=== PATIENT | female | born 1955 | race Caucasian/White ===

== ENCOUNTER 2020-06-01 10:40 | Outpatient (REF) | payer BC, SELFPAY ==
[2020-06-01 12:03] LABS: Free T4 (Free Thyroxine) 1.48 ng/dL (0.71-1.85); Thyroid Stimulating Hormone 3.43 mIU/mL (0.32-4.0)
== END 2020-06-01 10:41 | disposition home or self-care (01) ==
LOC: HO.LAB 10:40
PROVIDERS: PCP Physician Assistant; Visit Provider Internal Medicine Endocrinology, Diabetes & Metabolism
DX: E03.8 Other specified hypothyroidism (principal)
CPT/HCPCS: 84439; 84443

== ENCOUNTER → 2020-06-03 08:22 | Outpatient (BNVA) | payer BC, SELFPAY | PROVIDERS: PCP Physician Assistant; Visit Provider Internal Medicine Endocrinology, Diabetes & Metabolism | DX: Z76.89 Persons encountering health services in other specified circumstances (principal) ==

== ENCOUNTER 2020-11-30 10:48 | Outpatient (REF) | payer BC, SELFPAY ==
[2020-11-30 11:55] LABS: Thyroid Stimulating Hormone 5.66 uIU/mL (0.32-4.0)
== END 2020-11-30 10:49 | disposition home or self-care (01) ==
LOC: HO.LAB 10:48
PROVIDERS: PCP Physician Assistant; Visit Provider Internal Medicine Endocrinology, Diabetes & Metabolism
DX: E03.8 Other specified hypothyroidism (principal); E06.3 Autoimmune thyroiditis
CPT/HCPCS: 36415; 84439; 84443

== ENCOUNTER 2021-03-10 09:13 | Outpatient (REF) | payer BC, SELFPAY ==
--- NOTE | ~2021-03-10 | XR_ITS ---
EXAMINATION: XR KNEE AP STANDING CLINICAL INFORMATION: M17.0 - Bilateral primary osteoarthritis of knee COMPARISON: None TECHNIQUE: Standing AP view of both knees is performed along with lateral views of each knee. FINDINGS: Right knee shows no fracture, dislocation, or destructive process. There is mild narrowing medial knee joint compartment with osteophytes from the medial and lateral femoral condyles and medial tibial plateau. There is no erosive change or chondrocalcinosis. Small suprapatellar effusion is present. Hoffa's fat pad appears normal. Left knee shows no fracture, dislocation, or destructive process. There is similar mild narrowing medial knee joint compartment with osteophytes from the medial and lateral femoral condyles and medial lateral tibial plateau. No erosive change or chondrocalcinosis. There is small suprapatellar effusion. Hoffa's fat pad appears normal. XR/XR knee standing BI IMPRESSION: Bilateral osteoarthritis knees with mild narrowing bilateral medial compartments, small suprapatellar effusions, and marginal osteophytes.
[2021-03-10 10:37] LABS: Hematocrit 42.8 % (37-47); Hemoglobin 13.4 g/dl (12.0-16.0); Mean Corpuscular HGB Conc 31.3 g/dl (31.0-35.0); Mean Corpuscular Hemoglobin 28.8 pg (27.0-33.0); Mean Corpuscular Volume 91.8 fL (80-98); Mean Platelet Volume 10.5 fL (9.4-12.3); Platelet Count 200 X10*3/uL (160-400); Red Blood Count 4.66 X10*6/uL (4.20-5.50); White Blood Count 5.2 X10*3/uL (4.8-10.8)
[2021-03-10 11:10] LABS: Creatinine Urine 131.13 mg/dL; Microalbum/Creatinine Ratio Ur 19.8 ug/mg cr
[2021-03-10 11:17] LABS: Alanine Aminotransferase 12 U/L (0-31); Albumin Level 3.9 g/dL (3.5-5.0); Alkaline Phosphatase 91 U/L (39-117); Anion Gap 13 (12-20); Aspartate Amino Transferase 13 U/L (5-31); Bilirubin Total 0.5 mg/dL (0.0-1.0); Blood Urea Nitrogen 16 mg/dL (9-16); Carbon Dioxide 26 mmol/L (22-29); Chloride 106 mmol/L (96-108); Cholesterol 206 mg/dL; Estimated Glomerular Filt Rate 58; Glucose Fasting 97 mg/dL (60-99); HDL Cholesterol 61 mg/dL; LDL Cholesterol Calculated 120 mg/dl; Potassium 4.5 mmol/L (3.3-5.1); Sodium 140 mmol/L (135-145); Total Protein 6.6 g/dL (6.5-8.0); Triglycerides 125 mg/dL
[2021-03-10 11:18] LABS: TSH reflex Free T4 2.07 uIU/mL (0.32-4.0)
== END 2021-03-10 09:14 | disposition home or self-care (01) ==
LOC: HO.LAB 09:13
PROVIDERS: PCP Physician Assistant; Visit Provider Physician Assistant
DX: M17.0 Bilateral primary osteoarthritis of knee (principal); E06.3 Autoimmune thyroiditis; E03.8 Other specified hypothyroidism; I10 Essential (primary) hypertension
CPT/HCPCS: 36415; 73565; 80053; 80061; 82043; 84443; 85027

== ENCOUNTER → 2021-03-12 09:14 | Outpatient (BNVA) | payer BC, SELFPAY | PROVIDERS: PCP Physician Assistant; Visit Provider Orthopaedic Surgery ==

== ENCOUNTER → 2021-03-17 10:17 | Outpatient (BNVA) | payer BC, SELFPAY | PROVIDERS: PCP Physician Assistant; Referring Provider Physician Assistant; Visit Provider Internal Medicine | DX: I48.0 Paroxysmal atrial fibrillation (principal); I48.92 Unspecified atrial flutter; G47.33 Obstructive sleep apnea (adult) (pediatric); Z51.81 Encounter for therapeutic drug level monitoring; Z79.899 Other long term (current) drug therapy | CPT/HCPCS: 93005 ==

== ENCOUNTER 2021-04-10 16:26 | Outpatient (REF) | payer BC, SELFPAY ==
--- NOTE | ~2021-04-10 | MM_ITS ---
EXAMINATION: MM SCREENING DIGITAL BREAST TOMOSYNTHESIS, BILATERAL CLINICAL INFORMATION: Screening. Asymptomatic. The lifetime risk of breast cancer based on the Tyrer-Cuzick Model is 4.2%. COMPARISON: Mammography: April 04, 2020 and studies dating back to November 26, 2016 TECHNIQUE: Digital breast tomosynthesis is performed in both the craniocaudal and mediolateral oblique views along with computer-aided detection (CAD). Synthesized 2D images are generated from the tomosynthesis. FINDINGS: The breasts are almost entirely fatty (ACR BI-RADS breast composition Category a). There are no significant masses, abnormal calcifications, or other abnormalities. MM/MM tomosynthesis screening BI IMPRESSION: There are no significant changes from prior study. ASSESSMENT: BI-RADS 1: Negative RECOMMENDATION: Routine annual mammography screening. This patient's information was entered into a reminder system with a target due date for their next mammogram.
== END 2021-04-10 16:27 | disposition home or self-care (01) ==
LOC: HO.MAMMO 16:26
PROVIDERS: Visit Provider Physician Assistant
DX: Z12.31 Encounter for screening mammogram for malignant neoplasm of breast (principal)
CPT/HCPCS: 77063; 77067

== ENCOUNTER 2021-05-12 13:53 | Outpatient (REF) | payer BC, SELFPAY | END 2021-05-12 13:54 | disposition home or self-care (01) | LOC: HO.LNP 13:53 | PROVIDERS: Visit Provider Physician Assistant Medical | DX: N39.0 Urinary tract infection, site not specified (principal) | CPT/HCPCS: 87086; 87088; 87186 ==

== ENCOUNTER → 2021-05-28 13:29 | Outpatient (BNVA) | payer BC, SELFPAY | PROVIDERS: PCP Physician Assistant; Visit Provider Internal Medicine ==

== ENCOUNTER 2021-06-04 13:59 | Outpatient (REF) | payer BC, SELFPAY ==
--- NOTE | ~2021-06-04 | US_ITS ---
EXAMINATION: US THYROID CLINICAL INFORMATION: Other specified hypothyroidism. COMPARISON: None TECHNIQUE: Linear transducer grayscale and color Doppler examination with attention to the region of the thyroid. FINDINGS: SIZE: Measurements of the thyroid lobes and nodules are given in sagittal, anteroposterior and transverse dimensions respectively. Right Thyroid Lobe: 4.1 x 1.5 x 1.4 cm, volume 4.5 mL. Parenchyma: The gland echotexture is heterogeneous. Thyroid vascularity is normal. Left Thyroid Lobe: 4.1 x 1.3 x 1.3 cm, volume 3.6 mL. Parenchyma: The gland echotexture is heterogeneous. Thyroid vascularity is normal. Isthmus: 0.5 cm in maximum AP dimension. No focal thyroid nodule is seen. However, the thyroid gland is diffusely heterogeneous. NODES: No lymphadenopathy is seen in the tissue surrounding the thyroid gland. US/US thyroid IMPRESSION: Diffuse heterogeneous thyroid gland without any focal nodule. ACR TI-RADS RECOMMENDATION REFERENCE: Ultrasound-guided fine-needle aspiration, followup ultrasound, no further follow up. * TR1 (0 point) and TR 2 (2 points): No FNA or follow up * TR3 (3 points): FNA if more than or equal to 2.5 cm in maximum dimension, followup ultrasound in 1, 3 and 5 years if 1.5 to 2.4 cm in maximum dimension. * TR4 (4-6 points): FNA if more than or equal to 1.5 cm in maximum dimension, followup ultrasound in 1, 2, 3 and 5 years if 1 to 1.4 cm in maximum dimension. * TR5 (more than or equal to 7 points): FNA if more than or equal to 1 cm in maximum dimension, followup ultrasound every year for 5 years if 0.5 to 0.9 cm in maximum dimension. * TR3, TR4 or TR5 nodules that are below the size threshold for follow up receive no follow up.
== END 2021-06-04 14:00 | disposition home or self-care (01) ==
LOC: HO.HMGCX 13:59
PROVIDERS: PCP Physician Assistant; Visit Provider Internal Medicine
DX: E03.8 Other specified hypothyroidism (principal); E06.3 Autoimmune thyroiditis
CPT/HCPCS: 76536

== ENCOUNTER → 2021-06-20 11:52 | Outpatient (BNVA) | payer BC, SELFPAY | PROVIDERS: PCP Internal Medicine; Visit Provider Orthopaedic Surgery | DX: M17.0 Bilateral primary osteoarthritis of knee (principal) | CPT/HCPCS: 20610; J1100 ==

== ENCOUNTER 2021-07-14 11:03 | Outpatient (REF) | payer BC, SELFPAY ==
[2021-07-14 12:37] LABS: Free T4 (Free Thyroxine) 1.18 ng/dL (0.71-1.85); Thyroid Stimulating Hormone 3.54 uIU/mL (0.32-4.0)
[2021-07-15 11:07] LABS: Thyroglobulin Antibodies >1000 IU/mL (< or = 1); Thyroid Peroxidase Antibodies 126 IU/mL (<9)
== END 2021-07-14 11:04 | disposition home or self-care (01) ==
LOC: HO.LAB 11:03
PROVIDERS: PCP Physician Assistant; Visit Provider Internal Medicine
DX: E03.8 Other specified hypothyroidism (principal); E06.3 Autoimmune thyroiditis
CPT/HCPCS: 36415; 84439; 84443; 86376; 86800

== ENCOUNTER → 2021-08-13 10:17 | Outpatient (BNVA) | payer BC, SELFPAY | PROVIDERS: PCP Physician Assistant; Visit Provider Internal Medicine ==

== ENCOUNTER 2021-08-18 12:14 | Emergency (ER) | payer BC, SELFPAY ==
--- NOTE | ~2021-08-18 | XR_ITS ---
EXAMINATION: PORTABLE CHEST 1 VIEW CLINICAL INFORMATION: pain . COMPARISON: 08/02/2018. TECHNIQUE: Portable frontal view of the chest was obtained. FINDINGS: The lungs are well expanded. No focal infiltrate, effusion, edema, or pneumothorax. Cardiac and mediastinal silhouettes are within normal limits for size with mild tortuosity to the descending aorta. No acute bony abnormality seen. XR/XR chest 1V IMPRESSION: No evidence of acute disease compared to 08/02/2018.
[2021-08-18 12:48] VITALS: BP 153/62; PULSE 60; RESP 18; TEMP 36.4; O2SAT 97; BMI 41.7
--- NOTE | 2021-08-18 12:53 | ECG_ITS ---
Test Reason : WEAKNESS Blood Pressure : / mmHG Vent. Rate : 060 BPM Atrial Rate : 060 BPM P-R Int : 206 ms QRS Dur : 096 ms QT Int : 432 ms P-R-T Axes : 056 019 023 degrees QTc Int : 432 ms Normal sinus rhythm Normal ECG When compared with ECG of 01-AUG-2018 23:53, No significant change was found Referred By: Generic ED Physician Electronically Signed By:COREY TAY MD
[2021-08-18 13:39] LABS: MANUAL DIFF FLAG NO
[2021-08-18 13:40] LABS: Basophils Percent Auto 0.5 % (0-2); Eosinophils Absolute Auto 0.1 X10*3/uL (0.0-0.4); Eosinophils Percent Auto 1.7 % (0-4); Hematocrit 41.9 % (37.0-47.0); Hemoglobin 13.2 g/dl (12.0-16.0); Imm Gran Abs Auto 0.02 X10*3/uL (0.00-0.03); Imm Gran Pct Auto 0.3 % (0.0-0.4); Lymphocytes Absolute Auto 1.1 X10*3/uL (1.2-4.9); Lymphocytes Percent Auto 17.9 % (20-40); Mean Corpuscular HGB Conc 31.5 g/dl (31.0-35.0); Mean Corpuscular Hemoglobin 28.4 pg (27.0-33.0); Mean Corpuscular Volume 90.3 fL (80.0-98.0); Mean Platelet Volume 9.4 fL (9.4-12.3); Monocytes Absolute Auto 0.4 X10*3/uL (0.1-1.2); Monocytes Percent Auto 5.8 % (2-11); Neutrophils Absolute Auto 4.7 x10*3/uL (2.0-8.3); Neutrophils Percent Auto 73.8 % (45-73); Platelet Count 204 X10*3/uL (160-400); Red Blood Count 4.64 X10*6/uL (4.20-5.50); White Blood Count 6.4 X10*3/uL (4.8-10.8)
[2021-08-18 13:56] LABS: Anion Gap 10 (12-20); Blood Urea Nitrogen 19 mg/dL (9-16); Calcium 9.6 mg/dL (8.4-10.2); Carbon Dioxide 30 mmol/L (22-29); Chloride 104 mmol/L (96-108); Creatinine Clr Calc Pharmacy 60.3; Estimated Glomerular Filt Rate 57; Glucose Random 103 mg/dL (60-115); Potassium 4.7 mmol/L (3.3-5.1); Sodium 139 mmol/L (135-145)
[2021-08-18 14:01] LABS: COVID-19 Test Negative (Negative)
[2021-08-18 14:03] LABS: Troponin-I High Sensitivity < 3.5 ng/L (<3.5-17.0)
--- NOTE | 2021-08-18 17:59 | ED_ITS ---
HPI - Chest Pain General Chief Complaint: Chest Pain Stated Complaint: heart problems sent by Urgent Care Time Seen by Provider: 08/18/21 17:46 Source: patient Mode of arrival: ambulatory Limitations: no limitations History of Present Illness HPI narrative: Patient is a 66-year-old female with past medical history s ignificant for atrial fibrillation currently prescribed flecainide, metoprolol, apixaban, paroxysmal atrial flutter, obstructive sleep apnea, hypertension, hypothyroidism, asthma, GERD. Patient reports onset of symptoms about 2 weeks ago Where she experiences diffuse anterior chest heaviness as sociated with bilateral upper extremity weakness, fatigue, headache, near syncope, nausea. 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 Denies associated palpitations, reports according to her Apple watch no concern for atrial fibrillation during times of these episodes. Denies chest pain, shortness of breath, difficulty breathing wheezing, dyspnea with exertion, pedal edema. She was concerned because her symptoms seem to be getting worse with each episode that occurs. She contacted her primary care provider who referred her to urgent care and was advised to come to the emergency department, she has an appointment scheduled with her optometry teacher Dr. Garcia tomorrow. complaint: chest heaviness Pertinent past history: asthma and other (Atrial fibrillation) Onset (ago): week(s) Timing of current episode: episodic and daily Onset: during exertion Pain radiation: none Quality: heaviness Relieving factors: nothing Exacerbating factors: nothing Associated symptoms: nausea Treatment prior to arrival: none Risk Factors Coronary artery disease risk factors: hypertension Thoracic aortic dissection risk factors: none Related Data Home Medications Medication Instructions Recorded Confirmed cholecalciferol (vitamin D3) 125 125 mcg PO DAILY 06/03/20 08/13/21 mcg (5,000 unit) capsule montelukast 10 mg tablet 10 mg PO DAILY 06/03/20 08/13/21 budesonide-formoterol HFA 80 INHALATION 05/12/21 08/13/21 mcg-4.5 mcg/actuation aerosol inhaler magnesium oxide 500 mg capsule 500 mg PO DAILY 05/12/21 08/13/21 Previous Rx's Medication Instructions Recorded pravastatin 20 mg tablet 20 mg PO DAILY #90 tab 03/03/21 levothyroxine 137 mcg tablet 137 mcg PO DAILY 90 Days #90 tab 03/06/21 apixaban 5 mg tablet 5 mg PO BID 90 Days #180 tab 03/17/21 flecainide 150 mg tablet 150 mg PO Q12H #180 tab 03/17/21 metoprolol tartrate 100 mg tablet 100 mg PO BID #180 tab 03/17/21 cephalexin 500 mg capsule 500 mg PO BID 7 Days #14 cap 05/12/21 Allergies Allergy/AdvReac Type Severity Reaction Status Date / Time lisinopril [LISINOPRIL] Allergy Unknown COUGH/AFIB, Verified 08/18/21 11:28 Cough nizatidine [From AXID] Allergy Unknown ANAPHYLAXIS Verified 08/18/21 11:28 Sulfa (Sulfonamide Allergy Unknown UNKNOWN Verified 08/18/21 11:28 Antibiotics) [SULFA (SULFONAMIDE ANTIBIOTICS)] Review of Systems Review of Systems: Constitutional : No Weight loss, No Fever, No Chills ENT/Mouth :? No sore throat, No Rhinorrhea Eyes: No Eye Pain, No Swelling Cardiovascular : pos Chest heaviness, no SOB, no Dyspnea on Exertion, No Orthop blossom, No Edema, No Palpitations Respiratory : No Cough, No Sputum Gastrointestinal : pos Nausea, No Vomiting, No Diarrhea, No abdominal Pain, No Hematochezia, No Melena Genitourinary : No Dysuria, No Urinary Frequency Musculoskeletal : No joint pain, No Myalgias, No Joint Swelling Skin : No Skin Lesions, No rash Neuro : pos intermittent Weakness, No Numbness, No Dizziness, pos intermittent Headache Psych : No Anxiety/Panic, No Depression Heme/Lymph: No Bruising, No Lymphadenopathy Endocrine : No Polyuria, No Polydipsia ? All other systems reviewed and are negative [facility] Past Medical History Attestation statement: The following information was validated with the patient. 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 Mother CHF (congestive heart failure) Dementia Social History Social History Housing: Condominium Alcohol intake: never Patient Tobacco Use Status: Never used Tobacco e-Cigarette/Vaping Use: Never Used Second Hand Smoke Exposure: No Use of substances other than those prescribed or required for medical reasons: No Advance Directives: No Advance Directives Information Provided: No service: No Current occupational status: previously employed Current occupation: Currently waiting for work in June. Physical Exam Vital Signs: Vital Signs: Last Vital Signs Temp 97.6 F 08/18/21 12:48 Pulse 58 08/18/21 20:51 Resp 16 08/18/21 20:51 BP 192/82 H 08/18/21 20:51 Pulse Ox 97 08/18/21 20:51 BMI result Body Mass Index 41.7 Appearance: Alert.? Oriented X3.? No acute distress.?? Eyes: Pupils equal, round and reactive to light.?? ENT: Pharynx normal.?? Neck: Normal inspection.? Neck supple.?? CVS: Normal heart rate and rhythm.? Pulses normal.?? Respiratory: No respiratory distress.? Breath sounds normal.?? Abdomen: Soft and nontender.?? Skin: Skin warm and dry.? Normal skin color.? Normal skin turgor.?? Extremities: No lower extremity edema.? No calf ttp? Neuro: Oriented X 3.? No motor deficit.? No sensory deficit. Course Course Course Narrative: Serum labs without concern for infection, electrolyte abnormality, abnormal renal function. Serial Troponins not concerning for acute ischemia or infarction. Chest x-ray excludes pneumonia or mass. EKG, NSR, no arrhythmia, ischemia, or infarct. 1915 patient reports having episode of chest heaviness currently, mild headache. Notably hypertensive 201/96. Reports anxiety about her blood pressure reading. Reports she took morning dosage of metoprolol, will give evening dosage now while in ED, EKG to be obtained for comparison. 1948 repeat EKG without acute changes, NSR persists, no acute ischemia or infarction. Planning for discharge home with cardiology follow-up in the morning as scheduled, once blood pressure under better control. 2100 blood pressure 186/79, denies current chest heaviness, headache, arm weakness. MDM - Chest Pain MDM Narrative Medical decision making narrative: 66-year-old female with past medical history significant for atrial fibrillation currently prescribed flecainide, metoprolol, apixaban, paroxysmal atrial flutter, obstructive sleep apnea, hypertension, hypothyroidism, asthma, GERD. Complaining of intermittent episodes of chest heaviness, bilateral arm weakness, and associated headache, nausea, near-syncope for 2 weeks. Will need serum labs, EKG< chest x-ray. Disposition pending results. Differential Diagnosis Differential diagnosis: Likely stable angina, atypical chest pain and chest pain Medical Records Data Attestation: I reviewed the patient's medical records. Lab Data Attestation: I reviewed the patient's lab results. Result diagrams: 08/18/21 13:32 08/18/21 13:32 Labs: Lab Results 08/18/21 08/18/21 08/18/21 Range/Units 13:30 13:32 13:32 WBC 6.4 (4.8-10.8) X10*3/uL RBC 4.64 (4.20-5.50) X10*6/uL Hgb 13.2 (12.0-16.0) g/dl Hct 41.9 (37.0-47.0) % MCV 90.3 (80.0-98.0) fL MCH 28.4 (27.0-33.0) pg MCHC 31.5 (31.0-35.0) g/dl RDW 13.0 (11.0-16.0) % Plt Count 204 (160-400) X10*3/uL MPV 9.4 (9.4-12.3) fL Immature Gran % (Auto) 0.3 (0.0-0.4) % Neut % (Auto) 73.8 H (45-73) % Lymph % (Auto) 17.9 L (20-40) % [place] % (Auto) 5.8 (2-11) % Eos % (Auto) 1.7 (0-4) % Baso % (Auto) 0.5 (0-2) % Lymph # (Auto) 1.1 L (1.2-4.9) X10*3/uL [place] # (Auto) 0.4 (0.1-1.2) X10*3/uL Eos # (Auto) 0.1 (0.0-0.4) X10*3/uL Baso # (Auto) 0.0 (0.0-0.2) X10*3/uL Abs Immat Gran (auto) 0.02 (0.00-0.03) X10*3/uL Absolute Neuts (auto) 4.7 (2.0-8.3) x10*3/uL Absolute Nucleated RBC 0.000 (0.0-0.012) X10*3/uL Nucleated RBC % (auto) 0.0 (0.0-0.2) /100WBC Sodium 139 (135-145) mmol/L Potassium 4.7 (3.3-5.1) mmol/L Chloride 104 (96-108) mmol/L Carbon Dioxide 30 H (22-29) mmol/L Anion Gap 10 L (12-20) BUN 19 H (9-16) mg/dL Creatinine 0.97 (0.5-1.4) mg/dL Estim Creat Clear Calc 60.3 Estimated GFR 57 Random Glucose 103 (60-115) mg/dL Calcium 9.6 D (8.4-10.2) mg/dL Troponin I High Sens (<3.5-17.0) ng/L COVID-19 ([facility]AZ) Negative (Negative) COVID-19 Clin Com See Note 08/18/21 08/18/21 Range/Units 13:32 18:44 WBC (4.8-10.8) X10*3/uL RBC (4.20-5.50) X10*6/uL Hgb (12.0-16.0) g/dl Hct (37.0-47.0) % MCV (80.0-98.0) fL MCH (27.0-33.0) pg MCHC (31.0-35.0) g/dl RDW (11.0-16.0) % Plt Count (160-400) X10*3/uL MPV (9.4-12.3) fL Immature Gran % (Auto) (0.0-0.4) % Neut % (Auto) (45-73) % Lymph % (Auto) (20-40) % [place] % (Auto) (2-11) % Eos % (Auto) (0-4) % Baso % (Auto) (0-2) % Lymph # (Auto) (1.2-4.9) X10*3/uL [place] # (Auto) (0.1-1.2) X10*3/uL Eos # (Auto) (0.0-0.4) X10*3/uL Baso # (Auto) (0.0-0.2) X10*3/uL Abs Immat Gran (auto) (0.00-0.03) X10*3/uL Absolute Neuts (auto) (2.0-8.3) x10*3/uL Absolute Nucleated RBC (0.0-0.012) X10*3/uL Nucleated RBC % (auto) (0.0-0.2) /100WBC Sodium (135-145) mmol/L Potassium (3.3-5.1) mmol/L Chloride (96-108) mmol/L Carbon Dioxide (22-29) mmol/L Anion Gap (12-20) BUN (9-16) mg/dL Creatinine (0.5-1.4) mg/dL Estim Creat Clear Calc Estimated GFR Random Glucose (60-115) mg/dL Calcium (8.4-10.2) mg/dL Troponin I High Sens < 3.5 < 3.5 (<3.5-17.0) ng/L COVID-19 (YAZ) (Negative) COVID-19 Clin Com Imaging Data Chest x-ray: Attestation: I personally reviewed and interpreted this imaging study as follows: Radiologist's impression: IMPRESSION: No evidence of acute disease compared to 08/02/2018. ECG Data ECG #1: Attestation: I personally reviewed and interpreted this ECG as follows: ECG interpretation date: 08/18/21 ECG interpretation time: 18:14 Interpretation: Rate: 60 Rhythm:?normal sinus rhythm [place]:?normal Normal P waves.? Normal [place].?? Normal QRS complex.?? ST T wave :??normal, no ST elevation qTC: 432 prior studies:?July 2018 The study has been interpreted contemporaneously by me. ECG #2: Attestation: I personally reviewed and interpreted this ECG as follows: ECG interpretation date: 08/18/21 ECG interpretation time: 19:45 Prior ECG tracings: available for review Interpretation: Rate: 65 Rhythm:?normal sinus rhythm [place]:?normal Normal P waves.? Normal [place].?? Normal QRS complex.?? ST T wave :??normal, no ST elevation qTC: 455 prior studies:?July 2018, Aug 2021 The study has been interpreted contemporaneously by me. Discharge Plan Discharge Clinical Impression: Stable angina Patient Disposition: Home, Self-Care Additional Instructions: You were evaluated in the emergency department for the episodes of chest heaviness you have been experiencing. Your EKGs have been normal, and blood work are normal. Do not suspect that your chest heaviness is related to heart attack at this time. your blood pressure was elevated while you are in the emergency department, however after continue your pain medication, metoprolol for blood pressure has been coming down. As we discussed, your blood pressure was elevated, however, it improved after taking your home dosage of metoprolol. as we discussed if your blood pressure continues to remain elevated you may require medication regimen adjustment. You should contact your primary care provider to schedule follow-up, and follow-up in the morning with your optometry teacher Dr. Garcia. Please return to ED for any worsening symptoms or concerns including but not limited to; chest pain, dizziness / lightheadedness, passing you come in shortness of breath, difficulty breathing, pedal edema. Prescriptions: No Action pravastatin 20 mg tablet 20 mg PO DAILY Qty: 90 RF: 1 levothyroxine 137 mcg tablet 137 mcg PO DAILY 90 Days Qty: 90 RF: 1 magnesium oxide 500 mg capsule 500 mg PO DAILY RF: 0 cephalexin 500 mg capsule 500 mg PO BID 7 Days Qty: 14 RF: 0 flecainide 150 mg tablet 150 mg PO Q12H Qty: 180 RF: 3 metoprolol tartrate 100 mg tablet 100 mg PO BID Qty: 180 RF: 3 apixaban 5 mg tablet 5 mg PO BID 90 Days Qty: 180 RF: 3 montelukast 10 mg tablet 10 mg PO DAILY RF: 0 cholecalciferol (vitamin D3) 125 mcg (5,000 unit) capsule 125 mcg PO DAILY RF: 0 budesonide-formoterol 80-4.5 mcg/actuation HFA aerosol inhaler inhalation RF: 0 Referrals: Kwabena Garcia MD [Physician] - 1 day (as scheduled) Interventions: LWBS Worksheet Last Done: 08/18/21 13:48
[2021-08-18 18:45] VITALS: BP 201/96; PULSE 54; RESP 16; O2SAT 98
[2021-08-18 19:09] LABS: Troponin-I High Sensitivity < 3.5 ng/L (<3.5-17.0)
--- NOTE | 2021-08-18 19:19 | ECG_ITS ---
Test Reason : REPEAT Blood Pressure : / mmHG Vent. Rate : 065 BPM Atrial Rate : 065 BPM P-R Int : 202 ms QRS Dur : 090 ms QT Int : 438 ms P-R-T Axes : 069 035 030 degrees QTc Int : 455 ms Normal sinus rhythm Normal ECG When compared with ECG of 18-AUG-2021 13:03, No significant change was found Referred By: Sinai Cage Electronically Signed By:COREY TAY MD
[2021-08-18] MEDS: Metoprolol Tartrate 100 MG TABLET PO (20:11)
[2021-08-18 20:51] VITALS: BP 192/82; PULSE 58; RESP 16; O2SAT 97
[2021-08-18] MEDS: Acetaminophen 325 MG TABLET 650 MG PO (21:13)
--- NOTE | 2021-08-18 21:15 | PC.NURSE ---
pt a&o, no sob or chest pain. Blood pressure has improved after being medicated, pt denies dizziness or lightheadedness.
== END 2021-08-18 21:25 | disposition home or self-care (01) ==
PROVIDERS: Emergency Provider Emergency Medicine; PCP Physician Assistant
DX: I20.8 Other forms of angina pectoris (principal); I10 Essential (primary) hypertension; Z20.822 Contact with and (suspected) exposure to COVID-19; E78.5 Hyperlipidemia, unspecified; I48.0 Paroxysmal atrial fibrillation; J45.909 Unspecified asthma, uncomplicated; Z79.01 Long term (current) use of anticoagulants; Z79.02 Long term (current) use of antithrombotics/antiplatelets; Z79.899 Other long term (current) drug therapy
CPT/HCPCS: 36415; 71045; 80048; 84484; 85025; 87635; 93005; 99283; 99285

== ENCOUNTER → 2021-08-19 10:01 | Outpatient (BNVA) | payer BC, SELFPAY | PROVIDERS: PCP Physician Assistant; Referring Provider Physician Assistant; Visit Provider Internal Medicine ==

== ENCOUNTER 2021-08-29 09:00 | Outpatient (RCR) | payer BC, SELFPAY ==
--- NOTE | 2021-06-25 15:43 | MHC.PT.EP ---
[facility] [place] [facility] [place] [facility] [place] [facility] [address] Kimberley Lott [address] [phone] F: [phone] F: [phone] F: [phone] F: [phone] Physical Therapy Plan of Care Date of Evaluation: Date of Surgery: Diagnosis: Assessment: The patient arrived reporting symptoms of mixed UI. The patient had significant weakness, poor muscle coordination, and poor endurance of her PFM. Pt had no painful palpation. Pt will benefit from education, diet and lifestyle education, behavior training to help with urge incontinence and PFM strengthening to help with muscular endurance. The patient is an excellent candidate for skilled PT. Frequency and Duration: The patient will be seen 2 Short Term Goals: 1. Pt to be able to correctly activate her PFM to allow improved support to bowel and bladder. 2. Pt to be able to demonstrate diaphragmatic breathing to improve pressure exchange and intra abdominal load management. 3. Pt to be educated on bladder irritants in order to decrease UI triggers 4. Pt to complete a voiding log in order to accurately assess her bladder habits 5. Pt to be educated on behavior training to help decrease urge incontinence. Conventions Assistant Goals: 1. Pt to be able to show improved PFM contraction during functional movements such as a bridge or squat to help prevent or limit POP. 2. Pt to reduce # of episodes of DARIA during the day by 50% to help improve quality of life and reduce pad usage. 3. Pt to be independent with her final HEP for PFM in order to help maintain gains made in therapy. Treatment Plan: Modalities to reduce pain, spasms and effusion. Manual therapy to restore motion and function. Therapeutic exercise to improve strength and flexibility. Neuromuscular re-education for posture and balance. Therapeutic activities to return to functional activities of daily living. Electronically signed by: Please sign and return to therapist. Thank you for your referral.
== END 2021-10-17 11:22 | disposition home or self-care (01) ==
LOC: HO.PT 09:00
PROVIDERS: PCP Internal Medicine; Visit Provider Physician Assistant
DX: N39.41 Urge incontinence (principal)
CPT/HCPCS: 97110; 97112; 97162; 97530

== ENCOUNTER → 2021-09-02 14:23 | Outpatient (BNVA) | payer BC, SELFPAY | PROVIDERS: PCP Physician Assistant; Referring Provider Physician Assistant; Visit Provider Internal Medicine ==

== ENCOUNTER → 2021-09-22 09:28 | Outpatient (BNVA) | payer BC, SELFPAY | PROVIDERS: PCP Physician Assistant; Visit Provider Orthopaedic Surgery ==

== ENCOUNTER → 2022-03-18 09:35 | Outpatient (BNVA) | payer MEDICARE, SELFPAY | PROVIDERS: PCP Physician Assistant; Referring Provider Physician Assistant; Visit Provider Internal Medicine | DX: I48.0 Paroxysmal atrial fibrillation (principal); I48.92 Unspecified atrial flutter; I25.10 Atherosclerotic heart disease of native coronary artery without angina pectoris; I10 Essential (primary) hypertension; G47.33 Obstructive sleep apnea (adult) (pediatric); E66.01 Morbid (severe) obesity due to excess calories; Z51.81 Encounter for therapeutic drug level monitoring; Z79.899 Other long term (current) drug therapy; Z68.41 Body mass index [BMI] 40.0-44.9, adult | CPT/HCPCS: 93005; 99212 ==

== ENCOUNTER 2022-04-15 13:26 | Outpatient (REF) | payer MEDICARE, SELFPAY ==
--- NOTE | ~2022-04-15 | MM_ITS ---
EXAMINATION: MM SCREENING DIGITAL BREAST TOMOSYNTHESIS, BILATERAL CLINICAL INFORMATION: Screening. Asymptomatic. The lifetime risk of breast cancer based on the Tyrer-Cuzick Model is 4%. COMPARISON: Mammography: 04/10/2021, 04/04/2020, 11/30/2017 TECHNIQUE: Digital breast tomosynthesis is performed in both the craniocaudal and mediolateral oblique views along with computer-aided detection (CAD). Synthesized 2D images are generated from the tomosynthesis. FINDINGS: The breasts are almost entirely fatty (ACR BI-RADS breast composition Category a). There are no significant masses, abnormal calcifications, or other abnormalities. Background stromal markings are normal. There is no developing density or architectural abnormality. The axilla and skin contours are unremarkable. No significant changes. MM/MM tomosynthesis screening BI IMPRESSION: No mammographic evidence of malignancy. ASSESSMENT: BI-RADS 1: Negative RECOMMENDATION: Routine annual mammography screening. This patient's information was entered into a reminder system with a target due date for their next mammogram.
== END 2022-04-15 13:27 | disposition home or self-care (01) ==
LOC: HO.MAMMO 13:26
PROVIDERS: Visit Provider Physician Assistant
DX: Z12.31 Encounter for screening mammogram for malignant neoplasm of breast (principal)
CPT/HCPCS: 77063; 77067

== ENCOUNTER 2022-05-27 11:47 | Outpatient (REF) | payer MEDICARE, SELFPAY ==
--- NOTE | ~2022-05-27 | XR_ITS ---
EXAMINATION: XR SHOULDER, RIGHT XR SHOULDER, LEFT CLINICAL INFORMATION: M35.3 - Polymyalgia rheumatica COMPARISON: Portable chest radiograph 08/18/2021 TECHNIQUE: Each shoulder is imaged in 3 views. There are a total of 6 views. FINDINGS: Right: No fracture or dislocation or destructive process. The glenohumeral joint appears normal. There is focal mineralization at inferior glenoid rim, likely calcification at origin inferior glenohumeral ligament. The acromioclavicular alignment is normal. There is small oval calcification at lateral acromium, likely origin deltoid. Otherwise, no visible rotator cuff calcifications. Left: No fracture, dislocation, destructive process. The glenohumeral joint appears normal. The acromioclavicular alignment is normal. There is small oval calcification at proximal medial humeral neck likely calcific tendinosis involving long head biceps. XR/XR shoulder RT min 2V IMPRESSION: Right: -Focal mineralization inferior glenoid rim, likely calcification at origin inferior glenohumeral ligament. -Small oval calcification at lateral acromium, likely origin deltoid. Left: -Calcific tendinosis long head biceps.
--- NOTE | ~2022-05-27 | XR_ITS ---
EXAMINATION: XR SHOULDER, RIGHT XR SHOULDER, LEFT CLINICAL INFORMATION: M35.3 - Polymyalgia rheumatica COMPARISON: Portable chest radiograph 08/18/2021 TECHNIQUE: Each shoulder is imaged in 3 views. There are a total of 6 views. FINDINGS: Right: No fracture or dislocation or destructive process. The glenohumeral joint appears normal. There is focal mineralization at inferior glenoid rim, likely calcification at origin inferior glenohumeral ligament. The acromioclavicular alignment is normal. There is small oval calcification at lateral acromium, likely origin deltoid. Otherwise, no visible rotator cuff calcifications. Left: No fracture, dislocation, destructive process. The glenohumeral joint appears normal. The acromioclavicular alignment is normal. There is small oval calcification at proximal medial humeral neck likely calcific tendinosis involving long head biceps. XR/XR shoulder LT min 2V IMPRESSION: Right: -Focal mineralization inferior glenoid rim, likely calcification at origin inferior glenohumeral ligament. -Small oval calcification at lateral acromium, likely origin deltoid. Left: -Calcific tendinosis long head biceps.
--- NOTE | ~2022-05-27 | XR_ITS ---
EXAMINATION: XR CERVICAL SPINE CLINICAL INFORMATION: M35.3 - Polymyalgia rheumatica COMPARISON: None TECHNIQUE: Cervical spine is imaged in 5 views: AP, lateral, odontoid x3. FINDINGS: There is straightening of the cervical lordosis. The vertebral bodies are normal in height. There is no cervical vertebral compression, destructive process, or prevertebral soft tissue swelling. The odontoid appears intact. There are degenerative disc changes C4-C5, C5-C6, and C6-C7 with disc narrowing and vertebral spurring. There is borderline retrolisthesis at C4-C5. No cervical rib. XR/XR cervical spine 3V IMPRESSION: 1. Degenerative disc changes C4-C7. 2. Borderline retrolisthesis C4-C5. 3. No vertebral compression or prevertebral soft tissue swelling.
[2022-05-27 13:13] LABS: Erythrocyte Sedimentation Rate 9 MM/HR (0-20)
[2022-06-02 15:42] LABS: Anti Nuclear Antibody Screen POSITIVE (NEGATIVE)
== END 2022-05-27 11:48 | disposition home or self-care (01) ==
LOC: HO.XRAY 11:47
PROVIDERS: PCP Physician Assistant; Visit Provider Physician Assistant
DX: M35.3 Polymyalgia rheumatica (principal); M54.2 Cervicalgia; M25.512 Pain in left shoulder; M25.511 Pain in right shoulder
CPT/HCPCS: 36415; 72040; 73030; 85652; 86038; 86039

== ENCOUNTER 2022-06-13 09:51 | Outpatient (REF) | payer MEDICARE, SELFPAY ==
[2022-06-13 10:36] LABS: Hematocrit 39.8 % (37.0-47.0); Hemoglobin 12.4 g/dl (12.0-16.0); Mean Corpuscular HGB Conc 31.2 g/dl (31.0-35.0); Mean Corpuscular Hemoglobin 28.6 pg (27.0-33.0); Mean Corpuscular Volume 91.7 fL (80.0-98.0); Mean Platelet Volume 9.4 fL (9.4-12.3); Platelet Count 221 X10*3/uL (160-400); Red Blood Count 4.34 X10*6/uL (4.20-5.50); Red Cell Distribution Width 13.8 % (11.0-16.0); White Blood Count 7.9 X10*3/uL (4.8-10.8)
[2022-06-13 11:12] LABS: Alanine Aminotransferase 17 U/L (0-31); Alkaline Phosphatase 88 U/L (39-117); Anion Gap 13 (12-20); Aspartate Amino Transferase 13 U/L (5-31); Bilirubin Total 0.5 mg/dL (0.0-1.0); Blood Urea Nitrogen 25 mg/dL (9-16); Calcium 9.2 mg/dL (8.4-10.2); Carbon Dioxide 28 mmol/L (22-29); Chloride 102 mmol/L (96-108); Cholesterol 232 mg/dL; Estimated Glomerular Filt Rate > 60; Glucose Fasting 88 mg/dL (60-99); HDL Cholesterol 78 mg/dL; LDL Cholesterol Calculated 131 mg/dl; Potassium 4.3 mmol/L (3.3-5.1); Sodium 139 mmol/L (135-145); Total Protein 6.7 g/dL (6.5-8.0); Triglycerides 115 mg/dL
[2022-06-13 11:28] LABS: Creatinine Urine 85.86 mg/dL; Microalbum/Creatinine Ratio Ur 10.4 ug/mg cr
[2022-06-13 11:35] LABS: TSH reflex Free T4 2.53 uIU/mL (0.32-4.0)
== END 2022-06-13 09:52 | disposition home or self-care (01) ==
LOC: HO.LAB 09:51
PROVIDERS: PCP Physician Assistant; Visit Provider Internal Medicine
DX: I10 Essential (primary) hypertension (principal); I48.0 Paroxysmal atrial fibrillation
CPT/HCPCS: 36415; 80053; 80061; 82043; 84443; 85027

== ENCOUNTER → 2022-06-15 14:33 | Outpatient (BNVA) | payer MEDICARE, SELFPAY | PROVIDERS: PCP Physician Assistant; Visit Provider Internal Medicine | DX: E03.8 Other specified hypothyroidism (principal); E06.3 Autoimmune thyroiditis | CPT/HCPCS: Q3014 ==

== ENCOUNTER → 2022-08-04 10:46 | Outpatient (BNVA) | payer MEDICARE, SELFPAY | PROVIDERS: PCP Physician Assistant; Referring Provider Physician Assistant; Visit Provider Student in an Organized Health Care Education/Training Program | DX: R76.8 Other specified abnormal immunological findings in serum (principal) | CPT/HCPCS: 99202 ==

== ENCOUNTER 2022-08-04 11:55 | Outpatient (REF) | payer MEDICARE, SELFPAY ==
[2022-08-04 13:55] LABS: MANUAL DIFF FLAG NO
[2022-08-04 13:57] LABS: Basophils Absolute Auto 0.1 X10*3/uL (0.0-0.2); Basophils Percent Auto 0.6 % (0-2); Eosinophils Absolute Auto 0.2 X10*3/uL (0.0-0.4); Hematocrit 40.3 % (37.0-47.0); Hemoglobin 12.7 g/dl (12.0-16.0); Imm Gran Abs Auto 0.05 X10*3/uL (0.00-0.03); Imm Gran Pct Auto 0.6 % (0.0-0.4); Lymphocytes Absolute Auto 1.5 X10*3/uL (1.2-4.9); Lymphocytes Percent Auto 17.6 % (20-40); Mean Corpuscular HGB Conc 31.5 g/dl (31.0-35.0); Mean Corpuscular Hemoglobin 28.7 pg (27.0-33.0); Mean Platelet Volume 9.7 fL (9.4-12.3); Monocytes Absolute Auto 0.6 X10*3/uL (0.1-1.2); Monocytes Percent Auto 6.9 % (2-11); Neutrophils Percent Auto 72.3 % (45-73); Platelet Count 253 X10*3/uL (160-400); Red Blood Count 4.43 X10*6/uL (4.20-5.50); Red Cell Distribution Width 13.5 % (11.0-16.0); White Blood Count 8.4 X10*3/uL (4.8-10.8)
[2022-08-04 13:59] LABS: Appearance Urine Clear; Color Urine Yellow; Glucose Urine UA Negative (Negative); Leukocyte Esterase Urine Small (1+) (Negative); Nitrite Urine Negative (Negative); PH 6.5 (5.0-9.0); UMIC TRIGGER UA YES; Urine Blood Negative (Negative); Urine Ketones Negative (Negative); Urine Protein Negative (Neg-Trace)
[2022-08-04 14:02] LABS: Bacteria Urine None Seen (None Seen); Hyaline Casts Urine 0-2 /LPF (0-2); RBC Urine 0-2 /HPF (0-2); Squamous Epithelial Cell Urine 0-2 /HPF (0-2)
[2022-08-04 14:41] LABS: Erythrocyte Sedimentation Rate 11 MM/HR (0-20)
[2022-08-04 15:04] LABS: Creatinine Urine 41.45 mg/dL; Total Protein Urine Random < 7 mg/dL (<12)
[2022-08-04 15:48] LABS: Rheumatoid Factor < 13.0 IU/mL (<15.0)
[2022-08-04 16:51] LABS: Alanine Aminotransferase 31 U/L (0-31); Albumin Level 4.1 g/dL (3.5-5.0); Alkaline Phosphatase 92 U/L (39-117); Anion Gap 10 (12-20); Aspartate Amino Transferase 18 U/L (5-31); Bilirubin Total 0.3 mg/dL (0.0-1.0); Blood Urea Nitrogen 16 mg/dL (9-16); C Reactive Protein 0.56 mg/dL (< or = 0.50); Calcium 9.2 mg/dL (8.4-10.2); Carbon Dioxide 31 mmol/L (22-29); Chloride 103 mmol/L (96-108); Estimated Glomerular Filt Rate > 60; Glucose Random 90 mg/dL (60-115); Potassium 4.3 mmol/L (3.3-5.1); Sodium 140 mmol/L (135-145); Total Protein 6.7 g/dL (6.5-8.0)
[2022-08-05 05:45] LABS: HBS Num1 1.16 mIU/mL (0-7.99); HBc Num1 0.09 S/CO (0.00-0.79); Hepatitis A Antibody IgM 0.22 Index (0-0.79); Hepatitis B Core Antibody Nonreactive (Nonreactive); ~HepC Num1 0.12 S/CO (0.00-0.79); ~Hepatitis A Antibody IgM Nonreactive (Nonreactive); ~Hepatitis B Surface Antibody NONREACTIVE (Nonreactive); ~Hepatitis C Antibody Nonreactive (Nonreactive)
[2022-08-05 06:10] LABS: HBsAGNum1 0.25 S/CO (0.00-0.99); Hepatitis B Surface Antigen Negative (Negative)
[2022-08-06 15:37] LABS: Anti DNA DS Antibody 6 IU/mL; Antibody to SS-A Antigen <1.0 NEG AI (<1.0 NEG); Antibody to SS-B Antigen <1.0 NEG AI (<1.0 NEG); SM/Ribonucleoprotein Ab <1.0 NEG AI (<1.0 NEG); Smith Protein <1.0 NEG AI (<1.0 NEG)
[2022-08-06 16:23] LABS: Cyclic Citrullinated Peptide <16 UNITS
[2022-08-06 22:57] LABS: Complement C3 138 mg/dL (83-193)
[2022-08-07 00:04] LABS: TS Negative Control Passed; TS Panel A 0; TS Panel B 0; TS Positive Control Passed; TSpotTB Negative (Negative)
== END 2022-08-04 11:56 | disposition home or self-care (01) ==
LOC: HO.10HDL 11:55
PROVIDERS: Visit Provider Student in an Organized Health Care Education/Training Program
DX: R76.8 Other specified abnormal immunological findings in serum (principal); E03.8 Other specified hypothyroidism; E06.3 Autoimmune thyroiditis; Z11.59 Encounter for screening for other viral diseases; Z11.7 Encounter for testing for latent tuberculosis infection
CPT/HCPCS: 36415; 80053; 81001; 82550; 84156; 85025; 85652; 86140; 86160; 86200; 86225; 86235; 86431; 86481; 86704; 86706; 86709; 86803; 87340

== ENCOUNTER → 2022-09-24 09:16 | Outpatient (BNVA) | payer MEDICARE, SELFPAY | PROVIDERS: PCP Physician Assistant; Visit Provider Student in an Organized Health Care Education/Training Program | DX: M35.3 Polymyalgia rheumatica (principal) | CPT/HCPCS: 99212 ==

== ENCOUNTER 2023-01-08 13:09 | Outpatient (REF) | payer MEDICARE, SELFPAY ==
[2023-01-08 13:22] LABS: MANUAL DIFF FLAG NO
[2023-01-08 13:48] LABS: Basophils Percent Auto 0.6 % (0-2); Eosinophils Absolute Auto 0.2 X10*3/uL (0.0-0.4); Eosinophils Percent Auto 3.5 % (0-4); Hematocrit 41.9 % (37.0-47.0); Imm Gran Abs Auto 0.02 X10*3/uL (0.00-0.03); Imm Gran Pct Auto 0.3 % (0.0-0.4); Lymphocytes Absolute Auto 1.6 X10*3/uL (1.2-4.9); Mean Corpuscular Hemoglobin 28.8 pg (27.0-33.0); Mean Corpuscular Volume 92.9 fL (80.0-98.0); Mean Platelet Volume 9.7 fL (9.4-12.3); Monocytes Absolute Auto 0.6 X10*3/uL (0.1-1.2); Monocytes Percent Auto 9.2 % (2-11); Neutrophils Absolute Auto 4.4 x10*3/uL (2.0-8.3); Neutrophils Percent Auto 63.4 % (45-73); Platelet Count 225 X10*3/uL (160-400); Red Blood Count 4.51 X10*6/uL (4.20-5.50); Red Cell Distribution Width 13.2 % (11.0-16.0); White Blood Count 6.9 X10*3/uL (4.8-10.8)
[2023-01-08 14:14] LABS: Alanine Aminotransferase 14 U/L (0-31); Albumin Level 3.9 g/dL (3.5-5.0); Alkaline Phosphatase 81 U/L (39-117); Anion Gap 10 (12-20); Aspartate Amino Transferase 11 U/L (5-31); Bilirubin Total 0.4 mg/dL (0.0-1.0); Blood Urea Nitrogen 25 mg/dL (9-16); C Reactive Protein 2.57 mg/dL (< or = 0.50); Calcium 9.6 mg/dL (8.4-10.2); Carbon Dioxide 28 mmol/L (22-29); Chloride 106 mmol/L (96-108); Estimated Glomerular Filt Rate > 60; Glucose Random 89 mg/dL (60-115); Potassium 4.4 mmol/L (3.3-5.1); Sodium 140 mmol/L (135-145); Total Protein 6.6 g/dL (6.5-8.0)
[2023-01-08 14:30] LABS: Erythrocyte Sedimentation Rate 16 MM/HR (0-20)
== END 2023-01-08 13:10 | disposition home or self-care (01) ==
LOC: HO.LAB 13:09
PROVIDERS: PCP Physician Assistant; Visit Provider Student in an Organized Health Care Education/Training Program
DX: M35.3 Polymyalgia rheumatica (principal)
CPT/HCPCS: 36415; 80053; 85025; 85652; 86140

== ENCOUNTER → 2023-01-20 12:33 | Outpatient (BNVA) | payer MEDICARE, SELFPAY | PROVIDERS: PCP Physician Assistant; Referring Provider Physician Assistant; Visit Provider Internal Medicine | DX: I48.0 Paroxysmal atrial fibrillation (principal); I48.92 Unspecified atrial flutter; I10 Essential (primary) hypertension; I25.10 Atherosclerotic heart disease of native coronary artery without angina pectoris; G47.33 Obstructive sleep apnea (adult) (pediatric); E66.01 Morbid (severe) obesity due to excess calories; Z79.01 Long term (current) use of anticoagulants; Z79.899 Other long term (current) drug therapy; Z99.89 Dependence on other enabling machines and devices | CPT/HCPCS: 99212 ==

== ENCOUNTER 2023-03-09 10:54 | Outpatient (AMB) | payer MEDICARE, SELFPAY ==
[2023-03-09 10:59] VITALS: BP 128/78; PULSE 59; TEMP 36.1; O2SAT 96; BMI 48.9
--- NOTE | 2023-03-09 10:59 | A.OFFVIS_ITS ---
Intake Vital Signs 03/09/23 10:59 Height 5 ft 1 in Weight 258 lb 9.636 oz BMI 48.9 BP 128/78 Blood Pressure Location Rt radial Position Sitting Pulse 59 Pulse Source Pulse Oximeter Temp 97.0 F Temp Source Skin Pulse Oximetry (%) 96 Intake Visit Reasons: PMR Intake Note: Pt seen today for PMR follow up. She states she would like to get off prednisone because she feels it is masking what is going on. 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: No Accompanied by: Self / Same As Patient Allergies lisinopril [LISINOPRIL] Allergy (Unknown, Verified 03/09/23 11:03) COUGH/AFIB, Cough nizatidine [From AXID] Allergy (Unknown, Verified 03/09/23 11:03) ANAPHYLAXIS Sulfa (Sulfonamide Antibiotics) [SULFA (SULFONAMIDE ANTIBIOTICS)] Allergy (Unknown, Verified 03/09/23 11:03) UNKNOWN Medication List - Last Reconciled 03/09/23 by Josué Herman MD amlodipine 5 mg PO DAILY apixaban 5 mg PO BID 90 days budesonide-formoterol 80-4.5 mcg/actuation 1 puff inhalation BID 30 days cholecalciferol (vitamin D3) 125 mcg PO DAILY flecainide 150 mg PO Q12H inhalational spacing device (Aerochamber MV spacer) As directed levothyroxine 137 mcg PO DAILY 90 days magnesium oxide 500 mg PO DAILY metoprolol tartrate 100 mg PO BID montelukast 10 mg PO DAILY pravastatin 20 mg PO DAILY prednisone Take 4 tabs by mouth once daily with breakfast for 1 month then reduce by 1 tab every month until off sertraline (Zoloft) 25 mg (1/2 x 50 mg) PO DAILY 90 days HPI HPI Comments History of Present Illness Details This is a 67-year-old female with PMR who returns for follow-up. Patient was tapering prednisone as per schedule. Until she was on 3 mg daily when she started having left upper back pain. She called the office and she was asked to increase prednisone to 5 mg daily. She states that, the pain resolved in 1 day. She is currently on 5 mg daily. She would like to get off prednisone as she states that she gained 30 lb since she started it. She denies any other joint pain or swelling. Initial history: This is a 67-year-old female with a past medical history of asthma, AFib on Eliquis, dyslipidemia, hypothyroidism, morbid obesity who presents for evaluation of joint pain. The condition started in March of 2022 when she was lifted something with her right arm, this was followed by right shoulder pain and stiffness than a few days later it moved to her left shoulder. Patient would have bilateral shoulder pain and stiffness, worse in the morning and improves throughout the day. She also has lower back pain going into both hips, worse with walking. She denies any pain or swelling of her fingers or wrists. She was evaluated by her PCP and was started on prednisone 5 mg daily which she has been taking since May of 2022 with at least 70-80% relief. She denies any fevers or weight loss. She actually gained 10 lb. 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 Cognitive needs: No Hearing needs: No Vision needs: Yes (wear glasses) Review of Systems Const Reports weight gain Physical Exam Vital Signs: Last Vital Signs Temp 97.0 F 03/09/23 10:59 Pulse 59 03/09/23 10:59 BP 128/78 03/09/23 10:59 Pulse Ox 96 03/09/23 10:59 BMI result Body Mass Index 48.9 Const General: cooperative, healthy appearing, comfortable, no acute distress and well developed Nutritional Appearance: obese morbidly obese Orientation/consciousness: patient oriented x3 Limitations: no limitations HEENT Head: Yes normocephalic and Yes atraumatic Mouth: moist mucous membranes Resp Effort & Inspection: normal respiratory effort and able to speak in complete sentences Auscultation: clear to auscultation bilaterally Skin General skin exam: no rashes or lesions noted Neuro General: patient oriented x3 Extrem Other: No synovitis of both hands. Normal nailfold capillaroscopy No shoulder swelling or tenderness bilaterally Normal range of motion of both shoulders No synovitis otherwise Assessment & Plan Assessment & Plan (1) PMR (polymyalgia rheumatica): Comment: Onset 05/2022 Code(s): M35.3 - Polymyalgia rheumatica Plan: This is a 67-year-old female presents for evaluation of bilateral shoulder pain and stiffness onset 06/06? Symptoms improved with 5 mg of prednisone.? And recurred with stopping prednisone. Prednisone give her at least 60% relief. Prednisone was tapered relatively quickly for PMR. Patient had normal inflam matory markers at onset. Labs showed positive SHARONDA with indeterminate dsDNA level. At this point patient might be having PMR versus elderly seronegative onset RA vs UCTD. She has negative RF and anti CCP. Recent labs showing high inflammatory markers. 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 Panel 3 Months M35.3 - Polymyalgia rheumatica C Reactive Protein 3 Months M35.3 - Polymyalgia rheumatica Erythrocyte Sedimentation Rate 3 Months M35.3 - Polymyalgia rheumatica Complete Blood Count Auto Diff Today M35.3 - Polymyalgia rheumatica Comprehensive Met. Panel Today M35.3 - Polymyalgia rheumatica C Reactive Protein Today M35.3 - Polymyalgia rheumatica Erythrocyte Sedimentation Rate Today M35.3 - Polymyalgia rheumatica XR DEXA axial skeleton Today Z79.52 - long-term (current) use of systemic steroids Medications: New prednisone Take 4 tabs by mouth once daily with breakfast for 1 month then reduce by 1 tab every month until off 300 tabs 0RF Discontinued prednisone Discontinued Reason: Doctor's Order 5 mg PO DAILY 90 tabs 0RF Coding Level of Care Code Est Pt Level 4 (30754) Diagnoses PMR (polymyalgia rheumatica) M35.3 long-term systemic steroid user Z79.52
== END 2023-03-09 11:31 | disposition home or self-care (01) ==
PROVIDERS: PCP Physician Assistant; Visit Provider Student in an Organized Health Care Education/Training Program
DX: M35.3 Polymyalgia rheumatica (principal); Z79.52 Long term (current) use of systemic steroids
CPT/HCPCS: 99214

== ENCOUNTER → 2023-03-09 10:54 | Outpatient (BNVA) | payer MEDICARE, SELFPAY | PROVIDERS: Visit Provider Student in an Organized Health Care Education/Training Program | DX: M35.3 Polymyalgia rheumatica (principal); R63.5 Abnormal weight gain; Z79.52 Long term (current) use of systemic steroids | CPT/HCPCS: 99212 ==

== ENCOUNTER 2023-03-26 08:06 | Outpatient (REF) | payer MEDICARE, SELFPAY ==
--- NOTE | ~2023-03-26 | MM_ITS ---
EXAMINATION: BONE DENSITOMETRY CLINICAL INDICATION: Long-term (current) use of systemic steroids. COMPARISON: This is the patient's baseline examination. TECHNIQUE: Using a [employer] DXA System (software version: 13.1) manufactured by [employer], dual-energy x-ray absorptiometry was performed of the lumbar spine and left hip. The images are of good technical quality. Summary results are attached. FINDINGS: LEFT FEMUR, NECK: BMD 0.862 g/cm2, Z-score -0.3, T-score -1.3, osteopenia. LEFT FEMUR, TOTAL: BMD 0.967 g/cm2, Z-score 0.3, T-score -0.3, normal. AP SPINE L1-L4 (excluding L2 and L3): The data of L1-L4 has been changed to exclude the L2 and L3 vertebral bodies, because significant degenerative change at these levels may cause overestimation of lumbar spine density. BMD 0.947 g/cm2, Z-score -1.3, T-score -1.8, osteopenia. IDENTIFIED RISK FACTORS: Menopause, glucocorticoids (chronic). HISTORY OF FRACTURE: None listed. MEDICATIONS: Vitamin D. MM/XR DEXA axial skeleton IMPRESSION: 1. DIAGNOSIS: Osteopenia based on the lowest T-score value of -1.8 in the lumbar spine applying World Health Organization criteria. 2. 10-YEAR FRACTURE RISK PREDICTION, FRAX: Major osteoporotic fracture (clinical spine, forearm, hip or shoulder) 11.9%. Hip fracture 1.5%. 3. Treatment Recommendations: NOF guidelines recommend consideration for treatment in postmenopausal women and men age 50 and older presenting with the following: -A hip or vertebral (clinical or morphometric) fracture. -T-score less than or equal to -2.5 at the femoral neck or spine after appropriate evaluation to exclude secondary causes. -Low bone mass at the hip or spine and a 10-year fracture probability by FRAX of greater than or equal to 3% for hip fracture or greater than or equal to 20% for major osteoporotic fracture based on the [place] adapted WHO algorithm. 4. Other Recommendations: All treatment decisions require clinical judgment and consideration of individual patient factors, including patient preferences, comorbidities, previous drug use, risk factors not captured in the FRAX model (e.g. frailty, falls, vitamin D deficiency, increased bone turnover, interval significant decline in bone density) and possible under or overestimation of fracture risk by FRAX. Additional medical evaluation for secondary cause of low bone mineral density may be appropriate. FUTURE SCAN RECOMMENDATION: People with diagnosed cases of osteoporosis or at high risk for fracture should have regular bone mineral density tests. For patients eligible for Medicare, routine testing is allowed once every 2 years. The testing frequency can be increased to one year for patients who have rapidly progressing disease, those who are receiving or discontinuing medical therapy to restore bone mass, or have additional risk factors.
== END 2023-03-26 08:07 | disposition home or self-care (01) ==
LOC: HO.MAMMO 08:06
PROVIDERS: PCP Physician Assistant; Visit Provider Student in an Organized Health Care Education/Training Program
DX: Z13.820 Encounter for screening for osteoporosis (principal); Z79.52 Long term (current) use of systemic steroids; Z78.0 Asymptomatic menopausal state
CPT/HCPCS: 77080

== ENCOUNTER → 2023-03-26 08:15 | Outpatient (BNV) | payer MEDICARE, SELFPAY | PROVIDERS: PCP Physician Assistant; Visit Provider Radiology Diagnostic Radiology | DX: Z79.52 Long term (current) use of systemic steroids (principal) | CPT/HCPCS: 77080 ==

== ENCOUNTER 2023-04-21 11:06 | Outpatient (AMB) | payer MEDICARE, SELFPAY ==
--- NOTE | 2023-04-21 11:15 | A.OFFPC_ITS ---
Vital Signs 04/21/23 11:17 Height 5 ft 0.63 in Weight 262 lb 2 oz BMI 50.1 BP 108/78 Blood Pressure Location Lt brachial Position Sitting Respiration 16 Pulse 60 Pulse Source Pulse Oximeter Pulse Oximetry (%) 95 Oxygen Delivery Method Room Air Intake Visit Reasons: PE Intake Note: Patient is here today for a physical. Incoming Freight Clerk Required: No Accompanied by: Self / Same As Patient Allergies lisinopril [LISINOPRIL] Allergy (Unknown, Verified 04/21/23 11:30) COUGH/AFIB, Cough nizatidine [From AXID] Allergy (Unknown, Verified 04/21/23 11:30) ANAPHYLAXIS Sulfa (Sulfonamide Antibiotics) [SULFA (SULFONAMIDE ANTIBIOTICS)] Allergy (Unknown, Verified 04/21/23 11:30) UNKNOWN Medication List - Last Reconciled 04/21/23 by Adalid Huerta PA-C amlodipine 5 mg PO DAILY apixaban 5 mg PO BID 90 days budesonide-formoterol 80-4.5 mcg/actuation 1 puff inhalation BID 30 days cholecalciferol (vitamin D3) 125 mcg PO DAILY flecainide 150 mg PO Q12H inhalational spacing device (Aerochamber MV spacer) As directed levothyroxine 137 mcg PO DAILY 90 days magnesium oxide 500 mg PO DAILY metoprolol tartrate 100 mg PO BID montelukast 10 mg PO DAILY pravastatin 20 mg PO DAILY prednisone Take 4 tabs by mouth once daily with breakfast for 1 month then reduce by 1 tab every month until off sertraline (Zoloft) 25 mg (1/2 x 50 mg) PO DAILY 90 days Tobacco use date assessed: 11/18/21 Fall risk assessment: No Falls in past year Last assessed Fall Risk: 04/21/23 Dental Screening Dental Screen Date: 04/21/23 Did you have a dental visit in the last 12 months?: Yes Did you have a dental problem in the last 6 months where you did not have access to dental care?: No Was dental information given to patient?: Patient has dentist HPI PE HPI Details Patient is a 67-year-old female here today for routine annual physical. Patient has a past medical history significant for AFib, generalized anxiety disorder, hypertension, obesity, PMR, asthma. Polymyalgia rheumatica: Now followed by Rheumatology and continues on low-dose prednisone as extend the surgery. She reports when she gets down to 3 mg prednisone her symptoms recur. .. AFib: Patient continues to follow cardiology, she is anticoagulated with apixaban without any overt signs of bleeding. .. Colon cancer screening: Up-to-date with colonoscopy followed by [facility]- need mammo - will order Vaccine : UTD with all except Laboratory Tests 05/27/22 06/13/22 08/04/22 11:57 10:17 12:00 RBC Creatinine C-Reactive Protein 0.56 H Cholesterol 232 SHARONDA Titer 1:160 H 01/08/23 01/08/23 13:20 13:20 RBC 4.51 Creatinine 0.90 C-Reactive Protein 2.57 H Cholesterol SHARONDA Titer PFSH Medical History (Updated 04/22/23 @ 13:56 by Adalid Huerta PA-C) LETI (obstructive sleep apnea) Paroxysmal atrial flutter PAF (paroxysmal atrial fibrillation) Asthma Dyslipidemia GERD (gastroesophageal reflux disease) Hypertension Morbid obesity Hypothyroidism due to Aj's thyroiditis History of cardioversion Surgical History History of dental surgery H/O hemorrhoidectomy History of cardiac radiofrequency ablation Hx of arthroscopy of left knee Family History (Updated 04/21/23 @ 11:39 by Adalid Huerta PA-C) Father No problems noted. 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 1. Little interest or pleasure in doing things: not at all 2. Feeling down, depressed, or hopeless: not at all 3. Trouble falling or staying asleep, or sleeping too much: not at all 4. Feeling tired or having little energy: not at all 5. Poor appetite or overeating: not at all 6. Feeling bad about yourself - or that you are a failure or have let yourself or your family down: not at all 7. Trouble concentrating on things, such as reading the newspaper or watching television: not at all 8. Moving or speaking so slowly that other people could have noticed. Or the opposite - being so fidgety or restless that you have been moving around a lot more than usual: not at all 9. Thoughts that you would be better off or of hurting yourself in some way: not at all Total score: 0 Depression Screening Interpretation: Negative 02034 - PHQ-9 Billing: Yes Source: Developed by Drs. Marcos Goodwin, Cynthia Desai, Aguilar Martinez and colleagues, with an educational jamari from [employer]. Thrive Questionnaire Date Thrive assessed: 04/21/23 I am a: Patient What is your living situation today?: I have a steady place to live Within the past 12 months, did the food you bought not last and you didn't have the money to get more?: Never true Within the past 12 months, did you worry whether your food would run out before you got money to buy more?: Never true Do you have trouble paying for medicines?: No Do you have trouble getting transportation to medical appointments?: No Do you have trouble paying your heating and electricity bill?: No Do you have trouble taking care of your child, family member or friend?: No Do you have trouble with day-to-day activities such as bathing, preparing meals, shopping, managing finances, etc.?: No Are you currently unemployed and looking for a job?: No Are you interested in more education?: No Please select the resources that you would like help with: None Currently or been in a relationship where the following occur: no concerns reported AUDIT C Alcohol Use Questionnaire (AUDIT-C) 1. How often do you have a drink containing alcohol?: Never 3. How often do you have six or more drinks on one occasion?: Never Total Score: 0 DIANNA-7 AMB Questionnaire DIANNA-7 Date DIANNA - 7 assessed: 04/21/23 Feeling nervous, anxious, or on edge: 0 = Not at all Not being able to stop or control worryin = Not at all Worrying too much about different things: 0 = Not at all Trouble relaxin = Not at all Being so restless that it is hard to sit still: 0 = Not at all Becoming easily annoyed or irritable: 0 = Not at all Feeling afraid as if something awful might happen: 0 = Not at all Total DIANNA-7 score (0-4 normal; 5-9 mild; 10-14 moderate; 15-21 severe): 0 Source: Developed by Drs. Marcos Goodwin, Cynthia Desai, Aguilar Martinez and colleagues, with an educational jamari from [employer]. DIANNA-7 Assessment Billing DIANNA-7 Assessment Tool: pt declined-do not bill ACT Questionnaire In the past 4 weeks, how much of the time did your asthma keep you from getting as much done at work, school or at home?: None of the time During the past 4 weeks, how often have you had shortness of breath?: Not at all During the past 4 weeks, how often did your asthma symptoms wake you up at night or earlier than usual in the morning?: Not at all During the past 4 weeks, how often have you had to use your rescue inhaler or nebulizer medication?: Once a week or less How would you rate your asthma control during the past 4 weeks?: Well controlled ACT Interpretation: Negative Score: 23 Review of Systems Const Denies body aches, Denies chills, Denies excessive sweating, Denies fatigue, Denies fever(s) and Denies headache(s) Eyes Denies blurry vision ENT Denies dysphagia, Denies vertigo, Denies dizziness, Denies headache(s), Denies hearing loss and Denies tinnitus Card Denies chest pain, Denies chest pain with activity, Denies syncope, Denies irregular heart rhythm and Denies dyspnea Resp Denies chest congestion, Denies cough, Denies hemoptysis, Denies dyspnea and Denies wheezing GI Denies abdominal pain, Denies melena, Denies hematochezia, Denies coffee ground emesis, Denies dysphagia, Denies diarrhea, Denies nausea and Denies vomiting Denies urinary frequency, Denies dysuria, Denies urinary hesitancy and Denies urinary urgency Musc Denies arthralgias, Denies limited range of motion, Denies muscle cramps and Denies muscle weakness Skin/Breast Denies rash and Denies skin ulcer Neuro Denies Abnormal speech present, Denies confusion, Denies vertigo, Denies dizziness, Denies syncope, Denies headache(s), Denies memory loss and Denies seizure-like activity Psych Denies anxiety, Denies confusion, Denies depression, Denies memory loss, Denies panic attacks and Denies paranoia Endo Denies excessive sweating, Denies fatigue, Denies flushing, Denies polydipsia and Denies polyuria Aller/Immun Denies wheezing Physical exam (Primary Care) Vital Signs: Last Vital Signs Pulse 60 04/21/23 11:17 Resp 16 04/21/23 11:17 BP 108/78 04/21/23 11:17 Pulse Ox 95 04/21/23 11:17 Oxygen Delivery Method Room Air 04/21/23 11:17 BMI result Body Mass Index 50.1 Tobacco/Smoking Status: Tobacco use Status Tobacco use date assessed 11/18/21 04/21/23 11:17 Patient Tobacco Use Status Never used Tobacco 04/21/23 11:40 e-Cigarette/Vaping Use Never Used 04/21/23 11:40 PHQ-9: PHQ-9 Score PHQ-9: Total score 0 04/21/23 11:35 Depression Screening Interpretation: Negative Thrive Assessment: Date of Thrive Assessment Date Thrive assessed 04/21/23 04/21/23 11:25 Currently or been in a relationship where the following occur: no concerns reported Const General: cooperative, comfortable, no acute distress, alert and awake; No confusion Orientation/consciousness: oriented to person, oriented to place, patient orie nted x3 and No confusion HENMT Head: Yes normocephalic Ears: external ears normal and TM's normal bilaterally Face and sinus: No sinus tenderness Mouth: Normal oral and palatal mucosa present and tongue normal Teeth and gingiva: dentition normal and gingiva normal Throat: Yes posterior oropharynx normal, Yes tonsils normal and Yes uvula midline Eyes Conjunctivae: conjunctivae normal Sclerae: sclerae normal Pupils: Equal, round and reactive pupils present EOM: EOMs intact bilaterally Direct Ophthalmoscopy: No no photophobia Neck Neck: Yes no lymphadenopathy, No tender and Yes no JVD Thyroid: Thyroid normal Carotids: no bruits Chest Chest palpation & inspection: no tenderness Resp Effort & Inspection: normal respiratory effort, no audible wheezes, not labored and no stridor Auscultation: no crackles, no rales, no rhonchi and no wheezes Cardio Jugular venous distension: no JVD Rate: regular rate, not bradycardic and not tachycardic Rhythm: regular rhythm Bruits: no carotid bruits Peripheral pulses: Peripheral pulses 2+ throughout GI Inspection: Yes normal to inspection, No abdominal wall ecchymosis and No visible herniation Palpation (GI): Soft to palpation, nontender, no guarding, not rigid and No hepatosplenomegaly present Auscultation: normoactive bowel sounds General: Yes no CVA tenderness Back/Spine/Pelvis Back: no CVA tenderness and No back tenderness Cervical Spine: cervical ROM normal Thoracic/Lumbar Spine: thoracic and lumbar spine normal to inspection, straight leg raise negative bilaterally, No thoraco-lumbar ROM limited and No lumbar spinal tenderness Skin Lesions: no lesions Rashes: no rashes Wounds: no wounds Neuro General: oriented to person, oriented to place, patient oriented x3, CN's II-XI intact bilaterally and No confusion Cranial nerves: Yes Equal, round and reactive pupils present and Yes Normal accommodation reflex present Cognition (Neuro): normal cognition Speech: No Abnormal speech present Gait exam (Neuro): Normal gait present Motor exam (neuro): 5/5 motor strength present throughout Extrem Right upper extremity: full ROM; no cyanosis Left upper extremity: full ROM; no cyanosis Right lower extremity: no edema Left lower extremity: no edema Psych Appearance: grossly normal Mental Status: mental status grossly normal Affect: normal affect Attitude: cooperative Thought process: Normal thought process present Assessment and Plan Assessment & Plan (1) Annual physical exam: Code(s): Z00.00 - Encounter for general adult medical examination without abnormal findings (2) PMR (polymyalgia rheumatica): Comment: Onset 05/2022 Code(s): M35.3 - Polymyalgia rheumatica Plan: As per HPI. Continues on low-dose prednisone. (3) DIANNA (generalized anxiety disorder): Code(s): F41.1 - Generalized anxiety disorder Plan: Patient reports her anxiety has been fairly well controlled though due to her recent medical problems are anxiety has been somewhat elevated. Continues on Zoloft 25 mg with decent relief. (4) PAF (paroxysmal atrial fibrillation): Code(s): I48.0 - Paroxysmal atrial fibrillation Plan: Continues to follow cardiology. Continues on flecainide and Eliquis. She denies any overt signs of bleeding. (5) Dyslipidemia: Code(s): E78.5 - Hyperlipidemia, unspecified Plan: Use with the use proper statin 20 mg. Most recent lipid panel showing appropriate LDL and total cholesterol. (6) Breast cancer screening: Code(s): Z12.39 - Encounter for other screening for malignant neoplasm of breast Qualifiers: Breast cancer screening modality: mammogram Qualified Code(s): Z12.31 - Encounter for screening mammogram for malignant neoplasm of breast Plan: Needs mammogram (7) Asthma: Code(s): J45.909 - Unspecified asthma, uncomplicated Qualifiers: Asthma severity: mild Asthma persistence: intermittent Asthma complication type: uncomplicated Qualified Code(s): J45.20 - Mild intermittent asthma, uncomplicated Plan: Patient followed by a email marketer in [facility]. Continues on maintenance inhaler which has been effective on reducing her asthma exacerbations. (8) Morbid obesity: Code(s): E66.01 - Morbid (severe) obesity due to excess calories Plan: Patient does understand her BMI is over 50 and will try to work on being more physically active and adapting to better eating habits to reduce her weight. Also on prednisone which has caused her to gain some weight and looks forward to weaning off of this medication. Orders: Orders Comprehensive [place]. 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 steroids MM screening mammo BI 04/21/23 Z12.31 - Encounter for screening mammogram for malignant neoplasm of breast, Z12.39 - Encounter for other screening for malignant neoplasm of breast Lipid Panel 04/21/23 E78.5 - Hyperlipidemia, unspecified Complete Blood Count no Diff 04/21/23 J45.20 - Mild intermittent asthma, uncomplicated Medications: Refilled sertraline (Zoloft) 25 mg (1/2 x 50 mg) PO DAILY 90 days 45 tabs 1RF F41.1 - Generalized anxiety disorder Coding Level of Care Code Est Pt Prev Care >65y(61459) Diagnoses Annual physical exam Z00.00 PMR (polymyalgia rheumatica) M35.3 DIANNA (generalized anxiety disorder) F41.1 PAF (paroxysmal atrial fibrillation) I48.0 Dyslipidemia E78.5 Encounter for screening mammogram for malignant neoplasm of breast Z12.31 Breast cancer screening modality: mammogram Mild intermittent asthma without complication J45.20 Asthma severity: mild Asthma persistence: intermittent Asthma complication type: uncomplicated Morbid obesity E66.01
[2023-04-21 11:17] VITALS: BP 108/78; PULSE 60; RESP 16; O2SAT 95; BMI 50.1
== END 2023-04-21 12:08 | disposition home or self-care (01) ==
PROVIDERS: Visit Provider Physician Assistant
DX: M35.3 Polymyalgia rheumatica (principal); I48.0 Paroxysmal atrial fibrillation; E66.01 Morbid (severe) obesity due to excess calories; Z68.43 Body mass index [BMI] 50.0-59.9, adult; J45.20 Mild intermittent asthma, uncomplicated; F41.1 Generalized anxiety disorder; E78.5 Hyperlipidemia, unspecified
CPT/HCPCS: 99214

== ENCOUNTER 2023-04-27 07:57 | Outpatient (REF) | payer MEDICARE, SELFPAY ==
[2023-04-27 08:19] LABS: Hematocrit 43.5 % (37.0-47.0); Hemoglobin 13.7 g/dl (12.0-16.0); Mean Corpuscular HGB Conc 31.5 g/dl (31.0-35.0); Mean Platelet Volume 9.8 fL (9.4-12.3); Platelet Count 243 X10*3/uL (160-400); Red Blood Count 4.73 X10*6/uL (4.20-5.50); Red Cell Distribution Width 13.2 % (11.0-16.0); White Blood Count 8.9 X10*3/uL (4.8-10.8)
[2023-04-27 08:40] LABS: Estimated Average Glucose 108 mg/dL; Hemoglobin A1c % 5.4 % (<6.0)
[2023-04-27 09:08] LABS: Alanine Aminotransferase 17 U/L (0-31); Alkaline Phosphatase 78 U/L (39-117); Anion Gap 10 (12-20); Aspartate Amino Transferase 15 U/L (5-31); Bilirubin Total 0.5 mg/dL (0.0-1.0); Blood Urea Nitrogen 21 mg/dL (9-16); Calcium 9.6 mg/dL (8.4-10.2); Carbon Dioxide 29 mmol/L (22-29); Chloride 105 mmol/L (96-108); Cholesterol 206 mg/dL (<200); Estimated Glomerular Filt Rate > 60; Glucose Fasting 89 mg/dL (60-99); HDL Cholesterol 66 mg/dL (>40); LDL Cholesterol Calculated 120 mg/dL (<100); Potassium 4.4 mmol/L (3.3-5.1); Sodium 140 mmol/L (135-145); Total Protein 7.1 g/dL (6.5-8.0); Triglycerides 101 mg/dL (<150)
[2023-04-27 10:18] LABS: Appearance Urine Clear; Color Urine Yellow; Glucose Urine UA Negative (Negative); Leukocyte Esterase Urine Moderate (2+) (Negative); Nitrite Urine Negative (Negative); PH 6.5 (5.0-9.0); Specific Gravity - Urine 1.015 (1.005-1.025); UMIC TRIGGER UACC YES; Urine Blood Small (1+) (Negative); Urine Ketones Negative (Negative); Urine Protein Negative (Neg-Trace)
[2023-04-27 10:23] LABS: Bacteria Urine Trace (None Seen); Hyaline Casts Urine 0-2 /LPF (0-2); UACC Culture Trigger YES; WBC Urine >50 /HPF (0-5)
== END 2023-04-27 07:58 | disposition home or self-care (01) ==
LOC: HO.LAB 07:57
PROVIDERS: PCP Physician Assistant; Visit Provider Physician Assistant
DX: E78.5 Hyperlipidemia, unspecified (principal); J45.20 Mild intermittent asthma, uncomplicated; Z79.52 Long term (current) use of systemic steroids; R30.0 Dysuria; R73.01 Impaired fasting glucose
CPT/HCPCS: 36415; 80053; 80061; 81001; 81003; 83036; 85027; 87086; 87088; 87186

== ENCOUNTER 2023-05-06 08:12 | Outpatient (REF) | payer MEDICARE, SELFPAY | END 2023-05-06 08:13 | disposition home or self-care (01) | LOC: HO.MAMMO 08:12 | PROVIDERS: Visit Provider Physician Assistant | DX: Z12.31 Encounter for screening mammogram for malignant neoplasm of breast (principal) | CPT/HCPCS: 77063; 77067 ==

== ENCOUNTER → 2023-05-06 08:15 | Outpatient (BNV) | payer MEDICARE, SELFPAY | PROVIDERS: Visit Provider Radiology Diagnostic Radiology | DX: Z12.31 Encounter for screening mammogram for malignant neoplasm of breast (principal) | CPT/HCPCS: 77063; 77067 ==

== ENCOUNTER 2023-06-01 12:54 | Outpatient (REF) | payer MEDICARE, SELFPAY ==
[2023-06-01 13:09] LABS: MANUAL DIFF FLAG NO
[2023-06-01 13:56] LABS: Basophils Absolute Auto 0.1 X10*3/uL (0.0-0.2); Basophils Percent Auto 0.7 % (0-2); Eosinophils Absolute Auto 0.2 X10*3/uL (0.0-0.4); Hematocrit 43.2 % (37.0-47.0); Hemoglobin 13.5 g/dl (12.0-16.0); Imm Gran Abs Auto 0.03 X10*3/uL (0.00-0.03); Imm Gran Pct Auto 0.4 % (0.0-0.4); Lymphocytes Absolute Auto 1.2 X10*3/uL (1.2-4.9); Lymphocytes Percent Auto 14.1 % (20-40); Mean Corpuscular HGB Conc 31.3 g/dl (31.0-35.0); Mean Corpuscular Hemoglobin 28.3 pg (27.0-33.0); Mean Corpuscular Volume 90.6 fL (80.0-98.0); Mean Platelet Volume 9.9 fL (9.4-12.3); Monocytes Absolute Auto 0.7 X10*3/uL (0.1-1.2); Neutrophils Percent Auto 73.8 % (45-73); Platelet Count 252 X10*3/uL (160-400); Red Blood Count 4.77 X10*6/uL (4.20-5.50); White Blood Count 8.1 X10*3/uL (4.8-10.8)
[2023-06-01 14:46] LABS: Appearance Urine Clear; Color Urine Yellow; Glucose Urine UA Negative (Negative); Leukocyte Esterase Urine Moderate (2+) (Negative); Nitrite Urine Negative (Negative); PH 6.5 (5.0-9.0); Specific Gravity - Urine 1.015 (1.005-1.025); UMIC TRIGGER UACC YES; Urine Blood Negative (Negative); Urine Ketones Negative (Negative); Urine Protein Negative (Neg-Trace)
[2023-06-01 14:49] LABS: Bacteria Urine Trace (None Seen); Hyaline Casts Urine 0-2 /LPF (0-2); RBC Urine 0-2 /HPF (0-2); Squamous Epithelial Cell Urine 0-2 /HPF (0-2); UACC Culture Trigger YES; WBC Urine 21-50 /HPF (0-5)
[2023-06-01 14:53] LABS: Erythrocyte Sedimentation Rate 19 MM/HR (0-20)
[2023-06-01 15:07] LABS: Alanine Aminotransferase 18 U/L (0-31); Albumin Level 3.9 g/dL (3.5-5.0); Alkaline Phosphatase 83 U/L (39-117); Anion Gap 14 (12-20); Aspartate Amino Transferase 16 U/L (5-31); Bilirubin Total 0.3 mg/dL (0.0-1.0); Blood Urea Nitrogen 22 mg/dL (9-16); C Reactive Protein 1.09 mg/dL (< or = 0.50); Calcium 9.5 mg/dL (8.4-10.2); Carbon Dioxide 26 mmol/L (22-29); Chloride 103 mmol/L (96-108); Estimated Glomerular Filt Rate > 60; Glucose Random 98 mg/dL (60-115); Potassium 4.2 mmol/L (3.3-5.1); Sodium 139 mmol/L (135-145); Total Protein 7.1 g/dL (6.5-8.0)
== END 2023-06-01 12:55 | disposition home or self-care (01) ==
LOC: HO.LAB 12:54
PROVIDERS: Nurse Practitioner Family; PCP Physician Assistant; Visit Provider Student in an Organized Health Care Education/Training Program
DX: M35.3 Polymyalgia rheumatica (principal); N39.0 Urinary tract infection, site not specified
CPT/HCPCS: 36415; 80053; 81001; 85025; 85652; 86140; 87086; 87088; 87186

== ENCOUNTER 2023-06-02 09:41 | Outpatient (AMB) | payer MEDICARE, SELFPAY ==
[2023-06-02 09:44] VITALS: BP 136/74; PULSE 67; TEMP 36.4; O2SAT 98; BMI 48.1
--- NOTE | 2023-06-02 09:44 | A.OFFVIS_ITS ---
Intake Vital Signs 06/02/23 09:44 Height 5 ft 1.38 in Weight 257 lb 15.053 oz BMI 48.1 BP 136/74 Blood Pressure Location Rt brachial Position Sitting Pulse 67 Pulse Source Pulse Oximeter Temp 97.6 F Pulse Oximetry (%) 98 Intake Visit Reasons: PMR Intake Note: Patient presents today to follow up on PMR. Prednisone 2mg daily. 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 Required: No Accompanied by: Self / Same As Patient Allergies lisinopril [LISINOPRIL] Allergy (Unknown, Verified 06/02/23 09:47) COUGH/AFIB, Cough nizatidine [From AXID] Allergy (Unknown, Verified 06/02/23 09:47) ANAPHYLAXIS Sulfa (Sulfonamide Antibiotics) [SULFA (SULFONAMIDE ANTIBIOTICS)] Allergy (Unknown, Verified 06/02/23 09:47) UNKNOWN Medication List - Last Reconciled 06/02/23 by Josué Herman MD amlodipine 5 mg PO DAILY apixaban 5 mg PO BID 90 days budesonide-formoterol 80-4.5 mcg/actuation 1 puff inhalation BID 30 days cholecalciferol (vitamin D3) 125 mcg PO DAILY flecainide 150 mg PO Q12H inhalational spacing device (Aerochamber MV spacer) As directed levothyroxine 137 mcg PO DAILY 90 days magnesium oxide 500 mg PO DAILY metoprolol tartrate 100 mg PO BID montelukast 10 mg PO DAILY nitrofurantoin monohyd/m-cryst 100 mg (Macrobid) 100 mg PO Q12H 5 days pravastatin 20 mg PO DAILY prednisone take 2 tabs daily for 1 month then 1 tab daily for 1 month then stop sertraline (Zoloft) 25 mg (1/2 x 50 mg) PO DAILY 90 days HPI HPI Comments History of Present Illness Details This is a 68-year-old female with PMR who returns for follow-up. Alexandra ent is tapering prednisone as per schedule. Reducing by 1 mg per month. She is currently on 2 mg a day. States that as soon as she reduces the prednisone she feels some worsening joint pain and stiffness for few days then it resolved. It is she states that she is getting neck pain that radiates up her upper back bilaterally as well as lower back pain worse with walking and improved with rest. She also has pain in her left arm muscles. Worse with activity. Initial history: This is a 67-year-old female with a past medical history of asthma, AFib on Eliquis, dyslipidemia, hypothyroidism, morbid obesity who presents for evaluation of joint pain. The condition started in March of 2022 when she was lifted something with her right arm, this was followed by right shoulder pain and stiffness than a few days later it moved to her left shoulder. Patient would have bilateral shoulder pain and stiffness, worse in the morning and improves throughout the day. She also has lower back pain going into both hips, worse with walking. She denies any pain or swelling of her fingers or wrists. She was evaluated by her PCP and was started on prednisone 5 mg daily which she has been taking since May of 2022 with at least 70-80% relief. She denies any fevers or weight loss. She actually gained 10 lb. [facility] Medical History LETI (obstructive sleep apnea) Paroxysmal atrial flutter PAF (paroxysmal atrial fibrillation) Asthma Dyslipidemia GERD (gastroesophageal reflux disease) Hypertension Morbid obesity Hypothyroidism due to Aj's thyroiditis History of cardioversion Surgical History History of dental surgery H/O hemorrhoidectomy History of cardiac radiofrequency ablation Hx of arthroscopy of left knee Family History Father No problems noted. 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[employer] Cognitive needs: No Hearing needs: No Vision needs: Yes (wear glasses) Review of Systems Const Reports weight gain ENT Reports neck pain Musc Reports back pain, Reports arthralgias and Reports neck pain Physical Exam Vital Signs: Last Vital Signs Temp 97.6 F 06/02/23 09:44 Pulse 67 06/02/23 09:44 BP 136/74 06/02/23 09:44 Pulse Ox 98 06/02/23 09:44 BMI result Body Mass Index 48.1 Const General: cooperative, healthy appearing, comfortable, no acute distress and well developed Nutritional Appearance: obese morbidly obese Orientation/consciousness: patient oriented x3 Limitations: no limitations HEENT Head: Yes normocephalic and Yes atraumatic Mouth: moist mucous membranes Resp Effort & Inspection: normal respiratory effort and able to speak in complete sentences Auscultation: clear to auscultation bilaterally Skin General skin exam: no rashes or lesions noted Neuro General: patient oriented x3 Extrem Other: No synovitis of both hands. Normal nailfold capillaroscopy No shoulder swelling or tenderness bilaterally Normal range of motion of both shoulders Equivocal empty can test and speed's test on the left Negative straight leg raise test bilaterally No synovitis otherwise Assessment & Plan Assessment & Plan (1) PMR (polymyalgia rheumatica): Comment: Onset 05/2022 Code(s): M35.3 - Polymyalgia rheumatica Plan: This is a 67-year-old female presents for evaluation of bilateral shoulder pain and stiffness onset 06/06? Symptoms improved with 5 mg of prednisone.? And recurred with stopping prednisone. Prednisone was tapered relatively quickly for PMR. Patient had normal inflammatory markers at onset. Labs showed positive SHARONDA with indeterminate dsDNA level. At this point patient might be having PMR versus elderly seronegative onset RA vs UCTD. She has negative RF and anti CCP. Prednisone has been reduced by 1 mg per month without worsening of symptoms, inflammatory markers trending down Will reduce prednisone by half a mg per month. Advised patient to start taking 2 mg daily alternating with 1 mg daily starting June then 1 mg daily in Jul followed by 1 mg every other day in August. Then stop Labs before next visit in 3 months (2) [facility] systemic steroid user: Code(s): Z79.52 - [facility] (current) use of systemic steroids Plan: DEXA scan shows osteopenia with a low FRAX score. No need for antiresorptive therapy. (3) Lumbar degenerative disc disease: Code(s): M51.36 - Other intervertebral disc degeneration, lumbar region (4) Degenerative cervical disc: Code(s): M50.30 - Other cervical disc degeneration, unspecified cervical region Plan: The majority of patient's complaints today are likely due to degenerative arthritis of her cervical and lumbar spine. Referred patient to PT Plan I spent 27 minutes reviewing patient's chart, evaluating patient, ordering diagnostic workup, counseling patient and documenting in the chart Orders: Orders Complete Blood Count Auto Diff 3 Months M35.3 - Polymyalgia rheumatica Erythrocyte Sedimentation Rate 3 Months M35.3 - Polymyalgia rheumatica PT Evaluation and Treatment Today M50.30 - Other cervical disc degeneration, unspecified cervical region, M51.36 - Other intervertebral disc degeneration, lumbar region Comprehensive Met. 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
== END 2023-06-02 10:10 | disposition home or self-care (01) ==
PROVIDERS: PCP Physician Assistant; Visit Provider Student in an Organized Health Care Education/Training Program
DX: M35.3 Polymyalgia rheumatica (principal); Z79.52 Long term (current) use of systemic steroids; M51.36 Other intervertebral disc degeneration, lumbar region; M50.30 Other cervical disc degeneration, unspecified cervical region
CPT/HCPCS: 99214

== ENCOUNTER → 2023-06-02 09:41 | Outpatient (BNVA) | payer MEDICARE, SELFPAY | PROVIDERS: PCP Physician Assistant; Visit Provider Student in an Organized Health Care Education/Training Program | DX: M35.3 Polymyalgia rheumatica (principal); M51.36 Other intervertebral disc degeneration, lumbar region; M50.30 Other cervical disc degeneration, unspecified cervical region; Z79.52 Long term (current) use of systemic steroids | CPT/HCPCS: 99212 ==

== ENCOUNTER 2023-09-01 12:10 | Outpatient (REF) | payer MEDICARE, SELFPAY ==
[2023-09-01 12:40] LABS: MANUAL DIFF FLAG NO
[2023-09-01 12:59] LABS: Basophils Absolute Auto 0.1 X10*3/uL (0.0-0.2); Eosinophils Absolute Auto 0.2 X10*3/uL (0.0-0.4); Eosinophils Percent Auto 3.4 % (0-4); Hemoglobin 14.3 g/dl (12.0-16.0); Imm Gran Abs Auto 0.02 X10*3/uL (0.00-0.03); Imm Gran Pct Auto 0.3 % (0.0-0.4); Lymphocytes Absolute Auto 1.5 X10*3/uL (1.2-4.9); Mean Corpuscular HGB Conc 31.8 g/dl (31.0-35.0); Mean Corpuscular Hemoglobin 28.7 pg (27.0-33.0); Mean Corpuscular Volume 90.4 fL (80.0-98.0); Mean Platelet Volume 9.7 fL (9.4-12.3); Monocytes Absolute Auto 0.6 X10*3/uL (0.1-1.2); Monocytes Percent Auto 9.4 % (2-11); Neutrophils Absolute Auto 3.5 x10*3/uL (2.0-8.3); Neutrophils Percent Auto 59.9 % (45-73); Platelet Count 245 X10*3/uL (160-400); Red Blood Count 4.98 X10*6/uL (4.20-5.50); Red Cell Distribution Width 13.4 % (11.0-16.0); White Blood Count 5.9 X10*3/uL (4.8-10.8)
[2023-09-01 13:41] LABS: Erythrocyte Sedimentation Rate 12 MM/HR (0-20)
[2023-09-01 14:01] LABS: Alanine Aminotransferase 24 U/L (0-31); Albumin Level 4.1 g/dL (3.5-5.0); Alkaline Phosphatase 79 U/L (39-117); Anion Gap 11 (12-20); Aspartate Amino Transferase 21 U/L (5-31); Bilirubin Total 0.4 mg/dL (0.0-1.0); Blood Urea Nitrogen 20 mg/dL (9-16); C Reactive Protein 0.44 mg/dL (< or = 0.50); Calcium 9.8 mg/dL (8.4-10.2); Carbon Dioxide 30 mmol/L (22-29); Chloride 103 mmol/L (96-108); Estimated Glomerular Filt Rate 42; Glucose Random 102 mg/dL (60-115); Potassium 4.7 mmol/L (3.3-5.1); Sodium 139 mmol/L (135-145); Total Protein 7.7 g/dL (6.5-8.0)
== END 2023-09-01 12:11 | disposition home or self-care (01) ==
LOC: HO.LAB 12:10
PROVIDERS: PCP Physician Assistant; Visit Provider Student in an Organized Health Care Education/Training Program
DX: M35.3 Polymyalgia rheumatica (principal)
CPT/HCPCS: 36415; 80053; 85025; 85652; 86140

== ENCOUNTER 2023-09-02 10:04 | Outpatient (AMB) | payer MEDICARE, SELFPAY ==
--- NOTE | 2023-09-02 10:08 | MHC.OFFVIS ---
Intake Vital Signs 09/02/23 10:19 Height 5 ft 1 in Weight 255 lb 4.725 oz BMI 48.2 BP 104/70 Blood Pressure Location Rt radial Position Sitting Pulse 60 Pulse Source Pulse Oximeter Temp 97 F Temp Source Skin Pulse Oximetry (%) 95 Oxygen Delivery Method Room Air Intake Visit Reasons: PMR Intake Note: Pt last seen 06/02/23 presents today for follow up and test results. Currently on Prednisone 1 mg every other day. Tutorial Laboratory Supervisor Required: No Accompanied by: Self / Same As Patient Allergies lisinopril [LISINOPRIL] Allergy (Unknown, Verified 09/02/23 10:20) COUGH/AFIB, Cough nizatidine [From AXID] Allergy (Unknown, Verified 09/02/23 10:20) ANAPHYLAXIS Sulfa (Sulfonamide Antibiotics) [SULFA (SULFONAMIDE ANTIBIOTICS)] Allergy (Unknown, Verified 09/02/23 10:20) UNKNOWN Medication List - Last Reconciled 09/02/23 by Josué Herman MD amlodipine 5 mg PO DAILY apixaban 5 mg PO BID 90 days budesonide-formoterol 80-4.5 mcg/actuation 1 puff inhalation BID 30 days cholecalciferol (vitamin D3) 125 mcg PO DAILY flecainide 150 mg PO Q12H inhalational spacing device (Aerochamber MV spacer) As directed levothyroxine 137 mcg PO DAILY 90 days magnesium oxide 500 mg PO DAILY metoprolol tartrate 100 mg PO BID montelukast 10 mg PO DAILY pravastatin 20 mg PO DAILY prednisone take 2 tabs daily alternating with 1 tab daily for 1 month then 1 tab daily for 1 month, then 1 tab every other day for 1 month then stop NS sertraline (Zoloft) 25 mg (1/2 x 50 mg) PO DAILY 90 days HPI HPI Comments History of Present Illness Details This is a 68-year-old female with PMR who returns for follow-up. Patient is tapering prednisone as per schedule. Reducing by 0.5 mg per month. She is currently on 1 mg every other day. Plan to taper off by the end of August. She states that she has been doing quite well overall. She has been going to aquatherapy classes 3 to 4 times a week. She was not able to go to physical therapy as it would cost her 45 dollars per session. She has noticed episodes of her left middle finger getting stuck. It happens about once a month. Initial history: This is a 67-year-old female with a past medical history of asthma, AFib on Eliquis, dyslipidemia, hypothyroidism, morbid obesity who presents for evaluation of joint pain. The condition started in March of 2022 when she was lifted something with her right arm, this was followed by right shoulder pain and stiffness than a few days later it moved to her left shoulder. Patient would have bilateral shoulder pain and stiffness, worse in the morning and improves throughout the day. She also has lower back pain going into both hips, worse with walking. She denies any pain or swelling of her fingers or wrists. She was evaluated by her PCP and was started on prednisone 5 mg daily which she has been taking since May of 2022 with at least 70-80% relief. She denies any fevers or weight loss. She actually gained 10 lb. [facility] Medical History LETI (obstructive sleep apnea) Paroxysmal atrial flutter PAF (paroxysmal atrial fibrillation) Asthma Dyslipidemia GERD (gastroesophageal reflux disease) Hypertension Morbid obesity Hypothyroidism due to Aj's thyroiditis History of cardioversion Surgical History History of dental surgery H/O hemorrhoidectomy History of cardiac radiofrequency ablation Hx of arthroscopy of left knee Family History Father No problems noted. 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 Cognitive needs: No Hearing needs: No Vision needs: Yes (wear glasses) Review of Systems Musc Denies arthralgias, Denies joint swelling and Denies limited range of motion Physical Exam Vital Signs: Last Vital Signs Temp 97 F 09/02/23 10:19 Pulse 60 09/02/23 10:19 BP 104/70 09/02/23 10:19 Pulse Ox 95 09/02/23 10:19 Oxygen Delivery Method Room Air 09/02/23 10:19 BMI result Body Mass Index 48.2 Const General: cooperative, healthy appearing, comfortable, no acute distress and well developed Nutritional Appearance: obese morbidly obese Orientation/consciousness: patient oriented x3 Limitations: no limitations HEENT Head: Yes normocephalic and Yes atraumatic Mouth: moist mucous membranes Resp Effort & Inspection: normal respiratory effort and able to speak in complete sentences Auscultation: clear to auscultation bilaterally Skin General skin exam: no rashes or lesions noted Neuro General: patient oriented x3 Extrem Other: No synovitis of both hands. Normal nailfold capillaroscopy No shoulder swelling or tenderness bilaterally Normal range of motion of both shoulders Negative straight leg raise test bilaterally Triggering of left middle finger No synovitis otherwise Assessment & Plan Assessment & Plan (1) PMR (polymyalgia rheumatica): Comment: Onset 05/2022 Code(s): M35.3 - Polymyalgia rheumatica Plan: This is a 67-year-old female presents for evaluation of bilateral shoulder pain and stiffness onset 06/06? Symptoms improved with 5 mg of prednisone.? And recurred with stopping prednisone. Prednisone was tapered relatively quickly for PMR. Patient had normal inflammatory markers at onset. Labs showed positive SHARONDA with indeterminate dsDNA level. At this point patient might be having PMR versus elderly seronegative onset RA vs UCTD. She has negative RF and anti CCP. I have tapered prednisone with normalization of inflammatory markers and no recurrence of symptoms. She is currently on 1 mg every other day. 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 No need for antiresorptive therapy at this time. (3) Lumbar degenerative disc disease: Code(s): M51.36 - Other intervertebral disc degeneration, lumbar region (4) Degenerative cervical disc: Code(s): M50.30 - Other cervical disc degeneration, unspecified cervical region Plan: Improved with aquatherapy. Advised patient to continue with aquatherapy Plan I spent 27 minutes reviewing patient's chart, evaluating patient, ordering diagnostic workup, counseling patient and documenting in the chart Orders: Orders Complete Blood Count Auto Diff 3 Months M35.3 - Polymyalgia rheumatica Comprehensive Met. Panel 3 Months M35.3 - Polymyalgia rheumatica C Reactive Protein 3 Months M35.3 - Polymyalgia rheumatica Erythrocyte Sedimentation Rate 3 Months M35.3 - Polymyalgia rheumatica Coding Level of Care Code Est Pt Level 4 (22241) Diagnoses PMR (polymyalgia rheumatica) M35.3 jail systemic steroid user Z79.52 Lumbar degenerative disc disease M51.36 Degenerative cervical disc M50.30
[2023-09-02 10:19] VITALS: BP 104/70; PULSE 60; TEMP 36.1; O2SAT 95; BMI 48.2
== END 2023-09-02 10:33 | disposition home or self-care (01) ==
PROVIDERS: PCP Physician Assistant; Visit Provider Student in an Organized Health Care Education/Training Program
DX: M35.3 Polymyalgia rheumatica (principal); Z79.52 Long term (current) use of systemic steroids; M51.36 Other intervertebral disc degeneration, lumbar region; M50.30 Other cervical disc degeneration, unspecified cervical region
CPT/HCPCS: 99214

== ENCOUNTER → 2023-09-02 10:04 | Outpatient (BNVA) | payer MEDICARE, SELFPAY | PROVIDERS: PCP Physician Assistant; Visit Provider Student in an Organized Health Care Education/Training Program | DX: M35.3 Polymyalgia rheumatica (principal); M51.36 Other intervertebral disc degeneration, lumbar region; M50.30 Other cervical disc degeneration, unspecified cervical region; Z79.52 Long term (current) use of systemic steroids | CPT/HCPCS: 99212 ==

== ENCOUNTER 2023-12-07 12:15 | Outpatient (REF) | payer MEDICARE, SELFPAY ==
[2023-12-07 12:37] LABS: MANUAL DIFF FLAG NO
[2023-12-07 13:46] LABS: Basophils Absolute Auto 0.1 X10*3/uL (0.0-0.2); Basophils Percent Auto 0.7 % (0-2); Eosinophils Absolute Auto 0.2 X10*3/uL (0.0-0.4); Eosinophils Percent Auto 2.9 % (0-4); Hematocrit 43.6 % (37.0-47.0); Hemoglobin 13.8 g/dl (12.0-16.0); Imm Gran Abs Auto 0.03 X10*3/uL (0.00-0.03); Imm Gran Pct Auto 0.4 % (0.0-0.4); Lymphocytes Absolute Auto 2.1 X10*3/uL (1.2-4.9); Lymphocytes Percent Auto 27.4 % (20-40); Mean Corpuscular HGB Conc 31.7 g/dl (31.0-35.0); Mean Corpuscular Hemoglobin 28.8 pg (27.0-33.0); Mean Platelet Volume 10.1 fL (9.4-12.3); Monocytes Absolute Auto 0.5 X10*3/uL (0.1-1.2); Monocytes Percent Auto 6.3 % (2-11); Neutrophils Absolute Auto 4.7 x10*3/uL (2.0-8.3); Neutrophils Percent Auto 62.3 % (45-73); Platelet Count 285 X10*3/uL (160-400); Red Blood Count 4.79 X10*6/uL (4.20-5.50); Red Cell Distribution Width 13.2 % (11.0-16.0); White Blood Count 7.5 X10*3/uL (4.8-10.8)
[2023-12-07 14:09] LABS: Alanine Aminotransferase 22 U/L (0-31); Albumin Level 4.1 g/dL (3.5-5.0); Alkaline Phosphatase 97 U/L (39-117); Anion Gap 10 (12-20); Aspartate Amino Transferase 18 U/L (5-31); Bilirubin Total 0.4 mg/dL (0.0-1.0); Blood Urea Nitrogen 20 mg/dL (9-16); C Reactive Protein 0.82 mg/dL (< or = 0.50); Calcium 9.6 mg/dL (8.4-10.2); Carbon Dioxide 30 mmol/L (22-29); Chloride 104 mmol/L (96-108); Estimated Glomerular Filt Rate > 60; Glucose Random 123 mg/dL (60-115); Sodium 140 mmol/L (135-145); Total Protein 7.6 g/dL (6.5-8.0)
[2023-12-07 14:50] LABS: Erythrocyte Sedimentation Rate 15 MM/HR (0-20)
== END 2023-12-07 12:16 | disposition home or self-care (01) ==
LOC: HO.LAB 12:15
PROVIDERS: PCP Physician Assistant; Visit Provider Student in an Organized Health Care Education/Training Program
DX: M35.3 Polymyalgia rheumatica (principal)
CPT/HCPCS: 36415; 80053; 85025; 85652; 86140

== ENCOUNTER 2023-12-08 10:16 | Outpatient (AMB) | payer MEDICARE, SELFPAY ==
--- NOTE | 2023-12-08 10:18 | A.OFFVIS_ITS ---
Vital Signs 12/08/23 10:19 Height 5 ft 1 in Weight 253 lb 4.978 oz BMI 47.9 BP 122/72 Blood Pressure Location Rt brachial Position Sitting Pulse 59 Pulse Source Pulse Oximeter Pulse Oximetry (%) 96 Oxygen Delivery Method Room Air Intake Visit Reasons: 6-mos follow up arthritis - non-symptomatic, PMR Allergies lisinopril [LISINOPRIL] Allergy (Unknown, Verified 09/02/23 10:20) COUGH/AFIB, Cough nizatidine [From AXID] Allergy (Unknown, Verified 09/02/23 10:20) ANAPHYLAXIS Sulfa (Sulfonamide Antibiotics) [SULFA (SULFONAMIDE ANTIBIOTICS)] Allergy (Unknown, Verified 09/02/23 10:20) UNKNOWN Medication List - Last Reconciled 12/08/23 by Josué Herman MD amlodipine 5 mg PO DAILY apixaban 5 mg PO BID 90 days budesonide-formoterol 80-4.5 mcg/actuation 1 puff inhalation BID 30 days cholecalciferol (vitamin D3) 125 mcg PO DAILY flecainide 150 mg PO Q12H inhalational spacing device (Aerochamber MV spacer) As directed levothyroxine 137 mcg PO DAILY 90 days magnesium oxide 500 mg PO DAILY metoprolol tartrate 100 mg PO BID montelukast 10 mg PO DAILY pravastatin 20 mg PO DAILY sertraline (Zoloft) 25 mg (1/2 x 50 mg) PO DAILY 90 days HPI Comments Details: This is a 68-year-old female with PMR who returns for follow-up. She has been off prednisone for more than 2 months now. She states that she has been doing fairly well overall. Has not had any recurrence of her shoulder stiffness. States that it is bilateral knee pain with activity. Recently she had to take care of her grandchildren as the mother was . Knee pain also worse in the cold weather and when it is damp. She wonders whether there is any medication she can take for her knees Initial history: This is a 67-year-old female with a past medical history of asthma, AFib on Eliquis, dyslipidemia, hypothyroidism, morbid obesity who presents for evaluation of joint pain. The condition started in March of 2022 when she was lifted something with her right arm, this was followed by right shoulder pain and stiffness than a few days later it moved to her left shoulder. Patient would have bilateral shoulder pain and stiffness, worse in the morning and improves throughout the day. She also has lower back pain going into both hips, worse with walking. She denies any pain or swelling of her fingers or wrists. She was evaluated by her PCP and was started on prednisone 5 mg daily which she has been taking since May of 2022 with at least 70-80% relief. She denies any fevers or weight loss. She actually gained 10 lb. [facility] Medical History LETI (obstructive sleep apnea) Paroxysmal atrial flutter PAF (paroxysmal atrial fibrillation) Asthma Dyslipidemia GERD (gastroesophageal reflux disease) Hypertension Morbid obesity Hypothyroidism due to Aj's thyroiditis History of cardioversion Surgical History History of dental surgery H/O hemorrhoidectomy History of cardiac radiofrequency ablation Hx of arthroscopy of left knee Family History Father No problems noted. 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 Cognitive needs: No Hearing needs: No Vision needs: Yes (wear glasses) Review of Systems [facility] Reports arthralgias and Denies joint swelling Physical Exam Vital Signs: Last Vital Signs Pulse 59 12/08/23 10:19 BP 122/72 12/08/23 10:19 Pulse Ox 96 12/08/23 10:19 Oxygen Delivery Method Room Air 12/08/23 10:19 BMI result Body Mass Index 47.9 Const General: cooperative, healthy appearing, comfortable, no acute distress and well developed Nutritional Appearance: obese morbidly obese Orientation/consciousness: patient oriented x3 Limitations: no limitations HEENT Head: Yes normocephalic and Yes atraumatic Mouth: moist mucous membranes Resp Effort & Inspection: normal respiratory effort and able to speak in complete sentences Skin General skin exam: no rashes or lesions noted Neuro General: patient oriented x3 Extrem Other: No synovitis of both hands. Normal nailfold capillaroscopy No shoulder swelling or tenderness bilaterally Normal range of motion of both shoulders Bilateral knee crepitus but no swelling or tenderness or pain with full flexion and extension Assessment & Plan Assessment & Plan (1) PMR (polymyalgia rheumatica): Comment: Onset 05/2022 tapered off 09/2023 Code(s): M35.3 - Polymyalgia rheumatica Category: Medical Plan: This is a 68-year-old female presents for evaluation of bilateral shoulder pain and stiffness onset 06/06? Symptoms improved with 5 mg of prednisone.? And recurred with stopping prednisone. Prednisone was tapered relatively quickly for PMR. Patient had normal inflammatory markers at onset. Labs showed positive SHARONDA with indeterminate dsDNA level. Prednisone was then restarted at 5 mg and tapered slowly. 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 No need for antiresorptive therapy at this time. Patient is no longer on steroids (3) Lumbar degenerative disc disease: Code(s): M51.36 - Other intervertebral disc degeneration, lumbar region Category: Medical Plan: Improved with aquatherapy (4) Degenerative cervical disc: Code(s): M50.30 - Other cervical disc degeneration, unspecified cervical region Category: Medical Plan: Improved with aquatherapy. Advised patient to continue with aquatherapy (5) Bilateral primary osteoarthritis of knee: Code(s): M17.0 - Bilateral primary osteoarthritis of knee Category: Medical Plan: Main complaint today. Discussed nature of knee osteoarthritis and different management strategies. Inform patient that likely weight loss would be quite helpful. Can do simple quadriceps strengthening exercises at home. Can take Tylenol up to 2500 mg daily Patient is on Eliquis so systemic NSAIDs is to be avoided. 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
[2023-12-08 10:19] VITALS: BP 122/72; PULSE 59; O2SAT 96; BMI 47.9
== END 2023-12-08 10:39 | disposition home or self-care (01) ==
PROVIDERS: PCP Physician Assistant; Visit Provider Student in an Organized Health Care Education/Training Program
DX: M35.3 Polymyalgia rheumatica (principal); Z79.52 Long term (current) use of systemic steroids; M51.36 Other intervertebral disc degeneration, lumbar region; M50.30 Other cervical disc degeneration, unspecified cervical region; M17.0 Bilateral primary osteoarthritis of knee
CPT/HCPCS: 99214

== ENCOUNTER → 2023-12-08 10:16 | Outpatient (BNVA) | payer MEDICARE, SELFPAY | PROVIDERS: PCP Physician Assistant; Visit Provider Student in an Organized Health Care Education/Training Program | DX: M35.3 Polymyalgia rheumatica (principal); M51.36 Other intervertebral disc degeneration, lumbar region; M50.30 Other cervical disc degeneration, unspecified cervical region; M17.0 Bilateral primary osteoarthritis of knee; Z79.52 Long term (current) use of systemic steroids | CPT/HCPCS: 99212 ==

== ENCOUNTER 2024-01-26 12:57 | Outpatient (AMB) | payer MEDICARE, SELFPAY ==
[2024-01-26 13:02] VITALS: BP 122/68; PULSE 61; BMI 47.9
--- NOTE | 2024-01-26 13:02 | A.OFFVIS_ITS ---
Vital Signs 01/26/24 13:02 Height 5 ft 1 in Weight 253 lb 8.505 oz BMI 47.9 BP 122/68 Blood Pressure Location Lt brachial Position Sitting Pulse 61 Pulse Source Monitor Intake Visit Reasons: 1 yr f/up Allergies lisinopril [LISINOPRIL] Allergy (Unknown, Verified 09/02/23 10:20) COUGH/AFIB, Cough nizatidine [From AXID] Allergy (Unknown, Verified 09/02/23 10:20) ANAPHYLAXIS Sulfa (Sulfonamide Antibiotics) [SULFA (SULFONAMIDE ANTIBIOTICS)] Allergy (Unknown, Verified 09/02/23 10:20) UNKNOWN Medication List - Last Reconciled 01/26/24 by Kwabena Garcia MD amlodipine 5 mg PO DAILY apixaban 5 mg PO BID 90 days budesonide-formoterol 80-4.5 mcg/actuation 1 puff inhalation BID 30 days cholecalciferol (vitamin D3) 125 mcg PO DAILY flecainide 150 mg PO Q12H inhalational spacing device (Aerochamber MV spacer) As directed levothyroxine 137 mcg PO DAILY 90 days magnesium oxide 500 mg PO DAILY metoprolol tartrate 100 mg PO BID montelukast 10 mg PO DAILY pravastatin 20 mg PO DAILY sertraline (Zoloft) 25 mg (1/2 x 50 mg) PO DAILY 90 days HPI Comments Details: Katey returns for follow-up regarding atrial fibrillation and flutter. She has had history of ablation for the same. In 2017, she was admitted for palpitations suspected to be from atrial flutter. Cardioverted successfully and discharged in sinus. In 2018, she had recurrence of highly symptomatic atrial fibrillation leading to ER visit and another cardioversion. Then, flecainide dose was increased to 150 mg b.i.d.. After this, she has not had any recurrent atrial arrhythmias. Otherwise, on amlodipine for hypertension. Overall, she is doing good. No new complaints. On occasions, she forgets flecainide and then gets palpitations and she goes back on it. No other concerns at this time. No further cardiac symptoms whatsoever. [facility] Medical History LETI (obstructive sleep apnea) Paroxysmal atrial flutter PAF (paroxysmal atrial fibrillation) Asthma Dyslipidemia GERD (gastroesophageal reflux disease) Hypertension Morbid obesity Hypothyroidism due to Aj's thyroiditis History of cardioversion Surgical History History of dental surgery H/O hemorrhoidectomy History of cardiac radiofrequency ablation Hx of arthroscopy of left knee Family History Father No problems noted. 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 Cognitive needs: No Hearing needs: No Vision needs: Yes (wear glasses) Review of Systems Const Denies weakness ENT Denies dizziness Card Denies chest pain, Denies chest pain with activity, Denies syncope, Denies rapid heart rate, Denies pedal edema, Denies edema, Denies leg edema, Denies lightheadedness, Denies palpitations, Denies dyspnea, Denies dyspnea on exertion and Denies orthopnea Resp Denies cough, Denies dyspnea and Denies dyspnea on exertion GI Denies hematochezia and Denies change in stool character Musc Denies abnormal gait, Denies muscle cramps, Denies muscle weakness, Denies numbness, Denies radiating pain into limb and Denies tingling Neuro Denies abnormal gait, Denies dizziness, Denies syncope, Denies numbness, Denies tingling and Denies weakness Endo Denies palpitations Physical Exam Vital Signs: Last Vital Signs Pulse 61 01/26/24 13:02 BP 122/68 01/26/24 13:02 BMI result Body Mass Index 47.9 Const General: comfortable and no acute distress Orientation/consciousness: patient oriented x3 HEENT Other: Unremarkable Head: Yes normal to inspection Neck Neck: Yes normal visual inspection Chest Chest palpation & inspection: normal inspection of the chest Resp Auscultation: clear to auscultation bilaterally Cardio Palpation: normal PMI Heart sounds: S1 normal heart sound present, S2 normal heart sound present, no gallops, no murmurs and no rubs GI Palpation (GI): Soft to palpation Back/Spine/Pelvis Other: unremarkable Skin General skin exam: no rashes or lesions noted Neuro General: patient oriented x3 Extrem General: Yes normal to inspection Psych Mental Status: mental status grossly normal Office Procedures EKG Details: EKG with sinus rhythm at 61/Min; rightward axis; no significant ST-T changes and otherwise unremarkable[place] [id number], Complete Assessment & Plan Assessment & Plan (1) PAF (paroxysmal atrial fibrillation): Code(s): I48.0 - Paroxysmal atrial fibrillation Category: Medical Plan: Stable. Continue metoprolol, flecainide, Eliquis. (2) Paroxysmal atrial flutter: Code(s): I48.92 - Unspecified atrial flutter Category: Medical Plan: As above. (3) Encounter for monitoring anti-arrhythmic therapy: Code(s): Z51.81 - Encounter for therapeutic drug level monitoring; Z79.899 - Other terminal worker (current) drug therapy Category: Medical Plan: Stable EKG. (4) Atherosclerotic cardiovascular disease: Code(s): I25.10 - Atherosclerotic heart disease of [place] coronary artery without angina pectoris Category: Medical Plan: Coronary CT in 2019 showed only mild plaque and no evidence of hemodynamically significant disease. Last echocardiogram with normal LVEF, 60-65% and grade 2 diastolic dysfunction. (5) Hypertension: Code(s): I10 - Essential (primary) hypertension Category: Medical Qualifiers: Hypertension type: primary hypertension Qualified Code(s): I10 - Essential (primary) hypertension Plan: Continue amlodipine. (6) LETI (obstructive sleep apnea): Code(s): G47.33 - Obstructive sleep apnea (adult) (pediatric) Category: Medical Plan: Continue CPAP. (7) Morbid obesity: Code(s): E66.01 - Morbid (severe) obesity due to excess calories Category: Medical Plan: Long-term issue and doubt there is going to be a big change. She has aware of the fact that this can lead to cardiac issues. Coding Level of Care Code Est Pt Level 4 (91297) Diagnoses PAF (paroxysmal atrial fibrillation) I48.0 Paroxysmal atrial flutter I48.92 Encounter for monitoring anti-arrhythmic therapy Z51.81; Z79.899 Atherosclerotic cardiovascular disease I25.10 Primary hypertension I10 Hypertension type: primary hypertension LETI (obstructive sleep apnea) G47.33 Morbid obesity E66.01 CPT Codes EKG - CPT: [id number], Complete ([id number])
== END 2024-01-26 13:21 | disposition home or self-care (01) ==
PROVIDERS: PCP Physician Assistant; Visit Provider Internal Medicine
DX: I48.0 Paroxysmal atrial fibrillation (principal); I48.92 Unspecified atrial flutter; Z51.81 Encounter for therapeutic drug level monitoring; Z79.899 Other long term (current) drug therapy; I25.10 Atherosclerotic heart disease of native coronary artery without angina pectoris; I10 Essential (primary) hypertension; G47.33 Obstructive sleep apnea (adult) (pediatric); E66.01 Morbid (severe) obesity due to excess calories
CPT/HCPCS: 93010; 99214

== ENCOUNTER → 2024-01-26 12:57 | Outpatient (BNVA) | payer MEDICARE, SELFPAY | PROVIDERS: PCP Physician Assistant; Visit Provider Internal Medicine | DX: Z51.81 Encounter for therapeutic drug level monitoring (principal); I48.0 Paroxysmal atrial fibrillation; I48.92 Unspecified atrial flutter; I25.10 Atherosclerotic heart disease of native coronary artery without angina pectoris; I10 Essential (primary) hypertension; G47.33 Obstructive sleep apnea (adult) (pediatric); E66.01 Morbid (severe) obesity due to excess calories; Z79.899 Other long term (current) drug therapy; Z68.42 Body mass index [BMI] 45.0-49.9, adult | CPT/HCPCS: 93005; 99212 ==

== ENCOUNTER 2024-04-24 11:24 | Outpatient (AMB) | payer MEDICARE, SELFPAY ==
[2024-04-24 11:27] VITALS: BP 110/64; PULSE 64; O2SAT 97; BMI 48.2
--- NOTE | 2024-04-24 11:27 | MHC.PC.OV ---
Vital Signs 04/24/24 11:27 Height 5 ft 1 in Weight 255 lb 2 oz BMI 48.2 BP 110/64 Blood Pressure Location Lt brachial Position Sitting Pulse 64 Pulse Source Pulse Oximeter Pulse Oximetry (%) 97 Oxygen Delivery Method Room Air Intake Visit Reasons: PE - see comments Intake Note: Patient is here today for a physical. Parole Or Probation Officer Required: No Accompanied by: Self / Same As Patient Allergies lisinopril [LISINOPRIL] Allergy (Unknown, Verified 04/24/24 11:34) COUGH/AFIB, Cough nizatidine [From AXID] Allergy (Unknown, Verified 04/24/24 11:34) ANAPHYLAXIS Sulfa (Sulfonamide Antibiotics) [SULFA (SULFONAMIDE ANTIBIOTICS)] Allergy (Unknown, Verified 04/24/24 11:34) UNKNOWN Medication List - Last Reconciled 04/24/24 by Adalid Huerta PA-C amlodipine 5 mg PO DAILY apixaban 5 mg PO BID 90 days budesonide-formoterol 80-4.5 mcg/actuation 1 puff inhalation BID 30 days cholecalciferol (vitamin D3) 125 mcg PO DAILY flecainide 150 mg PO Q12H inhalational spacing device (Aerochamber MV spacer) As directed levothyroxine 137 mcg PO DAILY 90 days magnesium oxide 500 mg PO DAILY metoprolol tartrate 100 mg PO BID montelukast 10 mg PO DAILY pravastatin 20 mg PO DAILY sertraline (Zoloft) 25 mg (1/2 x 50 mg) PO DAILY 90 days Tobacco use date assessed: 04/24/24 Fall risk assessment: No Falls in past year Last assessed Fall Risk: 04/24/24 Dental Screening Dental Screen Date: 04/24/24 Did you have a dental visit in the last 12 months?: Yes Did you have a dental problem in the last 6 months where you did not have access to dental care?: No Was dental information given to patient?: Patient has dentist HPI PE - see comments HPI Details Patient is a 68-year-old female here today for routine annual physical. Patient has a past medical history significant for AFib, generalized anxiety disorder, hypertension, obesity, PMR, asthma. Concern--> patient reports having local lower lumbar spine pain worse when standing or walking for long periods of time. She denies any radiculopathy down lower extremities. She attributes her lower back pain to her weight. She would like to work on weight reduction before doing physical therapy or any further management of her lower pain Polymyalgia rheumatica: Now followed by Rheumatology she was on prednisone for quite some time. She is now off of prednisone. Unfortunately had gained some excess cortisol weight intermixed section and has been difficult to lose.. .. AFib: Patient continues to follow cardiology, she is anticoagulated with apixaban without any overt signs of bleeding. .. Colon cancer screening: Up-to-date with colonoscopy followed by [facility]-has upcoming appointment for mammogram Vaccine : Up-to-date with, tetanus [facility] Medical History LETI (obstructive sleep apnea) Paroxysmal atrial flutter PAF (paroxysmal atrial fibrillation) Asthma Dyslipidemia GERD (gastroesophageal reflux disease) Hypertension Morbid obesity Hypothyroidism due to Aj's thyroiditis History of cardioversion Surgical History History of dental surgery H/O hemorrhoidectomy History of cardiac radiofrequency ablation Hx of arthroscopy of left knee Family History (Updated 04/24/24 @ 11:40 by Adalid Huerta PA-C) Father No problems noted. 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 1. Little interest or pleasure in doing things: not at all 2. Feeling down, depressed, or hopeless: not at all 3. Trouble falling or staying asleep, or sleeping too much: not at all 4. Feeling tired or having little energy: not at all 5. Poor appetite or overeating: not at all 6. Feeling bad about yourself - or that you are a failure or have let yourself or your family down: not at all 7. Trouble concentrating on things, such as reading the newspaper or watching television: not at all 8. Moving or speaking so slowly that other people could have noticed. Or the opposite - being so fidgety or restless that you have been moving around a lot more than usual: not at all 9. Thoughts that you would be better off or of hurting yourself in some way: not at all Total score: 0 Depression Screening Interpretation: Negative Depression Screening Done: Yes [id number] - PHQ-9 Billing: Yes Source: Developed by Drs. Marcos Goodwin, Cynthia Desai, Aguilar Martinez and colleagues, with an educational jamari from [email or web address]. Thrive Questionnaire Date Thrive assessed: 04/24/24 I am a: Patient What is your living situation today?: I have a steady place to live Within the past 12 months, did the food you bought not last and you didn't have the money to get more?: Never true Within the past 12 months, did you worry whether your food would run out before you got money to buy more?: Never true Do you have trouble paying for medicines?: No Do you have trouble getting transportation to medical appointments?: No Do you have trouble paying your heating and electricity bill?: No Do you have trouble taking care of your child, family member or friend?: No Do you have trouble with day-to-day activities such as bathing, preparing meals, shopping, managing finances, etc.?: No Are you currently unemployed and looking for a job?: No Are you interested in more education?: No Please select the resources that you would like help with: None Currently or been in a relationship where the following occur: No concerns reported THRIVE Score: 0 AUDIT C Alcohol Use Questionnaire (AUDIT-C) 1. How often do you have a drink containing alcohol?: Monthly or less 2. How many drinks containing alcohol do you have on a typical day when you are drinking?: 1 or 2 3. How often do you have six or more drinks on one occasion?: Never Total Score: 1 DIANNA-7 AMB Questionnaire DIANNA-7 Date DIANNA - 7 assessed: 04/24/24 Feeling nervous, anxious, or on edge: 0 = Not at all Not being able to stop or control worryin = Not at all Worrying too much about different things: 0 = Not at all Trouble relaxin = Not at all Being so restless that it is hard to sit still: 0 = Not at all Becoming easily annoyed or irritable: 0 = Not at all Feeling afraid as if something awful might happen: 0 = Not at all Total DIANNA-7 score (0-4 normal; 5-9 mild; 10-14 moderate; 15-21 severe): 0 Source: Developed by Drs. Marcos Goodwin, Cynthia Desai, Aguilar Martinez and colleagues, with an educational jamari from [email or web address]. DIANNA-7 Assessment Billing DIANNA-7 Assessment Tool: DIANNA-7 Assessment [id number] Review of Systems Const Denies body aches, Denies chills, Denies excessive sweating, Denies fatigue, Denies fever(s) and Denies headache(s) Eyes Denies blurry vision ENT Denies dysphagia, Denies vertigo, Denies dizziness, Denies headache(s), Denies hearing loss and Denies tinnitus Card Denies chest pain, Denies chest pain with activity, Denies syncope, Denies irregular heart rhythm and Denies dyspnea Resp Denies chest congestion, Denies cough, Denies hemoptysis, Denies dyspnea and Denies wheezing GI Denies abdominal pain, Denies melena, Denies hematochezia, Denies coffee ground emesis, Denies dysphagia, Denies diarrhea, Denies nausea and Denies vomiting Denies urinary frequency, Denies dysuria, Denies urinary hesitancy and Denies urinary urgency Musc Denies arthralgias, Denies limited range of motion, Denies muscle cramps and Denies muscle weakness Skin/Breast Denies rash and Denies skin ulcer Neuro Denies Abnormal speech present, Denies confusion, Denies vertigo, Denies dizziness, Denies syncope, Denies headache(s), Denies memory loss and Denies seizure-like activity Psych Denies anxiety, Denies confusion, Denies depression, Denies memory loss, Denies panic attacks and Denies paranoia Endo Denies excessive sweating, Denies fatigue, Denies flushing, Denies polydipsia and Denies polyuria Aller/Immun Denies wheezing Physical exam (Primary Care) Vital Signs: Last Vital Signs Pulse 64 09/09/24 11:27 BP 110/64 04/24/24 11:27 Pulse Ox 97 04/24/24 11:27 Oxygen Delivery Method Room Air 04/24/24 11:27 BMI result Body Mass Index 48.2 Tobacco/Smoking Status: Tobacco use Status Tobacco use date assessed 04/24/24 04/24/24 11:31 Patient Tobacco Use Status Never used Tobacco 04/24/24 11:31 e-Cigarette/Vaping Use Never Used 04/24/24 11:31 PHQ-9: PHQ-9 Score PHQ-9: Total score 0 04/24/24 11:45 Depression Screening Interpretation: Negative Thrive Assessment: Date of Thrive Assessment Date Thrive assessed 04/24/24 04/24/24 11:32 Currently or been in a relationship where the following occur: No concerns reported Const General: cooperative, comfortable, no acute distress, alert and awake; No confusion Orientation/consciousness: oriented to person, oriented to place, patient oriented x3 and No confusion HENMT Head: Yes normocephalic Ears: external ears normal and TM's normal bilaterally Face and sinus: No sinus tenderness Mouth: Normal oral and palatal mucosa present and tongue normal Teeth and gingiva: dentition normal and gingiva normal Throat: Yes posterior oropharynx normal, Yes tonsils normal and Yes uvula midline Eyes Conjunctivae: conjunctivae normal Sclerae: sclerae normal Pupils: Equal, round and reactive pupils present EOM: EOMs intact bilaterally Direct Ophthalmoscopy: No no photophobia Neck Neck: Yes no lymphadenopathy, No tender and Yes no JVD Thyroid: Thyroid normal Carotids: no bruits Chest Chest palpation & inspection: no tenderness Resp Effort & Inspection: normal respiratory effort, no audible wheezes, not labored and no stridor Auscultation: no crackles, no rales, no rhonchi and no wheezes Cardio Jugular venous distension: no JVD Rate: regular rate, not bradycardic and not tachycardic Rhythm: regular rhythm Bruits: no carotid bruits Peripheral pulses: Peripheral pulses 2+ throughout GI Inspection: Yes normal to inspection, No abdominal wall ecchymosis and No visible herniation Palpation (GI): Soft to palpation, nontender, no guarding, not rigid and No hepatosplenomegaly present Auscultation: normoactive bowel sounds General: Yes no CVA tenderness Back/Spine/Pelvis Back: no CVA tenderness and No back tenderness Cervical Spine: cervical ROM normal Thoracic/Lumbar Spine: thoracic and lumbar spine normal to inspection, straight leg raise negative bilaterally, No thoraco-lumbar ROM limited and No lumbar spinal tenderness Skin Lesions: no lesions Rashes: no rashes Wounds: no wounds Neuro General: oriented to person, oriented to place, patient oriented x3, CN's II-XI intact bilaterally and No confusion Cranial nerves: Yes Equal, round and reactive pupils present and Yes Normal accommodation reflex present Cognition (Neuro): normal cognition Speech: No Abnormal speech present Gait exam (Neuro): Normal gait present Motor exam (neuro): 5/5 motor strength present throughout Extrem Right upper extremity: full ROM; no cyanosis Left upper extremity: full ROM; no cyanosis Right lower extremity: no edema Left lower extremity: no edema Psych Appearance: grossly normal Mental Status: mental status grossly normal Affect: normal affect Attitude: cooperative Thought process: Normal thought process present Assessment and Plan Assessment & Plan (1) Annual physical exam: Code(s): Z00.00 - Encounter for general adult medical examination without abnormal findings (2) PMR (polymyalgia rheumatica): Comment: Onset 05/2022 tapered off 09/2023 Code(s): M35.3 - Polymyalgia rheumatica Plan: As per HPI. She has discontinued prednisone in her upper extremity pain has completely resolved. Unfortunately has excess weight due to prednisone use over the last year. (3) DIANNA (generalized anxiety disorder): Code(s): F41.1 - Generalized anxiety disorder Plan: Patient reports her anxiety has been fairly well controlled though due to her recent medical problems are anxiety has been somewhat elevated. Continues on Zoloft 25 mg with decent relief. (4) PAF (paroxysmal atrial fibrillation): Code(s): I48.0 - Paroxysmal atrial fibrillation Plan: Continues to follow cardiology. Continues on flecainide and Eliquis. She denies any overt signs of bleeding. (5) Dyslipidemia: Code(s): E78.5 - Hyperlipidemia, unspecified Plan: Continues on statin therapy without side effect.. Most recent lipid panel showing appropriate LDL and total cholesterol. (6) Breast cancer screening: Code(s): Z12.39 - Encounter for other screening for malignant neoplasm of breast Qualifiers: Breast cancer screening modality: mammogram Qualified Code(s): Z12.31 - Encounter for screening mammogram for malignant neoplasm of breast Plan: has upcoming mammogram (7) Asthma: Code(s): J45.909 - Unspecified asthma, uncomplicated Qualifiers: Asthma complication type: uncomplicated Asthma persistence: intermittent Asthma severity: mild Qualified Code(s): J45.20 - Mild intermittent asthma, uncomplicated Plan: Patient followed by a salvage winder in [facility]. Continues on maintenance inhaler which has been effective on reducing her asthma exacerbations. (8) Morbid obesity: Code(s): E66.01 - Morbid (severe) obesity due to excess calories Plan: Patient is somewhat interested in speaking with bariatric about weight loss procedures. She will work on being more physically active and adapting to better eating habits to reduce her weight. (9) Colon cancer screening: Code(s): Z12.11 - Encounter for screening for malignant neoplasm of colon Plan: Needs new screening colonoscopy Orders: Orders Comprehensive [place]. Panel Fast Today E78.5 - Hyperlipidemia, unspecified TSH reflex Free T4 Today E03.8 - Other specified hypothyroidism, E06.3 - Autoimmune thyroiditis Complete Blood Count no Diff Today I48.0 - Paroxysmal atrial fibrillation Lipid Panel Today E78.5 - Hyperlipidemia, unspecified Microalbumin, Random (w Creat) Today I10 - Essential (primary) hypertension Referrals Gastroenterology Referral Z12.11 - Encounter for screening for malignant neoplasm of colon Medications: Refilled sertraline (Zoloft) 25 mg (1/2 x 50 mg) PO DAILY 90 days 45 tabs 1RF F41.1 - Generalized anxiety disorder sertraline (Zoloft) 25 mg (1/2 x 50 mg) PO DAILY 45 tabs 2RF 90 days F41.1 - Generalized anxiety disorder Patient Instructions: Goal: Blood pressure to be below 140/90 Barrier: Adherence to physical activity and healthy eating habits Coding Level of Care Code Est Pt Level 4 (60242) Diagnoses Annual physical exam Z00.00 PMR (polymyalgia rheumatica) M35.3 DIANNA (generalized anxiety disorder) F41.1 PAF (paroxysmal atrial fibrillation) I48.0 Dyslipidemia E78.5 Encounter for screening mammogram for malignant neoplasm of breast Z12.31 Breast cancer screening modality: mammogram Mild intermittent asthma without complication J45.20 Asthma complication type: uncomplicated Asthma persistence: intermittent Asthma severity: mild Morbid obesity E66.01 Colon cancer screening Z12.11 Additional Codes DIANNA-7 Assessment Billing - DIANNA-7 Assessment Tool: DIANNA-7 Assessment [id number] ([id number])
== END 2024-04-24 12:09 | disposition home or self-care (01) ==
PROVIDERS: PCP Physician Assistant; Visit Provider Physician Assistant
DX: Z00.00 Encounter for general adult medical examination without abnormal findings (principal); M35.3 Polymyalgia rheumatica; E66.01 Morbid (severe) obesity due to excess calories; Z68.42 Body mass index [BMI] 45.0-49.9, adult; I48.0 Paroxysmal atrial fibrillation; F41.1 Generalized anxiety disorder; E78.5 Hyperlipidemia, unspecified; Z12.31 Encounter for screening mammogram for malignant neoplasm of breast; J45.20 Mild intermittent asthma, uncomplicated; Z12.11 Encounter for screening for malignant neoplasm of colon
CPT/HCPCS: 99397

== ENCOUNTER 2024-05-11 08:27 | Outpatient (REF) | payer MEDICARE, SELFPAY ==
--- NOTE | ~2024-05-11 | MM_ITS ---
EXAMINATION: MM SCREENING DIGITAL BREAST TOMOSYNTHESIS, BILATERAL CLINICAL INFORMATION: Screening. Asymptomatic. COMPARISON: Mammography: Comparison is made with available priors TECHNIQUE: Digital breast mammography with tomosynthesis is performed in both the craniocaudal and mediolateral oblique views along with computer-aided detection (CAD). FINDINGS: There are scattered areas of fibroglandular density (ACR BI-RADS breast composition Category b). There are no significant masses, abnormal calcifications, or other abnormalities. MM/MM tomosynthesis screening BI IMPRESSION: No mammographic evidence of malignancy. ASSESSMENT: BI-RADS BI-RADS 1 - Negative RECOMMENDATION: Routine annual mammography screening. 1 year F/U This examination should not preclude the clinical evaluation of a suspicious palpable abnormality. This patient's information was entered into a reminder system with a target due date for their next mammogram. Electronically signed by: Stephanie Goodman DO 05/22/2024 05:18 PM EDT
== END 2024-05-11 08:28 | disposition home or self-care (01) ==
LOC: HO.MAMMO 08:27
PROVIDERS: PCP Physician Assistant; Visit Provider Physician Assistant
DX: Z12.31 Encounter for screening mammogram for malignant neoplasm of breast (principal)
CPT/HCPCS: 77063; 77067

== ENCOUNTER → 2024-05-11 08:30 | Outpatient (BNV) | payer MEDICARE, SELFPAY | PROVIDERS: PCP Physician Assistant; Visit Provider Internal Medicine | DX: Z12.31 Encounter for screening mammogram for malignant neoplasm of breast (principal) | CPT/HCPCS: 77063; 77067 ==

== ENCOUNTER 2024-06-03 12:58 | Outpatient (AMB) | payer MEDICARE, SELFPAY ==
[2024-06-03 12:59] VITALS: BP 110/70; PULSE 64; TEMP 36.7; O2SAT 97; BMI 48.2
--- NOTE | 2024-06-03 12:59 | MHC.OFFWIV ---
Intake Vital Signs 06/03/24 12:59 Height 5 ft 1 in Weight 255 lb BMI 48.2 BP 110/70 Blood Pressure Location Rt brachial Position Sitting Pulse 64 Pulse Source Pulse Oximeter Temp 98.1 F Temp Source Oral Pulse Oximetry (%) 97 Intake Visit Reasons: EP-UTI Intake Note: Pt is here today c/o vaginal pressure and foul odor upon urination Patient Tobacco Use Status: Never used Tobacco Allergies lisinopril [LISINOPRIL] Allergy (Unknown, Verified 06/03/24 13:07) COUGH/AFIB, Cough nizatidine [From AXID] Allergy (Unknown, Verified 06/03/24 13:07) ANAPHYLAXIS Sulfa (Sulfonamide Antibiotics) [SULFA (SULFONAMIDE ANTIBIOTICS)] Allergy (Unknown, Verified 06/03/24 13:07) UNKNOWN HPI HPI Comments History of Present Illness Details She presents to office with concern for UtTI Ongoing for a few days + pressure, frequency and urgency No hematuria No incontinence No fever or chills Denies any medicine for it PFSH Medical History LETI (obstructive sleep apnea) Paroxysmal atrial flutter PAF (paroxysmal atrial fibrillation) Asthma Dyslipidemia GERD (gastroesophageal reflux disease) Hypertension Morbid obesity Hypothyroidism due to Aj's thyroiditis History of cardioversion Surgical History History of dental surgery H/O hemorrhoidectomy History of cardiac radiofrequency ablation Hx of arthroscopy of left knee Family History (Updated 04/24/24 @ 11:40 by Adalid Huerta PA-C) Father No problems noted. 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 Speaking full sentences. Skin: Warm dry throughout Respiratory: No respiratory distress MSK: Full ROM extremities. Neurology: A/O. No aphasia or facial droop. Gait without abnormality Psych: Good mood and affect Results AMB Urinalysis, Automated UA Leukoctes 15 Khushbu/uL Last Edit by Jyotsna Burnette CMA on 06/03/24 13:13 UA Nitrite Negative Last Edit by Jyotsna Burnette CMA on 06/03/24 13:13 UA Urobilinogen 0.2 mg/dL Last Edit by Jyotsna Burnette CMA on 06/03/24 13:13 UA Protein 15 mg/dL Last Edit by Jyotsna Burnette CMA on 06/03/24 13:13 UA pH 6.0 Last Edit by Jyotsna Burnette CMA on 06/03/24 13:13 UA Blood 0 Andrea/uL Last Edit by Jyotsna Burnette CMA on 06/03/24 13:13 UA Specific [place] 1.030 Last Edit by Jyotsna Burnette CMA on 06/03/24 13:13 UA Ketone Negative Last Edit by Jyotsna Burnette CMA on 06/03/24 13:13 UA Bilirubin 1 mg/dL Last Edit by Jyotsna Burnette CMA on 06/03/24 13:13 UA Glucose 0 mg/dL Last Edit by Jyotsna Burnette CMA on 06/03/24 13:13 Results Reviewed Results Reviewed: Laboratory Last Values Urine pH (Auto) 6.0 06/03/24 13:03 Specific [place] (Auto) 1.030 06/03/24 13:03 Urine Protein (Auto) 15 mg/dL 06/03/24 13:03 Glucose (UA)(Auto) 0 mg/dL 06/03/24 13:03 Urine Ketones (Auto) Negative 06/03/24 13:03 Urine Blood (Auto) 0 Andrea/uL 06/03/24 13:03 Urine Nitrite (Auto) Negative 06/03/24 13:03 Urine Bilirubin (Auto) 1 mg/dL 06/03/24 13:03 Urine Urobilinogen (Auto) 0.2 mg/dL 06/03/24 13:03 Leukocyte Esterase (Auto) 15 Khushbu/uL 06/03/24 13:03 Assessment & Plan Assessment & Plan (1) UTI (urinary tract infection): Code(s): N39.0 - Urinary tract infection, site not specified Qualifiers: Hematuria presence: without hematuria Urinary tract infection type: acute cystitis Qualified Code(s): N30.00 - Acute cystitis without hematuria Plan: Patient seen and evaluated. U/a: + leuks Keflex to pharmacy Increase fluids F/U with PCP Patient gave verbal understanding and had no additional questions or concerns at time of discharge All questions answered Orders: Orders AMB Urinalysis Automated Today Z13.9 - Encounter for screening, unspecified Medications: New cephalexin 500 mg PO BID 14 caps 0RF Coding Level of Care Code Est Pt Level 3 (14022) Diagnoses Acute cystitis without hematuria N30.00 Hematuria presence: without hematuria Urinary tract infection type: acute cystitis
== END 2024-06-03 13:20 | disposition home or self-care (01) ==
PROVIDERS: PCP Physician Assistant; Visit Provider Physician Assistant
DX: Z13.9 Encounter for screening, unspecified (principal); N30.00 Acute cystitis without hematuria

== ENCOUNTER → 2024-06-03 12:58 | Outpatient (BNVA) | payer MEDICARE, SELFPAY | PROVIDERS: PCP Physician Assistant | DX: N30.00 Acute cystitis without hematuria (principal) | CPT/HCPCS: 81003; 99212 ==

== ENCOUNTER 2024-08-03 09:59 | Outpatient (AMB) | payer MEDICARE, SELFPAY ==
--- NOTE | 2024-08-03 10:04 | AM.OFFVISNUR ---
Intake Visit Reasons: ekg Allergies lisinopril [LISINOPRIL] Allergy (Unknown, Verified 06/03/24 13:07) COUGH/AFIB, Cough nizatidine [From AXID] Allergy (Unknown, Verified 06/03/24 13:07) ANAPHYLAXIS Sulfa (Sulfonamide Antibiotics) [SULFA (SULFONAMIDE ANTIBIOTICS)] Allergy (Unknown, Verified 06/03/24 13:07) UNKNOWN Nursing Note pt is here for nurse visit with ekg pt is on flecainide 150 mg PO Q12H pt is doing good, no symptoms ekg reviewed by provider Office Procedures EKG [id number], Complete
== END 2024-08-03 10:19 | disposition home or self-care (01) ==
PROVIDERS: PCP Physician Assistant; Visit Provider Internal Medicine
DX: R94.31 Abnormal electrocardiogram [ECG] [EKG] (principal)
CPT/HCPCS: 93010

== ENCOUNTER → 2024-08-03 09:59 | Outpatient (BNVA) | payer MEDICARE, SELFPAY | PROVIDERS: PCP Physician Assistant; Visit Provider Internal Medicine | DX: Z13.6 Encounter for screening for cardiovascular disorders (principal) | CPT/HCPCS: 93005 ==

== ENCOUNTER 2024-08-15 13:54 | Outpatient (AMB) | payer MEDICARE, SELFPAY ==
--- NOTE | 2024-08-15 14:00 | MHC.OFFVIS ---
Intake Visit Reasons: recurrent UTI Intake Note: New Patient presents for initial visit for recurrent uti Urology Medications: none Blood Thinner: apixaban PVR: 40ml's Grab Jack Man Required: No Accompanied by: Self / Same As Patient Allergies lisinopril [LISINOPRIL] Allergy (Unknown, Verified 08/16/24 13:56) COUGH/AFIB, Cough nizatidine [From AXID] Allergy (Unknown, Verified 08/16/24 13:56) ANAPHYLAXIS Sulfa (Sulfonamide Antibiotics) [SULFA (SULFONAMIDE ANTIBIOTICS)] Allergy (Unknown, Verified 08/16/24 13:56) UNKNOWN Medication List - Last Reconciled 08/16/24 by ARCHANA Mcwilliams- amlodipine 5 mg PO DAILY apixaban 5 mg PO BID 90 days budesonide-formoterol 80-4.5 mcg/actuation 1 puff inhalation BID 30 days cholecalciferol (vitamin D3) 125 mcg PO DAILY estradiol 0.01%(0.1mg/gram) pea-sized to urethra daily times one month and then three times a week thereafter 30 days flecainide 150 mg PO Q12H inhalational spacing device (Aerochamber MV spacer) As directed levothyroxine 137 mcg PO DAILY 90 days magnesium oxide 500 mg PO DAILY metoprolol tartrate 100 mg PO BID montelukast 10 mg PO DAILY pravastatin 20 mg PO DAILY sertraline (Zoloft) 25 mg (1/2 x 50 mg) PO DAILY 90 days HPI Comments Details: Katey is a very pleasant 69-year-old female patient of . 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 She presents to the office today as a new patient for ongoing lower urinary tract symptoms. In discussion with the patient today she reports noting over the last 3-4 years she has been having episodes of urge incontinence and nocturia that ranges 2 to 4 times per night. She reports typically utilizing 2-3 Lizzie pads per day. When asked she does report a previous history of 3 vaginal births. She otherwise denies hematuria, dysuria, foul smelling urine, changes to urinary stream, flank pain, fever, and or chills. We discussed at length potential causes of lower urinary tract symptoms patient was experiencing as well as and treatment options. In office urinalysis results reviewed with the patient today. PVR 40 mL. She otherwise offers no other issues or concerns at this time. In review of patient's chart it appears urine cultures are as follows: 05/06 E coli, 05/08 E coli, 06/07 E coli. [facility] Medical History LETI (obstructive sleep apnea) Paroxysmal atrial flutter PAF (paroxysmal atrial fibrillation) Asthma Dyslipidemia GERD (gastroesophageal reflux disease) Hypertension Morbid obesity Hypothyroidism due to Aj's thyroiditis History of cardioversion Surgical History History of dental surgery H/O hemorrhoidectomy History of cardiac radiofrequency ablation Hx of arthroscopy of left knee Family History Father No problems noted. 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 Cognitive needs: No Hearing needs: No Vision needs: Yes (wear glasses) Review of Systems Const Reports as per HPI Eyes Reports no additional complaints ENT Reports no additional complaints Card Reports as per HPI Resp Reports as per HPI GI Reports as per HPI Reports as per HPI Musc Reports no additional complaints Neuro Reports no additional complaints Psych Reports no additional complaints Endo Reports as per HPI Physical Exam Const General: cooperative, healthy appearing, comfortable, no acute distress, well developed, alert and awake Nutritional Appearance: overweight Orientation/consciousness: patient oriented x3 Limitations: no limitations HEENT Head: Yes normal to inspection, Yes normocephalic and Yes atraumatic Ears: hearing grossly normal bilaterally Eyes General: appearance normal, both eyes and all related structures Neck Neck: Yes normal visual inspection and Yes trachea midline Chest Chest palpation & inspection: normal inspection of the chest Resp Effort & Inspection: normal respiratory effort and able to speak in complete sentences Cardio Rate: regular rate GI Inspection: Yes normal to inspection General: Yes no CVA tenderness Back/Spine/Pelvis Back: no CVA tenderness Skin General skin exam: no rashes or lesions noted Neuro General: patient oriented x3 Extrem General: Yes normal to inspection Psych Appearance: grossly normal and well kempt Mental Status: mental status grossly normal Speech and movement: Normal speech and movement present and Clear speech present Affect: normal affect Attitude: cooperative Thought process: Normal thought process present Thought content: Normal thought content present Insight: Fair insight present (Psych) Judgement: Fair judgement present (Psych) Office Procedures Post Void Residual Post Residual Void Post Void Residual (PVR): 40 [id number] Void Residual by ultrasound Results AMB Urinalysis, Automated UA Leukoctes 15 Khushbu/uL Last Edit by [employer] on 08/15/24 14:41 UA Nitrite Last Edit by [employer] on 08/15/24 14:41 UA Urobilinogen 0.2 mg/dL Last Edit by [employer] on 08/15/24 14:41 UA Protein 15 mg/dL Last Edit by [employer] on 08/15/24 14:41 UA pH 6.0 Last Edit by [employer] on 08/15/24 14:41 UA Blood 0 Andrea/uL Last Edit by [employer] on 08/15/24 14:41 UA Specific [place] 1.030 Last Edit by [employer] on 08/15/24 14:41 UA Ketone Last Edit by [employer] on 08/15/24 14:41 UA Bilirubin 0 mg/dL Last Edit by [employer] on 08/15/24 14:41 UA Glucose 0 mg/dL Last Edit by [employer] on 08/15/24 14:41 Results Reviewed Results Reviewed: Laboratory Last Values Urine pH (Auto) 6.0 08/15/24 14:40 Specific [place] (Auto) 1.030 08/15/24 14:40 Urine Protein (Auto) 15 mg/dL 08/15/24 14:40 Glucose (UA)(Auto) 0 mg/dL 08/15/24 14:40 Urine Blood (Auto) 0 Andrea/uL 08/15/24 14:40 Urine Bilirubin (Auto) 0 mg/dL 08/15/24 14:40 Urine Urobilinogen (Auto) 0.2 mg/dL 08/15/24 14:40 Leukocyte Esterase (Auto) 15 Khushbu/uL 08/15/24 14:40 Assessment & Plan Assessment & Plan (1) Recurrent UTI: Code(s): N39.0 - Urinary tract infection, site not specified Category: Medical (2) Urge incontinence of urine: Code(s): N39.41 - Urge incontinence Category: Medical (3) Nocturia: Code(s): R35.1 - Nocturia Category: Medical Plan In office urinalysis results reviewed with the patient today; as noted above. PVR 40 mL. We discussed at length potential causes of lower urinary tract symptoms patient is experiencing as well as further workup and treatment options of these lower urinary tract symptoms. All questions were answered. Start Estrace cream as discussed and prescribed. Will obtain retroperitoneal ultrasound for further assessment evaluation. We discussed possible near future in office cystoscopy and or urodynamics for further assessment evaluation. Discussed UTI prevention with D mannose supplement, vitamin-C, increasing fluid intake, behavioral therapy with timed voiding, perineal hygiene and postcoital voiding, and management of constipation with stool softeners and increased fiber intake. Follow-up in 3 months with imaging to be completed prior PVR at next office visit; or sooner with any issues, concerns, and or questions. Orders: Orders AMB Urinalysis Automated 08/15/24 Z13.9 - Encounter for screening, unspecified AMB Post Void Residual by ultrasound 08/15/24 N39.0 - Urinary tract infection, site not specified US retroperitoneal comp 08/15/24 N39.0 - Urinary tract infection, site not specified Medications: New estradiol 0.01%(0.1mg/gram) pea-sized to urethra daily times one month and then three times a week thereafter 30 days 42.5 grams 2RF N36.2 - Urethral caruncle, N39.0 - Urinary tract infection, site not specified, N95.2 - Postmenopausal atrophic vaginitis Patient Instructions: The patient had an opportunity to ask questions regarding the treatment plan. All questions were answered. Physical exam, labs, and imaging were discussed and reviewed in detail. As well as risks, benefits, and discussion of treatment choices. No major barriers to understanding were identified. The patient expressed understanding and agreement with the above treatment plan. The patient was made aware they should contact our office by phone for worsening of their current condition, the appearance of new symptoms, or with any questions or concerns. Compliance is encouraged with any medications and follow up testing that is ordered. It is a privilege to be allowed the opportunity to participate in? your urological care.? Again, if you have any questions or concerns If you have any questions or concerns please do not hesitate to contact me. The office is [phone]. This note is constructed using voice recognition software. While every effort has been made to ensure accuracy reception manager errors may have been included. Yours sincerely, ARCHANA Mcwilliams-MARY Coding Level of Care Code New Pt Level 4 (32542) Diagnoses Recurrent UTI N39.0 Urge incontinence of urine N39.41 Nocturia R35.1 CPT Codes Post Residual Void - PVR CPT Code: 91334-Pofi Void Residual by ultrasound ([id number])
== END 2024-08-15 15:01 | disposition home or self-care (01) ==
PROVIDERS: PCP Physician Assistant; Visit Provider Nurse Practitioner Family
DX: N39.0 Urinary tract infection, site not specified (principal); N39.41 Urge incontinence; R35.1 Nocturia
CPT/HCPCS: 99204

== ENCOUNTER → 2024-08-15 13:54 | Outpatient (BNVA) | payer MEDICARE, SELFPAY | PROVIDERS: PCP Physician Assistant; Visit Provider Nurse Practitioner Family | DX: N39.0 Urinary tract infection, site not specified (principal); N39.41 Urge incontinence; R35.1 Nocturia | CPT/HCPCS: 51798; 81003; 99202 ==

== ENCOUNTER 2024-10-20 12:30 | Outpatient (REF) | payer MEDICARE, SELFPAY ==
--- NOTE | ~2024-10-20 | US_ITS ---
CLINICAL HISTORY: N39.0 - Urinary tract infection, site not specified US RENAL Comparison: None Findings: Right kidney irquutaa80.0 cm length. Left kidney jbzufedd09.3 cm length. No collecting system dilatation of either kidney. No cortical mass lesion. Small linear echogenic foci in the left kidney may represent renovascular calcifications. No definite intrarenal calculus. Urinary bladder is unremarkable. Prevoid volume 246 mL. Postvoid volume 17 mL. Bilateral ureteral jets are visualized. IMPRESSION: 1. No hydronephrosis. 2. No significant postvoid residual. This document has been electronically signed by: Ivory Robledo DO on 10/23/2024 14:07:01
== END 2024-10-20 12:31 | disposition home or self-care (01) ==
LOC: HO.US 12:30
PROVIDERS: PCP Physician Assistant; Visit Provider Nurse Practitioner Family
DX: N39.0 Urinary tract infection, site not specified (principal)
CPT/HCPCS: 76770

== ENCOUNTER → 2024-10-20 12:31 | Outpatient (BNV) | payer MEDICARE, SELFPAY | PROVIDERS: PCP Physician Assistant; Visit Provider Radiology Diagnostic Radiology | DX: N39.0 Urinary tract infection, site not specified (principal) | CPT/HCPCS: 76770 ==

== ENCOUNTER 2025-01-23 16:02 | Outpatient (AMB) | payer MEDICARE, SELFPAY ==
--- NOTE | 2025-01-23 16:04 | A.OFFVIS_ITS ---
Intake Visit Reasons: 2m/US(set) Intake Note: Patient presents today for follow up on: incontinence, nocturia, and recurrent uti Urology Medications: Estrace Cream Blood Thinner: Apixaban PVR: 52ml's Warehouse Loader Required: No Accompanied by: Self / Same As Patient Allergies lisinopril [LISINOPRIL] Allergy (Unknown, Verified 01/23/25 16:36) COUGH/AFIB, Cough nizatidine [From AXID] Allergy (Unknown, Verified 01/23/25 16:36) ANAPHYLAXIS Sulfa (Sulfonamide Antibiotics) [SULFA (SULFONAMIDE ANTIBIOTICS)] Allergy (Unknown, Verified 01/23/25 16:36) UNKNOWN HPI Comments Details: Katey is a very pleasant 69-year-old female patient of . 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 She presents to the office today for follow-up of her ongoing lower urinary tract symptoms. Of note, patient was seen approximately 3 months ago as a new patient at which time a retroperitoneal ultrasound was ordered for further assessment evaluation in the patient was started on Estrace cream. Recent retroperitoneal ultrasound results were reviewed 11/07 bilateral kidneys with no hydronephrosis. Urinary bladder is unremarkable. No significant postvoid residual. She continues to report episodes of urge incontinence in his utilizing 2-3 Lizzie pads per day. She has previously trialed pelvic floor therapy with no improvement in lower urinary tract symptoms. We did discussed further treatment options and risks and benefits of these treatment options. All questions were answered. In office urinalysis results reviewed with the patient today. PVR 52 mL. She does have a previous history of 3 vaginal births. She denies hematuria, dysuria, foul smelling urine, changes to urinary stream, flank pain, fever, and or chills. We discussed at length potential causes of lower urinary tract symptoms patient was experiencing as well as and treatment options. She otherwise offers no other issues or concerns at this time. In review of patient's chart it appears urine cultures are as follows: 05/06 E coli, 05/08 E coli, 06/07 E coli. [facility] Medical History LETI (obstructive sleep apnea) Paroxysmal atrial flutter PAF (paroxysmal atrial fibrillation) Asthma Dyslipidemia GERD (gastroesophageal reflux disease) Hypertension Morbid obesity Hypothyroidism due to Aj's thyroiditis History of cardioversion Surgical History History of dental surgery H/O hemorrhoidectomy History of cardiac radiofrequency ablation Hx of arthroscopy of left knee Family History Father No problems noted. 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 Cognitive needs: No Hearing needs: No Vision needs: Yes (wear glasses) Review of Systems Const Reports as per HPI Eyes Reports no additional complaints ENT Reports no additional complaints Card Reports as per HPI Resp Reports as per HPI GI Reports as per HPI Reports as per HPI Musc Reports no additional complaints Neuro Reports no additional complaints Psych Reports no additional complaints Endo Reports as per HPI Physical Exam Const General: cooperative, healthy appearing, comfortable, no acute distress, well developed, alert and awake Nutritional Appearance: overweight Orientation/consciousness: patient oriented x3 Limitations: no limitations HEENT Head: Yes normal to inspection, Yes normocephalic and Yes atraumatic Ears: hearing grossly normal bilaterally Eyes General: appearance normal, both eyes and all related structures Neck Neck: Yes normal visual inspection and Yes trachea midline Chest Chest palpation & inspection: normal inspection of the chest Resp Effort & Inspection: normal respiratory effort and able to speak in complete sentences Cardio Rate: regular rate GI Inspection: Yes normal to inspection General: Yes no CVA tenderness Back/Spine/Pelvis Back: no CVA tenderness Skin General skin exam: no rashes or lesions noted Neuro General: patient oriented x3 Extrem General: Yes normal to inspection Psych Appearance: grossly normal and well kempt Mental Status: mental status grossly normal Speech and movement: Normal speech and movement present and Clear speech present Affect: normal affect Attitude: cooperative Thought process: Normal thought process present Thought content: Normal thought content present Insight: Fair insight present (Psych) Judgement: Fair judgement present (Psych) Results AMB Urinalysis, Automated UA Leukoctes 70 Khushbu/uL Last Edit by Manjeet Lynn [facility] on 01/23/25 16:38 UA Nitrite Last Edit by Manjeet Lynn [facility] on 01/23/25 16:38 UA Urobilinogen 0.2 mg/dL Last Edit by Manjeet Lynn [facility] on 01/23/25 16:3 8 UA Protein 15 mg/dL Last Edit by Manjeet Lynn [facility] on 01/23/25 16:38 UA pH 6.0 Last Edit by Manjeet Lynn [facility] on 01/23/25 16:38 UA Blood 0 Andrea/uL Last Edit by Manjeet Lynn [facility] on 01/23/25 16:38 UA Specific [place] 1.025 Last Edit by Manjeet Lynn [facility] on 01/23/25 16: 38 UA Ketone Last Edit by Manjeet Lynn [facility] on 01/23/25 16:38 UA Bilirubin 0 mg/dL Last Edit by Manjeet Lynn [facility] on 01/23/25 16:38 UA Glucose 0 mg/dL [facility] on 01/23/25 16:38 Results Reviewed Results Reviewed: Laboratory Last Values Urine pH (Auto) 6.0 01/23/25 16:37 Specific [place] (Auto) 1.025 01/23/25 16:37 Urine Protein (Auto) 15 mg/dL 01/23/25 16:37 Glucose (UA)(Auto) 0 mg/dL 01/23/25 16:37 Urine Blood (Auto) 0 Andrea/uL 01/23/25 16:37 Urine Bilirubin (Auto) 0 mg/dL 01/23/25 16:37 Urine Urobilinogen (Auto) 0.2 mg/dL 01/23/25 16:37 Leukocyte Esterase (Auto) 70 Khushbu/uL 01/23/25 16:37 Date of Service: 10/20/24 Procedure(s): US retroperitoneal comp Findings: Right kidney wtiuysdn93.0 cm length. Left kidney qzlsncne47.3 cm length. No collecting system dilatation of either kidney. No cortical mass lesion. Small linear echogenic foci in the left kidney may represent renovascular calcifications. No definite intrarenal calculus. Urinary bladder is unremarkable. Prevoid volume 246 mL. Postvoid volume 17 mL. Bilateral ureteral jets are visualized. IMPRESSION: 1. No hydronephrosis. 2. No significant postvoid residual. Assessment & Plan Assessment & Plan (1) Nocturia: Code(s): R35.1 - Nocturia Category: Medical (2) Recurrent UTI: Code(s): N39.0 - Urinary tract infection, site not specified Category: Medical (3) Urge incontinence of urine: Code(s): N39.41 - Urge incontinence Category: Medical Plan In office urinalysis results reviewed with the patient today; as noted above. PVR 52 mL. Recent retroperitoneal ultrasound results reviewed with the patient today; as noted above. We discussed further treatment options of urge incontinence in risks and benefits of these treatment options. Continue Estrace cream as discussed and prescribed. Will schedule for in office urodynamics as discussed; information provided. Follow-up per doctor's orders; or sooner with any issues, concerns, and or questions. Orders: Orders AMB Urinalysis Automated Today Z13.9 - Encounter for screening, unspecified Patient Instructions: The patient had an opportunity to ask questions regarding the treatment plan. All questions were answered. Physical exam, labs, and imaging were discussed and reviewed in detail. As well as risks, benefits, and discussion of treatment choices. No major barriers to understanding were identified. The patient expressed understanding and agreement with the above treatment plan. The patient was made aware they should contact our office by phone for worsening of their current condition, the appearance of new symptoms, or with any questions or concerns. Compliance is encouraged with any medications and follow up testing that is ordered. It is a privilege to be allowed the opportunity to participate in? your urological care.? Again, if you have any questions or concerns If you have any questions or concerns please do not hesitate to contact me. The office is [phone]. This note is constructed using voice recognition software. While every effort has been made to ensure accuracy fisher line errors may have been included. Yours sincerely, ARCHANA Mcwilliams-MARY Coding Level of Care Code Est Pt Level 3 (16178) Complex EM visit Add On G2211 Diagnoses Nocturia R35.1 Recurrent UTI N39.0 Urge incontinence of urine N39.41
== END 2025-01-23 16:47 | disposition home or self-care (01) ==
LOC: HO.HUSH 16:03
PROVIDERS: PCP Physician Assistant; Visit Provider Nurse Practitioner Family
DX: R35.1 Nocturia (principal); N39.0 Urinary tract infection, site not specified; N39.41 Urge incontinence; Z13.9 Encounter for screening, unspecified
CPT/HCPCS: 99213; G2211

== ENCOUNTER → 2025-01-23 16:02 | Outpatient (BNVA) | payer MEDICARE, SELFPAY | PROVIDERS: PCP Physician Assistant; Visit Provider Nurse Practitioner Family | DX: R35.1 Nocturia (principal); N39.0 Urinary tract infection, site not specified; N39.41 Urge incontinence | CPT/HCPCS: 81003; 99212 ==

== ENCOUNTER 2025-03-02 08:05 | Outpatient (AMB) | payer MEDICARE, SELFPAY ==
--- OUTSIDE RECORDS SUMMARY | 2025-03-02 08:09 | XMS_ITS | Patient Health Record ---
Author Organization [facility] Address [address] [place] [address] Care Team Providers Care Brush Or Broom Cutter Name Role Phone Susan(inactive) Willian COULTER Primary Care Provider U Marcos Calle [phone] Allergies Allergen (clinical drug ingredient) Drug/Non Drug Allergy documented on EMR Reaction Allergy Type Onset Date Status Sulfa Unknown Drug Allergy Active lisinopril Lisinopril Unknown Drug Allergy Activ e Axid Unknown Drug Allergy Active Reason For Referral No Information Medications Medication SIG (Take, Route, Fr equency, Duration) Notes Start Date End Date Status Magnesium Active Breo Ellipta Active Claritin Active Metoprolol Succinate Active Levothyroxine Sodium Active Eliquis Active Pravastatin Sodium A ctive Flecainide Acetate A ctive Montelukast Sodium A ctive Omeprazole 20 MG 1 capsule Orally Once a day Active Social History Tobacco Use: Social History Observation Description Date Details (start date - stop date) Former Smoker NA - NA Tobacco Use/Smoking Question Answer Notes Patient is a former smoker How long has it been since you last smoked? > 10 years Alcohol Screen Question Answer Notes Did you have a drink contain ing alcohol in the past year? Yes How often did you have a dri nk containing alcohol in the past year? 4 or more times a week (4 points) How many drinks did you have on a typical day when you were drinking in the past year? 1 or 2 drinks (0 point) How often did you have 6 or more drinks on one occasion in the past year? Never (0 point) Points 4 Interpretation Positive Section Notes: Nonsmoker; no sig alcohol Problems Problem Type SNOMED Code ICD Code Onset Dates Problem Status W/U Status Risk Notes Problem 301757203 Encounter for screening for malignant neoplasm of colon (Z12.11) Active confirmed Problem 805266732 Gastroesophageal reflux disease, esophagitis presence not specified (K21.9) Active confirmed Problem [id number] Irritable bowel syndrome with both constipation and diarrhea (K58.2) Active confirmed Plan Of Treatment Pending Test Test Name Order Date GI BIOPSY 03/09/2018 CELIAC PANEL #10 02/01/2018 Future Test Test Name Order Date UPPER GI ENDOSCOPY 02/01/2018 COLONOSCOPY 02/01/2018 Insurance Providers Payer Name Payer Address Payer Phone Subscriber Number Group Number Insured Name Patient Relationship to Insured Coverage Start Date Coverage End Date [facility] [employer] [address] [place] [address] [id number] RILEY VIERA Self - patient is the insured Medical (General) History Medical History History ICD Code Asthma Atrial fibrillation--Dr. Garcia at [facility] [place] Denies CA,DM,CVA,renal disease Aj's thyroiditis GERD Negative colonoscopy in [address] Whitehead in [place]--biopsies from colon and TI were normal--no microscopic colitis--no polyps---has hemorrhoids Sleep apnea-uses CPAP
--- NOTE | 2025-03-02 09:02 | A.OFFVIS_ITS ---
Intake Visit Reasons: UroD Allergies lisinopril (LISINOPRIL) Allergy (Unknown, Verified 01/23/25 16:36) COUGH/AFIB, Cough nizatidine (From AXID) Allergy (Unknown, Verified 01/23/25 16:36) ANAPHYLAXIS Sulfa (Sulfonamide Antibiotics) (SULFA (SULFONAMIDE ANTIBIOTICS)) Allergy (Unknown, Verified 01/23/25 16:36) UNKNOWN Medication List - Last Reconciled 03/02/25 by Sophia Julio MD amlodipine 5 mg PO DAILY apixaban 5 mg PO BID 90 days budesonide-formoterol 80-4.5 mcg/actuation 1 puff inhalation BID 30 days cholecalciferol (vitamin D3) 125 mcg PO DAILY estradiol 0.01%(0.1mg/gram) pea-sized to urethra daily times one month and then three times a week thereafter 30 days flecainide 150 mg PO Q12H inhalational spacing device (Aerochamber MV spacer) As directed levothyroxine 137 mcg PO DAILY 90 days magnesium oxide 500 mg PO DAILY metoprolol tartrate 100 mg PO BID montelukast 10 mg PO DAILY pravastatin 20 mg PO DAILY sertraline (Zoloft) 25 mg (1/2 x 50 mg) PO DAILY 90 days trospium 20 mg PO BID HPI Comments Details: Katey is here for urodynamics. The patient has complaints of urinary incontinence. Interpretation: During the filling phase there sensory urgency was noted, detrusor overactivity was noted. Leakage was not objectively seen during cough or Valsalva. EMG- Appropriate changes in the waveforms were noted through out the study. Discussed OAB care pathway, Bladder control strategies, including pelvic floor exercises, the patient attended pelvic floor physical therapy but did not see any benefit in the treatment sessions. Discessed that urinary leakage can be related to pelvic floor muscles weakness and/or bladder spasms. Treatment options discussed for OAB included anticholinergics/antimuscarinics, bladder botox injection. [facility] Medical History LETI (obstructive sleep apnea) Paroxysmal atrial flutter PAF (paroxysmal atrial fibrillation) Asthma Dyslipidemia GERD (gastroesophageal reflux disease) Hypertension Morbid obesity Hypothyroidism due to Aj's thyroiditis History of cardioversion Surgical History History of dental surgery H/O hemorrhoidectomy History of cardiac radiofrequency ablation Hx of arthroscopy of left knee Family History Father No problems noted. 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[employer] Cognitive needs: No Hearing needs: No Vision needs: Yes (wear glasses) Review of Systems Const All systems reviewed & are unremarkable except as noted in HPI and below Reports no additional complaints Eyes Reports no additional complaints ENT Reports no additional complaints Card Reports no additional complaints Resp Reports no additional complaints GI Reports no additional complaints Reports as per HPI Musc Reports no additional complaints Skin/Breast Reports system reviewed and no additional complaints, except as documented Neuro Reports no additional complaints Psych Reports no additional complaints Endo Reports no additional complaints Rakesh/Lymph Reports no additional complaints Aller/Immun Reports no additional complaints Office Procedures Urodynamic Studies Consent Discussed risk and benefit or proposed procedure with the patient. Information consent for procedure given to the patient. Discussed technical aspects, risks, benefits and alternatives in full. Addressed all of the patient's questions and concerns regarding the procedure. The patient demonstrated knowledge and understanding. They wish to proceed with this procedure. Preparation The patient was prepped in the usual manner. A high school music instructor was present and in the room. Genitalia was prepped with betadine solution in a sterile manner. Procedure Complex Uroflow Patient did not void enough to accurate document Uroflow. PVR: 5ml Cystometrogram ? Vaginal/rectal catheter type: Vaginal First sensation at (mL): 8.7mL First desire at (mL): 80 mL Strong desire to void occurred at (mL): 149mL Strong desire detrusor pressure (cm H2O): 1.0 Maximum Capacity (mL): 258 mL Voiding Summary Voided with max detrusor pressure of (cm H2O): 38 Maximum flow rate (mL/second): 6.6 mL/s Voided volume (mL): ? 198ml Calculated PVR: 56mL (patient reports she voided an additional small amount of urine once catheters removed) Stress Testing Stress Test at 150 mL: Absent leak with Valsalva, Absentleak with cough Sensory Urgency throughout the test DO Dry: 180ml, 210ml, 255ml DO Wet:N/A Prep: The patient was prepped in the usual manner. A high school music instructor was present and in the room. Genitalia was prepped with betadine solution in a sterile manner. 42632-Evnigdxztzdrfx w/ [employer]E [employer]ANT OPERATOR 38061-Mhcctxe-Ulexfvcvqrfs 35555-Gvkm/Urinary Muscle Study 73960-Qpjev-Alxmoqkmu Pressure Test Procedure code (CPT) selection complete Office Meds nitrofurantoin monohydrate/macrocrystals 100 mg capsule Performing Provider: Sophia Julio MD [facility] [place] [facility] Administered by: Cortney Huertas RN on 03/02/25 09:02 Dose Route Admin Location Dispensed Lot Number Expiration Date NDC Primary Clinician 100 mg PO 1 cap Results AMB Urinalysis, Automated UA Leukoctes 0 Khushbu/uL Last Edit by Cortney Huertas RN on 03/02/25 09:11 UA Nitrite Negative Last Edit by Cortney Huertas RN on 03/02/25 09:11 UA Urobilinogen 0 mg/dL Last Edit by Cortney Huertas RN on 03/02/25 09:11 UA Protein 0 mg/dL Last Edit by Cortney Huertas RN on 03/02/25 09:11 UA pH 6.0 Last Edit by Cortney Huertas RN on 03/02/25 09:11 UA Blood 0 Andrea/uL Last Edit by Cortney Huertas RN on 03/02/25 09:11 UA Specific [place] 1.0 Last Edit by Cortney Huertas RN on 03/02/25 09:1 1 UA Ketone Negative Last Edit by Cortney Huertas RN on 03/02/25 09:11 UA Bilirubin 0 mg/dL Last Edit by Cortney Huertas RN on 03/02/25 09:11 UA Glucose 0 mg/dL Last Edit by Cortney Huertas RN on 03/02/25 09:11 Results Reviewed Results Reviewed: Laboratory Last Values Urine pH (Auto) 6.0 03/02/25 08:18 Specific [place] (Auto) 1.0 03/02/25 08:18 Urine Protein (Auto) 0 mg/dL 03/02/25 08:18 Glucose (UA)(Auto) 0 mg/dL 03/02/25 08:18 Urine Ketones (Auto) Negative 03/02/25 08:18 Urine Blood (Auto) 0 Andrea/uL 03/02/25 08:18 Urine Nitrite (Auto) Negative 03/02/25 08:18 Urine Bilirubin (Auto) 0 mg/dL 03/02/25 08:18 Urine Urobilinogen (Auto) 0 mg/dL 03/02/25 08:18 Leukocyte Esterase (Auto) 0 Khushbu/uL 03/02/25 08:18 Assessment & Plan Assessment & Plan (1) Detrusor overactivity: Code(s): N32.81 - Overactive bladder Category: Medical (2) OAB (overactive bladder): Code(s): N32.81 - Overactive bladder Category: Medical Plan Trospium 20 mg twice a day follow-up with Lacy in 6 weeks to discuss change in urinary symptoms on medication Orders: Orders AMB Urodynamics Studies Today N39.0 - Urinary tract infection, site not specified, N39.41 - Urge incontinence AMB Urinalysis Automated Today Z13.9 - Encounter for screening, unspecified Medications: New trospium administer on an empty stomach 20 mg PO BID 60 tabs 2RF Patient Instructions: The patient had an opportunity to ask questions regarding treatment plan. The patient expressed understanding and agreement with the above treatment plan. The patient is aware they should contact our office by phone for worsening of their current condition or the appearance of new symptoms. Compliance is encouraged with any medications and followup testing that is ordered. It is a privilege to be allowed the opportunity to participate in the urologic care of your patient. If you have any questions or concerns regarding treatment for the above conditions please do not hesitate to contact me. The office telephone contact is [phone]. This note is constructed in part using voice recognition software. While every effort has been made to ensure accuracy pole shaver errors may have been included. Yours sincerely, Sophia Julio MD Coding Level of Care Code Est Pt Level 4 (49059) Diagnoses Detrusor overactivity N32.81 OAB (overactive bladder) N32.81 CPT Codes Urodynamic Studies - CPT: 77629-Byyfkmwxmansyi w/ ETH[employer]E [employer] OPERATOR ([id number]) Urodynamic Studies - CPT: 20562-Rfnnteh-Nfepdwctrrvh ([id number]) Urodynamic Studies - CPT: 54794-Tfwr/Urinary Muscle Study ([id number]) Urodynamic Studies - CPT: 96268-Mhpmr-Xepheadki Pressure Test ([id number])
== END 2025-03-02 09:26 | disposition home or self-care (01) ==
LOC: HO.HUSH 08:07
PROVIDERS: PCP Physician Assistant; Visit Provider Urology
DX: N39.41 Urge incontinence (principal); N39.0 Urinary tract infection, site not specified; N32.81 Overactive bladder; Z13.9 Encounter for screening, unspecified
CPT/HCPCS: 51728; 51741; 51784; 51797; 99214

== ENCOUNTER → 2025-03-02 08:05 | Outpatient (BNVA) | payer MEDICARE, SELFPAY | PROVIDERS: PCP Physician Assistant; Visit Provider Urology | DX: N32.81 Overactive bladder (principal); N39.41 Urge incontinence; Z13.9 Encounter for screening, unspecified | CPT/HCPCS: 51728; 51741; 51784; 51797; 81003; 99212 ==

== ENCOUNTER 2025-03-06 12:20 | Outpatient (REF) | payer MEDICARE, SELFPAY ==
--- OUTSIDE RECORDS SUMMARY | 2025-03-06 13:22 | XMS_ITS | Patient Health Record ---
Author Organization [facility] Address [address] [place] [address] Care Team Providers Care Antiquer Name Role Phone Susan(inactive) Willian COULTER Primary Care Provider U Marcos Calle [phone] Allergies Allergen (clinical drug ingredient) Drug/Non Drug [...] Problem Status W/U Status Risk Notes Problem [id number] Encounter for screening for malignant neoplasm of colon (Z12.11) Active confirmed Problem 656852721 Gastroesophageal reflux disease, esophagitis presence not specified (K21.9) Active confirmed Problem 69107171 Irritable bowel syndrome with both constipation and diarrhea (K58.2) Active confirmed Plan Of Treatment Pending Test Test Name Order Date GI BIOPSY 03/09/2018 CELIAC PANEL #10 02/01/2018 Future Test Test Name Order Date UPPER GI ENDOSCOPY 02/01/2018 COLONOSCOPY 02/01/2018 Insurance Providers Payer Name Payer Address Payer Phone Subscriber Number Group Number Insured Name Patient Relationship to Insured Coverage Start Date Coverage End Date [facility] [place] [id number] PROFESSIONAL CLAIMS [address] [place] [address] [id number] 5 RILEY VIERA Self - patient is the insured Medical (General) History Medical History History ICD Code Asthma Atrial [place] [facility] [place],DM,CVA,renal disease Aj's thyroiditis GERD Negative colonoscopy in [address] Whitehead in [place]--biopsies from colon and TI were normal--no microscopic colitis--no polyps---has hemorrhoids Sleep apnea-uses CPAP
[2025-03-06 14:33] LABS: Appearance Urine Cloudy; Glucose Urine UA Negative (Negative); PH 5.5 (5.0-9.0); Specific Gravity - Urine 1.020 (1.005-1.025); UMIC TRIGGER UACC YES
[2025-03-06 14:44] LABS: UACC Culture Trigger YES
== END 2025-03-06 12:21 | disposition home or self-care (01) ==
LOC: HO.LAB 12:20
PROVIDERS: PCP Physician Assistant; Visit Provider Nurse Practitioner Family
DX: N39.0 Urinary tract infection, site not specified (principal)
CPT/HCPCS: 81001; 87086; 87088; 87186

== ENCOUNTER 2025-03-12 14:35 | Outpatient (AMB) | payer MEDICARE, SELFPAY ==
[2025-03-12 14:52] VITALS: BP 122/68; PULSE 72; BMI 48.2
--- NOTE | 2025-03-12 14:52 | MHC.OFFVIS ---
Vital Signs 03/12/25 14:52 Height 5 ft 1 in Weight 255 lb BMI 48.2 BP 122/68 Blood Pressure Location Lt brachial Position Sitting Pulse 72 Pulse Source Monitor Intake Visit Reasons: r/s 01/25/25 1 yr followup w/ekg Allergies lisinopril (LISINOPRIL) Allergy (Unknown, Verified 01/23/25 16:36) COUGH/AFIB, Cough nizatidine (From AXID) Allergy (Unknown, Verified 01/23/25 16:36) ANAPHYLAXIS Sulfa (Sulfonamide Antibiotics) (SULFA (SULFONAMIDE ANTIBIOTICS)) Allergy (Unknown, Verified 01/23/25 16:36) UNKNOWN Medication List - Last Reconciled 03/12/25 by Kwabena Garcia MD amlodipine 5 mg PO DAILY apixaban 5 mg PO BID 90 days budesonide-formoterol 80-4.5 mcg/actuation 1 puff inhalation BID 30 days cholecalciferol (vitamin D3) 125 mcg PO DAILY estradiol 0.01%(0.1mg/gram) pea-sized to urethra daily times one month and then three times a week thereafter 30 days flecainide 150 mg PO Q12H inhalational spacing device (Aerochamber MV spacer) As directed levothyroxine 137 mcg PO DAILY 90 days magnesium oxide 500 mg PO DAILY metoprolol tartrate 100 mg PO BID montelukast 10 mg PO DAILY nitrofurantoin macrocrystal 100 mg PO BID 7 days pravastatin 20 mg PO DAILY sertraline (Zoloft) 25 mg (1/2 x 50 mg) PO DAILY 90 days trospium 20 mg PO BID HPI Comments Details: Katey returns for follow-up regarding atrial fibrillation and flutter. She has had history of ablation for the same. In 2017, she was admitted for palpitations suspected to be from atrial flutter. Cardioverted successfully. In 2018, she had recurrence of highly symptomatic atrial fibrillation leading to ER visit and another cardioversion. Then, flecainide dose was increased to 150 mg b.i.d.. After this, she has not had any recurrent atrial arrhythmias. Otherwise, on amlodipine for hypertension. Overall, she feels fine for the most part. No palpitations whatsoever. She was apparently on vacation and was walking briskly and had one episode of chest tightness but then resolved after that. Not clear if it is just asthma. No further episodes. [facility] Medical History LETI (obstructive sleep apnea) Paroxysmal atrial flutter PAF (paroxysmal atrial fibrillation) Asthma Dyslipidemia GERD (gastroesophageal reflux disease) Hypertension Morbid obesity Hypothyroidism due to Aj's thyroiditis History of cardioversion Surgical History History of dental surgery H/O hemorrhoidectomy History of cardiac radiofrequency ablation Hx of arthroscopy of left knee Family History Father No problems noted. 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[employer] Cognitive needs: No Hearing needs: No Vision needs: Yes (wear glasses) Review of Systems Const Denies weakness ENT Denies dizziness Card Denies chest pain, Reports chest pain at rest, Denies chest pain with activity, Denies syncope, Denies rapid heart rate, Denies pedal edema, Denies edema, Denies leg edema, Denies lightheadedness, Denies palpitations, Denies dyspnea, Denies dyspnea on exertion and Denies orthopnea Resp Denies cough, Denies dyspnea and Denies dyspnea on exertion GI Denies hematochezia, Denies change in stool character and Reports nausea Musc Denies abnormal gait, Denies muscle cramps, Denies muscle weakness, Denies numbness, Denies radiating pain into limb and Denies tingling Neuro Denies abnormal gait, Denies dizziness, Denies syncope, Denies numbness, Denies tingling and Denies weakness Endo Denies palpitations Physical Exam Vital Signs: Last Vital Signs Pulse 72 03/12/25 14:52 BP 122/68 03/12/25 14:52 BMI result Body Mass Index 48.2 Const General: comfortable and no acute distress Orientation/consciousness: patient oriented x3 HEENT Other: Unremarkable Head: Yes normal to inspection Neck Neck: Yes normal visual inspection Chest Chest palpation & inspection: normal inspection of the chest Resp Auscultation: clear to auscultation bilaterally Cardio Palpation: normal PMI Heart sounds: S1 normal heart sound present, S2 normal heart sound present, no gallops, no murmurs and no rubs GI Palpation (GI): Soft to palpation Back/Spine/Pelvis Other: unremarkable Skin General skin exam: no rashes or lesions noted Neuro General: patient oriented x3 Extrem General: Yes normal to inspection Psych Mental Status: mental status grossly normal Office Procedures EKG Details: EKG with underlying sinus rhythm at 72/Min; mild TX prolongation to 226 millisecond; normal corrected QT; no significant ST-T changes. 96000-Szneksdisvjfqqntm, Complete Assessment & Plan Assessment & Plan (1) PAF (paroxysmal atrial fibrillation): Code(s): I48.0 - Paroxysmal atrial fibrillation Category: Medical Plan: Stable. No recent issues. Continue metoprolol, flecainide, Eliquis. Advised to do labs. (2) Paroxysmal atrial flutter: Code(s): I48.92 - Unspecified atrial flutter Category: Medical Plan: As above. (3) Encounter for monitoring anti-arrhythmic therapy: Code(s): Z51.81 - Encounter for therapeutic drug level monitoring; Z79.899 - Other longitudinal float operator (current) drug therapy Category: Medical Plan: Stable EKG. (4) Atherosclerotic cardiovascular disease: Code(s): I25.10 - Atherosclerotic heart disease of [place] coronary artery without angina pectoris Category: Medical Plan: Coronary CT in 2019 showed only mild plaque and no evidence of hemodynamically significant disease. Last echocardiogram with normal LVEF, 60-65% and grade 2 diastolic dysfunction. With regard to the isolated episode of chest tightness, she thinks if it is just her asthma and there has not been anything recurrent. Advised her to contact us if she gets any further episodes. In that case, we will need to reassess. (5) Hypertension: Code(s): I10 - Essential (primary) hypertension Category: Medical Qualifiers: Hypertension type: primary hypertension Qualified Code(s): I10 - Essential (primary) hypertension Plan: Continue amlodipine. (6) LETI (obstructive sleep apnea): Code(s): G47.33 - Obstructive sleep apnea (adult) (pediatric) Category: Medical Plan: Continue CPAP. (7) Morbid obesity: Code(s): E66.01 - Morbid (severe) obesity due to excess calories Category: Medical Plan: This has been a long-term issue and she states that she has now started [facility] diet and hoping that she will lose weight. Plan Discussion Notes We reviewed her atrial fibrillation management with Flecainide and the importance of regular blood work. Advised her to repeat lab work as ordered. I advised her to monitor for any recurrence of chest tightness and shortness of breath, and we discussed the possibility of a repeat coronary CAT scan if symptoms persist. We also talked about her weight management efforts with the [facility] Diet and the importance of consistent CPAP use for her obstructive sleep apnea. Patient was informed and verbally consented to the use of an ambient scribe for clinic note documentation during this visit. Orders: Orders CA echo transthoracic complete 6 Months I48.0 - Paroxysmal atrial fibrillation Patient Instructions: - Continue taking Flecainide as prescribed. - Complete blood work. - Watch for any chest tightness or shortness of breath, especially during exercise. - Use CPAP machine consistently at night. Coding Level of Care Code Est Pt Level 4 (84068) Complex EM visit Add On G2211 Diagnoses PAF (paroxysmal atrial fibrillation) I48.0 Paroxysmal atrial flutter I48.92 Encounter for monitoring anti-arrhythmic therapy Z51.81; Z79.899 Atherosclerotic cardiovascular disease I25.10 Primary hypertension I10 Hypertension type: primary hypertension LETI (obstructive sleep apnea) G47.33 Morbid obesity E66.01 CPT Codes EKG - CPT: 29892-Unwffdydjbiqdsckl, Complete ([id number])
--- OUTSIDE RECORDS SUMMARY | 2025-03-12 15:11 | XMS_ITS | Patient Health Record ---
Author Organization [facility] Address [address] [place] [address] Care Team Providers Care Hat Braider Name Role Phone Susan(inactive) Willian COULTER Primary Care Provider U Marcos Calle [phone] Allergies Allergen (clinical drug ingredient) Drug/Non Drug [...] Problem Status W/U Status Risk Notes Problem [id number] Encounter for screening for malignant neoplasm of colon (Z12.11) Active confirmed Problem 875266064 Gastroesophageal reflux disease, esophagitis presence not specified (K21.9) Active confirmed Problem 53915367 Irritable bowel syndrome with both constipation and diarrhea (K58.2) Active confirmed Plan Of Treatment Pending Test Test Name Order Date GI BIOPSY 03/09/2018 CELIAC PANEL #10 02/01/2018 Future Test Test Name Order Date UPPER GI ENDOSCOPY 02/01/2018 COLONOSCOPY 02/01/2018 Insurance Providers Payer Name Payer Address Payer Phone Subscriber Number Group Number Insured Name Patient Relationship to Insured Coverage Start Date Coverage End Date [facility] [place] [employer] PROFESSIONAL CLAIMS [address] [place] [address] [id number] 5 RILEY VIERA Self - patient is the insured Medical (General) History Medical History History ICD Code Asthma Atrial fibrillation--[place]. Garcia at [facility] [place] Den[place],DM,CVA,renal disease Aj's thyroiditis GERD Negative colonoscopy in [address] Whitehead in [place]--biopsies from colon and TI were normal--no microscopic colitis--no polyps---has hemorrhoids Sleep apnea-uses CPAP
== END 2025-03-12 15:17 | disposition home or self-care (01) ==
LOC: HO.HCS 14:36
PROVIDERS: PCP Physician Assistant; Visit Provider Internal Medicine
DX: I48.0 Paroxysmal atrial fibrillation (principal); I48.92 Unspecified atrial flutter; Z51.81 Encounter for therapeutic drug level monitoring; Z79.899 Other long term (current) drug therapy; I25.10 Atherosclerotic heart disease of native coronary artery without angina pectoris; I10 Essential (primary) hypertension; G47.33 Obstructive sleep apnea (adult) (pediatric); E66.01 Morbid (severe) obesity due to excess calories
CPT/HCPCS: 93010; 99214; G2211

== ENCOUNTER → 2025-03-12 14:35 | Outpatient (BNVA) | payer MEDICARE, SELFPAY | PROVIDERS: PCP Physician Assistant; Visit Provider Internal Medicine | DX: I48.0 Paroxysmal atrial fibrillation (principal); I48.92 Unspecified atrial flutter; I25.10 Atherosclerotic heart disease of native coronary artery without angina pectoris; I10 Essential (primary) hypertension; I44.0 Atrioventricular block, first degree; G47.33 Obstructive sleep apnea (adult) (pediatric); E66.01 Morbid (severe) obesity due to excess calories; Z51.81 Encounter for therapeutic drug level monitoring; Z79.899 Other long term (current) drug therapy; Z68.42 Body mass index [BMI] 45.0-49.9, adult | CPT/HCPCS: 93005; 99212 ==

== ENCOUNTER 2025-04-09 15:59 | Outpatient (AMB) | payer MEDICARE, SELFPAY ==
--- NOTE | 2025-04-09 16:12 | MHC.OFFVIS ---
Intake Visit Reasons: 6w/med review Intake Note: Patient is present for 6W/MED REVIEW Urology Medication: Trospium Antibiotic Allergy:SULFA Blood Thinner:APIXABAN Private Duty Lpn Required: No Allergies lisinopril (LISINOPRIL) Allergy (Unknown, Verified 04/09/25 16:36) COUGH/AFIB, Cough nizatidine (From AXID) Allergy (Unknown, Verified 04/09/25 16:36) ANAPHYLAXIS Sulfa (Sulfonamide Antibiotics) (SULFA (SULFONAMIDE ANTIBIOTICS)) Allergy (Unknown, Verified 04/09/25 16:36) UNKNOWN Medication List - Last Reconciled 04/09/25 by ARCHANA Mcwilliams- amlodipine 5 mg PO DAILY apixaban 5 mg PO BID 90 days budesonide-formoterol 80-4.5 mcg/actuation 1 puff inhalation BID 30 days cholecalciferol (vitamin D3) 125 mcg PO DAILY estradiol 0.01%(0.1mg/gram) pea-sized to urethra daily times one month and then three times a week thereafter 30 days flecainide 150 mg PO Q12H inhalational spacing device (Aerochamber MV spacer) As directed levothyroxine 137 mcg PO DAILY 90 days magnesium oxide 500 mg PO DAILY metoprolol tartrate 100 mg PO BID montelukast 10 mg PO DAILY nitrofurantoin macrocrystal 100 mg PO BID 7 days pravastatin 20 mg PO DAILY sertraline (Zoloft) 25 mg (1/2 x 50 mg) PO DAILY 90 days trospium 20 mg PO BID HPI Comments Details: Katey is a very pleasant 69-year-old female patient of Dr. Huerta. 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 She presents to the office today for follow-up of her ongoing lower urinary tract symptoms. Of note, patient underwent in office urodynamics 03/09 that noted: Interpretation: During the filling phase there sensory urgency was noted, detrusor overactivity was noted. Leakage was not objectively seen during cough or Valsalva. EMG- Appropriate changes in the waveforms were noted through out the study. Discussed OAB care pathway, Bladder control strategies, including pelvic floor exercises, the patient attended pelvic floor physical therapy but did not see any benefit in the treatment sessions. Discussed that urinary leakage can be related to pelvic floor muscles weakness and/or bladder spasms. Treatment options discussed for OAB included anticholinergics/antimuscarinics, bladder botox injection. She has since been on trospium 20 mg b.i.d. and does feel this has been extremely helpful in episodes of urge incontinence. However does feel she experiences issues with dry mouth and constipation. She does report utilizing biotin and OTC stool softeners and feels this has been helpful in managing side effects she is experiencing with the medication. We did discussed further treatment options and risks and benefits of these treatment options. However, she would like to continue with current therapy as she does feel symptoms are significantly improved and does feel she is managing well with side effects. All questions were answered. Previous workup has also included retroperitoneal ultrasound 11/07 noting bilateral kidneys with no hydronephrosis. Urinary bladder is unremarkable. No significant postvoid residual. She continues to report episodes of urge incontinence in his utilizing 2-3 Lizzie pads per day. She has previously trialed pelvic floor therapy with no improvement in lower urinary tract symptoms. She does have a previous history of 3 vaginal births. She denies hematuria, dysuria, foul smelling urine, changes to urinary stream, flank pain, fever, and or chills. She otherwise offers no other issues or concerns at this time. In review of patient's chart it appears urine cultures are as follows: 05/06 E coli, 05/08 E coli, 06/07 E coli, 03/09 [facility] Medical History LETI (obstructive sleep apnea) Paroxysmal atrial flutter PAF (paroxysmal atrial fibrillation) Asthma Dyslipidemia GERD (gastroesophageal reflux disease) Hypertension Morbid obesity Hypothyroidism due to Aj's thyroiditis History of cardioversion Surgical History History of dental surgery H/O hemorrhoidectomy History of cardiac radiofrequency ablation Hx of arthroscopy of left knee Family History Father No problems noted. 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 Cognitive needs: No Hearing needs: No Vision needs: Yes (wear glasses) Review of Systems Const Reports as per HPI Eyes Reports no additional complaints ENT Reports no additional complaints Card Reports as per HPI Resp Reports as per HPI GI Reports as per HPI Reports as per HPI Musc Reports no additional complaints Neuro Reports no additional complaints Psych Reports no additional complaints Endo Reports as per HPI Physical Exam Const General: cooperative Resp Effort & Inspection: normal respiratory effort Psych Speech and movement: Clear speech present Attitude: cooperative Thought content: Normal thought content present Insight: Fair insight present (Psych) Judgement: Fair judgement present (Psych) Telehealth Telehealth Telehealth Platform: [employer] Location of provider rendering services: practice address Location of patient: address on file Patient Identification confirmed using: Name, : Yes Telehealth method: voice only Patient verbally consented to treatment: Yes Patient verbally consented to billing insurance company: Yes Patient informed of any privacy concerns related to visit: Yes Minutes spent on Phone/Video with Pt.: 15 Assessment & Plan Assessment & Plan (1) Urge incontinence of urine: Code(s): N39.41 - Urge incontinence Category: Medical (2) Detrusor overactivity: Code(s): N32.81 - Overactive bladder Category: Medical (3) OAB (overactive bladder): Code(s): N32.81 - Overactive bladder Category: Medical (4) Recurrent urinary tract infection: Code(s): N39.0 - Urinary tract infection, site not specified Category: Medical Plan Continue trospium as discussed and prescribed. We did discussed further treatment options as patient has been experiencing intermittent episodes of dry mouth and constipation however she would like to continue with current management. Continue Estrace cream All questions were answered. She denies any bothersome urinary issues or concerns. She reports be happy with current voiding parameters. Will continue with surveillance monitoring Follow-up in 2-3 months with [facility]; or sooner with any issues, concerns, and or questions. Medications: Discontinued nitrofurantoin macrocrystal must administer with a meal/food Discontinued Reason: Patient Completed Course 100 mg PO BID 7 days 14 caps 0RF N39.0 - Urinary tract infection, site not specified Patient Instructions: The patient had an opportunity to ask questions regarding the treatment plan. All questions were answered. Physical exam, labs, and imaging were discussed and reviewed in detail. As well as risks, benefits, and discussion of treatment choices. No major barriers to understanding were identified. The patient expressed understanding and agreement with the above treatment plan. The patient was made aware they should contact our office by phone for worsening of their current condition, the appearance of new symptoms, or with any questions or concerns. Compliance is encouraged with any medications and follow up testing that is ordered. It is a privilege to be allowed the opportunity to participate in? your urological care.? Again, if you have any questions or concerns If you have any questions or concerns please do not hesitate to contact me. The office is [phone]. This note is constructed using voice recognition software. While every effort has been made to ensure accuracy speech and hearing clinic director errors may have been included. Yours sincerely, ABRAHAM Mcwilliams Coding Level of Care Code Tele Est Pt Level 3 (21760) Diagnoses Urge incontinence of urine N39.41 Detrusor overactivity N32.81 OAB (overactive bladder) N32.81 Recurrent urinary tract infection N39.0
--- OUTSIDE RECORDS SUMMARY | 2025-04-09 17:54 | XMS_ITS | Patient Health Record ---
Author Organization [facility] Address [address] [place] [address] Care Team Providers Care Line Service Technician Name Role Phone Susan(inactive) Willian COULTER Primary Care Provider U Marcos Calle [phone] Allergies Allergen (clinical drug ingredient) Drug/Non Drug [...] Problem Status W/U Status Risk Notes Problem 431517346 Encounter for screening for malignant neoplasm of colon (Z12.11) Active confirmed Problem [id number] Gastroesophageal reflux disease, esophagitis presence not specified (K21.9) Active confirmed Problem [id number] Irritable bowel syndrome with both constipation and diarrhea (K58.2) Active confirmed Plan Of Treatment Pending Test Test Name Order Date GI BIOPSY 03/09/2018 CELIAC PANEL #10 02/01/2018 Future Test Test Name Order Date UPPER GI ENDOSCOPY 02/01/2018 COLONOSCOPY 02/01/2018 Insurance Providers Payer Name Payer Address Payer Phone Subscriber Number Group Number Insured Name Patient Relationship to Insured Coverage Start Date Coverage End Date [facility] [employer] [address] [place] [address] [id number] RILEY VIERA Self - patient is the insured Medical (General) History Medical History History ICD Code Asthma Atrial fibrillation--Dr. Garcia at [facility] [place] Denies AR,DM,CVA,renal disease Aj's thyroiditis GERD Negative colonoscopy in [address] Whitehead in [place]--biopsies from colon and TI were normal--no microscopic colitis--no polyps---has hemorrhoids Sleep apnea-uses CPAP
== END 2025-04-09 17:04 | disposition home or self-care (01) ==
LOC: HO.HUSH 15:59
PROVIDERS: PCP Physician Assistant; Visit Provider Nurse Practitioner Family
DX: N39.41 Urge incontinence (principal); N32.81 Overactive bladder; N39.0 Urinary tract infection, site not specified
CPT/HCPCS: 99213

== ENCOUNTER 2025-04-26 08:01 | Outpatient (AMB) | payer MEDICARE, SELFPAY ==
--- NOTE | 2025-04-26 08:04 | MHC.PC.OV ---
Vital Signs 04/26/25 08:05 Height 5 ft 1 in Weight 255 lb 8 oz BMI 48.3 BP 140/78 H Blood Pressure Location Lt brachial Position Sitting Pulse 63 Pulse Source Pulse Oximeter Temp 97.1 F Temp Source Temporal Artery Scan Pulse Oximetry (%) 97 Oxygen Delivery Method Room Air Intake Visit Reasons: ANNUAL PE - see comments Intake Note: Patient is here today for a physical. Imaging Aide Required: No Topology Teacher: Not Required per policy Accompanied by: Self / Same As Patient Allergies lisinopril (LISINOPRIL) Allergy (Unknown, Verified 04/26/25 08:12) COUGH/AFIB, Cough nizatidine (From AXID) Allergy (Unknown, Verified 04/26/25 08:12) ANAPHYLAXIS Sulfa (Sulfonamide Antibiotics) (SULFA (SULFONAMIDE ANTIBIOTICS)) Allergy (Unknown, Verified 04/26/25 08:12) UNKNOWN Medication List - Last Reconciled 04/26/25 by Adalid Huerta PA-C amlodipine 5 mg PO DAILY apixaban (Eliquis) 5 mg PO BID budesonide-formoterol 80-4.5 mcg/actuation 1 puff inhalation BID 30 days cholecalciferol (vitamin D3) 125 mcg PO DAILY estradiol 0.01%(0.1mg/gram) pea-sized to urethra daily times one month and then three times a week thereafter 30 days flecainide 150 mg PO Q12H inhalational spacing device (Aerochamber MV spacer) As directed levothyroxine 137 mcg PO DAILY 90 days magnesium oxide 500 mg PO DAILY metoprolol tartrate 100 mg PO BID montelukast 10 mg PO DAILY pravastatin 20 mg PO DAILY sertraline (Zoloft) 25 mg (1/2 x 50 mg) PO DAILY 90 days trospium 20 mg PO BID Tobacco use date assessed: 04/26/25 Fall risk assessment: No Falls in past year Last assessed Fall Risk: 04/26/25 Dental Screening Dental Screen Date: 04/26/25 Did you have a dental visit in the last 12 months?: Yes Did you have a dental problem in the last 6 months where you did not have access to dental care?: No Was dental information given to patient?: Patient has dentist HPI ANNUAL PE - see comments HPI Details Patient is a 69 -year-old female here today for routine annual physical. Patient has a past medical history significant for AFib, generalized anxiety disorder, hypertension, obesity, PMR, asthma. .. Class 3 obesity: Unfortunately has not been able lose much weight over the last year. She her BMI continues to be 48. Obesity is a concern for the patient, who reports a stable weight of 255 pounds over the past year. She has attempted weight loss through the [facility] diet and regular physical activities such as kayaking and swim aerobics. Despite consuming fewer calories than recommended, she struggles with weight loss, possibly due to metabolic factors and family history. Polymyalgia rheumatica: Followed by Rheumatology Unfortunately had gained some excess cortisol weight intermixed section and has been difficult to lose.. .. AFib: Patient continues to follow cardiology, she is anticoagulated with apixaban without any overt signs of bleeding. .. Hypertension: Reports she did not take her blood pressure medication today. She continues on metoprolol and amlodipine with decent affect. .. Hyperlipidemia: Patient continues with pravastatin 20 mg, most recent lipid panel showing good control over total cholesterol and LDL Colon cancer screening: Up-to-date with colonoscopy followed by [facility]-has upcoming appointment for mammogram Vaccine : Up-to-date with, tetanus , up-to-date with pneumonia and COVID, considering shingles vaccine [facility] Medical History LETI (obstructive sleep apnea) Paroxysmal atrial flutter PAF (paroxysmal atrial fibrillation) Asthma Dyslipidemia GERD (gastroesophageal reflux disease) Hypertension Morbid obesity Hypothyroidism due to Aj's thyroiditis History of cardioversion Surgical History History of dental surgery H/O hemorrhoidectomy History of cardiac radiofrequency ablation Hx of arthroscopy of left knee Family History Father No problems noted. Mother CHF (congestive heart failure) Dementia Daughter Mast cell activation syndrome Brother Cardiac defibrillator in place Macular degeneration Social History (Updated 04/26/25 @ 08:18 by Adalid Huerta PA-C) Housing: Condominium Alcohol intake: never Patient Tobacco Use Status: Never used Tobacco e-Cigarette/Vaping Use: Never Used Second Hand Smoke Exposure: No service: No Current occupational status: retired Cognitive needs: No Hearing needs: No Vision needs: Yes (wear glasses) Questionnaire PHQ-9 Over the last 2 weeks, how often have you been bothered by any of the following problems? 1. Little interest or pleasure in doing things: not at all 2. Feeling down, depressed, or hopeless: not at all 3. Trouble falling or staying asleep, or sleeping too much: not at all 4. Feeling tired or having little energy: not at all 5. Poor appetite or overeating: not at all 6. Feeling bad about yourself - or that you are a failure or have let yourself or your family down: not at all 7. Trouble concentrating on things, such as reading the newspaper or watching television: not at all 8. Moving or speaking so slowly that other people could have noticed. Or the opposite - being so fidgety or restless that you have been moving around a lot more than usual: not at all 9. Thoughts that you would be better off or of hurting yourself in some way: not at all Total score: 0 Depression Screening Interpretation: Negative Depression Screening Done: Yes 52176 - PHQ-9 Billing: Yes Source: Developed by Drs. Marcos Goodwin, Cynthia Desai, Aguilar Martinez and colleagues, with an educational jamari from [employer]. Thrive Questionnaire Date Thrive assessed: 04/26/25 I am a: Patient What is your living situation today?: I have a steady place to live Within the past 12 months, did the food you bought not last and you didn't have the money to get more?: Never true Within the past 12 months, did you worry whether your food would run out before you got money to buy more?: Never true Do you have trouble paying for medicines?: No Do you have trouble getting transportation to medical appointments?: No Do you have trouble paying your heating and electricity bill?: No Do you have trouble taking care of your child, family member or friend?: No Do you have trouble with day-to-day activities such as bathing, preparing meals, shopping, managing finances, etc.?: No Are you currently unemployed and looking for a job?: No Are you interested in more education?: No Please select the resources that you would like help with: None Currently or been in a relationship where the following occur: No concerns reported THRIVE Score: 0 AUDIT C Alcohol Use Questionnaire (AUDIT-C) 1. How often do you have a drink containing alcohol?: Never Total Score: 0 DIANNA-7 AMB Questionnaire DIANNA-7 Date DIANNA - 7 assessed: 04/26/25 Feeling nervous, anxious, or on edge: 0 = Not at all Not being able to stop or control worryin = Not at all Worrying too much about different things: 0 = Not at all Trouble relaxin = Not at all Being so restless that it is hard to sit still: 0 = Not at all Becoming easily annoyed or irritable: 0 = Not at all Feeling afraid as if something awful might happen: 0 = Not at all Total DIANNA-7 score (0-4 normal; 5-9 mild; 10-14 moderate; 15-21 severe): 0 Source: Developed by Drs. Marcos Goodwin, Cynthia Desai, Aguilar Martinez and colleagues, with an educational jamari from [employer]. DIANNA-7 Assessment Billing DIANNA-7 Assessment Tool: DIANNA-7 Assessment 97021 Review of Systems Const Denies body aches, Denies chills, Denies excessive sweating, Denies fatigue, Denies fever(s) and Denies headache(s) Eyes Denies blurry vision ENT Denies dysphagia, Denies vertigo, Denies dizziness, Denies headache(s), Denies hearing loss and Denies tinnitus Card Denies chest pain, Denies chest pain with activity, Denies syncope, Denies irregular heart rhythm and Denies dyspnea Resp Denies chest congestion, Denies cough, Denies hemoptysis, Denies dyspnea and Denies wheezing GI Denies abdominal pain, Denies melena, Denies hematochezia, Denies coffee ground emesis, Denies dysphagia, Denies diarrhea, Denies nausea and Denies vomiting Denies urinary frequency, Denies dysuria, Denies urinary hesitancy and Denies urinary urgency Musc Denies arthralgias, Denies limited range of motion, Denies muscle cramps and Denies muscle weakness Skin/Breast Denies rash and Denies skin ulcer Neuro Denies Abnormal speech present, Denies confusion, Denies vertigo, Denies dizziness, Denies syncope, Denies headache(s), Denies memory loss and Denies seizure-like activity Psych Denies anxiety, Denies confusion, Denies depression, Denies memory loss, Denies panic attacks and Denies paranoia Endo Denies excessive sweating, Denies fatigue, Denies flushing, Denies polydipsia and Denies polyuria Aller/Immun Denies wheezing Physical exam (Primary Care) Vital Signs: Last Vital Signs Temp 97.1 F 04/26/25 08:05 Pulse 63 04/26/25 08:05 BP 140/78 H 04/26/25 08:05 Pulse Ox 97 04/26/25 08:05 Oxygen Delivery Method Room Air 04/26/25 08:05 BMI result Body Mass Index 48.3 BMI Assessment/Plan discussion: High BMI High, discussed plan: lifestyle, weight reduction, dietary and physical activity Tobacco/Smoking Status: Tobacco use Status Tobacco use date assessed 04/26/25 04/26/25 08:10 Patient Tobacco Use Status Never used Tobacco 04/26/25 08:10 e-Cigarette/Vaping Use Never Used 04/26/25 08:10 PHQ-9: PHQ-9 Score PHQ-9: Total score 0 04/26/25 08:10 Depression Screening Interpretation: Negative Thrive Assessment: Date of Thrive Assessment Date Thrive assessed 04/26/25 04/26/25 08:10 Currently or been in a relationship where the following occur: No concerns reported Const General: cooperative, comfortable, no acute distress, alert and awake; No confusion Orientation/consciousness: oriented to person, oriented to place, patient oriented x3 and No confusion HENPA Head: Yes normocephalic Ears: external ears normal and TM's normal bilaterally Face and sinus: No sinus tenderness Mouth: Normal oral and palatal mucosa present and tongue normal Teeth and gingiva: dentition normal and gingiva normal Throat: Yes posterior oropharynx normal, Yes tonsils normal and Yes uvula midline Eyes Conjunctivae: conjunctivae normal Sclerae: sclerae normal Pupils: Equal, round and reactive pupils present EOM: EOMs intact bilaterally Direct Ophthalmoscopy: No no photophobia Neck Neck: Yes no lymphadenopathy, No tender and Yes no JVD Thyroid: Thyroid normal Carotids: no bruits Chest Chest palpation & inspection: no tenderness Resp Effort & Inspection: normal respiratory effort, no audible wheezes, not labored and no stridor Auscultation: no crackles, no rales, no rhonchi and no wheezes Cardio Jugular venous distension: no JVD Rate: regular rate, not bradycardic and not tachycardic Rhythm: regular rhythm Bruits: no carotid bruits Peripheral pulses: Peripheral pulses 2+ throughout GI Inspection: Yes normal to inspection, No abdominal wall ecchymosis and No visible herniation Palpation (GI): Soft to palpation, nontender, no guarding, not rigid and No hepatosplenomegaly present Auscultation: normoactive bowel sounds General: Yes no CVA tenderness Back/Spine/Pelvis Back: no CVA tenderness and No back tenderness Cervical Spine: cervical ROM normal Thoracic/Lumbar Spine: thoracic and lumbar spine normal to inspection, straight leg raise negative bilaterally, No thoraco-lumbar ROM limited and No lumbar spinal tenderness Skin Lesions: no lesions Rashes: no rashes Wounds: no wounds Neuro General: oriented to person, oriented to place, patient oriented x3, CN's II-XI intact bilaterally and No confusion Cranial nerves: Yes Equal, round and reactive pupils present and Yes Normal accommodation reflex present Cognition (Neuro): normal cognition Speech: No Abnormal speech present Gait exam (Neuro): Normal gait present Motor exam (neuro): 5/5 motor strength present throughout Extrem Right upper extremity: full ROM; no cyanosis Left upper extremity: full ROM; no cyanosis Right lower extremity: no edema Left lower extremity: no edema Psych Appearance: grossly normal Mental Status: mental status grossly normal Affect: normal affect Attitude: cooperative Thought process: Normal thought process present Coding Level of Care Code Est Pt Prev Care >65y(82489) Diagnoses Annual physical exam Z00.00 Class 3 obesity E66.813 DIANNA (generalized anxiety disorder) F41.1 Primary hypertension I10 Hypertension type: primary hypertension Dyslipidemia E78.5 PAF (paroxysmal atrial fibrillation) I48.0 Colon cancer screening Z12.11 Additional Codes PHQ-9 - 59457 - PHQ-9 Billing: Yes ([id number]) DAINNA-7 Assessment Billing - DIANNA-7 Assessment Tool: DIANNA-7 Assessment 15053 ([id number]) Assessment & Plan Assessment & Plan (1) Annual physical exam: Code(s): Z00.00 - Encounter for general adult medical examination without abnormal findings Category: Medical Plan: As per HPI (2) Class 3 obesity: Code(s): E66.813 - Obesity, class 3 Category: Medical Plan: The patient is concerned about her weight, which has remained stable at 255 pounds over the past year. She is advised to continue with the [facility] diet and regular physical activities such as kayaking and swim aerobics to aid in weight management. (3) DIANNA (generalized anxiety disorder): Code(s): F41.1 - Generalized anxiety disorder Category: Medical Plan: Patient's DIANNA-7 score 0, patient does have a history of anxiety though has been fairly well controlled quite some time. She continues on Zoloft 25 mg daily (4) Hypertension: Code(s): I10 - Essential (primary) hypertension Category: Medical Qualifiers: Hypertension type: primary hypertension Qualified Code(s): I10 - Essential (primary) hypertension Plan: Patient's blood pressure slightly elevated today in office, she reports not taking her blood pressure medication this morning. Regularly her blood pressure is well controlled with the amlodipine and metoprolol. Goal blood pressures to remain below 140/90 (5) Dyslipidemia: Code(s): E78.5 - Hyperlipidemia, unspecified Category: Medical Plan: Patient's most recent lipid panel done in 2022 showing borderline high cholesterol and appropriate LDL. She continues on pravastatin 20 mg. Goal is to remain below 130 (6) PAF (paroxysmal atrial fibrillation): Code(s): I48.0 - Paroxysmal atrial fibrillation Category: Medical Plan: Continues to follow cardiology, is anticoagulated with Eliquis without any reports of overt bleeding. She continues with flecainide and metoprolol for rate/ rhythm control. (7) Colon cancer screening: Code(s): Z12.11 - Encounter for screening for malignant neoplasm of colon Category: Medical Plan: Patient is in need of screening colonoscopy Orders: Orders Complete Blood Count no Diff Today I48.0 - Paroxysmal atrial fibrillation Comprehensive [place]. Panel Fast Today E78.5 - Hyperlipidemia, unspecified TSH reflex Free T4 Today E03.8 - Other specified hypothyroidism, E06.3 - Autoimmune thyroiditis Lipid Panel Today E78.5 - Hyperlipidemia, unspecified Microalbumin, Random (w Creat) Today I10 - Essential (primary) hypertension Referrals Gastroenterology Referral Z12.11 - Encounter for screening for malignant neoplasm of colon Patient Instructions: Goal: Blood pressure to be below 140/90, LDL to be below 130 Barriers: Adherence to physical activity and healthy eating habits
[2025-04-26 08:05] VITALS: BP 140/78; PULSE 63; TEMP 36.2; O2SAT 97; BMI 48.3
== END 2025-04-26 08:37 | disposition home or self-care (01) ==
LOC: HO.HMCH 08:01
PROVIDERS: PCP Physician Assistant; Visit Provider Physician Assistant
DX: Z00.00 Encounter for general adult medical examination without abnormal findings (principal); I48.0 Paroxysmal atrial fibrillation; Z68.42 Body mass index [BMI] 45.0-49.9, adult; E66.813 Obesity, class 3; F41.1 Generalized anxiety disorder; I10 Essential (primary) hypertension; E78.5 Hyperlipidemia, unspecified; Z12.11 Encounter for screening for malignant neoplasm of colon

== ENCOUNTER → 2025-04-26 08:01 | Outpatient (BNVA) | payer MEDICARE, SELFPAY | PROVIDERS: PCP Physician Assistant; Visit Provider Physician Assistant | DX: Z00.00 Encounter for general adult medical examination without abnormal findings (principal); F41.1 Generalized anxiety disorder; I10 Essential (primary) hypertension; J45.909 Unspecified asthma, uncomplicated; E66.813 Obesity, class 3; M35.3 Polymyalgia rheumatica; I48.0 Paroxysmal atrial fibrillation; E78.5 Hyperlipidemia, unspecified; Z68.42 Body mass index [BMI] 45.0-49.9, adult | CPT/HCPCS: 96127; 99397 ==

== ENCOUNTER → 2025-05-17 09:15 | Outpatient (BNV) | payer MEDICARE, SELFPAY | PROVIDERS: PCP Physician Assistant; Visit Provider Internal Medicine | DX: Z12.31 Encounter for screening mammogram for malignant neoplasm of breast (principal) | CPT/HCPCS: 77063; 77067 ==

== ENCOUNTER 2025-05-17 09:16 | Outpatient (REF) | payer MEDICARE, SELFPAY ==
--- OUTSIDE RECORDS SUMMARY | 2025-05-17 10:10 | XMS_ITS | Patient Health Record ---
Author Organization [facility] Address [address] [place] [address] Care Team Providers Care Custodial Foreman Name Role Phone Adalid Huerta Primary Care Provider UnavailMarcos Martel Unavailable [phone] Allergies Allergen (clinical drug ingredient) Drug/Non Drug [...] Problem Status W/U Status Risk Notes Problem [id number] Encounter for screening for malignant neoplasm of colon (Z12.11) Active confirmed Problem [id number] Gastroesophageal reflux disease, esophagitis presence not specified (K21.9) Active confirmed Problem [id number] Irritable bowel syndrome with both constipation and diarrhea (K58.2) Active confirmed Plan Of Treatment Pending Test Test Name Order Date GI BIOPSY 03/09/2018 CELIAC PANEL #10 02/01/2018 Future Test Test Name Order Date UPPER GI ENDOSCOPY 02/01/2018 COLONOSCOPY 02/01/2018 Next Appt Details Provider Name:Marcos Wilson Mayorga , 09/20/2025 09:00:00 AM, [address] [place] [address], [address], [place], [address], Insurance Providers Payer Name Payer Address Payer Phone Subscriber Number Group Number Insured Name Patient Relationship to Insured Coverage Start Date Coverage End Date [address] [address] [phone] [id number] RILEY VIERA Self - patient is the insured Medical (General) History Medical History History ICD Code Asthma [place]rial [place] [facility] [place],DM,CVA,renal disease Aj's thyroiditis GERD Negative colonoscopy in [address] Whitehead in [place]--biopsies from colon and TI were normal--no microscopic colitis--no polyps---has hemorrhoids Sleep apnea-uses CPAP
== END 2025-05-17 09:17 | disposition home or self-care (01) ==
LOC: HO.MAMMO 09:16
PROVIDERS: PCP Physician Assistant; Visit Provider Physician Assistant
DX: Z12.31 Encounter for screening mammogram for malignant neoplasm of breast (principal)
CPT/HCPCS: 77063; 77067

== ENCOUNTER 2025-05-29 14:18 | Outpatient (REF) | payer MEDICARE, SELFPAY ==
[2025-05-29 15:03] LABS: Appearance Urine Clear; Glucose Urine UA Negative (Negative); PH 5.5 (5.0-9.0); Specific Gravity - Urine 1.010 (1.005-1.025); UMIC TRIGGER UA YES
--- OUTSIDE RECORDS SUMMARY | 2025-05-29 17:17 | XMS_ITS | Patient Health Record ---
Author Organization [facility] Address [address] [place] [address] Care Team Providers Care Broomcorn Thresher Name Role Phone Adalid Huerta Primary Care Provider UnavailMarcos Martel Unavailable [phone] Allergies Allergen (clinical drug ingredient) Drug/Non Drug [...] Problem Status W/U Status Risk Notes Problem Screening for malignant neoplasm of colon (769841645) Encounter for screening for malignant neoplasm of colon (Z12.11) Active confirmed Problem Gastroesophageal reflux disease (785402672) Gastroesophageal reflux disease, esophagitis presence not specified (K21.9) Active confirmed Problem Irritable bowel syndrome (03072684) Irritable bowel syndrome with both constipation and diarrhea (K58.2) Active confirmed Plan Of Treatment Pending Test Test Name Order Date GI BIOPSY 03/09/2018 CELIAC PANEL #10 02/01/2018 Future Test Test Name Order Date UPPER GI ENDOSCOPY 02/01/2018 COLONOSCOPY 02/01/2018 Next Appt Details Provider Name:Marcos Mayorga , 09/20/2025 09:00:00 AM, [address] [place] [address], [address], [place], [address], Insurance Providers Payer Name Payer Address Payer Phone Subscriber Number Group Number Insured Name Patient Relationship to Insured Coverage Start Date Coverage End Date [address] [address] [id number] RILEY VIERA Self - patient is the insured Medical (General) History Medical History History ICD Code Asthma Atrial fibrillation[place] [facility] [place] NH,DM,CVA,renal disease Aj's thyroiditis GERD Negative colonoscopy in [address] Whitehead in [place]--biopsies from colon and TI were normal--no microscopic colitis--no polyps---has hemorrhoids Sleep apnea-uses CPAP
== END 2025-05-29 14:19 | disposition home or self-care (01) ==
LOC: HO.LAB 14:18
PROVIDERS: PCP Physician Assistant; Visit Provider Nurse Practitioner Family
DX: N30.00 Acute cystitis without hematuria (principal); N39.41 Urge incontinence; R35.1 Nocturia
CPT/HCPCS: 81001; 87086

== ENCOUNTER 2025-06-02 00:17 | Inpatient (IN) | payer MEDICARE, SELFPAY ==
[2025-06-02] VITALS (29 sets, daily range): BP systolic 75–135; BP diastolic 35–84; PULSE 91–138; RESP 16–30; TEMP 36–37.2; O2SAT 86–98; BMI 50.3; BMI 49.3
--- NOTE | ~2025-06-02 | XR_ITS ---
CLINICAL HISTORY: sob 1 view chest x-ray Comparison: None provided Findings: Bilateral reticular opacities, interstitial edema or infiltrate versus chronic interstitial lung change. Cardiac silhouette is mildly enlarged. Pacer pad projects over left chest. No acute fracture. IMPRESSION: Bilateral reticular opacities, interstitial edema or infiltrate versus chronic interstitial lung change. This document has been electronically signed by: John Sims MD, PHD on 06/02/2025 02:53:53
--- NOTE | 2025-06-02 00:41 | ECG_ITS ---
Test Reason : SOB Blood Pressure : */* mmHG Vent. Rate : 118 BPM Atrial Rate : * BPM P-R Int : * ms QRS Dur : 96 ms QT Int : 326 ms P-R-T Axes : * 117 46 degrees QTcB Int : 456 ms Atrial fibrillation with rapid ventricular response with premature ventricular or aberrantly conducted complexes Right axis deviation Nonspecific ST and T wave abnormality Abnormal ECG When compared with ECG of 18-Aug-2021 19:43, Atrial fibrillation has replaced sinus rhythm Vent. rate has increased by 53 bpm QRS axis Shifted right ST now depressed in Lateral leads Nonspecific T wave abnormality, worse in Anterolateral leads Referred By: Ofe Guillen Electronically Signed By: Saul Akhtar
--- NOTE | 2025-06-02 00:55 | ED.GENADULT ---
HPI - General Adult General Chief complaint: Dyspnea Stated complaint: Weakness, SOB Time Seen by Provider: 06/02/25 00:17 Source: patient and EMS Mode of arrival: EMS Limitations: no limitations History of Present Illness ED Provider: Dr. Ofe Guillen HPI narrative: Patient comes to the emergency room complaining of shortness of breath. Patient states that it all started today. Patient states that she has history of asthma but she has not been having any exacerbations. Patient states that this evening she woke up feeling a bit chilly, having difficulty breathing, difficulty catching her breath. According to EMS, patient's oxygen saturation was 86% on room air. She was put on 4 L of oxygen. Patient denies chest pain. Patient reports that she has been having also urinary tract infection symptoms for about a week, she was started on some antibiotics today. Patient has only had 1 dose. Related Data Home Medications ?Medication ?Instructions ?Recorded ?Confirmed cholecalciferol (vitamin D3) 125 125 mcg PO DAILY 06/03/20 04/26/25 mcg (5,000 unit) capsule montelukast 10 mg tablet 10 mg PO DAILY 06/03/20 04/26/25 magnesium oxide 500 mg capsule 500 mg PO DAILY 05/12/21 04/26/25 Previous Rx's ?Medication ?Instructions ?Recorded budesonide-formoterol HFA 80 1 puff inhalation BID 30 days 06/08/22 mcg-4.5 mcg/actuation aerosol #10.2 grams inhaler inhalational spacing device #1 ea 06/08/22 (Aerochamber MV spacer) sertraline 50 mg tablet (Zoloft) 25 mg (1/2 x 50 mg) PO DAILY 90 04/24/24 days #45 tabs amlodipine 5 mg tablet 5 mg PO DAILY #90 tabs 10/21/24 estradiol 0.01% (0.1 mg/gram) See Rx Instructions .Route 3XW 30 10/25/24 vaginal cream days #42.5 grams levothyroxine 137 mcg tablet 137 mcg PO DAILY 90 days #90 tabs 02/02/25 trospium 20 mg tablet 20 mg PO BID #60 tabs 03/02/25 flecainide 150 mg tablet 150 mg PO Q12H #180 tabs 03/15/25 pravastatin 20 mg tablet 20 mg PO DAILY #90 tabs 03/17/25 metoprolol tartrate 100 mg tablet 100 mg PO BID #180 tabs 04/11/25 apixaban 5 mg tablet (Eliquis) 5 mg PO BID #180 tabs 04/13/25 nitrofurantoin 100 mg PO BID 7 days #14 caps 06/01/25 monohydrate/macrocrystals 100 mg capsule (Macrobid) Allergies Allergy/AdvReac Type Severity Reaction Status Date / Time lisinopril (LISINOPRIL) Allergy Unknown COUGH/AFIB, Verified 06/02/25 00:32 Cough nizatidine (From AXID) Allergy Unknown ANAPHYLAXIS Verified 06/02/25 00:32 Sulfa (Sulfonamide Allergy Unknown UNKNOWN Verified 06/02/25 00:32 Antibiotics) (SULFA (SULFONAMIDE ANTIBIOTICS)) Review of Systems Review of Systems: Constitutional : No Weight loss, No Fever, No Chills, No Night Sweats, No Fatigue, No Malaise ENT/Mouth : No Hearing loss, No Ear Pain, No Nasal Congestion, No Sinus Pain, No Hoarseness, No sore throat, No Rhinorrhea, No Swallowing Difficulty Eyes: No Eye Pain, No Swelling, No Redness, No Foreign Body, No Discharge, No Vision Changes Cardiovascular : No Chest Pain, No SOB, No Dyspnea on Exertion, No Orthopnea, No Edema, No Palpitations Respiratory : No Cough, No Sputum, No Wheezing, No Smoke Exposure, No Dyspnea Gastrointestinal : No Nausea, No Vomiting, No Diarrhea, No Constipation, No abdominal Pain, No Hematochezia, No Melena Genitourinary : no irregular bleeding, No Dysuria, No Urinary Frequency, No Hematuria, No Urinary Incontinence, No Urgency, No Flank Pain, No Urinary Flow Changes, No Hesitancy Musculoskeletal : No joint pain, No Myalgias, No Joint Swelling Skin : No Skin Lesions, No rash Neuro : No Weakness, No Numbness, No Paresthesias, No Loss of Consciousness, No Dizziness, No Headache Psych : No Anxiety/Panic, No Depression, No SI/HI/AH/VH, No Social Issues, Heme/Lymph: No Bruising, No Bleeding,No Lymphadenopathy Endocrine : No Polyuria, No Polydipsia, No Temperature Intolerance PMFSH Past Medical History Medical History LETI (obstructive sleep apnea) Paroxysmal atrial flutter PAF (paroxysmal atrial fibrillation) Asthma Dyslipidemia GERD (gastroesophageal reflux disease) Hypertension Morbid obesity Hypothyroidism due to Aj's thyroiditis History of cardioversion Surgical History History of dental surgery H/O hemorrhoidectomy History of cardiac radiofrequency ablation Hx of arthroscopy of left knee Family History Family History Father No problems noted. Mother CHF (congestive heart failure) Dementia Daughter Mast cell activation syndrome Brother Cardiac defibrillator in place Macular degeneration Social History Social History (Updated 04/26/25 @ 08:18 by Adalid Huerta PA-C) Housing: Condominium Alcohol intake: never Patient Tobacco Use Status: Never used Tobacco Smoked in Last 30 Days: No e-Cigarette/Vaping Use: Never Used Second Hand Smoke Exposure: No Advance Directives: No Advance Directives Information Provided: Yes Do you have a plan to hurt others: No Plan service: No Current occupational status: retired Cognitive needs: No Hearing needs: No Vision needs: Yes (wear glasses) Physical Exam ED Exam Exam: Appearance: Alert. Oriented X3. Ill-appearing Eyes: Pupils equal, round and reactive to light. ENT: Pharynx normal. Neck: Normal inspection. Neck supple. No lymph nodes noted. No crepitus CVS: Normal heart rate and rhythm. Pulses normal. Normal S1 and S2 Respiratory: Patient tachypneic, no rales, crackles in bilateral bases, oxygen saturation drops to the high 80s on 4 L with minimal exertion. Abdomen: Soft and nontender. No rigidity. No distention. Skin: Skin warm and dry. Normal skin color. Normal skin turgor. Extremities: No lower extremity edema. No Lacerations. No Rash Neuro: Oriented X 3. No motor deficit. No sensory deficit. Moving all extremities. No slurred speech. CN 2 through 12 grossly intact Psych: calm, cooperative, normal affect Vital Signs: Vital Signs - 24 hr 06/02/25 00:27 06/02/25 00:47 Temperature 98.9 F Pulse Rate 122 H 114 H Respiratory Rate 27 H 30 H Blood Pressure 125/60 105/54 L Pulse Oximetry 92 93 Oxygen Delivery Method Nasal Cannula Nasal Cannula Oxygen Flow Rate 4 BMI result Body Mass Index 50.3 Course Course Course Narrative: Patient needs 4 L of oxygen via nasal cannula to keep an oxygen saturation of 90-94%. If patient moves in bed, she easily drops to the high 80s even on oxygen. Patient known to have a UTI, we will treat with ceftriaxone. I reviewed patient's past medical records, she susceptible to all antibiotics. Also, it will help cover for pneumonia All of patient's labs and imaging pending Medications Administered Discontinued Medications Generic Name Dose Route Start Last Admin Trade Name Eleonora PRN Reason Stop Dose Admin Ceftriaxone Sodium 1 gm 06/02/25 00:51 06/02/25 01:58 Ceftriaxone Sodium 1 Gm Vial IVPUSH 06/02/25 00:52 1 gm ONCE ONE Administration Dexamethasone Sodium Phosphate 4 mg 06/02/25 02:00 06/02/25 02:32 Dexamethasone Sod Phosphate 4 Mg/Ml Vial IVPUSH 06/02/25 02:01 4 mg ONCE ONE Administration Metoprolol Tartrate 2.5 mg 06/02/25 01:14 06/02/25 01:23 Metoprolol Tartrate 5 Mg/5 Ml Vial IVPUSH 06/02/25 01:15 2.5 mg ONCE ONE Administration Protocol Metoprolol Tartrate 2.5 mg 06/02/25 02:08 06/02/25 02:32 Metoprolol Tartrate 5 Mg/5 Ml Vial IVPUSH 06/02/25 02:09 2.5 mg ONCE ONE Administration Protocol Medical Decision Making Medical Decision Making [facility] Narrative: My interpretation of EKG: Atrial fibrillation with RVR, heart rate 118, nonspecific ST segment depressions, no elevations, no T-wave inversions, QTC 456 My interpretation of labs: No significant abnormality in patient's hematology and chemistry. However, patient's troponin within normal limits and pro BNP is 3173. TSH is also a bit elevated 9.83. COVID positive Overall, patient has atrial fibrillation with RVR, new onset CHF, COVID positive Per chest x-ray, pneumonia can not be ruled out. Patient was already given ceftriaxone. Patient received a dose of 2.5 mg of metoprolol. White after this dose, patient's blood pressure dropped from 110 to the low 80s. Drop in blood pressure secondary to medication rather than sepsis. Patient has new onset CHF Patient has been having multiple runs of what seem not sustain V-tach. I discussed the EKG and telemetry findings with Dr. Akhtar from Cardiology: Better than V-tach, this looks more like AFib with aberrancy Cardiology recommendations: All flecainide and continue beta blockers. However, patient's blood pressure is still in the 80s . Patient has new onset CHF as well I discussed the above-mentioned with Dr. Quiroz of from the ICU, patient being admitted. Patient's blood pressure dropped to the 70s. Levophed was started. Not a we have pressors going, we will start medications to help control the rate. Patient has been informed from all the above-mentioned, patient agrees with the above-mentioned plan Differential Diagnosis Differential Diagnoses: The differential diagnosis associated with the presentation includes (COVID, influenza, viral URI, CHF, pneumonia) Admission/Observation Consideration of admission/observation: Escalation of care including admission/observation considered Consult Healthcare Provider Management of the patient was discussed with: Hospitalist and Rotary Kiln Operator Lab Data MDM Lab Attestation statement: I reviewed the patient's lab results. 06/02/25 01:22 06/02/25 01:22 Labs: Lab Results 06/02/25 06/02/25 Range/Units 01:22 01:22 WBC 11.5 H (4.8-10.8) X10*3/uL RBC 4.57 (4.20-5.50) X10*6/uL Hgb 13.0 (12.0-16.0) g/dl Hct 41.1 (37.0-47.0) % MCV 89.9 (80.0-98.0) fL MCH 28.4 (27.0-33.0) pg MCHC 31.6 (31.0-35.0) g/dl RDW 13.2 (11.0-16.0) % Plt Count 304 (160-400) X10*3/uL MPV 10.1 (9.4-12.3) fL Immature Gran % (Auto) 0.9 H (0.0-0.4) % Neut % (Auto) 91.0 H (45-73) % Lymph % (Auto) 5.9 L (20-40) % [place] % (Auto) 1.7 L (2-11) % Eos % (Auto) 0.4 (0-4) % Baso % (Auto) 0.1 (0-2) % Lymph # (Auto) 0.7 L (1.2-4.9) X10*3/uL [place] # (Auto) 0.2 (0.1-1.2) X10*3/uL Eos # (Auto) 0.1 (0.0-0.4) X10*3/uL Baso # (Auto) 0.0 (0.0-0.2) X10*3/uL Abs Immat Gran (auto) 0.10 H (0.00-0.03) X10*3/uL Absolute Neuts (auto) 10.5 H (2.0-8.3) x10*3/uL Absolute Nucleated RBC 0.000 (0.0-0.012) X10*3/uL Nucleated RBC % (auto) 0.0 (0.0-0.2) /100WBC Sodium 139 (135-145) mmol/L Potassium 4.0 (3.3-5.1) mmol/L Chloride 104 (96-108) mmol/L Carbon Dioxide 21 L (22-29) mmol/L Anion Gap 18 (12-20) BUN 20 H (9-16) mg/dL Creatinine 1.02 (0.5-1.4) mg/dL Estim Creat Clear Calc 60.5 Estimated GFR 53 Random Glucose 105 (60-115) mg/dL Calcium 8.9 D (8.4-10.2) mg/dL Magnesium 1.8 (1.6-2.6) mg/dL Total Bilirubin 0.4 (0.0-1.0) mg/dL Direct Bilirubin 0.2 (0.0-0.5) mg/dL AST 29 (5-31) U/L ALT 23 (0-31) U/L Alkaline Phosphatase 101 (39-117) U/L Troponin I High Sens < 2.7 (<3.5-17.0) ng/L NT-Pro-B Natriuret Pep 3173.2 H (<300) pg/mL Total Protein 7.1 (6.5-8.0) g/dL Albumin 3.8 (3.5-5.0) g/dL TSH 9.83 H Cancelled (0.32-4.0) uIU/mL COVID-19 (YAZ) Positive A (Negative) COVID-19 Clin Com See Note Influenza Type A (DEANNA) Negative (Negative) Influenza Type B (DEANNA) Negative (Negative) Influenza A & B Note See Note Independent Interpretation I performed an independent interpretation of an: Plain X-Ray Radiology Impression Discussion of test interpretation with radiology: I have reviewed the radiologist's reading. Radiologist Impression: Bilateral reticular opacities, interstitial edema or infiltrate versus chronic interstitial lung change. Cardiac silhouette is mildly enlarged. Pacer pad projects over left chest. No acute fracture. IMPRESSION: Bilateral reticular opacities, interstitial edema or infiltrate versus chronic interstitial lung change. Critical Care Time Critical Care Time Critical Care Time: Yes Total Critical Care Time: 75 Attestation: I have personally provided critical care time. Time includes review of lab data, radiology results, discussion with consultants, and monitoring for potential decompensation. Intervention performed as documented. Discharge Plan Discharge Clinical Impression: New onset of congestive heart failure, COVID, Pneumonia, Drug side effects Patient Disposition: Admitted As Inpatient Print Language: Austrian
[2025-06-02 01:30] LABS: MANUAL DIFF FLAG NO
[2025-06-02 01:32] LABS: Hematocrit 41.1 % (37.0-47.0); Hemoglobin 13.0 g/dl (12.0-16.0); Imm Gran Abs Auto 0.10 X10*3/uL (0.00-0.03); Imm Gran Pct Auto 0.9 % (0.0-0.4); Lymphocytes Absolute Auto 0.7 X10*3/uL (1.2-4.9); Mean Corpuscular HGB Conc 31.6 g/dl (31.0-35.0); Mean Corpuscular Hemoglobin 28.4 pg (27.0-33.0); Mean Corpuscular Volume 89.9 fL (80.0-98.0); NRBC Abs Auto 0.000 X10*3/uL (0.0-0.012); NRBC Pct Auto 0.0 /100WBC (0.0-0.2); Platelet Count 304 X10*3/uL (160-400); Red Blood Count 4.57 X10*6/uL (4.20-5.50); SCAN SMEAR FLAG 1; White Blood Count 11.5 X10*3/uL (4.8-10.8)
[2025-06-02 01:54] LABS: COVID-19 Test Positive (Negative); IDNOW Serial# 55D5AD1C; IDNOW Serial# 58CA691E; Influenza B2 Negative (Negative); NT Pro B Type Natriuretic Pept 3173.2 pg/mL (<300)
[2025-06-02 01:57] LABS: Alanine Aminotransferase 23 U/L (0-31); Albumin Level 3.8 g/dL (3.5-5.0); Anion Gap 18 (12-20); Aspartate Amino Transferase 29 U/L (5-31); Blood Urea Nitrogen 20 mg/dL (9-16); Calcium 8.9 mg/dL (8.4-10.2); Carbon Dioxide 21 mmol/L (22-29); Chloride 104 mmol/L (96-108); Creatinine Clr Calc Pharmacy 60.5; Estimated Glomerular Filt Rate 53; Magnesium 1.8 mg/dL (1.6-2.6); Potassium 4.0 mmol/L (3.3-5.1); Sodium 139 mmol/L (135-145); Total Protein 7.1 g/dL (6.5-8.0); Troponin-I High Sensitivity < 2.7 ng/L (<3.5-17.0)
--- OUTSIDE RECORDS SUMMARY | 2025-06-02 02:53 | XMS_ITS | Patient Health Record ---
Author Organization [facility] Address [address] [place] [address] Care Team Providers Care Vehicle Maintenance Technician Name Role Phone Adalid Huerta Primary Care Provider UnavailMarcos Martel Unavailable [phone] Allergies Allergen (clinical drug ingredient) Drug/Non Drug [...] Problem Screening for malignant neoplasm of colon (569886150) Encounter for screening for malignant neoplasm of colon (Z12.11) Active confirmed Problem Gastroesophageal reflux disease (656307780) Gastroesophageal reflux disease, esophagitis presence not specified (K21.9) Active confirmed Problem Irritable bowel syndrome (83732195) Irritable bowel syndrome with both constipation and diarrhea (K58.2) Active confirmed Plan Of Treatment Pending Test Test Name Order Date GI BIOPSY 03/09/2018 CELIAC PANEL #10 02/01/2018 Future Test Test Name Order Date UPPER GI ENDOSCOPY 02/01/2018 COLONOSCOPY 02/01/2018 Next Appt Details Provider Name:Marcos Mayorga , 09/20/2025 09:00:00 AM, [address] [place] [address], [address], [place], [address], Insurance Providers Payer Name Payer Address Payer Phone Subscriber Number Group Number Insured Name Patient Relationship to Insured Coverage Start Date Coverage End Date [address] [address] [id number] RILEY VIERA Self - patient is the insured Medical (General) History Medical History History ICD Code Asthma Atrial fibrillation--Dr. Garcia at [facility] [place] Denies TX,DM,CVA,renal disease Aj's thyroiditis GERD Negative colonoscopy in [address] Whitehead in [place]--biopsies from colon and TI were normal--no microscopic colitis--no polyps---has hemorrhoids Sleep apnea-uses CPAP
[2025-06-02 02:55] LABS: Alkaline Phosphatase 101 U/L (39-117)
[2025-06-02 03:33] LABS: Free T4 (Free Thyroxine) 1.23 ng/dL (0.71-1.85)
--- NOTE | 2025-06-02 03:45 | HO.NURTONUR ---
called report to OMID Anne @ICU
--- NOTE | 2025-06-02 04:46 | PM.CCHP ---
History of Present Illness Date of Service: 06/02/25 Attending physician on admission: Jared Quiroz Chief Complaint: Dyspnea Patient is a 70-year female with a past medical history paroxysmal atrial fibrillation and flutter (on eliquis, Flecainide and previously cardioverted), hypertension, asthma, dyslipidemia, GERD, LETI, morbid obesity and hypothyroidism who presented to the emergency department with shortness of breath.? Patient reported she started feeling ill yesterday, but she woke up with chills, having difficulty breathing, difficulty catching her breath. According to EMS, patient's oxygen saturation was 86% on room air. She was put on 4 L of oxygen Patient also reports that she has been having also urinary tract infection symptoms for about a week, she was started on some antibiotics today. Patient has only had 1 dose. On arrival to emergency department patient is satting 92% on 4 L nasal cannula,, tachypneic to low 30s, and noted to be on AFib with RVR.?? Laboratory data significant for WBC 11.5 with high lymphocytes count, pro-BNP 3173 and lactic acid was 3 COVID PCR positive IMAGING: Chest x-ray:? My interpretation consistent with interstitial edema ED COURSE: Patient received 1 dose of ceftriaxone 1 g, dexamethasone 4 mg IV push. In screw machine adjuster automatic she was noted to have multiple runs what appears to be non-sustained V-tach, EKG obtained, and send to cardiology, Dr Tello, who interpreted the EKG is consistent with atrial fibrillation, not ventricular tachycardia. Rec beta arvind and hold Flecainide. Lopressor 2.5 mg x 2.? After administration of Lopressor patient's blood pressure significantly dropped, requiring initiation of vasopressor support.? Review of Systems Review of Systems: Yes all other systems are reviewed and are negative [facility] Past Medical History Medical History LETI (obstructive sleep apnea) Paroxysmal atrial flutter PAF (paroxysmal atrial fibrillation) Asthma Dyslipidemia GERD (gastroesophageal reflux disease) Hypertension Morbid obesity Hypothyroidism due to Aj's thyroiditis History of cardioversion Family History Family History Father No problems noted. Mother CHF (congestive heart failure) Dementia Daughter Mast cell activation syndrome Brother Cardiac defibrillator in place Macular degeneration Surgical History Surgical History History of dental surgery H/O hemorrhoidectomy History of cardiac radiofrequency ablation Hx of arthroscopy of left knee Social History Social History Household Members: [facility] Alcohol intake: never Patient Tobacco Use Status: Never used Tobacco Smoked in Last 30 Days: No e-Cigarette/Vaping Use: Never Used Second Hand Smoke Exposure: No Advance Directives: No Advance Directives Information Provided: Yes Do you have a plan to hurt others: No Plan Nutrition Risks: No Nutritional Risk Patient : No service: No Current occupational status: retired Cognitive needs: No Hearing needs: No Vision needs: Yes (wear glasses) Meds Allergies Allergy/AdvReac Type Severity Reaction Status Date / Time lisinopril (LISINOPRIL) Allergy Unknown COUGH/AFIB, Verified 06/02/25 00:32 Cough nizatidine (From AXID) Allergy Unknown ANAPHYLAXIS Verified 06/02/25 00:32 Sulfa (Sulfonamide Allergy Unknown UNKNOWN Verified 06/02/25 00:32 Antibiotics) (SULFA (SULFONAMIDE ANTIBIOTICS)) Active Medications: Current Medications Norepinephrine Bitartrate (Levophed) 8 mg in 250 mls @ 0 mls/hr IVCONT .Q0M THERESA; Protocol Last Titration: 06/02/25 03:41 Dose: 0.07 mcg/kg/min, 15.86 mls/hr Amiodarone HCl 900 mg/ Sodium (Chloride) 518 mls @ 0 mls/hr IVCONT .Q0M THERESA; Protocol Ampicillin Sodium/Sulbactam (Sodium 3 gm/ Sodium Chloride) 100 mls @ 200 mls/hr IV Q6H [facility] Home Medications ?Medication ?Instructions ?Recorded ?Confirmed ?Last Taken ?Type cholecalciferol (vitamin D3) 125 125 mcg PO DAILY 06/03/20 06/02/25 06/01/25 22:00 History mcg (5,000 unit) capsule montelukast 10 mg tablet 10 mg PO DAILY 06/03/20 06/02/25 06/01/25 22:00 History magnesium oxide 500 mg capsule 500 mg PO DAILY 05/12/21 06/02/25 06/01/25 22:00 History budesonide-formoterol HFA 80 1 puff inhalation DAILY 06/02/25 06/02/25 06/01/25 22:00 History mcg-4.5 mcg/actuation aerosol inhaler Physical Exam Exam: Exam: ?General:? Alert oriented x3 no acute distress.? Speaking full sentences. Following all commands. ?HEENT:? Head is normocephalic, atraumatic, pupils equal round reactive to light accommodation bilaterally.? Extraocular movements appear intact.? Buccal mucosa is dry, Neck is supple without lymphadenopathy. ?Cardiac: AFIB RVR 120-130s? Clear S1-S2, no murmurs rubs or gallops. ?Pulmonary:? Rhonchi at bases, no wheezes. on 2l via NC ?Abdomen:? ?Abdomen soft, non-tender, non-distended. Normal bowel sounds. No pulsatile mass. No hepatosplenomegaly. ?Musculoskeletal:? Moving all 4 extremities upon request a major joints, there is no crepitus or tenderness.? The strength is 5/5 bilaterally and throughout all 4 extremities.? Gait not assessed at this point. ?Neurologic:? cranial nerves 2-12 are grossly intact.? No focal deficits noted.Motor strength as above.?? ?Skin:? Intact, no lesions, edema, erythema, clubbing or cyanosis.? No ulcers. Vascular:? 2+ pulses upper and lower extremities distally.? Vital Signs: Vital Signs: Last Vital Signs Temp 98.9 F 06/02/25 00:27 Pulse 133 H 06/02/25 03:41 Resp 21 H 06/02/25 02:00 BP 75/35 L 06/02/25 03:41 Pulse Ox 93 06/02/25 00:47 O2 Del Method Nasal Cannula 06/02/25 02:00 O2 Flow Rate 4 06/02/25 00:47 Oxygen Flow Rate 4 06/02/25 00:27 BMI result Body Mass Index 50.3 Results Labs 06/02/25 05:15 06/02/25 05:15 Labs: Laboratory Results - last 24 hr 06/02/25 06/02/25 06/02/25 01:22 01:22 03:41 MCV 89.9 MCH 28.4 MCHC 31.6 RDW 13.2 Plt Count 304 MPV 10.1 Immature Gran % (Auto) 0.9 H Neut % (Auto) 91.0 H Lymph % (Auto) 5.9 L [place] % (Auto) 1.7 L Eos % (Auto) 0.4 Baso % (Auto) 0.1 Lymph # (Auto) 0.7 L [place] # (Auto) 0.2 Eos # (Auto) 0.1 Baso # (Auto) 0.0 Abs Immat Gran (auto) 0.10 H Absolute Neuts (auto) 10.5 H Absolute Nucleated RBC 0.000 Nucleated RBC % (auto) 0.0 Anion Gap 18 Estim Creat Clear Calc 60.5 Estimated GFR 53 Random Glucose 105 Lactic Acid 3.0 H* Calcium 8.9 D Phosphorus 3.0 Magnesium 1.8 Total Bilirubin 0.4 Direct Bilirubin 0.2 AST 29 ALT 23 Alkaline Phosphatase 101 Troponin I High Sens < 2.7 NT-Pro-B Natriuret Pep 3173.2 H Total Protein 7.1 Albumin 3.8 TSH 9.83 H Cancelled Free T4 1.23 COVID-19 (YAZ) Positive A COVID-19 Clin Com See Note Influenza Type A (DEANNA) Negative Influenza Type B (DEANNA) Negative Influenza A & B Note See Note Assessment and Plan (1) Atrial fibrillation with rapid ventricular response: Status: Acute (2) Acute hypoxic respiratory failure: Status: Acute (3) New onset of congestive heart failure: Status: Acute (4) COVID-19 virus infection: Status: Acute (5) PAF (paroxysmal atrial fibrillation): Status: Acute (6) Hypotension: Status: Acute Plan 70-year female with a past medical history paroxysmal atrial fibrillation and flutter (on eliquis, Flecainide and previously cardioverted), hypertension, asthma, dyslipidemia, GERD, LETI, morbid obesity and hypothyroidism admitted to ICU for management of AFib with RVR/new onset Congestive heart failure exacerbation due to COVID infection Neuro:?? No acute issues Cardiac: Pulmonary edema:? Chest x-ray consistent with pulmonary edema and pro BNP elevated, Likely new onset Congestive heart failure.? Will give Lasix. Last echo in chart from 2019. Will obtained new formal echo. Cardiology consult ? Atrial fibrillation with rapid ventricular rate: patient HR? 120 to 140s, IN the ED patient was noted to have multiple runs of what appeared to be non-sustained V-tach, EKG review by cardiology, Dr Tello, who interpreted the EKG is consistent with atrial fibrillation, not ventricular tachycardia. Rec beta arvind and hold Flecainide. Patient received Lopressor 2.5 mg x 2, with no effect on rapid ventricular response.? We will initiate amiodarone load and amiodarone drip.? Appreciate Cardiology recommendations. ? Hypotension:? No evidence of septic shock, hypotension related to rate control medications. ? Elevated lactic acid:? Due to new onset Congestive heart failure, no evidence of severe infection/ septic shock. ? Pulmonary:? ?Acute hypoxic respiratory failure/? COVID infection- COVID PCR was positive.? Chest x-ray, with no significant pulmonary infection noted.? Continue to wean off supplemental oxygenation as tolerated Renal:?? ?No acute issues ? Endo:? No acute issues.?? GI: No acute issues ? ID:? UTI:? Patient reports she was having UTI symptoms, PCP office diagnosed with UTI, received x1 dose of antibiotic prior to arrival to the emergency department.? Received ceftriaxone in the emergency department, we will continue ceftriaxone. Will obtain BC/ Urine culture. ? Heme/Onc:?? ? Psych:? No acute issues. Miscellaneous:? ? no acute issues ? Prophylaxis:? cont home Eliquis ? ?Critical care time:? X 60 minutes of critical care time ? ?Code? status:? FULL CODE ?
[2025-06-02] MEDS: Furosemide 40 MG/4 ML VIAL IVPUSH (05:10)
[2025-06-02] MEDS: Amiodarone/Dextrose 150 MG/100 ML PLAST..BAG 600 MG IV (05:11)
[2025-06-02 05:24] LABS: VBG HCO3 23 mmol/L (22-26); VBG O2 % Saturation 67.0 %
[2025-06-02 05:38] LABS: Venous Blood Gas Refer to POC result
[2025-06-02 05:46] LABS: Reflex Lactate? Lactic Acid Added
[2025-06-02 05:50] LABS: Hematocrit 40.0 % (37.0-47.0); Hemoglobin 12.7 g/dl (12.0-16.0); Imm Gran Abs Auto 0.27 X10*3/uL (0.00-0.03); Imm Gran Pct Auto 1.2 % (0.0-0.4); Lymphocytes Absolute Auto 0.5 X10*3/uL (1.2-4.9); MANUAL DIFF FLAG SCAN; Mean Corpuscular HGB Conc 31.8 g/dl (31.0-35.0); Mean Corpuscular Hemoglobin 28.4 pg (27.0-33.0); Mean Corpuscular Volume 89.5 fL (80.0-98.0); NRBC Abs Auto 0.000 X10*3/uL (0.0-0.012); NRBC Pct Auto 0.0 /100WBC (0.0-0.2); Platelet Count 370 X10*3/uL (160-400); Red Blood Count 4.47 X10*6/uL (4.20-5.50); SCAN SMEAR FLAG 1; White Blood Count 22.1 X10*3/uL (4.8-10.8)
[2025-06-02 06:04] LABS: Anion Gap 16 (12-20); Blood Urea Nitrogen 23 mg/dL (9-16); Calcium 8.8 mg/dL (8.4-10.2); Carbon Dioxide 23 mmol/L (22-29); Chloride 103 mmol/L (96-108); Creatinine Clr Calc Pharmacy 53.7; Estimated Glomerular Filt Rate 46; Potassium 4.8 mmol/L (3.3-5.1); Sodium 137 mmol/L (135-145)
[2025-06-02 07:16] LABS: Appearance Urine Cloudy; Glucose Urine UA Negative (Negative); PH 5.5 (5.0-9.0); Specific Gravity - Urine 1.010 (1.005-1.025); UMIC TRIGGER UACC YES
[2025-06-02 07:26] LABS: UACC Culture Trigger YES
--- NOTE | 2025-06-02 07:30 | PC.ADMIT ---
Arrived to ICU from ED at approximately 0430- Patient A+Ox4. Afebrile. Afib on tele, HR 130s, MAP >65. Levophed gtt infusing and titrated per MAR. BL ankles +1 edema. Fine crackles auscultation to LLL, on 2L NC, SpO2 >90%. Denies any SOB or pain. Additional IV access obtained. IVP Lasix and IV Amiodarone administered and infusing per MAR. External female purewick in place. Skin overall intact. Bed locked in lowest position, alarm on. See EMR/flowsheet for additional details. Report given to oncoming RN at 0700.
[2025-06-02 07:59] LABS: ~Lactic Acid-LAB USE ONLY 3.1 mmol/L (0.5-2.0)
--- NOTE | 2025-06-02 08:27 | PHA.MEDREC ---
Pharmacy Consult ? Medication Reconciliation Pharmacy has completed the medication reconciliation. Spoke with patient at bedside, she confirmed all her meds, matches pharmacy claims.
[2025-06-02 09:12] LABS: Reflex Lactate? 2 Y
[2025-06-02 09:58] LABS: ~Lactic Acid-LAB USE ONLY 2.6 mmol/L (0.5-2.0)
--- NOTE | 2025-06-02 12:56 | MHC.CM.PN ---
Pt in ICU on pressor support: SOB d/t COVID+ Information obtained from spouse and EMR. Pt resides w/spouse and has no services or DME. HCP copy requested: Spouse to transport pt to home. CM to follow
--- NOTE | 2025-06-02 13:09 | PM.CNCAR ---
History of Present Illness History of Present Illness Date of Service: 06/02/25 Requesting physician: Jared Quiroz Chief complaint: Afib RVR Narrative: [age] year female presenting with shortness of breath and AFib with RVR. She has been monitoring her heart rate with watch and over the last 2 weeks she has noticed her heart rate to be in 160s at times. She previously had symptomatic atrial flutter and fibrillation and had cardioversion performed in 2017 and 18. She also had ablation in the past for atrial fibrillation reportedly. She was on flecainide 150 mg twice a day with good symptom control until this visit. She said she was having chills and was coughing and has also been noticed to be positive for COVID-19. Chest x-ray showed congestion and her BNP levels are quite elevated. Due to AFib with RVR and CHF she was admitted to the ICU. She is currently on an amiodarone drip. She appears to be back in sinus rhythm. She is on supplemental oxygen. Overall feeling better. [facility] Past Medical History Medical History LETI (obstructive sleep apnea) Paroxysmal atrial flutter PAF (paroxysmal atrial fibrillation) Asthma Dyslipidemia GERD (gastroesophageal reflux disease) Hypertension Morbid obesity Hypothyroidism due to Aj's thyroiditis History of cardioversion Family History Family History Father No problems noted. Mother CHF (congestive heart failure) Dementia Daughter Mast cell activation syndrome Brother Cardiac defibrillator in place Macular degeneration Surgical History Surgical History History of dental surgery H/O hemorrhoidectomy History of cardiac radiofrequency ablation Hx of arthroscopy of left knee Social History Social History Household Members: Spouse Housing: Condominium Alcohol intake: never Patient Tobacco Use Status: Never used Tobacco Smoked in Last 30 Days: No e-Cigarette/Vaping Use: Never Used Second Hand Smoke Exposure: No Currently Displaying Signs/Symptoms of Drug Intoxication Withdrawal: No Advance Directives: No Advance Directives Information Provided: Yes Do you have a plan to hurt others: No Plan Nutrition Risks: No Nutritional Risk Patient : No service: No Current occupational status: retired Cognitive needs: No Hearing needs: No Vision needs: Yes (wear glasses) Meds Allergies Allergy/AdvReac Type Severity Reaction Status Date / Time lisinopril (LISINOPRIL) Allergy Unknown COUGH/AFIB, Verified 06/02/25 00:32 Cough nizatidine (From AXID) Allergy Unknown ANAPHYLAXIS Verified 06/02/25 00:32 Sulfa (Sulfonamide Allergy Unknown UNKNOWN Verified 06/02/25 00:32 Antibiotics) (SULFA (SULFONAMIDE ANTIBIOTICS)) Active Medications: Current Medications Apixaban (Apixaban 5 Mg Tablet) 5 mg PO BID [facility] Last Admin: 06/02/25 08:09 Dose: 5 mg Ceftriaxone Sodium (Ceftriaxone Sodium 1 Gm Vial) 1 gm IVPUSH Q24H [facility] Norepinephrine Bitartrate (Levophed) 8 mg in 250 mls @ 0 mls/hr IVCONT .Q0M [facility]; Protocol Last Titration: 06/02/25 09:41 Dose: 0 mcg/kg/min, 0 mls/hr Amiodarone HCl 900 mg/ Sodium (Chloride) 518 mls @ 0 mls/hr IVCONT .Q0M [facility]; Protocol Last Infusion: 06/02/25 11:30 Dose: 0.5 mg/min, 17.27 mls/hr Levothyroxine Sodium 112 mcg/ (Levothyroxine Sodium 25 mcg) 137 mcg PO DAILY@0600 [facility] Home Medications ?Medication ?Instructions ?Recorded ?Confirmed ?Last Taken ?Type cholecalciferol (vitamin D3) 125 125 mcg PO DAILY 06/03/20 06/02/25 06/01/25 22:00 History mcg (5,000 unit) capsule montelukast 10 mg tablet 10 mg PO DAILY 06/03/20 06/02/25 06/01/25 22:00 History magnesium oxide 500 mg capsule 500 mg PO DAILY 05/12/21 06/02/25 06/01/25 22:00 History budesonide-formoterol HFA 80 1 puff inhalation DAILY 06/02/25 06/02/25 06/01/25 22:00 History mcg-4.5 mcg/actuation aerosol inhaler Physical Exam Vital Signs: Vital Signs: Last Vital Signs Temp 96.8 F 06/02/25 08:00 Pulse 96 06/02/25 12:00 Resp 19 06/02/25 12:00 BP 123/63 06/02/25 12:00 Pulse Ox 95 06/02/25 12:00 O2 Del Method Nasal Cannula 06/02/25 12:00 O2 Flow Rate 2 06/02/25 11:00 Oxygen Flow Rate 4 06/02/25 00:27 BMI result Body Mass Index 49.3 GENERAL APPEARANCE: in no acute distress, pleasant. NECK: no carotid bruit, mild jugular venous distention. SKIN: no suspicious lesions, warm and dry. HEART: no murmurs, regular rate and rhythm. LUNGS: clear to auscultation bilaterally. ABDOMEN: soft, nontender. EXTREMITIES: no edema. PERIPHERAL PULSES: equal. NEUROLOGIC: No gross deficits, AAO X 3 Objective Labs and Meds 06/02/25 05:15 06/02/25 05:15 Lab results: Laboratory Results - last 24 hr 06/02/25 06/02/25 06/02/25 01:22 01:22 03:41 WBC 11.5 H RBC 4.57 Hgb 13.0 Hct 41.1 MCV 89.9 MCH 28.4 MCHC 31.6 RDW 13.2 Plt Count 304 MPV 10.1 Immature Gran % (Auto) 0.9 H Neut % (Auto) 91.0 H Lymph % (Auto) 5.9 L [place] % (Auto) 1.7 L Eos % (Auto) 0.4 Baso % (Auto) 0.1 Lymph # (Auto) 0.7 L [place] # (Auto) 0.2 Eos # (Auto) 0.1 Baso # (Auto) 0.0 Abs Immat Gran (auto) 0.10 H Absolute Neuts (auto) 10.5 H Absolute Nucleated RBC 0.000 Nucleated RBC % (auto) 0.0 Smear Tech's Comments VBG pH VBG pCO2 VBG pO2 VBG HCO3 VBG O2 Saturation VBG Base Excess Sodium 139 Potassium 4.0 Chloride 104 Carbon Dioxide 21 L Anion Gap 18 BUN 20 H Creatinine 1.02 Estim Creat Clear Calc 60.5 Estimated GFR 53 Random Glucose 105 Lactic Acid 3.0 H* Lactic Acid F/U @ 2Hr Lactic Acid F/U @ 4Hr Calcium 8.9 D Phosphorus 3.0 Magnesium 1.8 Total Bilirubin 0.4 Direct Bilirubin 0.2 AST 29 ALT 23 Alkaline Phosphatase 101 Troponin I High Sens < 2.7 NT-Pro-B Natriuret Pep 3173.2 H Total Protein 7.1 Albumin 3.8 TSH 9.83 H Cancelled Free T4 1.23 Urine Color Urine Appearance Urine pH Ur Specific [place] Urine Protein Urine Glucose (UA) Urine Ketones Urine Blood Urine Nitrite Ur Leukocyte Esterase Urine RBC Urine WBC Ur Squamous Epith Cells Urine Bacteria Hyaline Casts COVID-19 (YAZ) Positive A COVID-19 Clin Com See Note Influenza Type A (DEANNA) Negative Influenza Type B (DEANNA) Negative Influenza A & B Note See Note 06/02/25 06/02/25 06/02/25 05:15 05:18 06:35 WBC 22.1 H RBC 4.47 Hgb 12.7 Hct 40.0 MCV 89.5 MCH 28.4 MCHC 31.8 RDW 13.3 Plt Count 370 MPV 9.8 Immature Gran % (Auto) 1.2 H Neut % (Auto) 93.5 H Lymph % (Auto) 2.1 L [place] % (Auto) 2.9 Eos % (Auto) 0.1 Baso % (Auto) 0.2 Lymph # (Auto) 0.5 L [place] # (Auto) 0.7 Eos # (Auto) 0.0 Baso # (Auto) 0.1 Abs Immat Gran (auto) 0.27 H Absolute Neuts (auto) 20.6 H Absolute Nucleated RBC 0.000 Nucleated RBC % (auto) 0.0 Smear Tech's Comments VERIFIED VBG pH 7.47 H VBG pCO2 32 VBG pO2 40 VBG HCO3 23 VBG O2 Saturation 67.0 VBG Base Excess 0.9 Sodium 137 Potassium 4.8 Chloride 103 Carbon Dioxide 23 Anion Gap 16 BUN 23 H Creatinine 1.15 Estim Creat Clear Calc 53.7 Estimated GFR 46 Random Glucose 160 H Lactic Acid Lactic Acid F/U @ 2Hr Lactic Acid F/U @ 4Hr Calcium 8.8 Phosphorus Magnesium Total Bilirubin Direct Bilirubin AST ALT Alkaline Phosphatase Troponin I High Sens NT-Pro-B Natriuret Pep Total Protein Albumin TSH Free T4 Urine Color Yellow Urine Appearance Cloudy Urine pH 5.5 Ur Specific [place] 1.010 Urine Protein Negative Urine Glucose (UA) Negative Urine Ketones Negative Urine Blood Negative Urine Nitrite Negative Ur Leukocyte Esterase Moderate (2+) H Urine RBC 0-2 Urine WBC 11-20 H Ur Squamous Epith Cells >20 Urine Bacteria 1+ Hyaline Casts 0-2 COVID-19 (YAZ) COVID-19 Clin Com Influenza Type A (DEANNA) Influenza Type B (DEANNA) Influenza A & B Note 06/02/25 06/02/25 07:08 09:25 WBC RBC Hgb Hct MCV MCH MCHC RDW Plt Count MPV Immature Gran % (Auto) Neut % (Auto) Lymph % (Auto) [place] % (Auto) Eos % (Auto) Baso % (Auto) Lymph # (Auto) [place] # (Auto) Eos # (Auto) Baso # (Auto) Abs Immat Gran (auto) Absolute Neuts (auto) Absolute Nucleated RBC Nucleated RBC % (auto) Smear Tech's Comments VBG pH VBG pCO2 VBG pO2 VBG HCO3 VBG O2 Saturation VBG Base Excess Sodium Potassium Chloride Carbon Dioxide Anion Gap BUN Creatinine Estim Creat Clear Calc Estimated GFR Random Glucose Lactic Acid Lactic Acid F/U @ 2Hr 3.1 H* Lactic Acid F/U @ 4Hr 2.6 H* Calcium Phosphorus Magnesium Total Bilirubin Direct Bilirubin AST ALT Alkaline Phosphatase Troponin I High Sens NT-Pro-B Natriuret Pep Total Protein Albumin TSH Free T4 Urine Color Urine Appearance Urine pH Ur Specific [place] Urine Protein Urine Glucose (UA) Urine Ketones Urine Blood Urine Nitrite Ur Leukocyte Esterase Urine RBC Urine WBC Ur Squamous Epith Cells Urine Bacteria Hyaline Casts COVID-19 (YAZ) COVID-19 Clin Com Influenza Type A (DEANNA) Influenza Type B (DEANNA) Influenza A & B Note Assessment and Plan (1) PAF (paroxysmal atrial fibrillation): Status: Acute (2) New onset of congestive heart failure: Status: Acute Plan Pleasant 70 year female with persistent atrial fibrillation and congestive heart failure. It appears she was in AFib for the last 2 weeks based on her assessment with watch at home. She previously had shortness of breath with atrial fibrillation and it is possible that she had progressive heart failure due to atrial fibrillation. She also has positive for COVID-19 and viral infections can trigger episodes of congestive heart failure by increasing inflammation etc.. I think she can continue diuretics today and can be transitioned to oral diuretics tomorrow. We will do echocardiography to assess the LV function. Continue amiodarone for now. Flecainide should be stopped. She is on anticoagulation and should continue this with the apixaban 5 mg twice a day. Depending on ejection fraction she may need adjustment of her medications. Thank you for allowing me to participate in the care of your patient. Please feel free to contact me if you have any questions. Procedures Date of Service Date of Service: 06/02/25
--- NOTE | 2025-06-02 19:15 | HE.ICUCC ---
Neuro: Alert and Oriented x4 Cardiac: SR, lower extremities edema noted Resp:2L NC dim bases, no SOB noted, intermittent non productive cough GI/: Purewick putting out minimal yellow urine, Bladder Scan 638, MD made aware and to hold off due to incontinent medication taken, very large incontinent episode noted and patient voiding in commode afterward, last void 450ml. Integumentary/Musculoskeletal: Skin intact out of bed to chair Psychosocial (family etc.): Spouse at bedside Infectious Disease: Contact and Airborne precautions for COVID
[2025-06-02 20:56] LABS: Anion Gap 13 (12-20); Blood Urea Nitrogen 24 mg/dL (9-16); Calcium 8.8 mg/dL (8.4-10.2); Carbon Dioxide 28 mmol/L (22-29); Chloride 100 mmol/L (96-108); Creatinine Clr Calc Pharmacy 49.6; Estimated Glomerular Filt Rate 43; Magnesium 2.0 mg/dL (1.6-2.6); Potassium 4.0 mmol/L (3.3-5.1); Sodium 137 mmol/L (135-145)
[2025-06-03] VITALS (19 sets, daily range): BP systolic 98–147; BP diastolic 63–85; PULSE 90–116; RESP 11–21; TEMP 36–37; O2SAT 91–96; BMI 49.3
--- NOTE | 2025-06-03 02:55 | PC.NURSE ---
Upon initial assessment at 1999? patient A&Ox4, calm and cooperative, KATE. Afebrile. NSR on tele, HR 80?90s. Amiodarone infusing per OCT. Remains off levophed; SBP >90, MAP >65. +1 BLE edema noted. Weaned off supplemental oxygen; SpO2 >92% on room air. Denies SOB or dyspnea. Tolerating PO intake. No BM noted. Voiding via BSC. Skin overall intact. Requests to sleep in recliner/chair; frequently ambulates to commode. Patient educated and aware of plan of care. Chair locked, alarm on, call sanchez within reach. See EMR/flowsheet for further details.
[2025-06-03 05:20] LABS: VBG HCO3 27 mmol/L (22-26); VBG O2 % Saturation 89.0 %
[2025-06-03 05:24] LABS: Venous Blood Gas Refer to POC result
[2025-06-03] MEDS: Levothyroxine Sodium 112 MCG, Levothyroxine Sodium 25 MCG 137 MCG PO (05:32)
[2025-06-03 05:35] LABS: Hematocrit 36.3 % (37.0-47.0); Hemoglobin 11.6 g/dl (12.0-16.0); Imm Gran Abs Auto 0.16 X10*3/uL (0.00-0.03); Imm Gran Pct Auto 1.1 % (0.0-0.4); Lymphocytes Absolute Auto 1.8 X10*3/uL (1.2-4.9); MANUAL DIFF FLAG NO; Mean Corpuscular HGB Conc 32.0 g/dl (31.0-35.0); Mean Corpuscular Hemoglobin 28.7 pg (27.0-33.0); Mean Corpuscular Volume 89.9 fL (80.0-98.0); NRBC Abs Auto 0.000 X10*3/uL (0.0-0.012); NRBC Pct Auto 0.0 /100WBC (0.0-0.2); Platelet Count 290 X10*3/uL (160-400); Red Blood Count 4.04 X10*6/uL (4.20-5.50); White Blood Count 15.1 X10*3/uL (4.8-10.8)
[2025-06-03 05:50] LABS: Albumin Level 3.6 g/dL (3.5-5.0); Anion Gap 13 (12-20); Blood Urea Nitrogen 21 mg/dL (9-16); Calcium 8.9 mg/dL (8.4-10.2); Carbon Dioxide 26 mmol/L (22-29); Chloride 104 mmol/L (96-108); Creatinine Clr Calc Pharmacy 60.4; Estimated Glomerular Filt Rate 54; Magnesium 2.1 mg/dL (1.6-2.6); Potassium 3.9 mmol/L (3.3-5.1); Sodium 139 mmol/L (135-145)
[2025-06-03] MEDS: 0.9 % Sodium Chloride Flush 3 ML SYRINGE IVFLUSH ×3 (08:12→20:15)
--- NOTE | 2025-06-03 09:34 | PM.CCPN ---
Subjective Subjective Date of Service: 06/03/25 Interval History: 70-year-old lady with underlying AFib/AFlutter on Eliquis and flecainide with prior cardioversions hypotension, asthma, obesity, LETI, hypothyroidism admitted on 06/02/2025 with dyspnea and AFib with RVR on a background of COVID positivity. Patient requiring amiodarone drip and pressor support and was admitted to the intensive care unit. No events overnight. Titrated off pressor support and amiodarone drip. Critical Care Time (minutes): 0 Physical Exam Vital Signs: Vital Signs: Last Vital Signs Temp 96.8 F 06/03/25 08:00 Pulse 107 H 06/03/25 08:59 Resp 16 06/03/25 08:59 BP 134/79 06/03/25 08:59 Pulse Ox 94 06/03/25 08:59 O2 Del Method Room Air 06/03/25 08:59 O2 Flow Rate 1 06/02/25 23:00 Oxygen Flow Rate 4 06/02/25 00:27 BMI result Body Mass Index 49.3 Const: General: no acute distress, alert and awake Nutritional Appearance: obese Eyes: Sclerae: sclerae normal EOM: EOMs intact bilaterally Neck: Neck: Yes no lymphadenopathy, Yes trachea midline and Yes supple Resp: Effort & Inspection: normal respiratory effort and no respiratory distress Auscultation: clear to auscultation bilaterally Cardio: Rate: tachycardic Rhythm: regular rhythm Heart sounds: no gallops, no murmurs and no rubs GI: Palpation (GI): Soft to palpation and Other GI palpation findings present ( Nontender) Auscultation: normal bowel sounds Extrem: General: Yes no pedal edema, No clubbing and No cyanosis Objective Data Labs 06/03/25 05:13 06/03/25 05:13 Labs: Laboratory Results - last 24 hr 06/02/25 06/02/25 06/03/25 09:25 20:03 05:13 WBC 15.1 H RBC 4.04 L Hgb 11.6 L Hct 36.3 L MCV 89.9 MCH 28.7 MCHC 32.0 RDW 13.3 Plt Count 290 MPV 9.3 L Immature Gran % (Auto) 1.1 H Neut % (Auto) 79.7 H Lymph % (Auto) 12.2 L [place] % (Auto) 3.7 Eos % (Auto) 3.0 Baso % (Auto) 0.3 Lymph # (Auto) 1.8 [place] # (Auto) 0.6 Eos # (Auto) 0.5 H Baso # (Auto) 0.1 Abs Immat Gran (auto) 0.16 H Absolute Neuts (auto) 12.0 H Absolute Nucleated RBC 0.000 Nucleated RBC % (auto) 0.0 VBG pH VBG pCO2 VBG pO2 VBG HCO3 VBG O2 Saturation VBG Base Excess Sodium 137 139 Potassium 4.0 3.9 Chloride 100 104 Carbon Dioxide 28 26 Anion Gap 13 13 BUN 24 H 21 H Creatinine 1.23 1.01 Estim Creat Clear Calc 49.6 60.4 Estimated GFR 43 54 Random Glucose 116 H 106 Lactic Acid F/U @ 4Hr 2.6 H* Calcium 8.8 8.9 Phosphorus 3.0 3.3 Magnesium 2.0 2.1 Albumin 3.6 06/03/25 05:16 WBC RBC Hgb Hct MCV MCH MCHC RDW Plt Count MPV Immature Gran % (Auto) Neut % (Auto) Lymph % (Auto) [place] % (Auto) Eos % (Auto) Baso % (Auto) Lymph # (Auto) [place] # (Auto) Eos # (Auto) Baso # (Auto) Abs Immat Gran (auto) Absolute Neuts (auto) Absolute Nucleated RBC Nucleated RBC % (auto) VBG pH 7.48 H VBG pCO2 36 VBG pO2 60 VBG HCO3 27 H VBG O2 Saturation 89.0 VBG Base Excess 4.1 Sodium Potassium Chloride Carbon Dioxide Anion Gap BUN Creatinine Estim Creat Clear Calc Estimated GFR Random Glucose Lactic Acid F/U @ 4Hr Calcium Phosphorus Magnesium Albumin Microbiology Microbiology Results: Microbiology 06/02/25 07:08 Blood - Venous Blood Culture - Preliminary No growth after 24 hours. 06/02/25 07:08 Blood - Venous Blood Culture - Preliminary No growth after 24 hours. Progress Note: A&P Assessment and plan (1) COVID: Status: Acute (2) Acute hypoxic respiratory failure: Status: Acute (3) Atrial fibrillation with rapid ventricular response: Status: Acute Plan Assessment: 70-year-old lady with underlying AFib, obesity, hypotension, LETI admitted with acute hypoxic respiratory failure and AFib with RVR on a background of COVID-19 positivity initially requiring amiodarone drip and pressors. Plan: Neuro: No acute issues. Cardiac: Titrated off pressor support. Titrate off amiodarone drip. Cardiology service care appreciated. Continue p.o. amiodarone. Pulmonary: Acute hypoxic respiratory failure secondary to AFib RVR and COVID-19, resolved. Titrated off supplemental oxygen. Renal: No acute issues. Endo: No acute issues. GI: No acute issues. ID: No acute issues Heme/Onc: No acute issues. Psych: No acute issues. Miscellaneous: No acute issues. Prophylaxis: Eliquis Diet: Regular Quality Stroke Does the patient have a stroke diagnosis?: No VTE Prior VTE?: No VTE Risk Level:: Medical - moderate - high VTE Device Contraindication: N/A - Device Ordered VTE Drug Contraindication: N/A - Med Ordered
--- NOTE | 2025-06-03 10:16 | MHC.CM.PN ---
Pt weaned off pressors and will transfer to [facility] today: Pt from home w/spouse: no services needed. Pt has transportation to home.
--- NOTE | 2025-06-03 17:15 | PM.IMHP ---
History of Present Illness Date of Service: 06/03/25 Attending physician on admission: Jesus Zepeda Chief Complaint: acute hypoxic respiratory failure, UTI , AFIB, COVID-19 70-year-old female with past medical history significant for paroxysmal AFib/a flutter (on Eliquis, flecainide and prior cardioversion), HTN, asthma, HLD, GERD, LETI, morbid obesity and hypothyroidism who presented to the ED complaining of shortness of breath. Patient states that she was experiencing worsening shortness of breath, as well as having dysuria for about 1 week, day of admission had started on antibiotics. In the ED patient found to be in acute hypoxic respiratory failure saturating 92% on 4 L of nasal cannula, AFib with RVR, CHF and COVID PCR positive. Patient was admitted to the ICU, placed on amiodarone drip, IV Lasix with improvement of symptoms. once improved was downgrade to medical floor on 06/03 Review of Systems Review of Systems: 14 point ROS obtained, negative except as stated above [facility] Medical History LETI (obstructive sleep apnea) Paroxysmal atrial flutter PAF (paroxysmal atrial fibrillation) Asthma Dyslipidemia GERD (gastroesophageal reflux disease) Hypertension Morbid obesity Hypothyroidism due to Aj's thyroiditis History of cardioversion Family History Father No problems noted. Mother CHF (congestive heart failure) Dementia Daughter Mast cell activation syndrome Brother Cardiac defibrillator in place Macular degeneration Surgical History History of dental surgery H/O hemorrhoidectomy History of cardiac radiofrequency ablation Hx of arthroscopy of left knee Social History Household Members: Spouse Housing: Condominium Alcohol intake: never Patient Tobacco Use Status: Never used Tobacco Smoked in Last 30 Days: No e-Cigarette/Vaping Use: Never Used Second Hand Smoke Exposure: No Currently Displaying Signs/Symptoms of Drug Intoxication Withdrawal: No Advance Directives: No Advance Directives Information Provided: Yes Do you have a plan to hurt others: No Plan Nutrition Risks: No Nutritional Risk Patient : No service: No Current occupational status: retired Cognitive needs: No Hearing needs: No Vision needs: Yes (wear glasses) Meds Allergies Allergy/AdvReac Type Severity Reaction Status Date / Time lisinopril (LISINOPRIL) Allergy Unknown COUGH/AFIB, Verified 06/02/25 00:32 Cough nizatidine (From AXID) Allergy Unknown ANAPHYLAXIS Verified 06/02/25 00:32 Sulfa (Sulfonamide Allergy Unknown UNKNOWN Verified 06/02/25 00:32 Antibiotics) (SULFA (SULFONAMIDE ANTIBIOTICS)) Active Medications: Current Medications Amiodarone HCl (Amiodarone Hcl 200 Mg Tablet) 400 mg PO BID [facility] Last Admin: 06/03/25 10:06 Dose: 400 mg Apixaban (Apixaban 5 Mg Tablet) 5 mg PO BID [facility] Last Admin: 06/03/25 08:12 Dose: 5 mg Ceftriaxone Sodium (Ceftriaxone Sodium 1 Gm Vial) 1 gm IVPUSH Q24H [facility] Last Admin: 06/03/25 01:00 Dose: 1 gm Levothyroxine Sodium 112 mcg/ (Levothyroxine Sodium 25 mcg) 137 mcg PO DAILY@0600 [facility] Last Admin: 06/03/25 05:32 Dose: 137 mcg Sodium Chloride (0.9 % Sodium Chloride Flush 3 Ml Syringe) 3 ml IVFLUSH QSHIFT [facility] Last Admin: 06/03/25 08:12 Dose: 3 ml Home Medications ?Medication ?Instructions ?Recorded ?Confirmed ?Last Taken ?Type cholecalciferol (vitamin D3) 125 125 mcg PO DAILY 06/03/20 06/02/25 06/01/25 22:00 History mcg (5,000 unit) capsule montelukast 10 mg tablet 10 mg PO DAILY 06/03/20 06/02/25 06/01/25 22:00 History magnesium oxide 500 mg capsule 500 mg PO DAILY 05/12/21 06/02/25 06/01/25 22:00 History budesonide-formoterol HFA 80 1 puff inhalation DAILY 06/02/25 06/02/25 06/01/25 22:00 History mcg-4.5 mcg/actuation aerosol inhaler Physical Exam Vital Signs and Narrative: Vital Signs: Last Vital Signs Temp 96.9 F 06/03/25 15:58 Pulse 112 H 06/03/25 15:58 Resp 16 06/03/25 15:58 BP 104/74 10/19/25 15:58 Pulse Ox 93 06/03/25 15:58 O2 Del Method Room Air 06/03/25 15:58 O2 Flow Rate 1 06/02/25 23:00 Oxygen Flow Rate 4 06/02/25 00:27 BMI result Body Mass Index 49.3 General: AxOx3, No acute distress Head: AT/NC ENT: Moist mucous membranes Neck: supple CVS; increased RR, S1 S2 normal Lungs: Clear bilateral breath sounds, no wheezes or crackles Abd: Soft non tender, non distended Ext: No edema and no calf tenderness MSK: moving all 4 limbs Skin: No cyanosis or edema Psych: Cooperative with exam Neurology: no focal deficit Results Labs 06/03/25 05:13 06/03/25 05:13 Labs: Laboratory Results - last 24 hr 06/02/25 06/03/25 06/03/25 20:03 05:13 05:16 MCV 89.9 MCH 28.7 MCHC 32.0 RDW 13.3 Plt Count 290 MPV 9.3 L Immature Gran % (Auto) 1.1 H Neut % (Auto) 79.7 H Lymph % (Auto) 12.2 L [place] % (Auto) 3.7 Eos % (Auto) 3.0 Baso % (Auto) 0.3 Lymph # (Auto) 1.8 [place] # (Auto) 0.6 Eos # (Auto) 0.5 H Baso # (Auto) 0.1 Abs Immat Gran (auto) 0.16 H Absolute Neuts (auto) 12.0 H Absolute Nucleated RBC 0.000 Nucleated RBC % (auto) 0.0 VBG pH 7.48 H VBG pCO2 36 VBG pO2 60 VBG HCO3 27 H VBG O2 Saturation 89.0 VBG Base Excess 4.1 Anion Gap 13 13 Estim Creat Clear Calc 49.6 60.4 Estimated GFR 43 54 Random Glucose 116 H 106 Calcium 8.8 8.9 Phosphorus 3.0 3.3 Magnesium 2.0 2.1 Albumin 3.6 Assessment and Plan (1) Atrial fibrillation with rapid ventricular response: Status: Acute (2) New onset of congestive heart failure: Status: Acute (3) Hypothyroidism: Status: Acute (4) Acute hypoxic respiratory failure: Status: Acute (5) Pneumonia due to COVID-19 virus: Status: Acute Plan Assessment: 71-year-old female who presents to hospital for acute hypoxic respiratory failure. Found to be in AFib with RVR, heart failure, but labs positive for COVID-19 pneumonia and urinary tract infection. Patient placed on amiodarone drip and admitted to the ICU. After improvement of heart rate and hypoxia, transitioned to p.o. amiodarone and downgraded on 06/03 to medical floor. AFib with RVR Acute hypoxic respiratory failure, multifactorial in the setting of COVID-19 pneumonia, AFib with RVR and CHF. Heart failure Lactic acidosis, multifactorial in setting of above -status post IV amiodarone, transitioned to p.o. amiodarone loading dose. Flecainide discontinued per Cardiology recommendations -continue apixaban 5 mg b.i.d. -continue IV Lasix, to transition to p.o. diuretics tomorrow -TTE ordered -monitor for signs of worsening shortness of breath COVID-19 pneumonia, improved -monitor for any signs of worsening shortness of breath, status post dexamethasone given. Continue isolation precautions. incentive spirometer ordered UTI Continue ceftriaxone 1 g q.d. to complete a total of 5 days Monitor for any signs of worsening dysuria Hypothyroidism, chronic -continue levothyroxine 137 mcg q.d. Quality Stroke Does the patient have a stroke diagnosis?: No VTE Prior VTE?: No VTE Risk Level:: Medical - moderate - high VTE Device Contraindication: N/A - Device Ordered VTE Drug Contraindication: N/A - Med Ordered
--- NOTE | 2025-06-03 18:50 | PC.NURSE ---
patient alert and oriented x4, see shift assessment for full details, patient taken off Amiodarone gtt and PO Amiodarone given, tolering well, HR 100-110's all shift. removed right forearm and right hand IV per patient request, hand stated painful with flushing, right forearm painful without flushing, positive blood return, new 20g in right upper arm US guided placed. report given to [place] nurse.
[2025-06-04 03:08] VITALS: BP 145/80; PULSE 106; RESP 18; TEMP 36.9; O2SAT 92
[2025-06-04 06:00] VITALS: BMI 49.4
[2025-06-04] MEDS: Levothyroxine Sodium 112 MCG, Levothyroxine Sodium 25 MCG 137 MCG PO (06:20)
[2025-06-04 06:25] LABS: MANUAL DIFF FLAG NO
[2025-06-04 06:28] LABS: Hematocrit 39.8 % (37.0-47.0); Hemoglobin 12.8 g/dl (12.0-16.0); Imm Gran Abs Auto 0.29 X10*3/uL (0.00-0.03); Imm Gran Pct Auto 2.8 % (0.0-0.4); Lymphocytes Absolute Auto 2.8 X10*3/uL (1.2-4.9); Mean Corpuscular HGB Conc 32.2 g/dl (31.0-35.0); Mean Corpuscular Hemoglobin 28.6 pg (27.0-33.0); Mean Corpuscular Volume 88.8 fL (80.0-98.0); NRBC Abs Auto 0.000 X10*3/uL (0.0-0.012); NRBC Pct Auto 0.0 /100WBC (0.0-0.2); Platelet Count 325 X10*3/uL (160-400); Red Blood Count 4.48 X10*6/uL (4.20-5.50); White Blood Count 10.4 X10*3/uL (4.8-10.8)
[2025-06-04 06:48] LABS: Albumin Level 3.6 g/dL (3.5-5.0); Anion Gap 14 (12-20); Blood Urea Nitrogen 20 mg/dL (9-16); Calcium 9.2 mg/dL (8.4-10.2); Carbon Dioxide 24 mmol/L (22-29); Chloride 105 mmol/L (96-108); Creatinine Clr Calc Pharmacy 57.6; Estimated Glomerular Filt Rate 51; Magnesium 2.0 mg/dL (1.6-2.6); Potassium 4.1 mmol/L (3.3-5.1); Sodium 139 mmol/L (135-145)
[2025-06-04 08:00] VITALS: BP 140/83; PULSE 119; RESP 20; TEMP 36.4; O2SAT 94
[2025-06-04] MEDS: 0.9 % Sodium Chloride Flush 3 ML SYRINGE IVFLUSH ×3 (09:26→20:10)
--- NOTE | 2025-06-04 09:59 | ECG_ITS ---
Test Reason : arythmia Blood Pressure : */* mmHG Vent. Rate : 123 BPM Atrial Rate : 246 BPM P-R Int : * ms QRS Dur : 74 ms QT Int : 302 ms P-R-T Axes : 1 29 22 degrees QTcB Int : 432 ms Atrial flutter with 2:1 A-V conduction Anterior infarct , age undetermined Abnormal ECG When compared with ECG of 02-Jun-2025 01:02, Atrial flutter has replaced Atrial fibrillation QRS duration has decreased Anterior infarct is now Present Referred By: Guilherme Trujillo Electronically Signed By: GUILHERME TRUJILLO MD
--- NOTE | 2025-06-04 11:55 | PM.PNCARD ---
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 Converted to rapid heart rate. Initially seems like atrial fibrillation but EKGs subsequently done shows atrial flutter with 2 is to 1 conduction. Patient remains asymptomatic. Denies any significant worsening shortness of breath or palpitations. Review of Systems Constitutional: Reports no additional constitutional complaints Eyes: Reports no additional eye complaints Cardiovascular: Denies chest pain, Reports rapid heart rate, Denies lightheadedness, Denies Loss of Consciousness and Denies dyspnea Respiratory: Denies dyspnea Gastrointestinal: Reports no additional gastrointestinal complaints Musculoskeletal: Reports no additional musculoskeletal complaints Skin/Breast: Reports system reviewed and no additional complaints, except as docu Endocrine: Reports no additional endocrine complaints Physical Exam Vital Signs: Last Vital Signs Temp 97.6 F 06/04/25 08:00 Pulse 119 H 06/04/25 08:00 Resp 20 06/04/25 08:00 BP 140/83 H 06/04/25 08:00 Pulse Ox 94 06/04/25 08:00 O2 Del Method Room Air 06/04/25 08:00 O2 Flow Rate 1 06/02/25 23:00 Oxygen Flow Rate 4 06/02/25 00:27 BMI result Body Mass Index 49.4 Const General: cooperative, comfortable, alert, awake and anxious Nutritional Appearance: obese Orientation/consciousness: patient oriented x3 Neck Neck: Yes trachea midline, Yes supple and Yes no JVD Resp Effort & Inspection: decreased respiratory effort Auscultation: clear to auscultation bilaterally Cardio Jugular venous distension: no JVD Rate: tachycardic Heart sounds: S1 normal heart sound present, S2 normal heart sound present, no click, no gallops and no murmurs GI Auscultation: normal bowel sounds Skin General skin exam: no rashes or lesions noted Neuro General: patient oriented x3 and no focal motor deficits Extrem General: Yes no clubbing, cyanosis or edema Objective Labs and Meds 06/04/25 06:14 06/04/25 06:14 Lab results: Laboratory Results - last 24 hr 06/04/25 06:14 WBC 10.4 RBC 4.48 Hgb 12.8 Hct 39.8 MCV 88.8 MCH 28.6 MCHC 32.2 RDW 13.2 Plt Count 325 MPV 9.0 L Immature Gran % (Auto) 2.8 H Neut % (Auto) 57.6 Lymph % (Auto) 27.1 [place] % (Auto) 5.4 Eos % (Auto) 6.6 H Baso % (Auto) 0.5 Lymph # (Auto) 2.8 [place] # (Auto) 0.6 Eos # (Auto) 0.7 H Baso # (Auto) 0.1 Abs Immat Gran (auto) 0.29 H Absolute Neuts (auto) 6.0 Absolute Nucleated RBC 0.000 Nucleated RBC % (auto) 0.0 Sodium 139 Potassium 4.1 Chloride 105 Carbon Dioxide 24 Anion Gap 14 BUN 20 H Creatinine 1.06 Estim Creat Clear Calc 57.6 Estimated GFR 51 Random Glucose 97 Calcium 9.2 Phosphorus 3.5 Magnesium 2.0 Albumin 3.6 Progress Note: A&P Assessment and plan (1) Atrial fibrillation with rapid ventricular response: Status: Acute Assessment and Plan: Recurrent atrial arrhythmias now with more organized atrial flutter noted on the EKG despite loading with amiodarone current getting amiodarone. . Most likely precipitated by her underlying pulmonary issues and can perform synchronized cardioversion although she is likely to revert back to rapid atrial arrhythmias after that. At this point time I would consider just rate controlling her with either Cardizem or metoprolol. Obtain an echocardiogram to assess biatrial chamber size. Continue full oral anticoagulation with apixaban. Despite rate control if she remains significantly tachycardic will pursue synchronized cardioversion. (2) New onset of congestive heart failure: Status: Acute Assessment and Plan: Patient developed new onset heart failure in setting of COVID pneumonia as well as atrial fibrillation with rapid ventricular response. Has known prior diastolic dysfunction. This is not unexpected. Will eventually need rhythm control approach but for now continue supportive care for her COVID pneumonia and pursue rate control as above. Once she is completely loaded with amiodarone and if her rate remains control cardioversion will need to be done as outpatient. Continue current diuretic regimen. Would start her on Lasix 20 mg daily as well as Jardiance 10 mg daily. Will follow with you Time Spent With Patient Time: Total time managing care of this patient today ____ minutes. Progress Note: Quality Stroke Does the patient have a stroke diagnosis?: No Procedures Date of Service Date of Service: 06/04/25
[2025-06-04 12:58] VITALS: BP 143/78; PULSE 120; RESP 20; TEMP 36.5; O2SAT 94
--- NOTE | 2025-06-04 15:05 | MHC.CM.PN ---
EMR REVIEWED AND PER MD ROUNDS, PATIENT IS NOT MEDICALLY CLEARED FOR DISCHARGE DUE TO MANAGEMENT OF A-FIB W/ RVR AND COVID-19 PNA.
[2025-06-04 16:00] VITALS: BP 105/73; PULSE 112; RESP 20; TEMP 37.1; O2SAT 96
--- NOTE | 2025-06-04 16:36 | P.PNIM_ITS ---
Subjective Subjective Date of Service: 06/04/25 Interval History: Patient seen and examined at bedside this morning, patient with episodes of VT, spoke with Cardiology, suggested on metoprolol 25 mg q.6 hours. Patient states that she did not have a good night, at this time feels sleepy, however denies any palpitations or chest pain. Review of Systems Review of Systems: Yes all other systems are reviewed and are negative Physical Exam 2 Exam: Exam: General: AxOx3, No acute distress Head: AT/NC ENT: Moist mucous membranes Neck: supple CVS; increased RR, S1 S2 normal Lungs: Clear bilateral breath sounds, no wheezes or crackles Abd: Soft non tender, non distended Ext: No edema and no calf tenderness MSK: moving all 4 limbs Skin: No cyanosis or edema Psych: Cooperative with exam Neurology: no focal deficit Vital Signs: Vital Signs: Last Vital Signs Temp 98.7 F 06/04/25 16:00 Pulse 112 H 06/04/25 16:00 Resp 20 06/04/25 16:00 BP 105/73 06/04/25 16:00 Pulse Ox 96 06/04/25 16:00 O2 Del Method Room Air 06/04/25 16:00 O2 Flow Rate 1 06/02/25 23:00 Oxygen Flow Rate 4 06/02/25 00:27 BMI result Body Mass Index 49.4 Objective Data Active Medications Amiodarone HCl (Amiodarone Hcl 200 Mg Tablet) 400 mg PO BID [facility] Last Admin: 06/04/25 09:26 Dose: 400 mg Documented By: NADEGE Apixaban (Apixaban 5 Mg Tablet) 5 mg PO BID [facility] Last Admin: 06/04/25 09:26 Dose: 5 mg Documented By: NADEGE Ceftriaxone Sodium (Ceftriaxone Sodium 1 Gm Vial) 1 gm IVPUSH Q24H [facility] Last Admin: 06/04/25 00:50 Dose: 1 gm Documented By: ARBEN Diltiazem HCl 125 mg/ Sodium (Chloride) 125 mls @ 0 mls/hr IVCONT .Q0M [facility]; Protocol Levothyroxine Sodium 112 mcg/ (Levothyroxine Sodium 25 mcg) 137 mcg PO DAILY@0600 [facility] Last Admin: 06/04/25 06:20 Dose: 137 mcg Documented By: ARBEN Metoprolol Tartrate (Metoprolol Tartrate 25 Mg Tablet) 25 mg PO QID [facility]; Protocol Last Admin: 06/04/25 16:33 Dose: 25 mg Documented By: NADEGE Sodium Chloride (0.9 % Sodium Chloride Flush 3 Ml Syringe) 3 ml IVFLUSH QSHIFT [facility] Last Admin: 06/04/25 16:33 Dose: 3 ml Documented By: NADEGE Labs 06/04/25 06:14 06/04/25 06:14 Labs: Laboratory Results - last 24 hr 06/04/25 06:14 MCV 88.8 MCH 28.6 MCHC 32.2 RDW 13.2 Plt Count 325 MPV 9.0 L Immature Gran % (Auto) 2.8 H Neut % (Auto) 57.6 Lymph % (Auto) 27.1 [place] % (Auto) 5.4 Eos % (Auto) 6.6 H Baso % (Auto) 0.5 Lymph # (Auto) 2.8 [place] # (Auto) 0.6 Eos # (Auto) 0.7 H Baso # (Auto) 0.1 Abs Immat Gran (auto) 0.29 H Absolute Neuts (auto) 6.0 Absolute Nucleated RBC 0.000 Nucleated RBC % (auto) 0.0 Anion Gap 14 Estim Creat Clear Calc 57.6 Estimated GFR 51 Random Glucose 97 Calcium 9.2 Phosphorus 3.5 Magnesium 2.0 Albumin 3.6 Microbiology Microbiology Results: Microbiology 06/02/25 07:08 Blood Culture - Preliminary Blood - Venous No growth after 48 hours. 06/02/25 07:08 Blood Culture - Preliminary Blood - Venous No growth after 48 hours. Assessment and Plan (1) New onset of congestive heart failure: Status: Acute (2) Atrial fibrillation with rapid ventricular response: Status: Acute (3) COVID-19 virus infection: Status: Acute Plan Assessment: 71-year-old female who presents to hospital for acute hypoxic respiratory failure. Found to be in AFib with RVR, heart failure, but labs positive for COVID-19 pneumonia and urinary tract infection. Patient placed on amiodarone drip and admitted to the ICU. After improvement of heart rate and hypoxia, transitioned to p.o. amiodarone and downgraded on 06/03 to medical floor. today having episodes of VT. AFib with RVR Acute hypoxic respiratory failure, multifactorial in the setting of COVID-19 pneumonia, AFib with RVR and CHF, resolved Heart failure Lactic acidosis, multifactorial in setting of above -status post IV amiodarone, transitioned to p.o. amiodarone loading dose. Flecainide discontinued, will initiate metoprolol 25mg q6hrs per cardio recs -continue apixaban 5 mg b.i.d. -continue IV Lasix, to transition to p.o. diuretics tomorrow -TTE ordered -monitor for signs of worsening shortness of breath COVID-19 pneumonia, improved -monitor for any signs of worsening shortness of breath, status post dexamethasone given. Continue isolation precautions. incentive spirometer ordered UTI Continue ceftriaxone 1 g q.d. to complete a total of 5 days Monitor for any signs of worsening dysuria Hypothyroidism, chronic -continue levothyroxine 137 mcg q.d. Quality Stroke Does the patient have a stroke diagnosis?: No VTE Prior VTE?: No VTE Risk Level:: Medical - moderate - high VTE Device Contraindication: N/A - Device Ordered VTE Drug Contraindication: N/A - Med Ordered
[2025-06-04 19:29] VITALS: BP 122/84; PULSE 115; RESP 16; TEMP 36.6; O2SAT 96
[2025-06-04 23:40] VITALS: BP 156/72; PULSE 109; RESP 16; TEMP 36.3; O2SAT 92
[2025-06-05 00:55] VITALS: BP 139/83; PULSE 100
[2025-06-05 03:51] VITALS: BP 126/74; PULSE 111; RESP 16; TEMP 36.1; O2SAT 92
[2025-06-05 06:00] VITALS: BMI 49.1
[2025-06-05] MEDS: Levothyroxine Sodium 112 MCG, Levothyroxine Sodium 25 MCG 137 MCG PO (06:03)
--- NOTE | 2025-06-05 07:00 | CA_ITS ---
Transthoracic Echocardiogram Patient (Last, First, Middle): Katey Lux, Gender: F Date of : 1955 Age: 70 Procedure Date: 06/05/2025 Procedure Type: Transthoracic [place] [facility] [place]: 154.94 cm Weight: 118.39 kg BSA: 2.12 m2 Heart Rate: bpm BP: 145 / 80 mmHg Manager Pediatric: [facility] Referring MD: Polina Bingham NP Meters Superintendent: Guilherme Trujillo MD Symptoms: New CHF Study Quality: Fair ECG Rhythm: Atrial flutter Conclusions: - 1. Low normal LV ejection fraction 50-55% 2. Mildly dilated left atrium 3. Mild aortic regurgitation 4. Normal measured RV systolic pressure 5. No gross pericardial effusion Findings Left Ventricle Normal left ventricular cavity size. There is normal left ventricular wall thickness. The left ventricular systolic function is low normal. The visually estimated ejection fraction is between 50-55%. Diastolic function is indeterminate on the basis of available data. Right Ventricle Normal right ventricular cavity size and systolic function. Atria The left atrium is mildly dilated. Interatrial shunt cannot be excluded. The right atrium is normal in size. Aortic Valve The aortic valve was not well visualized. There is no aortic valve stenosis. There is mild aortic valve regurgitation. Mitral Valve There is mild anterior and moderate posterior mitral leaflet thickening. There is moderate mitral annular calcification. There is trace mitral valve regurgitation. There is no mitral valve stenosis. Pulmonic Valve The pulmonic valve was not well visualized. Tricuspid Valve Likely normal tricuspid valve structure and function. There is trace tricuspid valve regurgitation. The right ventricular systolic pressure is normal. The right ventricular systolic pressure is 21 mmHg. Normal right atrial pressure. There is no evidence of pulmonary hypertension. Great Vessels The aorta was not well visualized. The pulmonary artery was not well visualized. There is no dilatation of the ascending aorta measuring 3.50 cm. Venous The inferior vena cava is normal in size. Pericardium/Pleural There is no evidence of pericardial effusion. Prior Study Comparison Changes noted compared to prior study dated: 02/19/2020. LV ejection fraction has marginally reduced Measurements 2D Linear Measurements IVSd: 0.95 0.6-0.9/0.6-1.0 cm LVIDd: 3.93 3.9-5.3/4.2-5.9 cm LVIDd Index: 1.85 2.4-3.2/2.2-3.1 cm/m2 LVIDs: 2.49 2.0-3.6 cm LVPWd: 0.95 0.7-1.1 cm Ao Root: 2.90 2.1-3.5 cm LA Diam: 3.10 2.7-3.8/3.0-4.0 cm LAIDs Index: 1.46 1.5-2.3 cm/m2 LV Mass: 142.53 67-162/88-224 g LV Mass Index: 67.23 43-95/49-115 g/m2 LVOT Diam: 1.90 3.0+(-)1.3 cm 2D Systolic Function EF 4C: 52.90 >55% EF 2C: 50.50 >55% EF BiP: 52.40 >55% Mitral Valve MV Pk E: 0.98 MV Decel Time: 148.00 PHT: 43.00 MVA PHT: 5.12 Decel [place]: 6.65 Aortic Valve AoV Pk Jag: 1.69 AoV Mn Jag: 1.16 AoV VTI: 0.27 AoV Pk Grad: 11.00 Aov Mn Grad: 6.00 BRENNA Cont.VTI: 2.14 LVOT LVOT Pk Jag: 1.31 LVOT Mn Jag: 0.83 LVOT VTI: 0.20 LVOT Pk Grad: 7.00 LVOT Mn Grad: 3.00 LVOT Diam: 1.90 LVOT Area: 2.84 Diastolic Function MV Pk E: 0.98 Right Ventricle TAPSE (mm): 18.40 TVS' Jag: 14.50 Tricuspid Valve TR Pk Jag: 2.13 TR Pk Grad: 18.00 RA Press: 3.00 RVSP: 21.00 Great Vessels Aorta Ao Root-2D: 2.90 2.0-3.7 cm Ao Asc: 3.50 2.1-3.4 cm Pulmonary Valve PV Pk Jag: 0.72 Peak PV Grad: 2.00 Updated in Other Vendor System with Status of Final Guilherme Trujillo MD electronically signed on 06/05/2025 2:25:39 PM with status of Final
[2025-06-05 07:17] VITALS: BP 131/79; PULSE 113; RESP 20; TEMP 36.6; O2SAT 94
[2025-06-05] MEDS: 0.9 % Sodium Chloride Flush 3 ML SYRINGE IVFLUSH ×2 (09:40→16:35)
--- NOTE | 2025-06-05 10:22 | ECG_ITS ---
Test Reason : tachycardia Blood Pressure : */* mmHG Vent. Rate : 121 BPM Atrial Rate : 121 BPM P-R Int : 112 ms QRS Dur : 76 ms QT Int : 322 ms P-R-T Axes : 57 60 66 degrees QTcB Int : 457 ms Atrial flutter Nonspecific ST and T wave abnormality Abnormal ECG When compared with ECG of 04-Jun-2025 10:11, T wave inversion less evident in Anterior leads Referred By: Guilherme Trujillo Electronically Signed By: GUILHERME TRUJILLO MD
[2025-06-05 11:10] VITALS: BP 109/71; PULSE 122; RESP 20; TEMP 36.1; O2SAT 99
--- NOTE | 2025-06-05 12:02 | PM.PNCARD ---
Subjective Subjective Date of Service: 06/05/25 Principal diagnosis: Atrial flutter Interval history: Patient remains tachycardic. EKG consistent with atrial flutter with 2 is to 1 conduction. She has no other cardiac symptoms. Denies shortness of breath. Echocardiogram was just completed. Needs to be seen. Did receive metoprolol yesterday orally add amiodarone. Heart rate still remains elevated. Blood pressure is stable. Review of Systems Constitutional: Reports no additional constitutional complaints Cardiovascular: Denies chest pain, Reports rapid heart rate, Denies lightheadedness, Denies Loss of Consciousness, Denies dyspnea, Denies dyspnea on exertion and Denies orthopnea Respiratory: Reports no additional respiratory complaints, Denies dyspnea and Denies dyspnea on exertion Gastrointestinal: Reports no additional gastrointestinal complaints Skin/Breast: Reports system reviewed and no additional complaints, except as docu Reports system reviewed and no additional complaints, except as documented Endocrine: Reports no additional endocrine complaints Physical Exam Vital Signs: Last Vital Signs Temp 97.0 F 06/05/25 11:10 Pulse 122 H 06/05/25 11:10 Resp 20 06/05/25 11:10 BP 109/71 06/05/25 11:10 Pulse Ox 99 06/05/25 11:10 O2 Del Method Room Air 06/05/25 11:10 O2 Flow Rate 1 06/02/25 23:00 Oxygen Flow Rate 4 06/02/25 00:27 BMI result Body Mass Index 49.1 Const General: cooperative, comfortable, alert, awake and anxious Nutritional Appearance: obese Orientation/consciousness: patient oriented x3 Neck Neck: Yes trachea midline, Yes supple and Yes no JVD Resp Effort & Inspection: decreased respiratory effort Auscultation: clear to auscultation bilaterally Cardio Jugular venous distension: no JVD Rate: tachycardic Heart sounds: S1 normal heart sound present, S2 normal heart sound present, no click, no gallops and no murmurs GI Auscultation: normal bowel sounds Skin General skin exam: no rashes or lesions noted Neuro General: patient oriented x3 and no focal motor deficits Extrem General: Yes no clubbing, cyanosis or edema Objective Labs and Meds 06/04/25 06:14 06/04/25 06:14 Progress Note: A&P Assessment and plan (1) Atrial flutter with rapid ventricular response: Status: Acute Assessment and Plan: Atrial flutter with difficult control rate. Will maximize metoprolol therapy. If despite that remains persistently tachycardic will need synchronized cardioversion. This was discussed with her. She understands agrees. She has been on oral anticoagulation therapy without any interruption for long time. Treatment plan discussed with patient in the hospitalist team. Understand agree. Please keep NPO after midnight. Will need anesthesia input as patient has recently diagnose COVID. (2) New onset of congestive heart failure: Status: Acute Assessment and Plan: New onset congestive heart failure. Will review echocardiogram. Most likely related to atrial arrhythmias and active pulmonary infection. This has improved and despite rapid heart rate or heart failure symptoms have not worsened. Continue Jardiance in his oral diuretics. Will pursue rhythm control as above. Will follow with you Time Spent With Patient Time: Total time managing care of this patient today ____ minutes. Progress Note: Quality Stroke Does the patient have a stroke diagnosis?: No Procedures Date of Service Date of Service: 06/05/25
[2025-06-05 16:00] VITALS: BP 109/79; PULSE 118; RESP 20; TEMP 36.4; O2SAT 94
--- NOTE | 2025-06-05 16:06 | HO.PM.IMPN ---
Subjective Subjective Date of Service: 06/05/25 Interval History: Patient seen examined at bedside this morning, overnight had multiple episodes of atrial flutter with ventricular response, patient is already on metoprolol as well as amiodarone. Spoke with Cardiology, if unable to control with metoprolol therapy as well as amiodarone, plans on possible cardioversion tomorrow. Review of Systems Review of Systems: Yes all other systems are reviewed and are negative Physical Exam Exam: Exam: General: AxOx3, No acute distress Head: AT/NC ENT: Moist mucous membranes Neck: supple CVS; increased RR, S1 S2 normal Lungs: Clear bilateral breath sounds, no wheezes or crackles Abd: Soft non tender, non distended Ext: No edema and no calf tenderness MSK: moving all 4 limbs Skin: No cyanosis or edema Psych: Cooperative with exam Neurology: no focal deficit Vital Signs: Vital Signs: Last Vital Signs Temp 97.0 F 06/05/25 11:10 Pulse 122 H 06/05/25 11:10 Resp 20 06/05/25 11:10 BP 109/71 06/05/25 11:10 Pulse Ox 99 06/05/25 11:10 O2 Del Method Room Air 06/05/25 11:10 O2 Flow Rate 1 06/02/25 23:00 Oxygen Flow Rate 4 06/02/25 00:27 BMI result Body Mass Index 49.1 Objective Data Active Medications Amiodarone HCl (Amiodarone Hcl 200 Mg Tablet) 400 mg PO BID [facility] Last Admin: 06/05/25 09:40 Dose: 400 mg Documented By: ALICIA Apixaban (Apixaban 5 Mg Tablet) 5 mg PO BID [facility] Last Admin: 06/05/25 09:39 Dose: 5 mg Documented By: ALICIA Ceftriaxone Sodium (Ceftriaxone Sodium 1 Gm Vial) 1 gm IVPUSH Q24H [facility] Last Admin: 06/05/25 00:42 Dose: 1 gm Documented By: ARBEN Empagliflozin (Empagliflozin 10 Mg Tablet) 10 mg PO DAILY [facility] Last Admin: 06/05/25 09:40 Dose: 10 mg Documented By: ALICIA Furosemide (Furosemide 20 Mg Tablet) 20 mg PO DAILY [facility]; Protocol Last Admin: 06/05/25 09:40 Dose: 20 mg Documented By: ALICIA Diltiazem HCl 125 mg/ Sodium (Chloride) 125 mls @ 0 mls/hr IVCONT .Q0M [facility]; Protocol Levothyroxine Sodium 112 mcg/ (Levothyroxine Sodium 25 mcg) 137 mcg PO DAILY@0600 [facility] Last Admin: 06/05/25 06:03 Dose: 137 mcg Documented By: ARBEN Metoprolol Tartrate (Metoprolol Tartrate 50 Mg Tablet) 50 mg PO QID [facility]; Protocol Sodium Chloride (0.9 % Sodium Chloride Flush 3 Ml Syringe) 3 ml IVFLUSH QSHIFT [facility] Last Admin: 06/05/25 09:40 Dose: 3 ml Documented By: RIOSCLOPEZ Labs 06/04/25 06:14 06/04/25 06:14 Assessment and Plan (1) New onset of congestive heart failure: Status: Acute (2) Paroxysmal atrial flutter: Status: Acute (3) COVID: Status: Acute Plan Assessment: 71-year-old female who presents to hospital for acute hypoxic respiratory failure. Found to be in AFib with RVR, heart failure, but labs positive for COVID-19 pneumonia and urinary tract infection. Patient placed on amiodarone drip and admitted to the ICU. After improvement of heart rate and hypoxia, transitioned to p.o. amiodarone and downgraded on 06/03 to medical floor. today having episodes of VT. Atrial flutter with RVR Possible New onset Heart failure Lactic acidosis, multifactorial in setting of above -status post IV amiodarone, transitioned to p.o. amiodarone loading dose. Flecainide discontinued, will increase metoprolol to 50mg q6hrs per cardio recs, plans for possible cardioversion tomorrow, will make NPO at midnight. -continue apixaban 5 mg b.i.d. -will initiate Lasix 20mg and Jardiance 10mg -TTE being done at bedside -Cardio following -monitor for signs of worsening shortness of breath COVID-19 pneumonia, improved -monitor for any signs of worsening shortness of breath, status post dexamethasone given. Continue isolation precautions. incentive spirometer encouraged UTI Continue ceftriaxone 1 g q.d. to complete a total of 5 days Monitor for any signs of worsening dysuria Hypothyroidism, chronic -continue levothyroxine 137 mcg q.d. Quality Stroke Does the patient have a stroke diagnosis?: No VTE Prior VTE?: No VTE Risk Level:: Medical - moderate - high VTE Device Contraindication: N/A - Device Ordered VTE Drug Contraindication: N/A - Med Ordered
[2025-06-05 19:35] VITALS: BP 114/58; PULSE 120; RESP 18; TEMP 36.4; O2SAT 96
[2025-06-06] VITALS (12 sets, daily range): BP systolic 83–168; BP diastolic 56–85; PULSE 60–125; RESP 14–18; TEMP 36–36.7; O2SAT 93–100; BMI 48.7
[2025-06-06] MEDS: Levothyroxine Sodium 112 MCG, Levothyroxine Sodium 25 MCG 137 MCG PO (07:53)
[2025-06-06] MEDS: 0.9 % Sodium Chloride Flush 3 ML SYRINGE IVFLUSH ×2 (07:54→20:46)
--- NOTE | 2025-06-06 09:25 | P.CONAN_ITS ---
Documented by User: Silvana Ramsay NP 06/06/25 09:41 HPI - Anesthesia Eval Consult details Narrative: 70 yr old female for cardioversion Atrial fibrillation with RVR: failed rate control with metoprolol & amiodorone New onset CHF: see echo below COVID positive: chest xray cannot rule out pneumonia. Pts sats are 96% on ra PMFSH Active Problems Active Problems: All Active Problems Atrial flutter with rapid ventricular response (Acute) Pneumonia due to COVID-19 virus (Acute) Hypothyroidism (Acute) Acute hypoxic respiratory failure (Acute) COVID-19 virus infection (Acute) Hypotension (Acute) Atrial fibrillation with rapid ventricular response (Acute) Drug side effects (Acute) Pneumonia (Acute) COVID (Acute) New onset of congestive heart failure (Acute) Class 3 obesity (Acute) OAB (overactive bladder) (Acute) Detrusor overactivity (Acute) Nocturia (Acute) Recurrent UTI (Acute) Colon cancer screening (Acute) Recurrent urinary tract infection (Acute) Lumbar degenerative disc disease (Acute) Degenerative cervical disc (Acute) Breast cancer screening (Acute) USP systemic steroid user (Acute) SHARONDA positive (Acute) Polyarthralgia (Acute) Shoulder pain (Acute) Neck pain (Acute) PMR (polymyalgia rheumatica) (Acute) Annual physical exam (Acute) Pain, dental (Acute) Stomatitis herpetiformis (Acute) DIANNA (generalized anxiety disorder) (Acute) Atherosclerotic cardiovascular disease (Acute) Hypertensive urgency (Acute) UTI (urinary tract infection) (Acute) LETI (obstructive sleep apnea) (Acute) Encounter for monitoring anti-arrhythmic therapy (Acute) Paroxysmal atrial flutter (Acute) PAF (paroxysmal atrial fibrillation) (Acute) Anxiety (Acute) Urge incontinence of urine (Acute) Bilateral primary osteoarthritis of knee (Acute) Annual physical exam (Acute) Poison nate dermatitis (Acute) Blurry vision, right eye (Acute) Asthma (Acute) Dyslipidemia (Acute) GERD (gastroesophageal reflux disease) (Acute) Hypertension (Acute) Morbid obesity (Acute) Hypothyroidism due to Aj's thyroiditis (Acute) Past Medical History Medical History LETI (obstructive sleep apnea) Paroxysmal atrial flutter PAF (paroxysmal atrial fibrillation) Asthma Dyslipidemia GERD (gastroesophageal reflux disease) Hypertension Morbid obesity Hypothyroidism due to Aj's thyroiditis History of cardioversion Family History Family History Father No problems noted. Mother CHF (congestive heart failure) Dementia Daughter Mast cell activation syndrome Brother Cardiac defibrillator in place Macular degeneration Surgical History Surgical History History of dental surgery H/O hemorrhoidectomy History of cardiac radiofrequency ablation Hx of arthroscopy of left knee Social History Social History Household Members: Spouse Housing: [facility] Alcohol intake: never Patient Tobacco Use Status: Never used Tobacco Smoked in Last 30 Days: No e-Cigarette/Vaping Use: Never Used Second Hand Smoke Exposure: No Currently Displaying Signs/Symptoms of Drug Intoxication Withdrawal: No Advance Directives: No Advance Directives Information Provided: Yes Do you have a plan to hurt others: No Plan Nutrition Risks: No Nutritional Risk Patient : No service: No Current occupational status: retired Cognitive needs: No Hearing needs: No Vision needs: Yes (wear glasses) Meds Allergies Allergy/AdvReac Type Severity Reaction Status Date / Time lisinopril (LISINOPRIL) Allergy Unknown COUGH/AFIB, Verified 06/02/25 00:32 Cough nizatidine (From AXID) Allergy Unknown ANAPHYLAXIS Verified 06/02/25 00:32 Sulfa (Sulfonamide Allergy Unknown UNKNOWN Verified 06/02/25 00:32 Antibiotics) (SULFA (SULFONAMIDE ANTIBIOTICS)) Active Medications: Current Medications Amiodarone HCl (Amiodarone Hcl 200 Mg Tablet) 400 mg PO BID [facility] Last Admin: 06/06/25 07:53 Dose: 400 mg Apixaban (Apixaban 5 Mg Tablet) 5 mg PO BID [facility] Last Admin: 06/06/25 07:53 Dose: 5 mg Ceftriaxone Sodium (Ceftriaxone Sodium 1 Gm Vial) 1 gm IVPUSH Q24H [facility] Last Admin: 06/06/25 01:29 Dose: 1 gm Empagliflozin (Empagliflozin 10 Mg Tablet) 10 mg PO DAILY [facility] Last Admin: 06/06/25 07:53 Dose: 10 mg Furosemide (Furosemide 20 Mg Tablet) 20 mg PO DAILY [facility]; Protocol Last Admin: 06/06/25 07:53 Dose: 20 mg Diltiazem HCl 125 mg/ Sodium (Chloride) 125 mls @ 0 mls/hr IVCONT .Q0M [facility]; Protocol Levothyroxine Sodium 112 mcg/ (Levothyroxine Sodium 25 mcg) 137 mcg PO DAILY@0600 [facility] Last Admin: 06/06/25 07:53 Dose: 137 mcg Metoprolol Tartrate (Metoprolol Tartrate 50 Mg Tablet) 50 mg PO QID [facility]; Protocol Last Admin: 06/06/25 07:53 Dose: 50 mg Sodium Chloride (0.9 % Sodium Chloride Flush 3 Ml Syringe) 3 ml IVFLUSH QSHIFT [facility] Last Admin: 06/06/25 07:54 Dose: 3 ml Home Medications ?Medication ?Instructions ?Recorded ?Confirmed ?Last Taken ?Type cholecalciferol (vitamin D3) 125 125 mcg PO DAILY 05/1606/02/25 06/01/25 22:00 History mcg (5,000 unit) capsule montelukast 10 mg tablet 10 mg PO DAILY 06/03/2005/1606/01/25 22:00 History magnesium oxide 500 mg capsule 500 mg PO DAILY 1 06/02/25 06/01/25 22:00 History budesonide-formoterol HFA 80 1 puff inhalation DAILY 1 06/02/25 06/01/25 22:00 History mcg-4.5 mcg/actuation aerosol inhaler Exam Height,Weight and Vital Signs: Height 5 ft 1 in Weight 117 kg Last Vital Signs Temp 97.7 F 06/06/25 08:00 Pulse 123 H 06/06/25 08:00 Resp 17 06/06/25 08:00 BP 115/74 06/06/25 08:00 Pulse Ox 96 06/06/25 08:00 O2 Del Method Room Air 06/06/25 08:00 O2 Flow Rate 1 06/02/25 23:00 Oxygen Flow Rate 4 06/02/25 00:27 Pertinent Lab Results Pertinent Lab Results: Laboratory Tests 06/02/25 06/02/25 06/02/25 01:22 01:22 03:41 WBC 11.5 H RBC 4.57 Hgb 13.0 Hct 41.1 MCV 89.9 MCH 28.4 MCHC 31.6 RDW 13.2 Plt Count 304 MPV 10.1 Immature Gran % (Auto) 0.9 H Neut % (Auto) 91.0 H Lymph % (Auto) 5.9 L Carson % (Auto) 1.7 L Eos % (Auto) 0.4 Baso % (Auto) 0.1 Lymph # (Auto) 0.7 L Carson # (Auto) 0.2 Eos # (Auto) 0.1 Baso # (Auto) 0.0 Abs Immat Gran (auto) 0.10 H Absolute Neuts (auto) 10.5 H Absolute Nucleated RBC 0.000 Nucleated RBC % (auto) 0.0 Smear Tech's Comments VBG pH VBG pCO2 VBG pO2 VBG HCO3 VBG O2 Saturation VBG Base Excess Sodium 139 Potassium 4.0 Chloride 104 Carbon Dioxide 21 L Anion Gap 18 BUN 20 H Creatinine 1.02 Estim Creat Clear Calc 60.5 Estimated GFR 53 Random Glucose 105 Lactic Acid 3.0 H* Lactic Acid F/U @ 2Hr Lactic Acid F/U @ 4Hr Calcium 8.9 D Phosphorus 3.0 Magnesium 1.8 Total Bilirubin 0.4 Direct Bilirubin 0.2 AST 29 ALT 23 Alkaline Phosphatase 101 Troponin I High Sens < 2.7 NT-Pro-B Natriuret Pep 3173.2 H Total Protein 7.1 Albumin 3.8 TSH 9.83 H Cancelled Free T4 1.23 Urine Color Urine Appearance Urine pH Ur Specific [place] Urine Protein Urine Glucose (UA) Urine Ketones Urine Blood Urine Nitrite Ur Leukocyte Esterase Urine RBC Urine WBC Ur Squamous Epith Cells Urine Bacteria Hyaline Casts COVID-19 (YAZ) Positive A COVID-19 Clin Com See Note Influenza Type A (DEANNA) Negative Influenza Type B (DEANNA) Negative Influenza A & B Note See Note 06/02/25 06/02/25 06/02/25 05:15 05:18 06:35 WBC 22.1 H RBC 4.47 Hgb 12.7 Hct 40.0 MCV 89.5 MCH 28.4 MCHC 31.8 RDW 13.3 Plt Count 370 MPV 9.8 Immature Gran % (Auto) 1.2 H Neut % (Auto) 93.5 H Lymph % (Auto) 2.1 L Carson % (Auto) 2.9 Eos % (Auto) 0.1 Baso % (Auto) 0.2 Lymph # (Auto) 0.5 L Carson # (Auto) 0.7 Eos # (Auto) 0.0 Baso # (Auto) 0.1 Abs Immat Gran (auto) 0.27 H Absolute Neuts (auto) 20.6 H Absolute Nucleated RBC 0.000 Nucleated RBC % (auto) 0.0 Smear Tech's Comments VERIFIED VBG pH 7.47 H VBG pCO2 32 VBG pO2 40 VBG HCO3 23 VBG O2 Saturation 67.0 VBG Base Excess 0.9 Sodium 137 Potassium 4.8 Chloride 103 Carbon Dioxide 23 Anion Gap 16 BUN 23 H Creatinine 1.15 Estim Creat Clear Calc 53.7 Estimated GFR 46 Random Glucose 160 H Lactic Acid Lactic Acid F/U @ 2Hr Lactic Acid F/U @ 4Hr Calcium 8.8 Phosphorus Magnesium Total Bilirubin Direct Bilirubin AST ALT Alkaline Phosphatase Troponin I High Sens NT-Pro-B Natriuret Pep Total Protein Albumin TSH Free T4 Urine Color Yellow Urine Appearance Cloudy Urine pH 5.5 Ur Specific [place] 1.010 Urine Protein Negative Urine Glucose (UA) Negative Urine Ketones Negative Urine Blood Negative Urine Nitrite Negative Ur Leukocyte Esterase Moderate (2+) H Urine RBC 0-2 Urine WBC 11-20 H Ur Squamous Epith Cells >20 Urine Bacteria 1+ Hyaline Casts 0-2 COVID-19 (YAZ) COVID-19 Clin Com Influenza Type A (DEANNA) Influenza Type B (DEANNA) Influenza A & B Note 06/02/25 06/02/25 06/02/25 07:08 09:25 20:03 WBC RBC Hgb Hct MCV MCH MCHC RDW Plt Count MPV Immature Gran % (Auto) Neut % (Auto) Lymph % (Auto) Carson % (Auto) Eos % (Auto) Baso % (Auto) Lymph # (Auto) Carson # (Auto) Eos # (Auto) Baso # (Auto) Abs Immat Gran (auto) Absolute Neuts (auto) Absolute Nucleated RBC Nucleated RBC % (auto) Smear Tech's Comments VBG pH VBG pCO2 VBG pO2 VBG HCO3 VBG O2 Saturation VBG Base Excess Sodium 137 Potassium 4.0 Chloride 100 Carbon Dioxide 28 Anion Gap 13 BUN 24 H Creatinine 1.23 Estim Creat Clear Calc 49.6 Estimated GFR 43 Random Glucose 116 H Lactic Acid Lactic Acid F/U @ 2Hr 3.1 H* Lactic Acid F/U @ 4Hr 2.6 H* Calcium 8.8 Phosphorus 3.0 Magnesium 2.0 Total Bilirubin Direct Bilirubin AST ALT Alkaline Phosphatase Troponin I High Sens NT-Pro-B Natriuret Pep Total Protein Albumin TSH Free T4 Urine Color Urine Appearance Urine pH Ur Specific [place] Urine Protein Urine Glucose (UA) Urine Ketones Urine Blood Urine Nitrite Ur Leukocyte Esterase Urine RBC Urine WBC Ur Squamous Epith Cells Urine Bacteria Hyaline Casts COVID-19 (YAZ) COVID-19 Clin Com Influenza Type A (DEANNA) Influenza Type B (DEANNA) Influenza A & B Note 06/03/25 06/03/25 06/04/25 05:13 05:16 06:14 WBC 15.1 H 10.4 RBC 4.04 L 4.48 Hgb 11.6 L 12.8 Hct 36.3 L 39.8 MCV 89.9 88.8 MCH 28.7 28.6 MCHC 32.0 32.2 RDW 13.3 13.2 Plt Count 290 325 MPV 9.3 L 9.0 L Immature Gran % (Auto) 1.1 H 2.8 H Neut % (Auto) 79.7 H 57.6 Lymph % (Auto) 12.2 L 27.1 Carson % (Auto) 3.7 5.4 Eos % (Auto) 3.0 6.6 H Baso % (Auto) 0.3 0.5 Lymph # (Auto) 1.8 2.8 Carson # (Auto) 0.6 0.6 Eos # (Auto) 0.5 H 0.7 H Baso # (Auto) 0.1 0.1 Abs Immat Gran (auto) 0.16 H 0.29 H Absolute Neuts (auto) 12.0 H 6.0 Absolute Nucleated RBC 0.000 0.000 Nucleated RBC % (auto) 0.0 0.0 Smear Tech's Comments VBG pH 7.48 H VBG pCO2 36 VBG pO2 60 VBG HCO3 27 H VBG O2 Saturation 89.0 VBG Base Excess 4.1 Sodium 139 139 Potassium 3.9 4.1 Chloride 104 105 Carbon Dioxide 26 24 Anion Gap 13 14 BUN 21 H 20 H Creatinine 1.01 1.06 Estim Creat Clear Calc 60.4 57.6 Estimated GFR 54 51 Random Glucose 106 97 Lactic Acid Lactic Acid F/U @ 2Hr Lactic Acid F/U @ 4Hr Calcium 8.9 9.2 Phosphorus 3.3 3.5 Magnesium 2.1 2.0 Total Bilirubin Direct Bilirubin AST ALT Alkaline Phosphatase Troponin I High Sens NT-Pro-B Natriuret Pep Total Protein Albumin 3.6 3.6 TSH Free T4 Urine Color Urine Appearance Urine pH Ur Specific [place] Urine Protein Urine Glucose (UA) Urine Ketones Urine Blood Urine Nitrite Ur Leukocyte Esterase Urine RBC Urine WBC Ur Squamous Epith Cells Urine Bacteria Hyaline Casts COVID-19 (YAZ) COVID-19 Clin Com Influenza Type A (DEANNA) Influenza Type B (DEANNA) Influenza A & B Note Narrative Narrative: ECHO 06/05/25 Conclusions: - 1. Low normal LV ejection fraction 50-55% 2. Mildly dilated left atrium 3. Mild aortic regurgitation 4. Normal measured RV systolic pressure 5. No gross pericardial effusion Documented by User: Cara Brar MD 06/06/25 12:59 [facility] Past Medical History Medical History LETI (obstructive sleep apnea) Paroxysmal atrial flutter PAF (paroxysmal atrial fibrillation) Asthma Dyslipidemia GERD (gastroesophageal reflux disease) Hypertension Morbid obesity Hypothyroidism due to Aj's thyroiditis History of cardioversion Family History Family History Father No problems noted. Mother CHF (congestive heart failure) Dementia Daughter Mast cell activation syndrome Brother Cardiac defibrillator in place Macular degeneration Family history of problems with anesthesia: No Surgical History Surgical History History of dental surgery H/O hemorrhoidectomy History of cardiac radiofrequency ablation Hx of arthroscopy of left knee History of Problems with Anesthesia: No Social History Social History Household Members: Spouse Housing: Condominium Alcohol intake: never Patient Tobacco Use Status: Never used Tobacco Smoked in Last 30 Days: No e-Cigarette/Vaping Use: Never Used Second Hand Smoke Exposure: No Currently Displaying Signs/Symptoms of Drug Intoxication Withdrawal: No Advance Directives: No Advance Directives Information Provided: Yes Do you have a plan to hurt others: No Plan Nutrition Risks: No Nutritional Risk Patient : No service: No Current occupational status: retired Cognitive needs: No Hearing needs: No Vision needs: Yes (wear glasses) Meds Allergies Allergy/AdvReac Type Severity Reaction Status Date / Time lisinopril (LISINOPRIL) Allergy Unknown COUGH/AFIB, Verified 06/02/25 00:32 Cough nizatidine (From AXID) Allergy Unknown ANAPHYLAXIS Verified 06/02/25 00:32 Sulfa (Sulfonamide Allergy Unknown UNKNOWN Verified 06/02/25 00:32 Antibiotics) (SULFA (SULFONAMIDE ANTIBIOTICS)) Home Medications ?Medication ?Instructions ?Recorded ?Confirmed ?Last Taken ?Type cholecalciferol (vitamin D3) 125 125 mcg PO DAILY 05/1606/02/25 06/01/25 22:00 History mcg (5,000 unit) capsule montelukast 10 mg tablet 10 mg PO DAILY 06/03/2005/1606/01/25 22:00 History magnesium oxide 500 mg capsule 500 mg PO DAILY 1 06/02/25 06/01/25 22:00 History budesonide-formoterol HFA 80 1 puff inhalation DAILY 06/02/25 06/01/25 22:00 History mcg-4.5 mcg/actuation aerosol inhaler Exam Airway Mallampati Class: II TM Dist: >3cm Neck ROM: Full Heart: tachy unclear if irreg Lungs: cta Assessment and Plan Assessment Anesthesia Assessment: Anesthesia Plan Discussed and Chart Reviewed Final Anesthetic Review Family History of Problems with Anesthesia: No History of Problems with Anesthesia: No NPO: Yes ASA Class: III Final Preanesthetic Review: No Changes in Pt Med Stat, Meds/Allgs Chart Reviewed and Consent Obtained/Reviewed Patient Risk: Intermediate Procedure Risk: Intermediate Anesthetic Plan Anesthetic Plan: MAC: Disposition: Standard PACU
--- NOTE | 2025-06-06 12:31 | PM.EVENT ---
Event Note Date of Service: 06/06/25 Event Note: Patient with Jardiance for heart failure, last dose was yesterday. Patient needs urgent cardioversion given her persistent tachycardia and heart failure syndrome. Time Spent With Patient Time: Total time managing care of this patient today ____ minutes.
--- NOTE | 2025-06-06 12:50 | PC.NURSE ---
#20 noted to left AC; dressing clean dry intact; flushes without difficulty.
--- NOTE | 2025-06-06 13:00 | PC.NURSE ---
Patient brought down directly from floor to endo room 1. This is where the patient was preoped and the procedure is to take place. She is currently on droplet precautions for testing positive for covid over a week ago and is asymptomatic at this time. Joann was last taken on 06/05 at 0940; Dr Trujillo and Dr. Brar aware.
--- NOTE | 2025-06-06 13:27 | ECG_ITS ---
Test Reason : post cardioversion, af Blood Pressure : */* mmHG Vent. Rate : 65 BPM Atrial Rate : 65 BPM P-R Int : 180 ms QRS Dur : 76 ms QT Int : 444 ms P-R-T Axes : 29 14 66 degrees QTcB Int : 461 ms Normal sinus rhythm Nonspecific T wave abnormality Abnormal ECG When compared with ECG of 05-Jun-2025 10:35, Vent. rate has decreased by 56 bpm Referred By: Bang Caceres Electronically Signed By: COREY TAY MD
--- NOTE | 2025-06-06 13:39 | HO.CARDIVERS ---
Cardioversion Procedure Note Cardioversion Date of Procedure: 06/06/2025 Ordering Provider: Yi Trujillo Performing Provider: Yi Trujillo Indication for Procedure: Persistent difficult to control atrial flutter Pre-Op Diagnosis: Same Post-Op Diagnosis: Sinus rhythm Performed with Transesophageal Echo: No Consent: Verbal and Written consent was obtained from the patient before starting and after confirming oral anticoagulation use. The patient was made aware of the risk of synchronized cardioversion including benefits and alternatives Procedure: After consent obtained, cardioversion pads were attached in anteroposterior configuration and the patient was sedated by the anesthesia team. Once adequate sedation achieved, 200 joules of synchronized energy in anteroposterior configuration Complications: None Impression: Successful conversion to sinus rhythm Recommendations: 1. 12 lead EKG 2. Complete full loading of amiodarone 400 mg b.i.d. followed by 200 mg daily 3. Start Toprol-XL 50 mg daily 4. Continue full oral anticoagulation.
--- NOTE | 2025-06-06 13:41 | PM.PNCARD ---
Subjective Subjective Date of Service: 06/06/25 Principal diagnosis: Atrial flutter, CHF Interval history: Patient status post cardioversion. Converted to sinus rhythm with stable rhythm. Review of Systems Review of Systems Yes all other systems are reviewed and are negative Physical Exam Vital Signs: Last Vital Signs Temp 97.6 F 06/06/25 13:38 Pulse 68 06/06/25 13:38 Resp 16 06/06/25 13:38 BP 140/82 H 06/06/25 13:38 Pulse Ox 96 06/06/25 13:38 O2 Del Method Room Air 06/06/25 13:38 O2 Flow Rate 2 06/06/25 13:26 Oxygen Flow Rate 4 06/02/25 00:27 BMI result Body Mass Index 48.7 Const General: cooperative, comfortable, alert, awake and anxious Nutritional Appearance: obese Orientation/consciousness: patient oriented x3 Neck Neck: Yes trachea midline, Yes supple and Yes no JVD Resp Effort & Inspection: decreased respiratory effort Auscultation: clear to auscultation bilaterally Cardio Jugular venous distension: no JVD Rate: regular rate Rhythm: regular rhythm Heart sounds: S1 normal heart sound present, S2 normal heart sound present, no click, no gallops and no murmurs GI Auscultation: normal bowel sounds Skin General skin exam: no rashes or lesions noted Neuro General: patient oriented x3 and no focal motor deficits Extrem General: Yes no clubbing, cyanosis or edema Objective Labs and Meds 06/04/25 06:14 06/04/25 06:14 Progress Note: A&P Assessment and plan (1) Atrial flutter with rapid ventricular response: Status: Acute Assessment and Plan: Atrial flutter difficult control status post cardioversion. Amiodarone loading to continue 400 mg b.i.d. for total of 2 weeks followed by 200 mg daily. Reduce metoprolol to Toprol XL to 50 mg daily. Continue full oral anticoagulation with Eliquis. Overnight observation for cardiac arrhythmias as well as do a 12 lead EKGs. (2) New onset of congestive heart failure: Status: Acute Assessment and Plan: Heart failure in setting of COVID as well as new onset atrial fibrillation. Clinically doing well. Can hold off on Lasix but continue Jardiance 10 mg daily. Continue rhythm control approach as above. Will follow with you Time Spent With Patient Time: Total time managing care of this patient today ____ minutes. Progress Note: Quality Stroke Does the patient have a stroke diagnosis?: No Procedures Date of Service Date of Service: 06/06/25
[2025-06-06] MEDS: Metoprolol Succinate ER 50 MG TAB.ER.24H PO (15:30)
--- NOTE | 2025-06-06 15:48 | P.PNIM_ITS ---
Subjective Subjective Date of Service: 06/06/25 Interval History: no symptoms from AF; had rate of high 120s this AM cardioverted, now sinus Review of Systems Review of Systems: Yes all other systems are reviewed and are negative Physical Exam 2 Vital Signs: Vital Signs: Last Vital Signs Temp 97.6 F 06/06/25 15:45 Pulse 65 06/06/25 15:45 Resp 18 06/06/25 15:45 BP 113/63 06/06/25 15:45 Pulse Ox 93 06/06/25 15:45 O2 Del Method Room Air 06/06/25 15:45 O2 Flow Rate 2 06/06/25 13:26 Oxygen Flow Rate 4 06/02/25 00:27 BMI result Body Mass Index 48.7 Gen: in no acute distress HEENT: sclera anicteric, moist mucus membranes Neck: supple Lungs: clear to auscultation bilaterally Heart: regular rate and rhythm, no murmurs Abd: soft, non-tender, non-distended, obese Ext: no edema Skin: warm/well-perfused Neuro: alert and oriented x3, no focal findings Psych: appropriate affect Objective Data Active Medications Amiodarone HCl (Amiodarone Hcl 200 Mg Tablet) 400 mg PO BID [facility] Last Admin: 06/06/25 07:53 Dose: 400 mg Documented By: LISANDRO Apixaban (Apixaban 5 Mg Tablet) 5 mg PO BID [facility] Last Admin: 06/06/25 07:53 Dose: 5 mg Documented By: LISANDRO Ceftriaxone Sodium (Ceftriaxone Sodium 1 Gm Vial) 1 gm IVPUSH Q24H [facility] Last Admin: 06/06/25 01:29 Dose: 1 gm Documented By: GEETHA Empagliflozin (Empagliflozin 10 Mg Tablet) 10 mg PO DAILY [facility] Last Admin: 06/06/25 07:53 Dose: 10 mg Documented By: LISANDRO Furosemide (Furosemide 20 Mg Tablet) 20 mg PO DAILY [facility]; Protocol Last Admin: 06/06/25 07:53 Dose: 20 mg Documented By: LISANDRO Diltiazem HCl 125 mg/ Sodium (Chloride) 125 mls @ 0 mls/hr IVCONT .Q0M [facility]; Protocol Levothyroxine Sodium 112 mcg/ (Levothyroxine Sodium 25 mcg) 137 mcg PO DAILY@0600 [facility] Last Admin: 06/06/25 07:53 Dose: 137 mcg Documented By: LISANDRO Metoprolol Succinate (Metoprolol Succinate Er 50 Mg Tab.Er.24h) 50 mg PO DAILY [facility]; Protocol Last Admin: 06/06/25 15:30 Dose: 50 mg Documented By: LISANDRO Sodium Chloride (0.9 % Sodium Chloride Flush 3 Ml Syringe) 3 ml IVFLUSH QSHIFT [facility] Last Admin: 06/06/25 07:54 Dose: 3 ml Documented By: LISANDRO Labs 06/04/25 06:14 06/04/25 06:14 Assessment and Plan (1) New onset of congestive heart failure: Status: Acute (2) Paroxysmal atrial flutter: Status: Acute (3) COVID: Status: Acute Plan d5, 70yo F with pAF, hypertension, asthma, dyslipidemia, GERD, LETI, morbid obesity and hypothyroidism presenting with dyspnea, found to have AF/RVR and hypotensive so admitted to the ICU on amiodarone drip, downgraded to telemetry 06/03 AF/RVR - s/p cardioversion 06/06, IV amiodarone load -> PO load 400 mg bid x14d then 200 mg daily; change metoprolol tartrate 50 mg qid to succinate 50 mg once daily; continue apixaban acute/chronic HFpEF: metoprolol succinate, empagliflozin, furosemide Covid-19 infection: not hypoxic, no specific treatment indicated bacteruria: coag-negative Staph, unlikely pathogen, d/c ceftriaxone levothyroxine: continue LT4 VTE ppx: apixaban dispo: home probably tomorrow In my clinical judgment, the patient requires continued inpatient hospitalization for the following reasons: s/p cardioversion Total time managing care of this patient today: 35 minutes. Quality Stroke Does the patient have a stroke diagnosis?: No VTE Prior VTE?: No VTE Risk Level:: Medical - moderate - high VTE Device Contraindication: N/A - Device Ordered VTE Drug Contraindication: N/A - Med Ordered
--- NOTE | 2025-06-06 16:09 | MHC.CM.PN ---
[facility] REVIEWED AND PER MD ROUNDS, PATIENT IS NOT MEDICALLY CLEARED FOR DISCHARGE DUE TO MANAGEMENT OF AF/RVR WITH [facility]ERSION TODAY.
[2025-06-07 03:24] VITALS: BP 122/74; PULSE 67; RESP 16; TEMP 36.2; O2SAT 92
[2025-06-07] MEDS: Levothyroxine Sodium 112 MCG, Levothyroxine Sodium 25 MCG 137 MCG PO (05:28)
--- NOTE | 2025-06-07 05:33 | PC.NURSE ---
Unscheduled administration of levothyroxine d/t 06/07/25 06:00 dose scanned on 06/06/25.
[2025-06-07 06:00] VITALS: BMI 48.6
[2025-06-07 07:38] VITALS: BP 130/66; PULSE 70; RESP 18; TEMP 36.7; O2SAT 98
[2025-06-07 07:49] LABS: Anion Gap 13 (12-20); Blood Urea Nitrogen 20 mg/dL (9-16); Calcium 8.9 mg/dL (8.4-10.2); Carbon Dioxide 27 mmol/L (22-29); Chloride 102 mmol/L (96-108); Creatinine Clr Calc Pharmacy 48.4; Estimated Glomerular Filt Rate 42; Magnesium 2.0 mg/dL (1.6-2.6); Potassium 4.0 mmol/L (3.3-5.1); Sodium 138 mmol/L (135-145)
[2025-06-07] MEDS: 0.9 % Sodium Chloride Flush 3 ML SYRINGE IVFLUSH (07:54)
[2025-06-07] MEDS: Metoprolol Succinate ER 50 MG TAB.ER.24H PO (07:54)
[2025-06-07 07:57] LABS: NT Pro B Type Natriuretic Pept 581.2 pg/mL (<300)
--- NOTE | 2025-06-07 08:16 | HO.POSTANES ---
Post Anesthesia Evaluation Post Anesthesia Evaluation Date of Service: 06/07/25 Vital Signs: Vital Signs Temp Pulse Resp BP Pulse Ox O2 Del Method 06/07/25 07:38 98.0 F 70 18 130/66 98 Room Air 06/07/25 03:24 97.2 F 67 16 122/74 92 Room Air 06/06/25 23:59 97.8 F 67 16 124/71 95 Room Air Anesthesia: Monitored Mental Status: Awake Pain Control: Satisfactory Nausea/Vomiting: None Hydration: Adequate Anesthesia-Related Issues: No Anes. Related Issues
--- NOTE | 2025-06-07 10:24 | PM.PNCARD ---
Subjective Subjective Date of Service: 06/07/25 Principal diagnosis: Atrial flutter, CHF Interval history: Status post synchronized cardioversion yesterday. Doing well. Feeling better. Less anxious. Has remained in sinus rhythm. Blood pressure is stable. Review of Systems Constitutional: Reports no additional constitutional complaints Cardiovascular: Denies chest pain, Denies rapid heart rate, Denies leg edema, Denies palpitations, Denies dyspnea, Reports dyspnea on exertion and Denies orthopnea Respiratory: Reports no additional respiratory complaints, Denies dyspnea and Reports dyspnea on exertion Gastrointestinal: Denies no additional gastrointestinal complaints Psychiatric: Reports no additional psychiatric complaints Endocrine: Denies palpitations Physical Exam Vital Signs: Last Vital Signs Temp 98.0 F 06/07/25 07:38 Pulse 70 06/07/25 07:38 Resp 18 06/07/25 07:38 BP 130/66 06/07/25 07:38 Pulse Ox 98 06/07/25 07:38 O2 Del Method Room Air 06/07/25 07:38 O2 Flow Rate 2 06/06/25 13:26 Oxygen Flow Rate 4 06/02/25 00:27 BMI result Body Mass Index 48.6 Const General: cooperative, comfortable, alert, awake and anxious Nutritional Appearance: obese Orientation/consciousness: patient oriented x3 Neck Neck: Yes trachea midline, Yes supple and Yes no JVD Resp Effort & Inspection: decreased respiratory effort Auscultation: clear to auscultation bilaterally Cardio Jugular venous distension: no JVD Rate: regular rate Rhythm: regular rhythm Heart sounds: S1 normal heart sound present, S2 normal heart sound present, no click, no gallops and no murmurs GI Auscultation: normal bowel sounds Skin General skin exam: no rashes or lesions noted Neuro General: patient oriented x3 and no focal motor deficits Extrem General: Yes no clubbing, cyanosis or edema Objective Labs and Meds 06/04/25 06:14 06/07/25 06:45 Lab results: Laboratory Results - last 24 hr 06/02/25 06/07/25 06:35 06:45 Sodium 138 Potassium 4.0 Chloride 102 Carbon Dioxide 27 Anion Gap 13 BUN 20 H Creatinine 1.25 Estim Creat Clear Calc 48.4 Estimated GFR 42 Random Glucose 111 Calcium 8.9 Magnesium 2.0 NT-Pro-B Natriuret Pep 581.2 H Ur L.pneumophila Ag Not Detected Progress Note: A&P Assessment and plan (1) Atrial flutter with rapid ventricular response: Status: Acute Assessment and Plan: Difficult control atrial flutter status post cardioversion. Continue with amiodarone loading for 2 weeks total at 400 mg b.i.d. followed by 200 mg daily. Toprol-XL due 50 mg daily. Continue full oral anticoagulation. Will set up for outpatient follow up after Holter monitoring. Most likely induced by her acute medical illness with respiratory illness with COVID. Down the line may consider alternative treatment options including possible consideration for ablation and/or switching her to flecainide therapy in few months. This was discussed with her. Continue aggressive weight loss program in the long run. Workup for sleep apnea if not already performed. (2) New onset of congestive heart failure: Status: Acute Assessment and Plan: New onset heart failure in his setting of atrial fibrillation as well as acute pulmonary issues with COVID. Clinically doing well. I do not think she needs diuretic regimen at this point time. Continue rhythm control approach as above. Continue with Jardiance therapy for now. Workup for sleep apnea. Will set up for outpatient follow-up. Thank you for allowing me to partake in her care. Patient can be discharged home from our perspective. Time Spent With Patient Time: Total time managing care of this patient today ____ minutes. Progress Note: Quality Stroke Does the patient have a stroke diagnosis?: No Procedures Date of Service Date of Service: 06/07/25
[2025-06-07 11:18] VITALS: BP 94/64; PULSE 64; RESP 18; TEMP 36.4; O2SAT 98
--- NOTE | 2025-06-07 11:56 | P.DS_ITS ---
DS: Providers Provider Date of Service: 06/07/25 Date of admission: 06/02/25 03:23 Date of discharge: 06/07/25 Primary care physician: Adalid Huerta PA-C Consults: 06/02/25 05:36 Consult to Cardiology Routine Consulting Provider: [facility] Reason for consultation: AFIB RVR hx of cardioversion in the past DS: Diagnosis Discharge Diagnosis (1) Atrial flutter with rapid ventricular response: Status: Acute (2) Acute heart failure with preserved ejection fraction (HFpEF): Status: Acute (3) COVID-19 virus infection: Status: Acute (4) Morbid obesity: Status: Acute DS: Summary Hospital Course Hospital Course: From the history and physical by the admitting sale professional digital marketing, Polina Bingham NP, 06/02/25: Patient is a 70-year female with a past medical history paroxysmal atrial fibrillation and flutter (on eliquis, Flecainide and previously cardioverted), hypertension, asthma, dyslipidemia, GERD, LETI, morbid obesity and hypothyroidism who presented to the emergency department with shortness of breath.? Patient reported she started feeling ill yesterday, but she woke up with chills, having difficulty breathing, difficulty catching her breath. According to EMS, patient's oxygen saturation was 86% on room air. She was put on 4 L of oxygen Patient also reports that she has been having also urinary tract infection symptoms for about a week, she was started on some antibiotics today. Patient has only had 1 dose. On arrival to emergency department patient is satting 92% on 4 L nasal cannula,, tachypneic to low 30s, and noted to be on AFib with RVR.?? Laboratory data significant for WBC 11.5 with high lymphocytes count, pro-BNP 3173 and lactic acid was 3 COVID PCR positive IMAGING: Chest x-ray:? My interpretation consistent with interstitial edema ED COURSE: Patient received 1 dose of ceftriaxone 1 g, dexamethasone 4 mg IV push. In potline monitor she was noted to have multiple runs what appears to be non- sustained V-tach, EKG obtained, and send to cardiology, Dr Tello, who interpreted the EKG is consistent with atrial fibrillation, not ventricular tachycardia. Rec beta arvind and hold Flecainide. Lopressor 2.5 mg x 2.? After administration of Lopressor patient's blood pressure significantly dropped, requiring initiation of vasopressor support. 70yo F with pAF, hypertension, asthma, dyslipidemia, GERD, LETI, morbid obesity and hypothyroidism presenting with dyspnea, found to have AF/RVR and hypotensive so admitted to the ICU on amiodarone drip; BP improved rapidly and she was downgraded to telemetry 06/03. Cardiology consulted. AF persisted and required cardioversion 06/06. She was switched from IV to PO amiodarone load of 400 mg bid x14d then 200 mg daily. Metoprolol tartrate 100 mg bid changed to metoprolol succinate 50 mg once daily; amlodipine discontinued. She got a cou ple of doses of IV furosemide but ongoing chronic diuretic therapy not indicated. She was started on empagliflozin. As for Covid-19, she was not persistently hypoxic so no specific treatment was indicated. She was discharged home and will follow up with Cardiology in 2 weeks. Time Attestation Discharge Coordination Time (in mins): 40 Quality: Safe Use of Opioids Does Pt have an Active Cancer Diagnosis on the Problem List?: No Quality: Stroke Does the patient have a stroke diagnosis?: No Physical Exam Vital Signs: Vital Signs: Last Vital Signs Temp 97.6 F 06/07/25 11:18 Pulse 64 06/07/25 11:18 Resp 18 06/07/25 11:18 BP 94/64 06/07/25 11:18 Pulse Ox 98 06/07/25 11:18 O2 Del Method Room Air 06/07/25 11:18 O2 Flow Rate 2 06/06/25 13:26 Oxygen Flow Rate 4 06/02/25 00:27 BMI result Body Mass Index 48.6 Gen: in no acute distress HEENT: sclera anicteric, moist mucus membranes Neck: supple Lungs: clear to auscultation bilaterally Heart: regular rate and rhythm, no murmurs Abd: soft, non-tender, non-distended, obese Ext: no edema Skin: warm/well-perfused Neuro: alert and oriented x3, no focal findings Psych: appropriate affect DS: Data Data Completed and Pending Completed studies during hospitalization [Text1]: Laboratory Results WBC 10.4 X10*3/uL (4.8-10.8) 06/04/25 06:14 RBC 4.48 X10*6/uL (4.20-5.50) 06/04/25 06:14 Hgb 12.8 g/dl (12.0-16.0) 06/04/25 06:14 Hct 39.8 % (37.0-47.0) 06/04/25 06:14 MCV 88.8 fL (80.0-98.0) 06/04/25 06:14 MCH 28.6 pg (27.0-33.0) 06/04/25 06:14 MCHC 32.2 g/dl (31.0-35.0) 06/04/25 06:14 RDW 13.2 % (11.0-16.0) 06/04/25 06:14 Plt Count 325 X10*3/uL (160-400) 06/04/25 06:14 MPV 9.0 fL (9.4-12.3) L 06/04/25 06:14 Immature Gran % (Auto) 2.8 % (0.0-0.4) H 06/04/25 06:14 Neut % (Auto) 57.6 % (45-73) 06/04/25 06:14 Lymph % (Auto) 27.1 % (20-40) 06/04/25 06:14 Mcdonough % (Auto) 5.4 % (2-11) 06/04/25 06:14 Eos % (Auto) 6.6 % (0-4) H 06/04/25 06:14 Baso % (Auto) 0.5 % (0-2) 06/04/25 06:14 Lymph # (Auto) 2.8 X10*3/uL (1.2-4.9) 06/04/25 06:14 Mcdonough # (Auto) 0.6 X10*3/uL (0.1-1.2) 06/04/25 06:14 Eos # (Auto) 0.7 X10*3/uL (0.0-0.4) H 06/04/25 06:14 Baso # (Auto) 0.1 X10*3/uL (0.0-0.2) 06/04/25 06:14 Abs Immat Gran (auto) 0.29 X10*3/uL (0.00-0.03) H 06/04/25 06:14 Absolute Neuts (auto) 6.0 x10*3/uL (2.0-8.3) 06/04/25 06:14 Absolute Nucleated RBC 0.000 X10*3/uL (0.0-0.012) 06/04/25 06:14 Nucleated RBC % (auto) 0.0 /100WBC (0.0-0.2) 06/04/25 06:14 Smear Tech's Comments VERIFIED 06/02/25 05:15 VBG pH 7.48 (7.32-7.43) H 06/03/25 05:16 VBG pCO2 36 mmHg 06/03/25 05:16 VBG pO2 60 mmHg 06/03/25 05:16 VBG HCO3 27 mmol/L (22-26) H 06/03/25 05:16 VBG O2 Saturation 89.0 % 06/03/25 05:16 VBG Base Excess 4.1 mmol/L 06/03/25 05:16 Sodium 138 mmol/L (135-145) 06/07/25 06:45 Potassium 4.0 mmol/L (3.3-5.1) 06/07/25 06:45 Chloride 102 mmol/L (96-108) 06/07/25 06:45 Carbon Dioxide 27 mmol/L (22-29) 06/07/25 06:45 Anion Gap 13 (12-20) 06/07/25 06:45 BUN 20 mg/dL (9-16) H 06/07/25 06:45 Creatinine 1.25 mg/dL (0.5-1.4) 06/07/25 06:45 Estim Creat Clear Calc 48.4 06/07/25 06:45 Estimated GFR 42 06/07/25 06:45 Random Glucose 111 mg/dL (60-115) 06/07/25 06:45 Lactic Acid 3.0 mmol/L (0.5-2.0) H* 06/02/25 03:41 Lactic Acid F/U @ 2Hr 3.1 mmol/L (0.5-2.0) H* 06/02/25 07:08 Lactic Acid F/U @ 4Hr 2.6 mmol/L (0.5-2.0) H* 06/02/25 09:25 Calcium 8.9 mg/dL (8.4-10.2) 06/07/25 06:45 Phosphorus 3.5 mg/dL (2.7-4.5) 06/04/25 06:14 Magnesium 2.0 mg/dL (1.6-2.6) 06/07/25 06:45 Total Bilirubin 0.4 mg/dL (0.0-1.0) 06/02/25 01:22 Direct Bilirubin 0.2 mg/dL (0.0-0.5) 06/02/25 01:22 AST 29 U/L (5-31) 06/02/25 01:22 ALT 23 U/L (0-31) 06/02/25 01:22 Alkaline Phosphatase 101 U/L (39-117) 06/02/25 01:22 Troponin I High Sens < 2.7 ng/L (<3.5-17.0) 06/02/25 01:22 NT-Pro-B Natriuret Pep 581.2 pg/mL (<300) H 06/07/25 06:45 Total Protein 7.1 g/dL (6.5-8.0) 06/02/25 01:22 Albumin 3.6 g/dL (3.5-5.0) 06/04/25 06:14 TSH 9.83 uIU/mL (0.32-4.0) H 06/02/25 01:22 TSH Cancelled 06/02/25 01:22 Free T4 1.23 ng/dL (0.71-1.85) 06/02/25 01:22 Urine Color Yellow 06/02/25 06:35 Urine Appearance Cloudy 06/02/25 06:35 Urine pH 5.5 (5.0-9.0) 06/02/25 06:35 Ur Specific [place] 1.010 (1.005-1.025) 06/02/25 06:35 Urine Protein Negative mg/dL (Neg-Trace) 06/02/25 06:35 Urine Glucose (UA) Negative mg/dL (Negative) 06/02/25 06:35 Urine Ketones Negative mg/dL (Negative) 06/02/25 06:35 Urine Blood Negative (Negative) 06/02/25 06:35 Urine Nitrite Negative (Negative) 06/02/25 06:35 Ur Leukocyte Esterase Moderate (2+) (Negative) H 06/02/25 06:35 Urine RBC 0-2 /HPF (0-2) 06/02/25 06:35 Urine WBC 11-20 /HPF (0-5) H 06/02/25 06:35 Ur Squamous Epith Cells >20 /HPF (0-2) 06/02/25 06:35 Urine Bacteria 1+ (None Seen) 06/02/25 06:35 Hyaline Casts 0-2 /LPF (0-2) 06/02/25 06:35 COVID-19 (YAZ) Positive (Negative) A 06/02/25 01:22 COVID-19 Clin Com See Note 06/02/25 01:22 Influenza Type A (DEANNA) Negative (Negative) 06/02/25 01:22 Influenza Type B (DEANNA) Negative (Negative) 06/02/25 01:22 Influenza A & B Note See Note 06/02/25 01:22 Ur L.pneumophila Ag Not Detected (Not Detected) 06/02/25 06:35 Discharge Plan Discharge Anticipated Discharge Date/Time: 06/07/25 11:50 Patient Disposition: Home, Self-Care Discharge Diagnosis: AF/RVR CHF Covid-19 Referrals: Adalid Huerta PA-C [Primary Care Provider, Internal Medicine] - 1 Week Discharge Medications: New amiodarone 200 mg tablet See Rx Instructions .ROUTE .COMPLEX Qty: 72 0RF Rx Instructions: 400 mg twice daily for 14 days, then 200 mg once daily metoprolol succinate 50 mg Tablet Extended Release 24 Hr 50 mg PO DAILY Qty: 30 0RF Protocol: Hold for SBP/HR < HOLD for SBP < : 90 HOLD for HR < : 60 Jardiance 10 mg Tablet 10 mg PO DAILY Qty: 30 0RF Continued (DME) Aerochamber MV Spacer See Rx Instructions .Route Qty: 1 0RF Rx Instructions: As directed estradiol 0.01 % (0.1 mg/gram) cream See Rx Instructions .Route 3XW 30 Days Qty: 42.5 2RF Rx Instructions: pea-sized to urethra daily times one month and then three times a week thereafter levothyroxine 137 mcg tablet 137 mcg PO DAILY 90 Days Qty: 90 1RF pravastatin 20 mg tablet 20 mg PO DAILY Qty: 90 1RF Eliquis 5 mg tablet 5 mg PO BID Qty: 180 3RF budesonide-formoterol 80-4.5 mcg/actuation HFA aerosol inhaler 1 puff inhalation DAILY magnesium oxide 500 mg capsule 500 mg PO DAILY sertraline [Zoloft] 50 mg tablet 25 mg PO DAILY 90 Days Qty: 45 2RF montelukast 10 mg tablet 10 mg PO DAILY cholecalciferol (vitamin D3) 125 mcg (5,000 unit) capsule 125 mcg PO DAILY trospium 20 mg tablet 20 mg PO BID Qty: 60 2RF Rx Instructions: administer on an empty stomach Discontinued amlodipine 5 mg tablet 5 mg PO DAILY Qty: 90 3RF flecainide 150 mg tablet 150 mg PO Q12H Qty: 180 3RF metoprolol tartrate 100 mg tablet 100 mg PO BID Qty: 180 3RF nitrofurantoin monohyd/m-cryst [Macrobid] 100 mg capsule 100 mg PO BID 7 Days Qty: 14 0RF Rx Instructions: must administer with a meal/food Discharge Orders: Discharge Order (Routine); Ordered 06/07/25 Ordered By: Bang Caceres Diet: Low salt diet Activity on Discharge: As tolerated Stand Alone Forms: Patient Portal Discharge page Print Language: Uzbek Care Plan Goals: cardiac health Health Concerns: AF/RVR CHF Covid-19 Plan of Treatment: amiodarone 400 mg twice daily for 14 days, then 200 mg once daily STOP amlodipine STOP flecainide change metoprolol tartrate 100 mg twice daily to metoprolol succinate 50 mg once daily follow up with Dr Garcia in 2 weeks start Jardiance 10 mg once daily Low-sodium diet: less than 2000 mg of sodium daily. Weigh yourself daily and call your doctor if your weight goes up by more than 3 lb/day or 5 lb/week. Please follow up with your primary care doctor within 1 week. Return to the hospital if you experience recurrent or worsening symptoms. Assessment: See Discharge Summary.
--- NOTE | 2025-06-07 12:44 | MHC.CM.PN ---
IMM 06/07/25, Pt. has been medically cleared to [place], She will go home via family transport, plan is self care.
== END 2025-06-07 14:42 | disposition home or self-care (01) | DRG 308 ==
LOC: HO.ED 03:38 → HO.EDOVER 03:50 → HO.ICU 03:52 → HO.IMC 06-03 16:39
PROVIDERS: Internal Medicine Cardiovascular Disease; Internal Medicine Pulmonary Disease; Registered Nurse Community Health; Admitting Provider Student in an Organized Health Care Education/Training Program; Emergency Provider Emergency Medicine; PCP Physician Assistant; Visit Provider Family Medicine
PROC: 5A2204Z Restoration of Cardiac Rhythm, Single (ICD-10-PCS; principal; 2025-06-06 12:30)
DX: I48.0 Paroxysmal atrial fibrillation (principal); I50.33 Acute on chronic diastolic (congestive) heart failure; U07.1 COVID-19; J96.01 Acute respiratory failure with hypoxia; J12.82 Pneumonia due to coronavirus disease 2019; N39.0 Urinary tract infection, site not specified; I47.20 Ventricular tachycardia, unspecified; I95.2 Hypotension due to drugs; T44.7X5A Adverse effect of beta-adrenoreceptor antagonists, initial encounter; I11.0 Hypertensive heart disease with heart failure; E03.9 Hypothyroidism, unspecified; G47.33 Obstructive sleep apnea (adult) (pediatric); Z79.01 Long term (current) use of anticoagulants; Z79.890 Hormone replacement therapy; Z79.899 Other long term (current) drug therapy
CPT/HCPCS: 36415; 71045; 80048; 80076; 81001; 82040; 82803; 83605; 83735; 83880; 84100; 84439; 84443; 84484; 85025; 87040; 87086; 87147; 87449; 87502; 87635; 92960; 93005; 93306; 99285; J0282; J0283; J0616; J0696; J1100; J1938; J2704; Q9957

== ENCOUNTER → 2025-06-02 00:41 | Outpatient (BNV) | payer MEDICARE, SELFPAY | PROVIDERS: Emergency Provider Emergency Medicine; PCP Physician Assistant; Visit Provider General Practice | DX: R06.02 Shortness of breath (principal) | CPT/HCPCS: 71045 ==

== ENCOUNTER 2025-06-02 03:23 | Outpatient (BNV) | payer MEDICARE, SELFPAY | END 2025-06-04 09:59 | PROVIDERS: Admitting Provider Student in an Organized Health Care Education/Training Program; Emergency Provider Emergency Medicine; PCP Physician Assistant; Visit Provider Internal Medicine Cardiovascular Disease | DX: I44.1 Atrioventricular block, second degree (principal); I48.92 Unspecified atrial flutter | CPT/HCPCS: 93010 ==

== ENCOUNTER 2025-06-02 03:23 | Outpatient (BNV) | payer MEDICARE, SELFPAY | END 2025-06-05 10:22 | PROVIDERS: Admitting Provider Student in an Organized Health Care Education/Training Program; Emergency Provider Emergency Medicine; PCP Physician Assistant; Visit Provider Internal Medicine Cardiovascular Disease | DX: I35.1 Nonrheumatic aortic (valve) insufficiency (principal); I51.7 Cardiomegaly; I48.92 Unspecified atrial flutter | CPT/HCPCS: 93010; 93306 ==

== ENCOUNTER 2025-06-02 03:23 | Outpatient (BNV) | payer MEDICARE, SELFPAY | END 2025-06-06 13:27 | PROVIDERS: Admitting Provider Student in an Organized Health Care Education/Training Program; Emergency Provider Emergency Medicine; PCP Physician Assistant; Visit Provider Internal Medicine Cardiovascular Disease | DX: R94.31 Abnormal electrocardiogram [ECG] [EKG] (principal) | CPT/HCPCS: 93010 ==

== ENCOUNTER → 2025-06-02 03:23 | Outpatient (BNV) | payer MEDICARE, SELFPAY | PROVIDERS: Admitting Provider Registered Nurse Community Health; Emergency Provider Emergency Medicine; PCP Physician Assistant; Visit Provider Internal Medicine Pulmonary Disease | DX: U07.1 COVID-19 (principal); J96.01 Acute respiratory failure with hypoxia; I48.91 Unspecified atrial fibrillation | CPT/HCPCS: 99231 ==

== ENCOUNTER → 2025-06-02 03:23 | Outpatient (BNV) | payer MEDICARE, SELFPAY | PROVIDERS: Admitting Provider Student in an Organized Health Care Education/Training Program; Emergency Provider Emergency Medicine; PCP Physician Assistant; Visit Provider Student in an Organized Health Care Education/Training Program | DX: I50.9 Heart failure, unspecified (principal); I48.92 Unspecified atrial flutter; U07.1 COVID-19 | CPT/HCPCS: 99222; 99232; 99239 ==

== ENCOUNTER → 2025-06-02 03:23 | Outpatient (BNV) | payer MEDICARE, SELFPAY | PROVIDERS: Admitting Provider Registered Nurse Community Health; Emergency Provider Emergency Medicine; PCP Physician Assistant; Visit Provider Internal Medicine Cardiovascular Disease | DX: I48.0 Paroxysmal atrial fibrillation (principal); I50.9 Heart failure, unspecified | CPT/HCPCS: 93010; 99223 ==

== ENCOUNTER → 2025-06-02 03:23 | Outpatient (BNV) | payer MEDICARE, SELFPAY | PROVIDERS: Admitting Provider Registered Nurse Community Health; Emergency Provider Emergency Medicine; PCP Physician Assistant; Visit Provider Registered Nurse Community Health | DX: I48.91 Unspecified atrial fibrillation (principal); I50.9 Heart failure, unspecified; J96.01 Acute respiratory failure with hypoxia; U07.1 COVID-19; I48.0 Paroxysmal atrial fibrillation; I95.9 Hypotension, unspecified | CPT/HCPCS: 99291 ==

== ENCOUNTER 2025-06-26 12:30 | Outpatient (AMB) | payer MEDICARE, SELFPAY ==
[2025-06-26 12:42] VITALS: BP 118/60; PULSE 140; BMI 45.8
--- NOTE | 2025-06-26 12:42 | MHC.OFFVIS ---
Vital Signs 06/26/25 12:42 Height 5 ft 1 in Weight 242 lb 8.136 oz BMI 45.8 BP 118/60 Blood Pressure Location Lt brachial Position Sitting Pulse 140 H Pulse Source Monitor Intake Visit Reasons: Med adjustment per DC Allergies lisinopril (LISINOPRIL) Allergy (Unknown, Verified 06/12/25 16:06) COUGH/AFIB, Cough nizatidine (From AXID) Allergy (Unknown, Verified 06/12/25 16:06) ANAPHYLAXIS Sulfa (Sulfonamide Antibiotics) (SULFA (SULFONAMIDE ANTIBIOTICS)) Allergy (Unknown, Verified 06/12/25 16:06) UNKNOWN Medication List - Last Reconciled 06/26/25 by Kwabena Garcia MD amiodarone 400 mg twice daily for 14 days, then 200 mg once daily apixaban (Eliquis) 5 mg PO BID budesonide-formoterol 80-4.5 mcg/actuation 1 puff inhalation DAILY cholecalciferol (vitamin D3) 125 mcg PO DAILY empagliflozin (Jardiance) 10 mg PO DAILY estradiol 0.01%(0.1mg/gram) pea-sized to urethra daily times one month and then three times a week thereafter 30 days fluconazole 150 mg PO Q3D 2 doses inhalational spacing device (Aerochamber MV spacer) As directed levothyroxine 137 mcg PO DAILY 90 days magnesium oxide 500 mg PO DAILY metoprolol succinate ER 75 mg See Protocol PO DAILY montelukast 10 mg PO DAILY pravastatin 20 mg PO DAILY sertraline (Zoloft) 25 mg (1/2 x 50 mg) PO DAILY 90 days trospium 20 mg PO BID HPI Comments Details: Katey returns for follow-up regarding atrial fibrillation and flutter. She has had history of ablation for the same. In 2017, she was admitted for palpitations suspected to be from atrial flutter. Cardioverted successfully. In 2018, she had recurrence of highly symptomatic atrial fibrillation leading to ER visit and another cardioversion. Then, flecainide dose was increased to 150 mg b.i.d.. After this, she was fine for almost 8-9 years till recent hospitalization with COVID. In that setting, she had atrial flutter with rapid rate and underwent cardioversion. Then started amiodarone. Today, she is back in atrial flutter with rapid rate in the clinic EKG. Based on her home vital signs, it seems that she might have had this for the last 3-4 days. She however does not have any overt symptoms at this time. [facility] Medical History Pneumonia due to COVID-19 virus Hypothyroidism Acute hypoxic respiratory failure COVID-19 virus infection Atrial fibrillation with rapid ventricular response Drug side effects Pneumonia COVID New onset of congestive heart failure LETI (obstructive sleep apnea) Paroxysmal atrial flutter PAF (paroxysmal atrial fibrillation) Asthma Dyslipidemia GERD (gastroesophageal reflux disease) Hypertension Morbid obesity Hypothyroidism due to Aj's thyroiditis History of cardioversion Surgical History History of dental surgery H/O hemorrhoidectomy History of cardiac radiofrequency ablation Hx of arthroscopy of left knee Family History Father No problems noted. Mother CHF (congestive heart failure) Dementia Daughter Mast cell activation syndrome Brother Cardiac defibrillator in place Macular degeneration Social History Household Members: Spouse Housing: Condominium Alcohol intake: never Comment: steady gait Patient Tobacco Use Status: Never used Tobacco e-Cigarette/Vaping Use: Never Used Second Hand Smoke Exposure: No service: No Current occupational status: retired Cognitive needs: No Hearing needs: No Vision needs: Yes (wear glasses) Review of Systems Const Denies weakness ENT Denies dizziness Card Denies chest pain, Denies chest pain with activity, Denies syncope, Denies rapid heart rate, Denies pedal edema, Denies edema, Denies leg edema, Denies lightheadedness, Denies palpitations, Denies dyspnea, Denies dyspnea on exertion and Denies orthopnea Resp Denies cough, Denies dyspnea and Denies dyspnea on exertion GI Denies hematochezia and Denies change in stool character Musc Denies abnormal gait, Denies muscle cramps, Denies muscle weakness, Denies numbness, Denies radiating pain into limb and Denies tingling Neuro Denies abnormal gait, Denies dizziness, Denies syncope, Denies numbness, Denies tingling and Denies weakness Endo Denies palpitations Physical Exam Vital Signs: Last Vital Signs Pulse 140 H 06/26/25 12:42 BP 118/60 06/26/25 12:42 BMI result Body Mass Index 45.8 Const General: comfortable and no acute distress Orientation/consciousness: patient oriented x3 HEENT Other: Unremarkable Head: Yes normal to inspection Neck Neck: Yes normal visual inspection Chest Chest palpation & inspection: normal inspection of the chest Resp Auscultation: clear to auscultation bilaterally Cardio Palpation: normal PMI Heart sounds: S1 normal heart sound present, S2 normal heart sound present, no gallops, no murmurs and no rubs GI Palpation (GI): Soft to palpation Back/Spine/Pelvis Other: unremarkable Skin General skin exam: no rashes or lesions noted Neuro General: patient oriented x3 Extrem General: Yes normal to inspection Psych Mental Status: mental status grossly normal Office Procedures EKG Details: EKG with atrial flutter with rapid rate 140/Min. [id number], Complete Assessment & Plan Assessment & Plan (1) Atrial flutter with rapid ventricular response: Code(s): I48.92 - Unspecified atrial flutter Category: Medical Plan: Per recent notes, COVID related atrial flutter with rapid rate and could not be controlled and hence underwent cardioversion last month. Now on Amiodarone but still went into atrial flutter with rapid rate. Needs another cardioversion. Subsequently, EP referral for ablation. (2) PAF (paroxysmal atrial fibrillation): Code(s): I48.0 - Paroxysmal atrial fibrillation Category: Medical Plan: Recent rapid rates are mostly suggestive of flutter but no on one EKG could be fibrillation. Not clear. Consider PVI during flutter ablation. EP can decide. (3) Encounter for monitoring anti-arrhythmic therapy: Code(s): Z51.81 - Encounter for therapeutic drug level monitoring; Z79.899 - Other longterm (current) drug therapy Category: Medical Plan: Was on long-term flecainide for almost 8-9 years till recently, when she was switched to Amiodarone post cardioversion. Continue that for now. Hopefully, we can stop it after ablation. (4) Atherosclerotic cardiovascular disease: Code(s): I25.10 - Atherosclerotic heart disease of [place] coronary artery without angina pectoris Category: Medical Plan: Coronary CT in 2019 showed only mild plaque and no evidence of hemodynamically significant disease. In the most recent echocardiogram, LVEF is 50-55%. Mildly dilated left atrium. Mild aortic regurgitation. Clinically no concerns. (5) Hypertension: Code(s): I10 - Essential (primary) hypertension Category: Medical Qualifiers: Hypertension type: primary hypertension Qualified Code(s): I10 - Essential (primary) hypertension Plan: Continue amlodipine. (6) LETI (obstructive sleep apnea): Code(s): G47.33 - Obstructive sleep apnea (adult) (pediatric) Category: Medical Plan: Continue CPAP. (7) Morbid obesity: Code(s): E66.01 - Morbid (severe) obesity due to excess calories Category: Medical Plan: This has been a long-term issue and has not changed in a long time. Orders: Orders Cardioversion Today Kwabena Garcia MD Referrals Cardiac Electrophysiology Referral Kwabena Garcia MD I48.92 - Unspecified atrial flutter Medications: Changed From metoprolol succinate ER 50 mg See Protocol PO DAILY 30 tabs 0RF To metoprolol succinate ER 75 mg See Protocol PO DAILY Bang Caceres MD Coding Level of Care Code Est Pt Level 4 (44345) Complex EM visit Add On G2211 Diagnoses Atrial flutter with rapid ventricular response I48.92 PAF (paroxysmal atrial fibrillation) I48.0 Encounter for monitoring anti-arrhythmic therapy Z51.81; Z79.899 Atherosclerotic cardiovascular disease I25.10 Primary hypertension I10 Hypertension type: primary hypertension LETI (obstructive sleep apnea) G47.33 Morbid obesity E66.01 CPT Codes EKG - CPT: 73232-[id number], Complete ([id number])
--- OUTSIDE RECORDS SUMMARY | 2025-06-26 14:21 | XMS_ITS | Patient Health Record ---
Author Organization [facility] Address [address] [place] [address] Care Team Providers Care Staff Respiratory Therapist Name Role Phone Adalid Huerta Primary Care Provider UnavailMarcos Martel Unavailable [phone] Allergies Allergen (clinical drug ingredient) Drug/Non Drug [...] Problem Screening for malignant neoplasm of colon (730233653) Encounter for screening for malignant neoplasm of colon (Z12.11) Active confirmed Problem Gastroesophageal reflux disease (231610300) Gastroesophageal reflux disease, esophagitis presence not specified (K21.9) Active confirmed Problem Irritable bowel syndrome (80256420) Irritable bowel syndrome with both constipation and diarrhea (K58.2) Active confirmed Plan Of Treatment Pending Test Test Name Order Date GI BIOPSY 03/09/2018 CELIAC PANEL #10 02/01/2018 Future Test Test Name Order Date UPPER GI ENDOSCOPY 02/01/2018 COLONOSCOPY 02/01/2018 Next Appt Details Provider Name:Marcos Mayorga , 09/20/2025 09:00:00 AM, [address] [place] [address], [address], [place], [address], Insurance Providers Payer Name Payer Address Payer Phone Subscriber Number Group Number Insured Name Patient Relationship to Insured Coverage Start Date Coverage End Date [address] [address] [phone] [id number] RILEY VIERA Self - patient is the insured Medical (General) History Medical History History ICD Code Asthma Atrial fibrillation--Dr. Garcia at [facility] Denies [place],DM,CVA,renal disease Aj's thyroiditis GERD Negative colonoscopy in [address] Whitehead in [place]--biopsies from colon and TI were normal--no microscopic colitis--no polyps---has hemorrhoids Sleep apnea-uses CPAP
== END 2025-06-26 13:20 | disposition home or self-care (01) ==
LOC: HO.HCS 12:31
PROVIDERS: PCP Physician Assistant; Visit Provider Internal Medicine
DX: I48.92 Unspecified atrial flutter (principal); I48.0 Paroxysmal atrial fibrillation; Z51.81 Encounter for therapeutic drug level monitoring; Z79.899 Other long term (current) drug therapy; I25.10 Atherosclerotic heart disease of native coronary artery without angina pectoris; I10 Essential (primary) hypertension; G47.33 Obstructive sleep apnea (adult) (pediatric); E66.01 Morbid (severe) obesity due to excess calories
CPT/HCPCS: 93010; 99214; G2211

== ENCOUNTER → 2025-06-26 12:30 | Outpatient (BNVA) | payer MEDICARE, SELFPAY | PROVIDERS: PCP Physician Assistant; Visit Provider Internal Medicine | DX: I25.10 Atherosclerotic heart disease of native coronary artery without angina pectoris (principal); I48.92 Unspecified atrial flutter; I48.0 Paroxysmal atrial fibrillation; I10 Essential (primary) hypertension; G47.33 Obstructive sleep apnea (adult) (pediatric); E66.01 Morbid (severe) obesity due to excess calories; Z79.899 Other long term (current) drug therapy | CPT/HCPCS: 93005; 99212 ==

== ENCOUNTER 2025-06-29 12:55 | Day surgery (SDC) | payer MEDICARE, SELFPAY ==
[2025-06-29 13:10] VITALS: BMI 46.4
[2025-06-29 13:28] VITALS: BP 136/72; PULSE 134; RESP 16; TEMP 36.1; O2SAT 96
[2025-06-29] MEDS: Lactated Ringers 1,000 ML 50 ML IVCONT (13:30)
--- NOTE | 2025-06-29 14:15 | MHC.SHP ---
Pre-Procedural Eval Section A - 24 Hr Update-Section A only Date of Service: 06/29/25 The patient is an INPATIENT: No Changes since office visit: Yes Patient answered all questions; No Cold of Flu in the past 2 weeks, No New Medical Problems and No Changes in Medication The patient has been examined within 24 hours of the surgical procedure. The History & Physical has been completed within 30 days and I have reviewed it.: Yes Section B - Complete if H&P > 30 days Chief Complaint: Unspecified atrial flutter Allergies: Allergies Allergy/AdvReac Type Severity Reaction Status Date / Time lisinopril (LISINOPRIL) Allergy Unknown COUGH/AFIB, Verified 06/12/25 16:06 Cough nizatidine (From AXID) Allergy Unknown ANAPHYLAXIS Verified 06/12/25 16:06 Sulfa (Sulfonamide Allergy Unknown UNKNOWN Verified 06/12/25 16:06 Antibiotics) (SULFA (SULFONAMIDE ANTIBIOTICS)) Plan I have reviewed the history and physical and performed a pertinent physical examination on my patient. No changes have occurred unless specified. Time Spent With Patient Time: Total time managing care of this patient today ____ minutes.
--- NOTE | 2025-06-29 15:40 | HO.ANESPROP2 ---
Documented by User: Fely Lloyd NP 06/28/25 08:47 HPI - Anesthesia Eval Consult details Narrative: 70yo F for Cardioversion Elikisha s/p same 06/06/25 with TIVA during inpt admit: Hospital course: 70yo F with pAF, hypertension, asthma, dyslipidemia, GERD, LETI, morbid obesity and hypothyroidism presenting with dyspnea, found to have AF/RVR and hypotensive so admitted to the ICU on amiodarone drip; BP improved rapidly and she was downgraded to telemetry 06/03. Cardiology consulted. AF persisted and required cardioversion 06/06. She was switched from IV to PO amiodarone load of 400 mg bid x14d then 200 mg daily. Metoprolol tartrate 100 mg bid changed to metoprolol succinate 50 mg once daily; amlodipine discontinued. She got a couple of doses of IV furosemide but ongoing chronic diuretic therapy not indicated. She was started on empagliflozin. As for Covid-19, she was not persistently hypoxic so no specific treatment was indicated. She was discharged home and will follow up with Cardiology in 2 weeks[place] [facility] [place] office visit 06/26/25 pt back in aflutter - no overt symptoms PMFSH Active Problems Active Problems: All Active Problems Acute heart failure with preserved ejection fraction (HFpEF) (Acute) Atrial flutter with rapid ventricular response (Acute) Class 3 obesity (Acute) OAB (overactive bladder) (Acute) Detrusor overactivity (Acute) Nocturia (Acute) Recurrent UTI (Acute) Colon cancer screening (Acute) Recurrent urinary tract infection (Acute) Lumbar degenerative disc disease (Acute) Degenerative cervical disc (Acute) Breast cancer screening (Acute) 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) SHARONDA positive (Acute) Polyarthralgia (Acute) Shoulder pain (Acute) Neck pain (Acute) PMR (polymyalgia rheumatica) (Acute) Annual physical exam (Acute) Pain, dental (Acute) Stomatitis herpetiformis (Acute) DIANNA (generalized anxiety disorder) (Acute) Atherosclerotic cardiovascular disease (Acute) Hypertensive urgency (Acute) UTI (urinary tract infection) (Acute) LETI (obstructive sleep apnea) (Acute) Encounter for monitoring anti-arrhythmic therapy (Acute) Anxiety (Acute) Urge incontinence of urine (Acute) Bilateral primary osteoarthritis of knee (Acute) Annual physical exam (Acute) Poison nate dermatitis (Acute) Blurry vision, right eye (Acute) Asthma (Acute) Dyslipidemia (Acute) GERD (gastroesophageal reflux disease) (Acute) Hypertension (Acute) Morbid obesity (Acute) Hypothyroidism due to Aj's thyroiditis (Acute) Past Medical History Medical History Pneumonia due to COVID-19 virus Hypothyroidism Acute hypoxic respiratory failure COVID-19 virus infection Atrial fibrillation with rapid ventricular response Drug side effects Pneumonia COVID New onset of congestive heart failure LETI (obstructive sleep apnea) Paroxysmal atrial flutter PAF (paroxysmal atrial fibrillation) Asthma Dyslipidemia GERD (gastroesophageal reflux disease) Hypertension Morbid obesity Hypothyroidism due to Aj's thyroiditis History of cardioversion Family History Family History Father No problems noted. Mother CHF (congestive heart failure) Dementia Daughter Mast cell activation syndrome Brother Cardiac defibrillator in place Macular degeneration Family history of problems with anesthesia: No Surgical History Surgical History History of dental surgery H/O hemorrhoidectomy History of cardiac radiofrequency ablation Hx of arthroscopy of left knee History of Problems with Anesthesia: No Social History Social History Household Members: Spouse Housing: Condominium Alcohol intake: never Comment: steady gait Patient Tobacco Use Status: Never used Tobacco e-Cigarette/Vaping Use: Never Used Second Hand Smoke Exposure: No service: No Current occupational status: retired Cognitive needs: No Hearing needs: No Vision needs: Yes (wear glasses) Meds Allergies Allergy/AdvReac Type Severity Reaction Status Date / Time lisinopril (LISINOPRIL) Allergy Unknown COUGH/AFIB, Verified 06/12/25 16:06 Cough nizatidine (From AXID) Allergy Unknown ANAPHYLAXIS Verified 06/12/25 16:06 Sulfa (Sulfonamide Allergy Unknown UNKNOWN Verified 06/12/25 16:06 Antibiotics) (SULFA (SULFONAMIDE ANTIBIOTICS)) Home Medications ?Medication ?Instructions ?Recorded ?Confirmed ?Last Taken ?Type cholecalciferol (vitamin D3) 125 125 mcg PO DAILY 06/03/20 06/29/25 06/01/25 22:00 History mcg (5,000 unit) capsule montelukast 10 mg tablet 10 mg PO DAILY 06/03/20 06/29/25 06/01/25 22:00 History magnesium oxide 500 mg capsule 500 mg PO DAILY 05/12/21 06/29/25 06/01/25 22:00 History budesonide-formoterol HFA 80 1 puff inhalation DAILY 06/02/25 06/29/25 06/01/25 22:00 History mcg-4.5 mcg/actuation aerosol inhaler Exam Pertinent Lab Results Pertinent Lab Results: Laboratory Tests 06/04/25 06/07/25 06:14 06:45 WBC 10.4 Hgb 12.8 Hct 39.8 Plt Count 325 Sodium 138 Potassium 4.0 Chloride 102 Carbon Dioxide 27 BUN 20 H Creatinine 1.25 Narrative Narrative: EKG 06/2025 EKG Details: EKG with atrial flutter with rapid rate 140/Min. ECHO 05/2025 Conclusions: - 1. Low normal LV ejection fraction 50-55% 2. Mildly dilated left atrium 3. Mild aortic regurgitation 4. Normal measured RV systolic pressure 5. No gross pericardial effusion Assessment and Plan Assessment Anesthesia Assessment: Chart Reviewed Final Anesthetic Review Family History of Problems with Anesthesia: No History of Problems with Anesthesia: No Documented by User: Corrie Paredes DO 06/29/25 17:12 [facility] Past Medical History Medical History Pneumonia due to COVID-19 virus Hypothyroidism Acute hypoxic respiratory failure COVID-19 virus infection Atrial fibrillation with rapid ventricular response Drug side effects Pneumonia COVID New onset of congestive heart failure LETI (obstructive sleep apnea) Paroxysmal atrial flutter PAF (paroxysmal atrial fibrillation) Asthma Dyslipidemia GERD (gastroesophageal reflux disease) Hypertension Morbid obesity Hypothyroidism due to Aj's thyroiditis History of cardioversion Family History Family History Father No problems noted. Mother CHF (congestive heart failure) Dementia Daughter Mast cell activation syndrome Brother Cardiac defibrillator in place Macular degeneration Family history of problems with anesthesia: No Surgical History Surgical History History of dental surgery H/O hemorrhoidectomy History of cardiac radiofrequency ablation Hx of arthroscopy of left knee History of Problems with Anesthesia: No Social History Social History Household Members: Spouse Housing: Condominium Alcohol intake: never Comment: steady gait Patient Tobacco Use Status: Never used Tobacco e-Cigarette/Vaping Use: Never Used Second Hand Smoke Exposure: No service: No Current occupational status: retired Cognitive needs: No Hearing needs: No Vision needs: Yes (wear glasses) Meds Allergies Allergy/AdvReac Type Severity Reaction Status Date / Time lisinopril (LISINOPRIL) Allergy Unknown COUGH/AFIB, Verified 06/12/25 16:06 Cough nizatidine (From AXID) Allergy Unknown ANAPHYLAXIS Verified 06/12/25 16:06 Sulfa (Sulfonamide Allergy Unknown UNKNOWN Verified 06/12/25 16:06 Antibiotics) (SULFA (SULFONAMIDE ANTIBIOTICS)) Home Medications ?Medication ?Instructions ?Recorded ?Confirmed ?Last Taken ?Type cholecalciferol (vitamin D3) 125 125 mcg PO DAILY 06/03/20 06/29/25 06/01/25 22:00 History mcg (5,000 unit) capsule montelukast 10 mg tablet 10 mg PO DAILY 06/03/20 06/29/25 06/01/25 22:00 History magnesium oxide 500 mg capsule 500 mg PO DAILY 05/12/21 06/29/25 06/01/25 22:00 History budesonide-formoterol HFA 80 1 puff inhalation DAILY 06/02/25 06/29/25 06/01/25 22:00 History mcg-4.5 mcg/actuation aerosol inhaler Exam Exam Date and Time: 06/29/25 1540 Height,Weight and Vital Signs: Height 5 ft 1 in Weight 111.3 kg Airway Mallampati Class: II TM Dist: >3cm Neck ROM: Full Loose/Missing/Broken Teeth: No (patient denies any loose or broken teeth) Heart: S1S2 Lungs: CTAB Assessment and Plan Assessment Anesthesia Assessment: Anesthesia Plan Discussed and Chart Reviewed Final Anesthetic Review Family History of Problems with Anesthesia: No History of Problems with Anesthesia: No NPO: Yes ASA Class: III Final Preanesthetic Review: No Changes in Pt Med Stat, Meds/Allgs Chart Reviewed, Consent Obtained/Reviewed and Anes Risks/Benef Reviewed Patient Risk: Intermediate Procedure Risk: Intermediate Anesthetic Plan Anesthetic Plan: MAC: and Agree w/ Assess. and Plan Disposition: Standard PACU
--- NOTE | 2025-06-29 15:46 | ECG_ITS ---
Test Reason : POSTOP Blood Pressure : */* mmHG Vent. Rate : 67 BPM Atrial Rate : 67 BPM P-R Int : 176 ms QRS Dur : 68 ms QT Int : 416 ms P-R-T Axes : 38 23 31 degrees QTcB Int : 439 ms Normal sinus rhythm Normal ECG When compared with ECG of 06-Jun-2025 15:05, T wave inversion no longer evident in Anterior leads Referred By: Guilherme Trujillo Electronically Signed By: GUILHERME TRUJILLO MD
--- NOTE | 2025-06-29 15:47 | HO.CARDIVERS ---
Cardioversion Procedure Note Cardioversion Date of Procedure: 06/29/2025 Ordering Provider: Dr. Garcia Performing Provider: Dr. Trujillo Indication for Procedure: Recurrent persistent atrial flutter Pre-Op Diagnosis: Same Post-Op Diagnosis: Sinus rhythm Performed with Transesophageal Echo: No History: See the most recent office note Consent: Verbal and Written consent was obtained from the patient before starting and after confirming oral anticoagulation use. The patient was made aware of the risk of synchronized cardioversion including benefits and alternatives Procedure: After consent obtained, cardioversion pads were attached in anteroposterior configuration and the patient was sedated by the anesthesia team. Once adequate sedation achieved, patient was delivered 200 joules of biphasic synchronized energy in anteroposterior configuration Complications: None Impression: Successful conversion to sinus rhythm Recommendations: 1. 12 lead EKG 2. Continue amiodarone and oral anticoagulation 3. Follow up in the office 4. Patient has been referred for EPS evaluation
[2025-06-29 15:50] VITALS: BP 109/74; PULSE 66; RESP 15; TEMP 36.6; O2SAT 94
[2025-06-29 15:55] VITALS: BP 98/57; PULSE 69; RESP 14; O2SAT 96
[2025-06-29 16:00] VITALS: BP 107/57; PULSE 69; RESP 13; O2SAT 97
[2025-06-29 16:05] VITALS: BP 108/61; PULSE 66; RESP 14; O2SAT 96
[2025-06-29 16:20] VITALS: BP 103/60; PULSE 69; RESP 15; TEMP 36.1; O2SAT 97
== END 2025-06-29 16:30 | disposition home or self-care (01) ==
PROVIDERS: PCP Physician Assistant; Visit Provider Internal Medicine Cardiovascular Disease
PROC: 5A2204Z Restoration of Cardiac Rhythm, Single (ICD-10-PCS; principal; 2025-06-29 14:30)
DX: I48.92 Unspecified atrial flutter (principal); Z79.01 Long term (current) use of anticoagulants; I10 Essential (primary) hypertension; I25.10 Atherosclerotic heart disease of native coronary artery without angina pectoris; E78.5 Hyperlipidemia, unspecified; G47.33 Obstructive sleep apnea (adult) (pediatric); E66.01 Morbid (severe) obesity due to excess calories; Z68.42 Body mass index [BMI] 45.0-49.9, adult; Z79.899 Other long term (current) drug therapy; Z79.84 Long term (current) use of oral hypoglycemic drugs; Z88.2 Allergy status to sulfonamides
CPT/HCPCS: 92960; 93005; J0461

== ENCOUNTER → 2025-06-29 12:55 | Outpatient (BNV) | payer MEDICARE, SELFPAY | PROVIDERS: PCP Physician Assistant; Visit Provider Internal Medicine Cardiovascular Disease | DX: Z13.6 Encounter for screening for cardiovascular disorders (principal) | CPT/HCPCS: 93010 ==

== ENCOUNTER → 2025-07-04 12:38 | Outpatient (REF) | payer MEDICARE, SELFPAY ==
--- NOTE | 2025-07-04 12:43 | ECG_ITS ---
Test Reason : ATRIAL FLUTTER Blood Pressure : */* mmHG Vent. Rate : 119 BPM Atrial Rate : 119 BPM P-R Int : 82 ms QRS Dur : 68 ms QT Int : 328 ms P-R-T Axes : 62 19 23 degrees QTcB Int : 461 ms Atrial flutter with rapid ventricular response Abnormal ECG When compared with ECG of 29-Jun-2025 15:48, Rhythm change Vent. rate has increased by 52 bpm Referred By: Garret Stallworth Electronically Signed By: GARRET STALLWORTH
--- OUTSIDE RECORDS SUMMARY | 2025-07-04 23:56 | XMS_ITS | Patient Health Record ---
Author Organization [facility] Address [address] [place] [address] Care Team Providers Care Sewing Supervisor Name Role Phone Adalid Huerta Primary Care Provider UnavailMarcos Martel Unavailable [phone] Allergies Allergen (clinical drug ingredient) Drug/Non Drug Allergy documented on EMR Reaction Allergy Type Onset Date Status Axid Unknown Drug Allergy Active lisinopril Lisinopril Unknown Drug Allergy Activ e Sulfa Unknown Drug Allergy Active Reason For Referral No Information Medications Medication SIG (Take, Route, Frequency, Duration) Notes Start Date End Date Status Magnesium Active Breo Ellipta Active Claritin Active Metoprolol Succinate Active Levothyroxine Sodium Active Eliquis Active Pravastatin Sodium A ctive Flecainide Acetate A ctive Montelukast Sodium A ctive Omeprazole 20 MG Capsule Delayed Release 1 capsule Orally Once a day Active Social History Tobacco Use: Social History Observation Description Date Details (start date - stop date) Former Smoker NA - NA Social History Drugs/Alcohol: Social Info Question Answer Notes Alcohol Screen Did you have a drink containing alcohol in the past year? Yes How often did you have a drink containing alcohol in the past year? 4 or more times a week (4 points) How many drinks did you have on a typical day when you were drinking in the past year? 1 or 2 drinks (0 point) How often did you have 6 or more drinks on one occasion in the past year? Never (0 point) Points 4 Interpretation Positive Tobacco Use: Social Info Question Answer Notes Tobacco Use/Smoking Patient is a former smoker How long has it been since you last smoked? 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 Section Notes: Nonsmoker; no sig alcohol Problems Problem Type SNOMED Code ICD Code Onset Dates Problem Status W/U Status Risk Notes Problem Screening for malignant neoplasm of colon (906135574) Encounter for screening for malignant neoplasm of colon (Z12.11) Active confirmed Problem Gastroesophageal reflux disease (314476428) Gastroesophageal reflux disease, esophagitis presence not specified (K21.9) Active confirmed Problem Irritable bowel syndrome (31872411) Irritable bowel syndrome with both constipation and diarrhea (K58.2) Active confirmed Plan Of Treatment Pending Test Test Name Order Date GI BIOPSY 03/09/2018 CELIAC PANEL #10 02/01/2018 Future Test Test Name Order Date UPPER GI ENDOSCOPY 02/01/2018 COLONOSCOPY 02/01/2018 Next Appt Details Provider Name:Marcos Mayorga , 09/20/2025 09:00:00 AM, [address] [place] [address], [address], [place], [address], Insurance Providers Payer Name Payer Address Payer Phone Subscriber Number Group Number Insured Name Patient Relationship to Insured Coverage Start Date Coverage End Date [address] [address] [id number] RILEY VIERA Self - patient is the insured Medical (General) History Medical History History ICD Code Asthma Atrial fibrillation--Dr. Garcia at [facility] [place] Denies [place],DM,CVA,renal disease Aj's thyroiditis GERD Negative colonoscopy in [address] Whitehead in [place]--biopsies from colon and TI were normal--no microscopic colitis--no polyps---has hemorrhoids Sleep apnea-uses CPAP
== END ==
LOC: HO.CARD 12:38
PROVIDERS: PCP Physician Assistant; Visit Provider Internal Medicine
DX: I48.92 Unspecified atrial flutter (principal)
CPT/HCPCS: 93005

== ENCOUNTER → 2025-07-04 12:43 | Outpatient (BNV) | payer MEDICARE, SELFPAY | PROVIDERS: PCP Physician Assistant; Visit Provider Internal Medicine | DX: I48.92 Unspecified atrial flutter (principal) | CPT/HCPCS: 93010 ==

== ENCOUNTER → 2025-07-05 14:29 | Outpatient (REF) | payer MEDICARE, SELFPAY ==
--- NOTE | 2025-07-05 14:40 | ECG_ITS ---
Test Reason : AFLUTTER Blood Pressure : */* mmHG Vent. Rate : 71 BPM Atrial Rate : 71 BPM P-R Int : 168 ms QRS Dur : 70 ms QT Int : 416 ms P-R-T Axes : 49 9 22 degrees QTcB Int : 452 ms Normal sinus rhythm Normal ECG When compared with ECG of 04-Jul-2025 12:51, Premature supraventricular complexes are no longer Present Vent. rate has decreased by 48 bpm Referred By: Garret Stallworth Electronically Signed By: GARRET STALLWORTH
--- OUTSIDE RECORDS SUMMARY | 2025-07-05 19:51 | XMS_ITS | Patient Health Record ---
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: Nonsmoker; no sig alcohol Problems Problem Type SNOMED Code ICD Code Onset Dates Problem Status W/U Status Risk Notes Problem Screening for malignant neoplasm of colon (201840816) Encounter for screening for malignant neoplasm of colon (Z12.11) Active confirmed Problem Gastroesophageal reflux disease (781306225) Gastroesophageal reflux disease, esophagitis presence not specified (K21.9) Active confirmed Problem Irritable bowel syndrome (04607133) Irritable bowel syndrome with both constipation and diarrhea (K58.2) Active confirmed Plan Of Treatment Pending Test Test Name Order Date GI BIOPSY 03/09/2018 CELIAC PANEL #10 02/01/2018 Future Test Test Name Order Date UPPER GI ENDOSCOPY 02/01/2018 COLONOSCOPY 02/01/2018 Next Appt Details Provider Name:Marcos Mayorga , 09/20/2025 09:00:00 AM, [address] [place] [address], [address], [place], [address], Insurance Providers Payer Name Payer Address Payer Phone Subscriber Number Group Number Insured Name Patient Relationship to Insured Coverage Start Date Coverage End Date [address] [address] [id number] RILEY VIERA Self - patient is the insured Medical (General) History Medical History History ICD Code Asthma Atrial [place] [facility] [place],CVA,renal disease Aj's thyroiditis GERD Negative colonoscopy in [address] Whitehead in [place]--biopsies from colon and TI were normal--no microscopic colitis--no polyps---has hemorrhoids Sleep apnea-uses CPAP
== END ==
LOC: HO.CARD 14:29
PROVIDERS: PCP Physician Assistant; Visit Provider Internal Medicine
DX: I48.92 Unspecified atrial flutter (principal)
CPT/HCPCS: 93005

== ENCOUNTER → 2025-07-05 14:40 | Outpatient (BNV) | payer MEDICARE, SELFPAY | PROVIDERS: PCP Physician Assistant; Visit Provider Internal Medicine | DX: I48.92 Unspecified atrial flutter (principal) | CPT/HCPCS: 93010 ==

== ENCOUNTER 2025-07-20 14:01 | Outpatient (REF) | payer MEDICARE, SELFPAY ==
[2025-07-21 01:44] LABS: Bacterial Vaginosis PCR NEGATIVE (Negative); Candida Group PCR DETECTED (Not Detect); Candida glab krusei PCR NOT DETECTED (Not Detect); Trichomonas vaginalis PCR NOT DETECTED (Not Detect)
== END 2025-07-20 14:02 | disposition home or self-care (01) ==
LOC: HO.LNP 14:01
PROVIDERS: PCP Physician Assistant; Visit Provider Advanced Practice Midwife
DX: N76.0 Acute vaginitis (principal)
CPT/HCPCS: 81515

== ENCOUNTER 2025-08-15 08:55 | Emergency (ER) | payer MEDICARE, SELFPAY ==
[2025-08-15] VITALS (11 sets, daily range): BP systolic 107–123; BP diastolic 58–98; PULSE 65–148; RESP 13–20; TEMP 36.1–36.6; O2SAT 95–98; BMI 46.9
--- OUTSIDE RECORDS SUMMARY | 2025-08-15 09:18 | XMS_ITS | Patient Health Record ---
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: Nonsmoker; no sig alcohol Problems Problem Type SNOMED Code ICD Code Onset Dates Problem Status W/U Status Risk Notes Problem Screening for malignant neoplasm of colon (961483838) Encounter for screening for malignant neoplasm of colon (Z12.11) Active confirmed Problem Gastroesophageal reflux disease (434992347) Gastroesophageal reflux disease, esophagitis presence not specified (K21.9) Active confirmed Problem Irritable bowel syndrome (87110262) Irritable bowel syndrome with both constipation and diarrhea (K58.2) Active confirmed Plan Of Treatment Pending Test Test Name Order Date GI BIOPSY 03/09/2018 CELIAC PANEL #10 02/01/2018 Future Test Test Name Order Date UPPER GI ENDOSCOPY 02/01/2018 COLONOSCOPY 02/01/2018 Next Appt Details Provider Name:Marcos Mayorga , 09/20/2025 09:00:00 AM, [address] [place] [address], [address], [place], [address], Insurance Providers Payer Name Payer Address Payer Phone Subscriber Number Group Number Insured Name Patient Relationship to Insured Coverage Start Date Coverage End Date [address] [address] [id number] RILEY VIERA Self - patient is the insured Medical (General) History Medical History History ICD Code Asthma Atrial fibrillation--Dr. Garcia at [facility] [place] Denies [place],DM,CVA,renal disease Aj's thyroiditis GERD Negative colonoscopy in [address] Whitehead in [place]--biopsies from colon and TI were normal--no microscopic colitis--no polyps---has hemorrhoids Sleep apnea-uses CPAP
--- NOTE | 2025-08-15 09:21 | ED.ARRPALP ---
HPI - Arrhythmia/Palpitations General Chief Complaint: Arrhythmia/Palpitations Stated Complaint: Supermanian sent pt here for cardioversion Time Seen by Provider: 08/15/25 09:20 Source: patient Mode of arrival: ambulatory Limitations: no limitations History of Present Illness ED Provider: Dr. Joni Carlson HPI narrative: 70-year-old female with a history of paroxysmal atrial fibrillation, obstructive sleep apnea, asthma, dyslipidemia, hypertension, HFpEF, GERD who presents emergency department for evaluation and feeling weak, off balance, lightheaded, dizzy and head pressure. Patient states that her fit bit watch showed that she had a rapid heart rate 140-160. The patient contacted her purchasing administrator, Dr. Garcia and he advised her to go to the emergency department for evaluation. Dr. Garcia did come to the emergency department and I did discuss the patient with him. The patient is on amiodarone 200 mg daily. The patient is also taking Eliquis 5 mg twice a day. Dr. Garcia recommended cardioversion if the patient was stable. The patient did not take her Eliquis this morning or her amiodarone. Related Data Home Medications ?Medication ?Instructions ?Recorded ?Confirmed cholecalciferol (vitamin D3) 125 125 mcg PO DAILY 06/03/20 07/20/25 mcg (5,000 unit) capsule magnesium oxide 500 mg capsule 500 mg PO DAILY 05/12/21 07/20/25 budesonide-formoterol HFA 80 1 puff inhalation DAILY 06/02/25 07/20/25 mcg-4.5 mcg/actuation aerosol inhaler Previous Rx's ?Medication ?Instructions ?Recorded inhalational spacing device #1 ea 06/08/22 (Aerochamber MV spacer) pravastatin 20 mg tablet 20 mg PO DAILY #90 tabs 03/17/25 apixaban 5 mg tablet (Eliquis) 5 mg PO BID #180 tabs 04/13/25 estradiol 0.01% (0.1 mg/gram) See Rx Instructions .Route 3XW 30 06/12/25 vaginal cream days #42.5 grams metoprolol succinate 50 mg 75 mg PO DAILY 90 days #135 tabs 06/27/25 tablet,extended release 24 hr amiodarone 200 mg tablet 200 mg PO DAILY 90 days #90 tabs 06/28/25 digoxin 125 mcg (0.125 mg) tablet 125 mcg PO DAILY #30 tabs 07/05/25 empagliflozin 10 mg tablet 10 mg PO DAILY #90 tabs 07/06/25 (Jardiance) sertraline 50 mg tablet (Zoloft) 25 mg (1/2 x 50 mg) PO DAILY 90 07/09/25 days #45 tabs terconazole 0.8 % vaginal cream 1 appful vaginal BEDTIME 3 days 07/24/25 #20 grams trospium 20 mg tablet 20 mg PO BID 90 days #180 tabs 08/10/25 levothyroxine 137 mcg tablet 137 mcg PO DAILY 90 days #90 tabs 08/12/25 montelukast 10 mg tablet 10 mg PO DAILY 90 days #90 tabs 08/12/25 Allergies Allergy/AdvReac Type Severity Reaction Status Date / Time lisinopril (LISINOPRIL) Allergy Unknown COUGH/AFIB, Verified 08/15/25 09:03 Cough nizatidine (From AXID) Allergy Unknown ANAPHYLAXIS Verified 08/15/25 09:03 Sulfa (Sulfonamide Allergy Unknown UNKNOWN Verified 08/15/25 09:03 Antibiotics) (SULFA (SULFONAMIDE ANTIBIOTICS)) [facility] Past Medical History [facility] Narrative: Social history: She is . She denies tobacco, alcohol and drug use Medical History Pneumonia due to COVID-19 virus Hypothyroidism Acute hypoxic respiratory failure COVID-19 virus infection Atrial fibrillation with rapid ventricular response Drug side effects Pneumonia COVID New onset of congestive heart failure LETI (obstructive sleep apnea) Paroxysmal atrial flutter PAF (paroxysmal atrial fibrillation) Asthma Dyslipidemia GERD (gastroesophageal reflux disease) Hypertension Morbid obesity Hypothyroidism due to Aj's thyroiditis History of cardioversion Surgical History History of dental surgery H/O hemorrhoidectomy History of cardiac radiofrequency ablation Hx of arthroscopy of left knee Family History Family History Father No problems noted. Mother CHF (congestive heart failure) Dementia Daughter Mast cell activation syndrome Brother Cardiac defibrillator in place Macular degeneration Social History Social History Household Members: Spouse Housing: Condominium Alcohol intake: never Comment: steady gait Patient Tobacco Use Status: Never used Tobacco Smoked in Last 30 Days: No e-Cigarette/Vaping Use: Never Used Second Hand Smoke Exposure: No Advance Directives: Yes Advance Directives Information Provided: No Advance Directives on File: No service: No Current occupational status: retired Cognitive needs: No Hearing needs: No Vision needs: Yes (wear glasses) Physical Exam Vital Signs: Vital Signs: Last Vital Signs Temp 97.8 F 08/15/25 13:16 Pulse 74 08/15/25 13:16 Resp 16 08/15/25 13:16 BP 121/74 08/15/25 13:16 Pulse Ox 97 08/15/25 13:16 O2 Del Method Room Air 08/15/25 13:16 BMI result Body Mass Index 46.9 Vital signs were normal Exam: General: Awake, alert in no distress Head: Normocephalic, atraumatic EENT: PERRL, sclera and conjunctiva are normal, mouth with no erythema or exudates Neck: Supple, no adenopathy Lung: breath sounds symmetric, no wheezing, no rales and no rhonchi Chest: symmetric movement, nontender Heart: Irregularly irregular rate, rapid rhythm, normal S1, S2 no murmurs or rubs Abdomen: soft, non-tender, nondistended, normal bowel sounds Back: no vertebral tenderness, no CVAT Extremities: no deformities, moves all extremities symmetrically, no edema Neuro: Awake, alert, oriented, normal speech, cranial nerves 2-12 intact, moves all extremities symmetrically Psych: Pleasant, cooperative Medications Administered Discontinued Medications Generic Name Dose Route Start Last Admin Trade Name Eleonora PRN Reason Stop Dose Admin Amiodarone HCl 400 mg 08/15/25 12:47 08/15/25 12:51 Amiodarone Hcl 200 Mg Tablet PO 08/15/25 12:48 400 mg ONCE ONE Administration Apixaban 5 mg 08/15/25 11:46 08/15/25 12:49 Apixaban 5 Mg Tablet PO 08/15/25 11:47 5 mg ONCE ONE Administration Fentanyl 50 mcg 08/15/25 09:42 08/15/25 11:37 Fentanyl Citrate/Pf 100 Mcg/2 Ml Vial IVPUSH 08/15/25 09:43 50 mcg ONCE ONE Administration Protocol Propofol 120 mg 08/15/25 09:42 08/15/25 11:40 Propofol 200 Mg/20 Ml Vial IVPUSH 08/15/25 09:43 40 mg ONCE ONE Administration Medical Decision Making Medical Decision Making [facility] Narrative: 70-year-old female with a history of paroxysmal atrial fibrillation, obstructive sleep apnea, asthma, dyslipidemia, hypertension, HFpEF, GERD who presents emergency department for evaluation and feeling weak, off balance, lightheaded, dizzy and head pressure. Patient noted rapid heart rate on her fit did monitor. In the emergency department the patient was in atrial fibrillation/flutter with a ventricular rate between 140 and 160 beats per minute. Differential diagnosis: ?Includes but is not limited to atrial fibrillation, atrial flutter, myocardial infarction, myocardial ischemia, anemia, electrolyte abnormalities Course: 11:30 My independent interpretation patient's laboratory evaluation is as follows: CBC was normal. CMP was normal. Troponin was below detectable limits. Urinalysis was positive for leukocytes. Microscopic revealed 0-2 RBCs, 11-20 WBCs, 1+ bacteria, 11-20 squamous 12:50 The patient's laboratory evaluation is unremarkable. Patient was stable for cardioversion. Patient was given procedural sedation with fentanyl 50 mcg IV and propofol 40 mg IV your good response. Patient was cardioverted with 200 joules x1 shock. Repeat EKG shows that the patient is in a sinus rhythm. The patient is now awake and alert and can answer questions appropriately. I did discuss the cardioversion and treatment plan over tiger text with Dr. Garcia. He recommended increasing her amiodarone to 400 mg daily, stopping the digoxin and continuing the metoprolol at the same dose. Patient was given a dose of Eliquis 5 mg orally and amiodarone 400 mg orally here in the emergency department. Patient was discharged home in the care of her . Differential Diagnosis Differential Diagnoses: The differential diagnosis associated with the presentation includes (See above) Admission/Observation Consideration of admission/observation: Escalation of care including admission/observation considered (Yes) Consult Healthcare Provider Management of the patient was discussed with: Surgical Appliance Fitter (Poker Dealer, Dr. Garcia) Lab Data [facility] Lab Attestation statement: I reviewed the patient's lab results. 08/15/25 09:59 08/15/25 09:59 Labs: Lab Results 08/15/25 08/15/25 Range/Units 09:59 10:14 WBC 6.2 (4.8-10.8) X10*3/uL RBC 5.13 (4.20-5.50) X10*6/uL Hgb 14.7 (12.0-16.0) g/dl Hct 45.5 (37.0-47.0) % MCV 88.7 (80.0-98.0) fL MCH 28.7 (27.0-33.0) pg MCHC 32.3 (31.0-35.0) g/dl RDW 13.1 (11.0-16.0) % Plt Count 270 (160-400) X10*3/uL MPV 9.0 L (9.4-12.3) fL Immature Gran % (Auto) 0.5 H (0.0-0.4) % Neut % (Auto) 66.8 (45-73) % Lymph % (Auto) 20.3 (20-40) % [place] % (Auto) 7.7 (2-11) % Eos % (Auto) 3.9 (0-4) % Baso % (Auto) 0.8 (0-2) % Lymph # (Auto) 1.3 (1.2-4.9) X10*3/uL [place]y # (Auto) 0.5 (0.1-1.2) X10*3/uL Eos # (Auto) 0.2 (0.0-0.4) X10*3/uL Baso # (Auto) 0.1 (0.0-0.2) X10*3/uL Abs Immat Gran (auto) 0.03 (0.00-0.03) X10*3/uL Absolute Neuts (auto) 4.2 (2.0-8.3) x10*3/uL Absolute Nucleated RBC 0.000 (0.0-0.012) X10*3/uL Nucleated RBC % (auto) 0.0 (0.0-0.2) /100WBC Sodium 140 (135-145) mmol/L Potassium 4.5 (3.3-5.1) mmol/L Chloride 108 (96-108) mmol/L Carbon Dioxide 24 (22-29) mmol/L Anion Gap 13 (12-20) BUN 23 H (9-16) mg/dL Creatinine 1.23 (0.5-1.4) mg/dL Estim Creat Clear Calc 48.0 Estimated GFR 43 Random Glucose 113 (60-115) mg/dL Calcium 9.6 D (8.4-10.2) mg/dL Total Bilirubin 0.4 (0.0-1.0) mg/dL AST 31 (5-31) U/L ALT 31 (0-31) U/L Alkaline Phosphatase 84 (39-117) U/L Troponin I High Sens < 2.7 (<3.5-17.0) ng/L Total Protein 7.6 (6.5-8.0) g/dL Albumin 3.9 (3.5-5.0) g/dL Urine Color Yellow Urine Appearance Clear Urine pH 6.0 (5.0-9.0) Ur Specific [place] 1.020 (1.005-1.025) Urine Protein Negative (Neg-Trace) mg/dL Urine Glucose (UA) >=1000 H (Negative) mg/dL Urine Ketones Negative (Negative) mg/dL Urine Blood Negative (Negative) Urine Nitrite Negative (Negative) Ur Leukocyte Esterase Small (1+) H (Negative) Urine RBC 0-2 (0-2) /HPF Urine WBC 11-20 H (0-5) /HPF Ur Squamous Epith Cells 11-20 (0-2) /HPF Urine Bacteria 1+ (None Seen) Hyaline Casts 0-2 (0-2) /LPF Independent Interpretation I performed an independent interpretation of an: EKG Interpretation: My independent interpretation of the patient's 1st EKG done on 08/15/2025 at 09:47 hours is as follows: Atrial flutter with a 2-1 AV block with a ventricular rate of 143, normal QRS and QTC interval, no ST segment elevation, no ST segment depression, poor R-wave progression V1 to V3, no significant T-wave abnormalities. My independent interpretation of the patient's 2nd EKG done on 08/15/2025 at 11:54 hours after cardioversion is as follows: Normal sinus rhythm rate of 65, normal WA interval, QRS duration QTC interval, no ST segment elevation, no ST segment depression, inverted T-waves in lead 3 and V1, no PACs, no PVCs. Chronic Conditions Patient?s care impacted by: Hypertension Procedures Procedure Narrative Procedure Narrative: Procedure: Cardioversion for atrial fibrillation with RVR using procedural sedation I did discuss the risks , benefits and alternatives of cardioversion and procedural sedation with the patient and she did sign the consent form. Patient was placed on a cardiac, end-tidal CO2 and O2 saturation monitor. Respiratory therapy was present throughout the whole procedure to monitor respiratory status. Defibrillation pads were placed on the front and back of the patient's chest then connected to the defibrillator and defibrillator monitor. Time-out was performed. The patient was given fentanyl 50 mcg IV for pain. Patient was also given propofol 40 mg IV with good effect. Patient was cardioverted with 200 joules on the 1st attempt. Patient was observed until she was awake and alert. Patient had no memory of the procedure. Patient's repeat EKG revealed sinus rhythm. Discharge Plan Discharge Clinical Impression: Atrial fibrillation Patient Disposition: Home, Self-Care Additional Instructions: You were given fentanyl 50 mcg IV and propofol 40 mg IV for pain and for sedation. You were cardioverted (shocked) with 200 joules x1 shock. You are now in a normal sinus rhythm which is reassuring. Dr. Garcia wants you to increase your amiodarone from 200 mg daily to 400 mg daily. You were given a dose of amiodarone 400 mg here in the emergency department. Take your next amiodarone 400 mg dose tomorrow morning. Dr. Garcia wants you to stop your digoxin but continue your Eliquis and your metoprolol. You were given your moaning dose of Eliquis 5 mg orally here in the emergency department. Please follow the instructions for procedural sedation. Insert discharge follow-up return. Prescriptions: No Action (DME) Aerochamber MV Spacer See Rx Instructions .Route Qty: 1 0RF Rx Instructions: As directed pravastatin 20 mg tablet 20 mg PO DAILY Qty: 90 1RF Eliquis 5 mg tablet 5 mg PO BID Qty: 180 3RF metoprolol succinate 50 mg tablet extended release 24 hr 75 mg PO DAILY 90 Days Qty: 135 3RF Protocol: Hold for SBP/HR < HOLD for SBP < : 90 HOLD for HR < : 60 amiodarone 200 mg tablet 200 mg PO DAILY 90 Days Qty: 90 1RF digoxin 125 mcg (0.125 mg) tablet 125 mcg PO DAILY Qty: 30 5RF Jardiance 10 mg tablet 10 mg PO DAILY Qty: 90 3RF sertraline [Zoloft] 50 mg tablet 25 mg PO DAILY 90 Days Qty: 45 2RF terconazole 0.8 % cream 1 appful vaginal BEDTIME 3 Days Qty: 20 0RF trospium 20 mg tablet 20 mg PO BID 90 Days Qty: 180 2RF Rx Instructions: administer on an empty stomach levothyroxine 137 mcg tablet 137 mcg PO DAILY 90 Days Qty: 90 1RF montelukast 10 mg tablet 10 mg PO DAILY 90 Days Qty: 90 1RF budesonide-formoterol 80-4.5 mcg/actuation HFA aerosol inhaler 1 puff inhalation DAILY magnesium oxide 500 mg capsule 500 mg PO DAILY cholecalciferol (vitamin D3) 125 mcg (5,000 unit) capsule 125 mcg PO DAILY estradiol 0.01 % (0.1 mg/gram) cream See Rx Instructions .Route 3XW 30 Days Qty: 42.5 2RF Rx Instructions: pea-sized to urethra daily times one month and then three times a week thereafter Interventions: ED Discharge Assessment Last Done: 08/15/25 13:16 Discharge Date/Time: 08/15/25 13:23 Print Language: Khmer
--- NOTE | 2025-08-15 09:24 | ECG_ITS ---
Test Reason : ARRHYTHMIA Blood Pressure : */* mmHG Vent. Rate : 143 BPM Atrial Rate : 286 BPM P-R Int : * ms QRS Dur : 64 ms QT Int : 274 ms P-R-T Axes : 42 20 38 degrees QTcB Int : 422 ms Atrial flutter with 2:1 A-V conduction Cannot rule out Anterior infarct , age undetermined Abnormal ECG When compared with ECG of 05-Jul-2025 14:43, Atrial flutter has replaced Sinus rhythm Vent. rate has increased by 72 bpm Referred By: Joni Carlson Electronically Signed By: GARRET STALLWORTH
[2025-08-15 10:05] LABS: MANUAL DIFF FLAG NO
[2025-08-15 10:07] LABS: Hematocrit 45.5 % (37.0-47.0); Hemoglobin 14.7 g/dl (12.0-16.0); Imm Gran Abs Auto 0.03 X10*3/uL (0.00-0.03); Imm Gran Pct Auto 0.5 % (0.0-0.4); Lymphocytes Absolute Auto 1.3 X10*3/uL (1.2-4.9); Mean Corpuscular HGB Conc 32.3 g/dl (31.0-35.0); Mean Corpuscular Hemoglobin 28.7 pg (27.0-33.0); Mean Corpuscular Volume 88.7 fL (80.0-98.0); NRBC Abs Auto 0.000 X10*3/uL (0.0-0.012); NRBC Pct Auto 0.0 /100WBC (0.0-0.2); Platelet Count 270 X10*3/uL (160-400); Red Blood Count 5.13 X10*6/uL (4.20-5.50); White Blood Count 6.2 X10*3/uL (4.8-10.8)
[2025-08-15 10:21] LABS: Alanine Aminotransferase 31 U/L (0-31); Albumin Level 3.9 g/dL (3.5-5.0); Alkaline Phosphatase 84 U/L (39-117); Anion Gap 13 (12-20); Aspartate Amino Transferase 31 U/L (5-31); Blood Urea Nitrogen 23 mg/dL (9-16); Calcium 9.6 mg/dL (8.4-10.2); Carbon Dioxide 24 mmol/L (22-29); Chloride 108 mmol/L (96-108); Creatinine Clr Calc Pharmacy 48.0; Estimated Glomerular Filt Rate 43; Potassium 4.5 mmol/L (3.3-5.1); Sodium 140 mmol/L (135-145); Total Protein 7.6 g/dL (6.5-8.0)
[2025-08-15 10:28] LABS: Appearance Urine Clear; Glucose Urine UA >=1000 mg/dL (Negative); PH 6.0 (5.0-9.0); Specific Gravity - Urine 1.020 (1.005-1.025); UMIC TRIGGER UACC YES
[2025-08-15 10:30] LABS: Troponin-I High Sensitivity < 2.7 ng/L (<3.5-17.0)
[2025-08-15 10:33] LABS: UACC Culture Trigger YES
--- NOTE | 2025-08-15 10:44 | PC.NURSE ---
pt comes to ED with reports of rapid heart rate x2 days at home. she states she checkers her rate on her fit-bit and it has been in the 140s. hx of cardiac ablation 13 years ago and 2x recent conversions in the past year. She called Dr. Garcia's office who advised to come into ED> IV in right AC, tele rate consistent 140-145. aflutter AOx4. no pain, reports feeling low energy at home
--- NOTE | 2025-08-15 11:48 | ECG_ITS ---
Test Reason : CARDIOVERTED RHYTHM CHANGE Blood Pressure : */* mmHG Vent. Rate : 65 BPM Atrial Rate : 65 BPM P-R Int : 172 ms QRS Dur : 68 ms QT Int : 420 ms P-R-T Axes : 13 -10 3 degrees QTcB Int : 436 ms Normal sinus rhythm Minimal voltage criteria for LVH, may be normal variant ( R in aVL ) Possible Anterior infarct (cited on or before 15-Aug-2025) Abnormal ECG When compared with ECG of 15-Aug-2025 09:47, Sinus rhythm has replaced Atrial flutter Vent. rate has decreased by 78 bpm Referred By: Joni Carlson Electronically Signed By: GARRET STALLWORTH
== END 2025-08-15 13:23 | disposition home or self-care (01) ==
PROVIDERS: Emergency Provider Emergency Medicine Emergency Medical Services; PCP Physician Assistant
DX: I48.0 Paroxysmal atrial fibrillation (principal); I11.0 Hypertensive heart disease with heart failure; I50.22 Chronic systolic (congestive) heart failure; E66.01 Morbid (severe) obesity due to excess calories; Z68.42 Body mass index [BMI] 45.0-49.9, adult; Z79.899 Other long term (current) drug therapy; Z87.09 Personal history of other diseases of the respiratory system
CPT/HCPCS: 36415; 80053; 81001; 84484; 85025; 87086; 92960; 93005; 96374; 96375; 99285; J2704; J3010

== ENCOUNTER → 2025-08-15 09:24 | Outpatient (BNV) | payer MEDICARE, SELFPAY | PROVIDERS: Emergency Provider Emergency Medicine Emergency Medical Services; PCP Physician Assistant; Visit Provider Internal Medicine | DX: I48.92 Unspecified atrial flutter (principal); I44.1 Atrioventricular block, second degree; R94.31 Abnormal electrocardiogram [ECG] [EKG]; Z13.6 Encounter for screening for cardiovascular disorders | CPT/HCPCS: 93010 ==